=== PATIENT | female | born 1940 | race Caucasian/White ===

== ENCOUNTER 2018-05-25 12:44 | Outpatient (CLI) | payer MEDICARE, SELFPAY ==
--- NOTE | 2018-05-25 06:00 | DI.RAD_ITS ---
SYMPTOMS/DIAGNOSIS: LUMBAR MEDIAL BRANCH BLOCK PAIN CLINIC LUMBAR SPINE: Fluoroscopy Time: 18.2 sec Fluoroscopy was utilized by Dr. Martinez during the performance of a lumbar medial branch block. Please refer to the procedure report for complete details.
[2018-05-25 12:50] VITALS: BP 146/76; PULSE 80; RESP 16; TEMP 35.5; O2SAT 100
[2018-05-25] MEDS: Omnipaque 240 MG/ML 50 ML BTL IJ (13:17)
[2018-05-25] MEDS: Bupivacaine 0.5% Pres-Free 30 ML VIAL IJ (13:24)
[2018-05-25 13:38] VITALS: BP 134/75; PULSE 98; RESP 19; O2SAT 100
--- NOTE | 2018-06-06 15:07 | PDOC.PAIN_ITS ---
Pain Clinic Procedure Note Current Active Problems Problem Status Onset Spondylosis of lumbar region without myelopathy or radiculopathy Acute Lumbar/Sacral Medial Branch Blocks ISIDRO SIDHU has been [facility] for lumbar/sacral medial branch blocks. COMMENTS: Patient has had bilateral SI joint injections with some relief. She also had a trochanteric bursa injection. She says she is approximately 50% better. She still having right-sided low back pain. Patient was interviewed and the medical record reviewed. There were no medical , pharmacologic, radiographic or other structural contraindications to attempting fluoroscopically guided local anesthetic lumbar/sacral medial branch blocks. Risks and expected side effects as well as potential benefit of the procedure were reviewed and voiced concerns addressed. The printed consent form was signed and witnessed. Standard time-out procedure was performed. Patient was placed in the prone position on the fluoroscopy table and automated blood pressure cuff and pulse oximeter applied. The skin entry points for approaching the anatomic target points of the segmental medial branches of {right/ L3,4,5} were identified with anfluoroscopy and marked. Following thorough Chlorhexadine preparation of the skin and draping and 1% lidocaine infiltration of the skin entry points and subcutaneous tissues, a 22 gauge spinal needle was placed under fluoroscopic guidance down on to the target point for each respective segmental medial branch.Position was confirmed in A/P, oblique and lateral views with 0.25ml of omnipaque 240. At each point .5ml 0.5% Bupivacaine was injected. Vital signs were stable throughout the procedure and were as recorded in the docflowsheet by the nursing staff. Follow up plans and appointments were discussed and was instructed to keep careful note of how the usual pain was modified by these injections. Specifically was asked to keep a pain diary for the next 24 hours using a numeric pain scale of 0-10 and report these results at the follow-up visit. Post procedure instruction was given as documented in the nursing documentation and having met discharge criteria. Patient was discharged from the [facility]. Based on the medial branches blocked today, if the patient has adequate relief and we are able to proceed to radiofrequency ablation, the treatment should result in the denervation of the {right/ L4-5,L5-S1 FACET JOINTS}. We would expect to denervate a total of {2} facets during the radiofrequency ablation. COMMENTS: He went from 12/21-10/23. She will follow-up repeat 2% lidocaine mixed bacteria otherwise she will follow-up in the office for re-evaluation CC: Laura Gonzalez
--- NOTE | 2018-06-08 15:09 | PDOC.PAIN_ITS ---
Pain Clinic Procedure Note Current Active Problems Problem Status Onset Spondylosis of lumbar region without myelopathy or radiculopathy Acute Lumbar/Sacral Medial Branch Blocks ISIDRO SIDHU has been referred to the [facility] for lumbar/sacral medial branch blocks. COMMENTS: Patient had previous medial branch block with bupivacaine which lasted over 24 hours Patient was interviewed and the medical record reviewed. There were no medical , pharmacologic, radiographic or other structural contraindications to attempting fluoroscopically guided local anesthetic lumbar/sacral medial branch blocks. Risks and expected side effects as well as potential benefit of the procedure were reviewed and voiced concerns addressed. The printed consent form was signed and witnessed. Standard time-out procedure was performed. Patient was placed in the prone position on the fluoroscopy table and automated blood pressure cuff and pulse oximeter applied. The skin entry points for approaching the anatomic target points of the segmental medial branches of {right/L3, 4, 5} were identified with anfluoroscopy and marked. Following thorough Chlorhexadine preparation of the skin and draping and 1% lidocaine infiltration of the skin entry points and subcutaneous tissues, a 22 gauge spinal needle was placed under fluoroscopic guidance down on to the target point for each respective segmental medial branch.Position was confirmed in A/P, oblique and lateral views with 0.25ml of omnipaque 240. At each point .5ml 2% lidocaine was injected. Vital signs were stable throughout the procedure and were as recorded in the docflowsheet by the nursing staff. Follow up plans and appointments were discussed and was instructed to keep careful note of how the usual pain was modified by these injections. Specifically was asked to keep a pain diary for the next 24 hours using a numeric pain scale of 0-10 and report these results at the follow-up visit. Post procedure instruction was given as documented in the nursing documentation and having met discharge criteria. Patient was discharged from the [facility]. Based on the medial branches blocked today, if the patient has adequate relief and we are able to proceed to radiofrequency ablation, the treatment should result in the denervation of the {right L4-5, L5-S1 FACET JOINTS}. We would expect to denervate a total of {2} facets during the radiofrequency ablation. COMMENTS: Pain went from 4/10-2/10. She will follow-up for radiofrequency ablation if she criteria. CC: Laura Gonzalez
== END 2018-05-25 13:04 ==
PROVIDERS: PCP Family Medicine; Visit Provider Anesthesiology Pain Medicine
DX: M47.816 Spondylosis without myelopathy or radiculopathy, lumbar region (principal)
CPT/HCPCS: 64493; 64494; 64495; 72100; Q9967

== ENCOUNTER 2018-06-08 13:47 | Outpatient (CLI) | payer MEDICARE, SELFPAY ==
--- NOTE | 2018-06-08 06:00 | DI.RAD_ITS ---
SYMPTOM/DIAGNOSIS: LUMBAR SPONDYLOSIS PAIN CLINIC: Fluoroscopy Time: 13.6 secs Images submitted from the Pain Clinic demonstrate needle positioning over the region of the facet joints in right paramedian position at L3-4, L4-5 and L5- S1. Please see Dr. Martinez's report for further information.
[2018-06-08 14:20] VITALS: BP 145/79; PULSE 89; RESP 16; TEMP 35.8; O2SAT 100
[2018-06-08] MEDS: Omnipaque 240 MG/ML 50 ML BTL IJ (15:07)
[2018-06-08 15:08] VITALS: BP 165/81; PULSE 100; RESP 21; O2SAT 100
[2018-06-08] MEDS: Lidocaine 2% Pres-Free 5 ML VIAL IJ (15:08)
== END 2018-06-08 14:07 ==
PROVIDERS: PCP Family Medicine; Visit Provider Anesthesiology Pain Medicine
DX: M47.816 Spondylosis without myelopathy or radiculopathy, lumbar region (principal)
CPT/HCPCS: 64493; 64494; 64495; 72100; Q9967

== ENCOUNTER 2018-06-22 07:40 | Outpatient (CLI) | payer MEDICARE, SELFPAY ==
[2018-06-22 07:49] VITALS: BP 139/83; PULSE 84; RESP 20; TEMP 35.5; O2SAT 99
[2018-06-22] MEDS: Midazolam 2 MG/2 ML VIAL IVP ×2 (08:39→08:43)
[2018-06-22] MEDS: Lactated Ringers 1,000 ML 80 ML IV (08:40)
[2018-06-22] MEDS: fentaNYL 100 MCG/2 ML VIAL IVP ×2 (08:43→08:53)
[2018-06-22 09:07] VITALS: BP 152/88; PULSE 98; RESP 17; O2SAT 97
--- NOTE | 2018-06-22 09:10 | DI.RAD_ITS ---
SYMPTOMS/DIAGNOSIS: LUMBAR SPONDYLOSIS PAIN CLINIC LUMBAR SPINE: Fluoroscopy Time: 43.7 sec Fluoroscopy was utilized by Dr. Martinez during a lumbar spine injection. Please refer to the procedure report for complete details.
--- NOTE | 2018-06-22 09:19 | PDOC.PAIN_ITS ---
Pain Clinic Procedure Note Current Active Problems Problem Status Onset Spondylosis of lumbar region without myelopathy or radiculopathy Acute COOLED LUMBAR/SACRAL MEDIAL BRANCH RADIOFREQUENCY ISIDRO SIDHU has been referred to the [facility] for radiofrequency treatment of chronic axial back pain. ISIDRO has had long standing back pain thought to be facet joint generated and which has been refractory to other therapies. Local anesthetic medial branch blocks or intra-articular facet joint injections resulted in ISIDRO reporting reduction of the usual axial component of pain for at least the duration of the local anesthetic effect. COMMENTS: Patient had good relief from previous medial branch block x2 Patient was interviewed and the medical record reviewed. There were no medical , pharmacologic, radiographic or other structural contraindications to attempting fluoroscopically guided radiofrequency treatment. Risks and expected side effects as well as potential benefit of the procedure were reviewed and voiced concerns addressed. The printed consent form was signed and witnessed. Standard time-out procedure was performed. Patient was placed in the prone position on the fluoroscopy table and automated blood pressure cuff and pulse oximeter applied. The skin entry points for approaching the anatomic target points of the segmental medial branches of {right,L3, 4, 5} were identified with fluoroscopy and marked. Following thorough Chlorhexadine preparation of the skin and draping and 1% lidocaine infiltration of the skin entry points and subcutaneous tissues, a single 17 guage STRAIGHT 10 cm 4mm active tip radiofrequency cannula was placed under fluoroscopic guidance along or across the anatomic course of each respective segmental medial branch. Each placement was stimulated at 50Hz and les then 0.5V for medial branch sensory localization and the at 2Hz and up to 3 times the sensory voltage without any evidence of distal myotomal stimulation. 1cc of 1% ;idocaine was injected at each site. At each placement a continuous mode radiofrequency treatment was done at 90 degrees C for 90secs and then rotated 180degrees and then repeated. This radiofrequency treatment should result in the denervation of the {right/L4- 5, L5-S1 FACET JOINTS}.~ A total of {2} facets were expected to be denervated from today's treatment. Vital signs were stable throughout the procedure and were as recorded in the docflowsheet by the nursing staff. If given, dosages of intravenous drugs for anxiolysis and analgesia were documented in the Medication Administration Record (MAR). Follow up plans and appointments were discussed. Post procedure instruction was given as documented in the nursing documentation and having met discharge criteria, ISIDRO was discharged from the [facility]. COMMENTS: Versed 1mg and FENTANYL 50 micrograms given. Patient will f/u as needed. CC: Laura Gonzalez
== END 2018-06-22 08:00 ==
PROVIDERS: PCP Family Medicine; Visit Provider Anesthesiology Pain Medicine
DX: M47.816 Spondylosis without myelopathy or radiculopathy, lumbar region (principal)
CPT/HCPCS: 64635; 64636; 72100; J2250; J3010

== ENCOUNTER 2018-06-29 09:50 | Outpatient (CLI) | payer MEDICARE, SELFPAY ==
--- NOTE | 2018-06-29 09:44 | DI.RAD_ITS ---
SYMPTOM/DIAGNOSIS: RT HIP PAIN RIGHT HIP: The patient is status post THR. The prosthesis is in good position. Surrounding bone intact.
== END 2018-06-29 10:10 ==
PROVIDERS: PCP Family Medicine; Visit Provider Student in an Organized Health Care Education/Training Program
DX: M25.551 Pain in right hip (principal); Z96.641 Presence of right artificial hip joint; M70.61 Trochanteric bursitis, right hip; M53.3 Sacrococcygeal disorders, not elsewhere classified
CPT/HCPCS: 99213; 73502

== ENCOUNTER → 2018-08-10 09:56 | Outpatient (BNVA) | payer MEDICARE, SELFPAY | PROVIDERS: PCP Family Medicine; Referring Provider Family Medicine; Visit Provider Student in an Organized Health Care Education/Training Program | DX: M70.61 Trochanteric bursitis, right hip (principal); M53.3 Sacrococcygeal disorders, not elsewhere classified | CPT/HCPCS: 20610; 99213; J1040 ==

== ENCOUNTER 2018-09-14 12:16 | Outpatient (REF) | payer MEDICARE, SELFPAY ==
[2018-09-14 21:33] LABS: HCT 37.9 % (36.0-46.0); HGB 12.7 g/dL (12.0-15.5); Mean Corp. HGB Concentration 33.5 g/dL (32.0-36.0); Mean Corpuscular Hemoglobin 30.8 pg (27.0-33.0); Mean Corpuscular Volume 91.8 fL (80-95); Mean Platelet Volume 10.5 fL (8.0-11.0); Platelet Count 273 x1000/uL (130-400); RBC 4.13 m/cumm (4.00-5.20); RBC Distribution Width 13.2 % (11.7-14.6); White Blood Cell Count 6.18 k/cumm (4.4-10.8)
[2018-09-14 21:53] LABS: Iron 82 ug/dL (50-175)
[2018-09-14 22:21] LABS: Folate 13.8 ng/mL (8.6-20.0); TSH (W/Ref FT4) 1.86 uIU/mL (0.358-3.74)
[2018-09-14 22:23] LABS: Vitamin B12 > 2000 pg/mL (193-986)
== END 2018-09-14 12:36 ==
LOC: NCHCN 12:16
PROVIDERS: PCP Family Medicine; Visit Provider Family Medicine
DX: D50.9 Iron deficiency anemia, unspecified (principal); E53.8 Deficiency of other specified B group vitamins; R53.83 Other fatigue
CPT/HCPCS: 85027; 82607; 82746; 83540; 84443

== ENCOUNTER → 2018-10-12 10:00 | Outpatient (BNVA) | payer MEDICARE, SELFPAY | PROVIDERS: PCP Family Medicine; Referring Provider Family Medicine; Visit Provider Student in an Organized Health Care Education/Training Program | DX: M70.61 Trochanteric bursitis, right hip (principal); M53.3 Sacrococcygeal disorders, not elsewhere classified | CPT/HCPCS: 99213 ==

== ENCOUNTER 2018-10-18 13:42 | Outpatient (CLI) | payer MEDICARE, SELFPAY ==
[2018-10-18 13:46] VITALS: BP 151/80; PULSE 92; RESP 13; TEMP 36.7; O2SAT 99
[2018-10-18 14:10] VITALS: BP 138/77; PULSE 91; RESP 15; O2SAT 99
--- NOTE | 2018-10-18 14:10 | PDOC.PAIN ---
Pain Clinic Procedure Note Current Active Problems Problem Status Onset Sacroiliac joint dysfunction of right side Chronic INTRA-ARTICULAR SI JOINT INJECTION ISIDRO SIDHU has been referred to the [facility] for intra-articular SI joint injection. COMMENTS: She had this procedure in the past and had excellent relief. The pain has now returned. Her pre-procedure pain is 5/10 to the right lower back/buttock area. Patient was interviewed and the medical record reviewed. There were no medical, pharmacologic, radiographic or other structural contraindications to attempting fluoroscopically guided intra-articular SI joint injection. Risks and expected side effects as well as potential benefit of the procedure were reviewed and voiced concerns addressed. The printed consent form was signed and witnessed. Standard time-out procedure was performed. Patient was placed in the prone position on the fluoroscopy table and automated blood pressure cuff and pulse oximeter applied. The skin entry point for approaching right SI joint was identified under the most advantageous fluoroscopic view and marked. Following thorough Chlorhexadine preparation of the skin and draping and 1% lidocaine infiltration of the skin entry point and subcutaneous tissues, a 22 gauge spinal needle was placed under fluoroscopic guidance into right SI joint was identified under the most advantageous fluoroscopic view and marked. Following thorough Chlorhexadine preparation of the skin and draping and 1% lidocaine infiltration of the skin entry point and subcutaneous tissues, a 22 gauge spinal needle was placed under fluoroscopic guidance into the right SI joint. Intra-articular placement was confirmed by a clear arthrogram resulting from the injection of 0.25ml Omnipaque 240, 1ml 1% lidocaine, and 80mg Depomedrol were injected intra-articularily with an initial reproduction of a significant component of the usual pain. Vital signs were stable throughout the procedure and were as recorded in the docflowsheet by the nursing staff. If given, dosages of intravenous drugs for anxiolysis and analgesia were documented in MAR. Follow up plans and appointments were discussed with the patient. Post procedure instruction was given as documented in nursing documentation and having met discharge criteria, and was discharged from the [facility]. COMMENTS: Post-procedure pain score is 0/10. CC: Laura Gonzalez
--- NOTE | 2018-10-18 14:14 | DI.RAD_ITS ---
SYMPTOMS/DIAGNOSIS: SACROILIAC JOINT DYSFUNCTION C-ARM FLUOROSCOPY: Fluoroscopy Time: 24.9 sec Fluoroscopy was provided for guidance with pain clinic injection of the right SI joint. Please see procedure note for details.
[2018-10-18] MEDS: Omnipaque 240 MG/ML 50 ML BTL IJ (14:20)
[2018-10-18] MEDS: methylPREDNISolone ACETATE 80 MG/ML VIAL IJ (14:20)
== END 2018-10-18 14:02 ==
PROVIDERS: PCP Family Medicine; Visit Provider Preventive Medicine Occupational Medicine
DX: M53.3 Sacrococcygeal disorders, not elsewhere classified (principal); G89.29 Other chronic pain
CPT/HCPCS: 27096; 72200; J1040; Q9967

== ENCOUNTER 2019-10-30 08:14 | Emergency (ER) | payer MEDICARE, SELFPAY ==
[2019-10-30] VITALS (25 sets, daily range): BP systolic 94–125; BP diastolic 54–85; PULSE 88–111; RESP 14–24; TEMP 36.7–37.2; O2SAT 97–100
--- NOTE | 2019-10-30 08:30 | DI.RAD_ITS ---
EXAM: XR CHEST 2V PA LATERAL CLINICAL HISTORY: cough. TECHNIQUE: 2D digital imaging was performed. COMPARISON: CHEST 2 VIEWS PA,LAT from 12/04/2017 FINDINGS: LUNGS: Clear. No pleural abnormality seen. HEART: Normal. MEDIASTINUM: Normal. OTHER FINDINGS:Hyperinflated lungs with flattened diaphragms suggesting underlying COPD. BONE:Normal. IMPRESSION: No acute pulmonary findings.
--- NOTE | 2019-10-30 08:36 | W.ED.GENAD ---
Discharge Plan Disposition Patient Disposition: HOME Condition: Stable Discharge Details Chief Complaint: RespSymp Clinical Impression: Cough, Vertigo, Weakness generalized, Hematuria Primary Care Provider: Laura Gonzalez ED Provider: Jocelyn Joyner Home Meds and New Rx's Prescriptions: New meclizine 25 mg tablet 25 mg PO BID PRN (Reason: dizziness) Qty: 8 RF: 0 Continued levothyroxine 50 MCG tablet 75 mcg PO DAILY RF: 0 Excedrin Extra Strength 1 EACH tablet 1 ea PO PRN PRN (Reason: Headache) RF: 0 cyproheptadine 4 MG tablet 2 mg PO HS RF: 0 betamethasone dipropionate 15 GM ointment 15 gm Topical HS twice weekly Qty: 15 RF: 4 cholecalciferol (vitamin D3) 1,000 UNIT capsule 1,000 unit PO DAILY RF: 0 Slow Release Iron 142 MG tablet extended release 142 mg PO DAILY RF: 0 cyclobenzaprine 10 mg Tablet 5 mg PO PRNRF: 0 Discharge Instructions Instructions: Meclizine (By mouth), Vertigo (ED), Hematuria (ED), Weakness (ED), Acute Cough (ED) Additional Instructions: Please return immediately to the emergency department if you develop any new or worsening symptoms, if your condition does not improve as expected, or if you become otherwise concerned. It is extremely important that you call soon as possible to make an appointment to be seen in follow-up for this visit by your primary care doctor. Referrals: Laura Gonzalez [Primary Care Provider] - Discharge Data Discharge Date/Time-TO BE ENTERED AT DEPARTURE: 10/30/19 12:44 Medical Decision Making Mirian Ward is a 79-year-old woman with a history of hypothyroidism, vertigo, GERD presenting to the emergency department with cough, generalized weakness, and generalized body aches. On exam patient is elderly and somewhat frail appearing but is acutely nontoxic. Patient tachycardic at triage, not tachycardic during my encounter. Lungs are clear to auscultation. Nonfocal neurologic exam. Patient stating repeatedly that she has had exactly similar vertigo multiple times in the past, and has a tendency to have vertigo when she is otherwise ill. Concern for pneumonia, influenza, dehydration, metabolic/electrolyte derangement. Doubt ACS. Exam/history at this time is not consistent with stroke, meningitis, or other acute emergent intracranial process, sepsis, pulmonary embolism. Plan for EKG, chest x-ray, screening labs, IV fluid hydration, meclizine. Will monitor and reassess. Labs reviewed, white count 16. Influenza negative. Anion gap 12. Troponin negative.. Chest x-ray negative. Suspect viral respiratory infection at this time. Patient states that she feels much better after IV fluid and would like to go home. I explained pending troponin, and she agrees to stay for troponin testing. will continue to monitor. Second troponin negative. Patient repeatedly requesting discharge home states that her vertigo has resolved and she feels much less weak. Repeat vital signs show SBP 95, 98. Given patient's report of symptoms over the past few days and borderline blood pressure at this time, I discussed with patient that I was concerned that her condition could decline rapidly. I stated that I thought it was likely in her best interest to be admitted for further IV fluids and continued evaluation. I discussed with her the risks of leaving at this time, including and permanent disability. Patient has decision-making capacity and capacity for informed refusal. She states repeatedly that she feels very well and essentially at her baseline, understands the risks, and would like to go home to care for her . I did discuss with her having more assistance from home health to care for her . She is amenable to discussing this possibility with care management. Patient was placed on care management list for follow-up. I had a lengthy discussion with Patient regarding her results today including hematuria, return to emergency department precautions, that she may return to the emergency department anytime if she changes her mind, home care, and importance of outpatient follow-up for this visit and also for hematuria. Pt verbalizes understanding of the plan and is amenable. Patient discharged to home with clear plan for outpatient follow-up. All questions were answered. Disposition decision was made weighing the risks and benefits of hospitalization versus outpatient treatment, the risk for further decompensation, and the patient's wishes. Medical Records Medical records reviewed: Yes I reviewed the patient's medical records. Imaging Data Radiologic Study: Attestation: I personally reviewed and interpreted this imaging study as follows: Radiologist's impression: EXAM: XR CHEST 2V PA LATERAL CLINICAL HISTORY: cough. TECHNIQUE: 2D digital imaging was performed. COMPARISON: CHEST 2 VIEWS PA,LAT from 12/04/2017 FINDINGS: LUNGS: Clear. No pleural abnormality seen. HEART: Normal. MEDIASTINUM: Normal. OTHER FINDINGS:Hyperinflated lungs with flattened diaphragms suggesting underlying COPD. BONE:Normal. IMPRESSION: No acute pulmonary findings. Lab Data Lab results reviewed: Yes I reviewed the patient's lab results. Labs: 10/30/19 08:51 Nasopharynx Influenza Types A,B Antigen - Final Laboratory Tests Range/Units 10/30/19 10/30/19 10/30/19 08:45 08:45 09:50 WBC (4.4-10.8) k/cumm 16.62 H RBC (4.00-5.20) m/cumm 4.24 Hgb (12.0-15.5) g/dL 13.1 Hct (36.0-46.0) % 38.3 MCV (80-95) fL 90.3 MCH (27.0-33.0) pg 30.9 MCHC (32.0-36.0) g/dL 34.2 RDW (11.7-14.6) % 12.7 Plt Count (130-400) x1000/uL 270 MPV (8.0-11.0) fL 10.3 Immature Gran % % 0.2 Neutrophils % 87.0 Lymphocytes % 6.5 Monocytes % 6.2 Eosinophils % 0.0 Basophils % 0.1 Absolute Neutrophils (1.2-6.7) k/cumm 14.46 H Absolute Lymphocytes (1.2-3.4) k/cumm 1.08 L Absolute Monocytes (0.11-0.7) k/cumm 1.03 H Absolute Eosinophils (0.0-0.7) k/cumm 0.00 Absolute Basophils (0.0-0.2) k/cumm 0.02 Sodium (136-145) mmol/L 138 Potassium (3.5-5.1) mmol/L 3.6 Chloride (98-107) mmol/L 100 Carbon Dioxide (21.0-32.0) mmol/L 25.8 Anion Gap (3-11) mmol/L 12.2 H BUN (7-18) mg/dL 15 Creatinine (0.55-1.02) mg/dL 0.82 Estimated GFR/1.73 m2 (mL/min/1.73m2) >= 60.00 Glucose (74-106) mg/dL 134 H Calcium (8.5-10.1) mg/dL 8.7 Total Bilirubin (0.2-1.0) mg/dL 0.7 AST (15-37) U/L 22 ALT (14-59) U/L 21 Alkaline Phosphatase (46-116) U/L 80 Troponin I (<0.06) ng/Ml < 0.05 Total Protein (6.4-8.2) g/dL 7.6 Albumin (3.4-5.0) g/dL 4.0 TSH (0.36-3.74) uIU/mL 0.86 Urine Color (Yellow) Yellow Urine Clarity (Clear) Clear Urine pH (5-8) 7.5 Ur Specific [place] (1.005-1.025) 1.020 Urine Protein (Negative) mg/dL Negative Urine Ketones (Negative) mg/dL Negative Urine Blood (Negative) Small H Urine Nitrite (Negative) Negative Urine Bilirubin (Negative) Negative Urine Urobilinogen (Up TO 0.2) EU/dL 0.2 Ur Leukocyte Esterase (Negative) Negative Urine RBC (0-2) HPF 20-50 H Urine WBC (0-5) HPF 0-2 Ur Epithelial Cells (Negative) HPF Rare Urine Crystals (Negative) HPF Negative Urine Bacteria (Negative) HPF Rare Urine Casts (Negative) LPF Negative Urine Mucus (Negative) Trace Ur Culture Indicated? No Urine Glucose (Negative) mg/dL Negative Range/Units 10/30/19 11:40 WBC (4.4-10.8) k/cumm RBC (4.00-5.20) m/cumm Hgb (12.0-15.5) g/dL Hct (36.0-46.0) % MCV (80-95) fL MCH (27.0-33.0) pg MCHC (32.0-36.0) g/dL RDW (11.7-14.6) % Plt Count (130-400) x1000/uL MPV (8.0-11.0) fL Immature Gran % % Neutrophils % Lymphocytes % Monocytes % Eosinophils % Basophils % Absolute Neutrophils (1.2-6.7) k/cumm Absolute Lymphocytes (1.2-3.4) k/cumm Absolute Monocytes (0.11-0.7) k/cumm Absolute Eosinophils (0.0-0.7) k/cumm Absolute Basophils (0.0-0.2) k/cumm Sodium (136-145) mmol/L Potassium (3.5-5.1) mmol/L Chloride (98-107) mmol/L Carbon Dioxide (21.0-32.0) mmol/L Anion Gap (3-11) mmol/L BUN (7-18) mg/dL Creatinine (0.55-1.02) mg/dL Estimated GFR/1.73 m2 (mL/min/1.73m2) Glucose (74-106) mg/dL Calcium (8.5-10.1) mg/dL Total Bilirubin (0.2-1.0) mg/dL AST (15-37) U/L ALT (14-59) U/L Alkaline Phosphatase (46-116) U/L Troponin I (<0.06) ng/Ml < 0.05 Total Protein (6.4-8.2) g/dL Albumin (3.4-5.0) g/dL TSH (0.36-3.74) uIU/mL Urine Color (Yellow) Urine Clarity (Clear) Urine pH (5-8) Ur Specific [place] (1.005-1.025) Urine Protein (Negative) mg/dL Urine Ketones (Negative) mg/dL Urine Blood (Negative) Urine Nitrite (Negative) Urine Bilirubin (Negative) Urine Urobilinogen (Up TO 0.2) EU/dL Ur Leukocyte Esterase (Negative) Urine RBC (0-2) HPF Urine WBC (0-5) HPF Ur Epithelial Cells (Negative) HPF Urine Crystals (Negative) HPF Urine Bacteria (Negative) HPF Urine Casts (Negative) LPF Urine Mucus (Negative) Ur Culture Indicated? Urine Glucose (Negative) mg/dL ECG Data Attestation: I personally reviewed and interpreted this ECG (s) as follows: Interpretation: EKG shows sinus rhythm at 97 with first-degree block, normal axis, nonspecific ST changes, no STEMI, nondiagnostic EKG HPI General Mode of arrival: EMS. Date/Time Provider Initiated Documentation: 10/30/19 08:22. Limitations to Documentation: no limitations. Information obtained by: patient, RN notes reviewed and old records reviewed. HPI Narrative: Mirian Ward is a 79-year-old woman with a history of hypothyroidism, vertigo, GERD presenting to the emergency department with cough, generalized weakness. Patient reports that approximately 1 week ago she began to feel somewhat generally unwell, with cough and body aches. Patient reports that last night she felt that she needed to get out of bed to go to the bathroom, but felt too weak to go to the bathroom. She had her daughter give her an adult diaper to get her through the night. Patient reports that this morning she has had dry heaves, continued generalized weakness, and persistent cough. Patient reports that she has felt lightheaded over the past few days, and also has had intermittent vertigo. Patient reports that she has a history of vertigo and has had many similar episodes of vertigo in the past. She reports last episode episode was a few months ago. She denies any pain, fever, rash, shortness of breath, numbness, focal weakness, vomiting, diarrhea. No recent travel. Decreased appetite but reports that she has been drinking fluids well. Related Data Home Medications Medication Instructions Recorded Confirmed Excedrin Extra Strength 1 ea PO PRN PRN 11/17/13 10/30/19 levothyroxine 75 mcg PO DAILY tab-cap 11/17/13 10/30/19 cyproheptadine 2 mg PO HS 02/26/16 10/30/19 betamethasone dipropionate 15 gm TOPICAL HS twice weekly #15 12/27/17 10/30/19 script Slow Release Iron 142 mg PO DAILY 04/27/18 10/30/19 cholecalciferol (vitamin D3) 1,000 unit PO DAILY 04/27/18 10/30/19 cyclobenzaprine 5 mg PO PRN 10/30/19 meclizine 25 mg PO BID PRN #8 tab 10/30/19 Previous Rx's Medication Instructions Recorded betamethasone dipropionate 15 gm TOPICAL HS twice weekly #15 12/27/17 script meclizine 25 mg PO BID PRN #8 tab 10/30/19 Allergies Allergy/AdvReac Type Severity Reaction Status Date / Time celecoxib [From Celebrex] Allergy Severe Skin Rash Unverified 10/30/19 13:47 meperidine HCl [From Demerol] Allergy Unverified 10/30/19 13:47 morphine Allergy Unverified 10/30/19 13:47 Penicillins Allergy Unverified 10/30/19 13:47 tramadol AdvReac Severe Nausea Unverified 10/30/19 13:47 topiramate [From Topamax] AdvReac Intermediate Nausea Unverified 10/30/19 13:47 General Stated Complaint: Dizzy/Sync EDDA: 3 Review of Systems Narrative: Constitutional: denies fevers reports generalized weakness Eyes: denies eye pain ENT: denies ear pain, tinnitus, hearing changes, dental pain, sore throat Cardiovascular: denies chest pain Respiratory: denies SOB, reports cough GI: denies abdominal pain, vomiting, diarrhea : denies flank pain MSK: denies back pain, neck pain, reports generalized arthralgias/myalgias Skin: denies rash Neuro: denies headaches, numbness, focal weakness, reports intermittent vertigo PFSH Medical History GERD (gastroesophageal reflux disease) Glaucoma Hypothyroid Migraine Seborrheic keratosis Spondylosis of lumbar region without myelopathy or radiculopathy (Acute) Social History Smoking/Tobacco Use Status: Never Drug use: Never Do you feel safe in your relationship?: Yes Exam Narrative Exam Narrative: Constitutional: Elderly and somewhat frail frail but well and [id number], pleasant, conversing normally HENT: head atraumatic/normocephalic/normal inspection, mucous membranes moist, TMs and canals normal bilaterally Eyes: conjunctiva normal, sclera normal, pupils 3mm b/l, extraocular movements intact without nystagmus Neck: no stridor, normal ROM, trachea midline Chest: normal inspection Resp: normal work of breathing, LCTAB Cardio: normal rate, normal rhythm, no murmur appreciated GI: abdomen soft, non-tender, non-distended Back: normal inspection, no rash Skin: warm, dry, normal color, no rash Neuro: alert, not altered, cranial nerves II through XII intact, motor 5-5 throughout, normal tone Ext: no edema, moving all extremities equally Psych: normal mood, normal affect, normal behavior Course Vital Signs Vital signs: Vital Signs Temperature 36.8 C 10/30/19 08:21 Pulse 106 H 10/30/19 08:21 Respiratory Rate 16 10/30/19 08:21 Blood Pressure 114/85 10/30/19 08:21 Pulse Oximetry 97 10/30/19 08:21 Temperature 36.8 C 10/30/19 08:21 Temperature Source Skin 10/30/19 08:21 Pulse 106 H 10/30/19 08:21 Respiratory Rate 16 10/30/19 08:21 Respiratory Effort Non-Labored 10/30/19 08:28 Respiratory Depth Normal 10/30/19 08:28 Blood Pressure 114/85 10/30/19 08:21 Blood Pressure Position Sitting 10/30/19 08:21 Pulse Oximetry 97 10/30/19 08:21 Oxygen Delivery Method Room Air 10/30/19 08:21 Oxygen Flow Rate 0 10/30/19 08:21 Pain Level 0 10/30/19 08:21
[2019-10-30] MEDS: Normal Saline 1,000 ML 1000 ML IV (08:54)
[2019-10-30 09:01] LABS: Abs Immature Grans 0.04 k/cumm (0.0-0.09); Absolute Basophil Count 0.02 k/cumm (0.0-0.2); Absolute Lymphocyte Count 1.08 k/cumm (1.2-3.4); Absolute Monocyte Count 1.03 k/cumm (0.11-0.7); Basophils % 0.1; HCT 38.3 % (36.0-46.0); HGB 13.1 g/dL (12.0-15.5); Immature Grans % 0.2 %; Lymphocytes % 6.5; Mean Corp. HGB Concentration 34.2 g/dL (32.0-36.0); Mean Corpuscular Hemoglobin 30.9 pg (27.0-33.0); Mean Corpuscular Volume 90.3 fL (80-95); Mean Platelet Volume 10.3 fL (8.0-11.0); Monocytes % 6.2; Platelet Count 270 x1000/uL (130-400); RBC 4.24 m/cumm (4.00-5.20); RBC Distribution Width 12.7 % (11.7-14.6); White Blood Cell Count 16.62 k/cumm (4.4-10.8)
[2019-10-30 09:02] LABS: Absolute Neutrophil Count 14.46 k/cumm (1.2-6.7)
[2019-10-30] MEDS: Meclizine 25 MG TAB PO (09:17)
[2019-10-30 09:30] LABS: ALT 21 U/L (14-59); AST 22 U/L (15-37); Alkaline Phosphatase 80 U/L (46-116); Anion Gap 12.2 mmol/L (3-11); BUN 15 mg/dL (7-18); Bilirubin, Total 0.7 mg/dL (0.2-1.0); CO2 25.8 mmol/L (21.0-32.0); CREATININE 0.82 mg/dL (0.55-1.02); Calcium 8.7 mg/dL (8.5-10.1); Chloride 100 mmol/L (98-107); Glucose 134 mg/dL (74-106); Potassium 3.6 mmol/L (3.5-5.1); Sodium 138 mmol/L (136-145); TSH (W/Ref FT4) 0.86 uIU/mL (0.36-3.74); Total Protein 7.6 g/dL (6.4-8.2)
[2019-10-30 09:34] LABS: Troponin I < 0.05 ng/Ml (<0.06)
[2019-10-30 10:02] LABS: Bilirubin Negative (Negative); Blood Small (Negative); Clarity Clear (Clear); Glucose Negative (Negative); Ketones Negative (Negative); Leukocyte Esterase Negative (Negative); Nitrite Negative (Negative); Urobilinogen 0.2 EU/dL (Up TO 0.2); pH 7.5 (5-8)
[2019-10-30 10:13] LABS: WBC 0-2 HPF (0-5)
[2019-10-30 10:14] LABS: Bacteria Rare HPF (Negative); Casts Negative LPF (Negative); Crystals Negative HPF (Negative); Epithelial Cells Rare HPF (Negative); Mucus Trace (Negative); RBC 20-50 HPF (0-2)
[2019-10-30 10:15] LABS: C & S Indicated? No
[2019-10-30 12:22] LABS: Troponin I < 0.05 ng/Ml (<0.06)
--- NOTE | 2019-10-30 16:04 | PDOC.ERCMPRO ---
- If Service Date Differs Date of service: 10/30/19 Time of Service: 16:04 Care Management Progress Note CM telephones Mirian at the request of ED provider to explore options for in-home assistance in caring for her and daughter. Mirian states she will be fine once she is feeling better. She goes on to say her daughter is developmentally disabled but is a great help to her, as she vacuums and empties the personalization specialist. Mirian declines help at this time and is provided my name and contact information in case she changes her mind in the future.
--- NOTE | 2019-10-30 18:15 | NUR.NOTE ---
Nursing Note: Referral faxed to PCP for follow up. Referral given to Care Management at the request of the physician about the patient's . Question of more services. Ca Hi.
--- NOTE | 2019-11-05 08:59 | NUR.NOTE ---
Nursing Note: Patient called this morning stating she had a question about a medication that Dr. Stark had prescribed for her. I put her to the switchboard so that she could speak with the telephone physician marketing database consultant. She understood this. Ca Hi.
== END 2019-10-30 12:44 | disposition home or self-care (01) ==
PROVIDERS: Emergency Provider Student in an Organized Health Care Education/Training Program; PCP Family Medicine
DX: R05 Cough (principal); R42 Dizziness and giddiness; R53.1 Weakness; R31.9 Hematuria, unspecified
CPT/HCPCS: 36415; 80053; 87449; 93005; 96360; 99285; 71046; 81003; 81015; 84443; 84484; 85025; 93010

== ENCOUNTER 2020-02-08 16:43 | Outpatient (REF) | payer MEDICARE, SELFPAY ==
[2020-02-08 21:07] LABS: ALT 30 U/L (14-59); AST 24 U/L (15-37); Albumin 4.3 g/dL (3.4-5.0); Alkaline Phosphatase 83 U/L (46-116); Anion Gap 5.3 mmol/L (3-11); BUN 15 mg/dL (7-18); Bilirubin, Total 0.4 mg/dL (0.2-1.0); CO2 29.7 mmol/L (21.0-32.0); CREATININE 0.89 mg/dL (0.55-1.02); Calcium 9.3 mg/dL (8.5-10.1); Calculated LDL 154 mg/dL (<100); Chloride 101 mmol/L (98-107); Cholesterol 231 mg/dL (<200); Glucose 98 mg/dL (74-106); HDL Cholesterol 65 mg/dL (40-60); Potassium 4.3 mmol/L (3.5-5.1); Sodium 136 mmol/L (136-145); TSH 1.37 uIU/mL (0.36-3.74); Total Protein 7.7 g/dL (6.4-8.2); Triglyceride 63 mg/dL (<150)
== END 2020-02-08 17:03 ==
LOC: NCHCN 16:43
PROVIDERS: PCP Family Medicine; Visit Provider Family Medicine
DX: E03.9 Hypothyroidism, unspecified (principal)
CPT/HCPCS: 80053; 80061; 84439; 84443

== ENCOUNTER 2020-03-18 15:35 | Outpatient (CLI) | payer MEDICARE, SELFPAY ==
--- NOTE | 2020-03-18 13:40 | DI.RAD_ITS ---
EXAM: XR WRIST RT COMPLETE CLINICAL HISTORY: R thumb weakness/deformity TECHNIQUE: 2D digital imaging was performed. COMPARISON: No exams were available for comparison FINDINGS: There are severe degenerative changes at the 1st carpometacarpal joint. There is prominent spurring as well as deformity of the trapezium and base of the 1st metacarpal. There is lateral subluxation at the 1st CMC joint. There is hyper extension at the 1st metacarpophalangeal joint. 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
== END 2020-03-18 15:55 ==
PROVIDERS: PCP Family Medicine; Visit Provider Physician Assistant
DX: M18.11 Unilateral primary osteoarthritis of first carpometacarpal joint, right hand; M65.311 Trigger thumb, right thumb; R29.898 Other symptoms and signs involving the musculoskeletal system
CPT/HCPCS: 99214; 73110

== ENCOUNTER 2020-09-27 12:26 | Outpatient (REF) | payer OTHER, SELFPAY ==
[2020-09-28 16:41] LABS: COVID-19 RT-PCR UVMMC Result Negative (Negative)
== END 2020-09-27 12:46 ==
LOC: NCHCN 12:26
PROVIDERS: PCP Family Medicine; Visit Provider Family Medicine
DX: Z11.52 Encounter for screening for COVID-19 (principal)
CPT/HCPCS: U0003

== ENCOUNTER 2020-12-09 10:58 | Day surgery (SDC) | payer OTHER, SELFPAY ==
[2020-12-09 11:09] VITALS: BP 152/84; PULSE 99; RESP 16; TEMP 36.2; O2SAT 100
[2020-12-09] MEDS: Tropicam./Phenyleph. (1/2.5%) 5 ML BTL OS ×3 (11:30→11:45)
[2020-12-09] MEDS: Tetracaine 0.5% 4 ML BTL OS (12:33)
[2020-12-09] MEDS: Povidone-Iodine Ophth 30 ML BTL (12:33)
[2020-12-09] MEDS: Lidocaine 2% Jelly 6 ML SYR (12:33)
[2020-12-09] MEDS: Balanced Salt Soln.-PLUS 500 ML BAG (12:37)
[2020-12-09] MEDS: Lidocaine 1% Pres-Free 5 ML VIAL (12:38)
[2020-12-09] MEDS: Duovisc Viscoelastic System EACH 1 EACH (12:39)
--- NOTE | 2020-12-09 13:01 | W.PM.DSUDISC ---
Discharge Plan Disposition Patient Disposition: HOME Condition: Good Discharge Details Reason For Visit: CATARACT OS Attending Provider: Leonel Deutsch Primary Care Provider: Laura Gonzalez Home Meds and New Rx's Prescriptions: No Action levothyroxine 50 MCG tablet 75 mcg PO DAILY RF: 0 Excedrin Extra Strength 1 EACH tablet 1 ea PO PRN PRN (Reason: Headache) RF: 0 cyproheptadine 4 MG tablet 2 mg PO HS RF: 0 betamethasone dipropionate 15 GM ointment 15 gm Topical HS twice weekly Qty: 15 RF: 4 cholecalciferol (vitamin D3) 1,000 UNIT capsule 1,000 unit PO DAILY RF: 0 Slow Release Iron 142 MG tablet extended release 142 mg PO DAILY RF: 0 diclofenac sodium 25 mg tablet,delayed release (DR/EC) 25 mg PO BID RF: 0 cyclobenzaprine 10 mg Tablet 5 mg PO DAILY RF: 0 Discharge Instructions Stand Alone Forms: Post-op Topical Cataract, Daniela Timmons (DSU) Discharge Orders Discharge Orders: Discharge Order (Routine); Ordered 12/09/20 Ordered By: Leonel Deutsch DS: Diagnosis Discharge Diagnosis (1) Cortical cataract of left eye: Status: Resolved (2) Nuclear sclerotic cataract of left eye: Status: Resolved (3) Posterior subcapsular age-related cataract of left eye: Status: Resolved
--- NOTE | 2020-12-09 13:02 | ROE_ITS ---
Date of service: 12/09/20 Time of Service: 13:02 Operative Note Operative Note DATE OF PROCEDURE: 12/09/20 PRE-OP DIAGNOSIS: Nuclear/cortical/posterior subcapsular cataract, left eye POST-OP DIAGNOSIS: same PROCEDURE: Cataract extraction using phacoemulsification with intraocular lens implant, left eye SURGEON: Leonel Deutsch ANESTHESIA TYPE: Local By Surgeon and MAC Refer to Anesthesia Record PATHOLOGY: none sent COMPLICATIONS: None Patient was transported to: same day Patient's condition: stable Implants: Gaetano and Ga[employer] Vision / [employer] Tecnis ZCB00 Indications: Progressive decreased vision due to cataract, left eye Procedure Description: CATARACT SURGERY OPERATIVE REPORT PREOPERATIVE DIAGNOSIS: Nuclear/cortical/posterior subcapsular cataract, left eye POSTOPERATIVE DIAGNOSIS: Same OPERATION: Cataract extraction using phacoemulsification with posterior chamber intraocular lens implant, left eye. IOL: IOL Fisher Trap/Model: [employer] Vision / YARELY Tecnis ZCB00 IOL Power: + 23.0 diopters IOL Serial Number: [id number] Optic Diameter: 6.0mm Haptic/Overall Diameter: 13.0mm PHACO INFO: Fausto VOIP Depoturion Vision System with OZil and Active Fluidics Cumulative Dispersed Energy (CDE): 16.43 seconds SURGEON: Leonel Deutsch MD, EFRAIN ANESTHESIA: Monitored Anesthesia Care (MAC), with local sub-tenon's anesthetic infiltration COMPLICATIONS: None SPECIMENS: None INDICATIONS FOR PROCEDURE: The patient is a 80-year-old lady with history of diminished visual acuity in her left eye secondary to the development of significant nuclear/cortical/posterior subcapsular cataract in the left eye. The option of cataract surgery was offered to the patient and she felt she was symptomatic enough that she wished to proceed. PROCEDURE: The correct surgical eye was identified and marked as the left eye and the pupil was dilated in the preoperative area using mydriatics and cycloplegics. The dilated pupil size was 6.5 mm. She elected to proceed without oral sedation. The patient was brought to the operating room where cardiopulmonary monitoring was instituted and surgical time-out was performed, confirming the correct operative eye and IOL power. Topical anesthesia was administered and ophthalmic povidone-iodine 5% was instilled into the conjunctival fornices. Lidocaine gel was applied to the cornea and the giovana-ocular area was prepped with Betadine 10% solution and draped in the usual sterile fashion for intraocular surgery, including an aperture drape. A Tegaderm transparent film dressing was cut in half and used to cover the lashes and lid margins. Care was taken to sequester the lashes and lid margins under the Tegaderm dressing. A lid speculum was placed between the lids of the operative eye and the Benoit-Abbie operating microscope was maneuvered into position. Justus scissors were then used to make a conjunctival buttonhole approximately 6mm posterior to the limbus in the inferonasal quadrant. Blunt dissection was carried out to expose bare sclera, and a blunt-tipped sub-tenon?s anesthesia cannula was introduced and passed posteriorly along the globe where non- preserved plain lidocaine was injected into posterior sub-Tenon?s space. A sideport knife was used to make a paracentesis port superior/superiortemporally. Intraocular phenylephrine/lidocaine was injected into the anterior chamber. The anterior chamber was then filled with viscoelastic. A 2.4mm keratome knife was used to create a half-thickness groove at the limbus and then to construct a three-plane near-clear corneal tunnel extending 2.0mm into clear cornea in the temporal position. . A flap was raised on the anterior capsule and capsulorhexis forceps were used to complete a continuous curvilinear capsulorhexis of 5.0 mm. Balanced salt solution was then used to perform cortical cleaving hydrodissection and nuclear hydrodelineation until the lens could be freely rotated within the capsular bag. The lens nucleus was then disassembled and removed within the capsular bag and iris plane using phacoemulsification. Residual cortical material was removed using the 45-degree angled silicone I/A tip with 0.3mm port. The posterior capsule was carefully polished to remove as much residual lens epithelial cells as safely possible. The capsular bag was then inflated and the anterior chamber deepened with viscoelastic. The lens implant described above was inserted into the capsular bag using the YARELY [place] Injector. A Kuglen hook was used to dial the IOL into position. Residual viscoelastic was then removed first from posterior to the IOL, then from the anterior chamber using the I/A handpiece. The lens implant was noted to center nicely within the capsular bag. The incisions were stromally hydrated, and the anterior chamber was reformed using BSS. Then 0.5cc of moxifloxacin 1.0mg/ml were injected into the capsular bag and anterior chamber. The incisions were checked with a Weck spear and found to be secure. Several drops of ophthalmic povidone-iodine 5% were then applied to the eye followed by two drops of Imprimis combination prednisolone/moxifloxacin/nepafenac solution. The drapes were removed and a clear plastic protective eye shield was placed over the eye. The patient was then returned to [facility] in stable condition.
== END 2020-12-09 13:40 | disposition home or self-care (01) ==
PROVIDERS: PCP Family Medicine; Visit Provider Ophthalmology
PROC: (CPT 66984; principal; 2020-12-09 14:30)
DX: H25.12 Age-related nuclear cataract, left eye (principal); H25.012 Cortical age-related cataract, left eye; H25.042 Posterior subcapsular polar age-related cataract, left eye
CPT/HCPCS: 66984; V2632

== ENCOUNTER 2021-01-03 07:26 | Day surgery (SDC) | payer OTHER, SELFPAY ==
[2021-01-03 07:52] VITALS: BP 157/85; PULSE 91; RESP 16; TEMP 36.4; O2SAT 100
[2021-01-03] MEDS: Tetracaine 0.5% 4 ML BTL OD (09:05)
[2021-01-03] MEDS: Balanced Salt Soln.-PLUS 500 ML BAG (09:07)
[2021-01-03] MEDS: Duovisc Viscoelastic System EACH 1 EACH (09:08)
[2021-01-03] MEDS: Lidocaine 2% Jelly 6 ML SYR (09:09)
[2021-01-03] MEDS: Lidocaine 1% Pres-Free 5 ML VIAL (09:09)
[2021-01-03] MEDS: Povidone-Iodine Ophth 30 ML BTL (09:10)
--- NOTE | 2021-01-03 09:25 | W.PM.DSUDISC ---
Discharge Plan Disposition Patient Disposition: HOME Condition: Good Discharge Details Attending Provider: Leonel Deutsch Primary Care Provider: Laura Gonzalez Home Meds and New Rx's Prescriptions: No Action levothyroxine 50 MCG tablet 75 mcg PO DAILY RF: 0 Excedrin Extra Strength 1 EACH tablet 1 ea PO PRN PRN (Reason: Headache) RF: 0 cyproheptadine 4 MG tablet 2 mg PO HS RF: 0 betamethasone dipropionate 15 GM ointment 15 gm Topical HS twice weekly Qty: 15 RF: 4 cholecalciferol (vitamin D3) 1,000 UNIT capsule 1,000 unit PO DAILY RF: 0 Slow Release Iron 142 MG tablet extended release 142 mg PO DAILY RF: 0 diclofenac sodium 25 mg tablet,delayed release (DR/EC) 25 mg PO BID RF: 0 cyclobenzaprine 10 mg Tablet 5 mg PO DAILY RF: 0 Discharge Instructions Stand Alone Forms: Post-op Topical Cataract, Press Ganey (DSU) Discharge Orders Discharge Orders: Discharge Order (Routine); Ordered 01/03/21 Ordered By: Leonel Deutsch DS: Diagnosis Discharge Diagnosis (1) Cortical cataract of right eye: Status: Resolved (2) Nuclear sclerotic cataract of right eye: Status: Resolved (3) Posterior subcapsular age-related cataract, right eye: Status: Resolved
--- NOTE | 2021-01-03 09:26 | W.PM.OP ---
Date of service: 01/03/21 Time of Service: 09:26 Operative Note Operative Note DATE OF PROCEDURE: 01/03/21 PRE-OP DIAGNOSIS: Nuclear/cortical/posterior subcapsular cataract, right eye POST-OP DIAGNOSIS: same PROCEDURE: Cataract extraction using phacoemulsification with intraocular lens implant, right eye SURGEON: Leonel Deutsch ANESTHESIA TYPE: Local By Surgeon and MAC Refer to Anesthesia Record ESTIMATED BLOOD LOSS: 0 PATHOLOGY: none sent COMPLICATIONS: None Patient was transported to: same day Patient's condition: stable Implants: Gaetano [employer] / [employer] Tecnis [id number] intraocular lens Indications: Progressive decreased vision due to cataract, right eye Procedure Description: CATARACT SURGERY OPERATIVE REPORT PREOPERATIVE DIAGNOSIS: Nuclear/cortical/posterior subcapsular cataract, right eye POSTOPERATIVE DIAGNOSIS: Same OPERATION: Cataract extraction using phacoemulsification with posterior chamber intraocular lens implant, right eye. IOL: IOL Contract Administration Coordinator/Model: [employer] / YARELY Tecnis ZCB00 IOL Power: + 25.0 diopters IOL Serial Number: [id number] Optic Diameter: 6.0mm Haptic/Overall Diameter: 13.0mm PHACO INFO: [employer] Discovery Fundurion Vision System with OZil and Active [employer]uidics Cumulative Dispersed Energy (CDE): 12.8 seconds SURGEON: Leonel Deutsch MD, EFRAIN ANESTHESIA: Monitored Anesthesia Care (MAC), with local sub-tenon's anesthetic infiltration COMPLICATIONS: None SPECIMENS: None INDICATIONS FOR PROCEDURE: The patient is a 80-year-old lady with history of diminished visual acuity in both eyes secondary to development of significant bilateral nuclear/cortical/posterior subcapsular cataract. She has already undergone cataract surgery in the left eye and is doing well postoperatively. She now presents for cataract surgery in the right eye. PROCEDURE: The correct surgical eye was identified and marked as the right eye and the pupil was dilated in the preoperative area using mydriatics and cycloplegics. The dilated pupil size was 7.0 mm. She elected to proceed without oral sedation.. The patient was brought to the operating room where cardiopulmonary monitoring was instituted and surgical time-out was performed, confirming the correct operative eye and IOL power. Topical anesthesia was administered and ophthalmic povidone-iodine 5% was instilled into the conjunctival fornices. Lidocaine gel was applied to the cornea and the giovana-ocular area was prepped with Betadine 10% solution and draped in the usual sterile fashion for intraocular surgery, including an aperture drape. A Tegaderm transparent film dressing was cut in half and used to cover the lashes and lid margins. Care was taken to sequester the lashes and lid margins under the Tegaderm dressing. A lid speculum was placed between the lids of the operative eye and the Benoit-Abbie operating microscope was maneuvered into position. Justus scissors were then used to make a conjunctival buttonhole approximately 6mm posterior to the limbus in the inferonasal quadrant. Blunt dissection was carried out to expose bare sclera, and a blunt-tipped sub-tenon?s anesthesia cannula was introduced and passed posteriorly along the globe where non-preserved plain lidocaine was injected into posterior sub-Tenon?s space. A sideport knife was used to make a paracentesis port inferiortemporally. Intraocular phenylephrine/lidocaine was injected into the anterior chamber. The anterior chamber was then filled with viscoelastic. A 2.4mm keratome knife was used to create a half-thickness groove at the limbus and then to construct a three-plane near-clear corneal tunnel extending 2.0mm into clear cornea in the superiortemporal position. . A flap was raised on the anterior capsule and capsulorhexis forceps were used to complete a continuous curvilinear capsulorhexis of 5.0 mm. Balanced salt solution was then used to perform cortical cleaving hydrodissection and nuclear hydrodelineation until the lens could be freely rotated within the capsular bag. The lens nucleus was then disassembled and removed within the capsular bag and iris plane using phacoemulsification. Residual cortical material was removed using the I/A handpiece. The posterior capsule was carefully polished to remove as much residual lens epithelial cells as safely possible. The capsular bag was then inflated and the anterior chamber deepened with viscoelastic. The lens implant described above was inserted into the capsular bag using the YARELY [place] Injector. A Kuglen hook was used to dial the IOL into position. Residual viscoelastic was then removed first from posterior to the IOL, then from the anterior chamber using the I/A handpiece. The lens implant was noted to center nicely within the capsular bag. The incisions were stromally hydrated, and the anterior chamber was reformed using BSS. Then 0.5cc of moxifloxacin 1.0mg/ml were injected into the capsular bag and anterior chamber. The incisions were checked with a Weck spear and found to be secure. Several drops of ophthalmic povidone-iodine 5% were then applied to the eye followed by two drops of Imprimis combination prednisolone/moxifloxacin/nepafenac solution. The drapes were removed and a clear plastic protective eye shield was placed over the eye. The patient was then returned to [facility] Surgery in stable condition.
== END 2021-01-03 09:41 | disposition home or self-care (01) ==
PROVIDERS: PCP Family Medicine; Visit Provider Ophthalmology
PROC: (CPT 66984; principal; 2021-01-03 09:30)
DX: H25.011 Cortical age-related cataract, right eye (principal); H25.11 Age-related nuclear cataract, right eye; H25.041 Posterior subcapsular polar age-related cataract, right eye; Z98.42 Cataract extraction status, left eye; Z96.1 Presence of intraocular lens
CPT/HCPCS: 66984; V2632

== ENCOUNTER 2022-07-18 16:44 | Emergency (ER) | payer OTHER, SELFPAY ==
[2022-07-18 16:48] VITALS: BP 155/82; PULSE 100; RESP 20; TEMP 36.7; O2SAT 99
--- NOTE | 2022-07-18 17:11 | W.ED.GENAD ---
Discharge Plan Disposition Patient Disposition: HOME Condition: Stable Discharge Details Clinical Impression: COVID-19 Primary Care Provider: Laura Gonzalez ED Provider: Mary Echeverria Home Meds and New Rx's Prescriptions: Continued levothyroxine 50 MCG tablet 75 mcg PO DAILY Excedrin Extra Strength 1 EACH tablet 1 ea PO PRN PRN (Reason: Headache) Label Comments: Pt stated she takes excedrine migraine in the mornings stated she would stop taking today 06/24/17. DCW cyproheptadine 4 MG tablet 2 mg PO HS Label Comments: 02/16/18-PT STATES CURRENT DOSE IS 2MG DAILY--MOUSTAPHA GAR betamethasone dipropionate 15 GM ointment 15 gm Topical HS twice weekly Qty: 15 4RF Rx Instructions: Apply a small amount to affected area HS twice weekly cholecalciferol (vitamin D3) 1,000 UNIT capsule 1,000 unit PO DAILY Slow Release Iron 142 MG tablet extended release 142 mg PO DAILY neomycin-polymyxin B-dexameth [Maxitrol] 3.5mg/mL-10,000 unit/mL-0.1 % drops,suspension 1 drp ophthalmic (eye) DIRECTED Rx Instructions: Apply 1 thin layer on eyelid three times a day from one week then call [facility] Boost 0.04 gram- 1 kcal/mL liquid PO Ensure Liquid PO neomycin-polymyxin B-dexameth [Maxitrol] 3.5 mg/g-10,000 unit/g-0.1 % ointment 1 applic ophthalmic (eye) TID Rx Instructions: x1 wk levothyroxine 75 mcg capsule 75 mcg PO DAILY diclofenac sodium 25 mg tablet,delayed release (DR/EC) 25 mg PO BID Label Comments: TAKE ONE TABLET BY MOUTH TWICE A DAY cyclobenzaprine 10 mg Tablet 5 mg PO DAILY lorazepam 0.5 mg tablet 1 tab PO PRN PRN Discharge Instructions Instructions: COVID-19 (Coronavirus Disease 2019) (ED) Additional Instructions: Your kidney function tests today were within normal limits. You were given the anti-viral medication Paxlovid to decrease the risk of progression to severe disease or associated with the Covid-19 virus. Drink plenty of fluids and get plenty of rest. Alternate tylenol and motrin as needed and directed for pain. Follow-up with your primary care doctor in 1 week. Return to the emergency department with any worsening or new concerning symptoms. Discharge Data Discharge Date/Time-TO BE ENTERED AT DEPARTURE: 07/18/22 18:13 Discharge Physician: Mary Echeverria Medical Decision Making 82-year-old female with a history of GERD, hypothyroidism, migraines who developed headache, body aches, chills, cough and fatigue since yesterday who had a positive home COVID test today presents for request for anti-viral medication. Patient appears comfortable and nontoxic. She is afebrile. Her oxygen saturation is 99% she demonstrates no signs of respiratory distress. Normal ENT exam. Lungs are clear bilaterally. She has right anterior chest tenderness to palpation so likely this is consistent with chest wall strain with coughing. History and presentation does not appear consistent with PE as she has no shortness of breath with normal respiratory rate and oxygen saturation. Reviewed patient's history and medications with pharmacy -- pt is cleared to proceed with paxlovid. BMP ordered and will dose paxlovid appropriately based on renal function. Advised to follow up with the primary care doctor for re-evaluation. Usual and customary return precautions given prior to discharge. Medical Records Medical records reviewed: Yes I reviewed the patient's medical records. Lab Data Lab results reviewed: Yes I reviewed the patient's lab results. Labs: Laboratory Tests Range/Units 07/18/22 17:25 Sodium (136-145) mmol/L 134 L Potassium (3.5-5.1) mmol/L 3.7 Chloride (98-107) mmol/L 97 L Carbon Dioxide (21.0-32.0) mmol/L 28.0 Anion Gap (3-11) mmol/L 9.0 BUN (7-18) mg/dL 12 Creatinine (0.55-1.02) mg/dL 0.8 Est GFR (CKD-EPI 2020) (mL/min/1.73m2) 74.44 Glucose (74-106) mg/dL 105 Calcium (8.5-10.1) mg/dL 8.7 HPI General Mode of arrival: ambulatory. Date/Time Provider Initiated Documentation: 07/18/22 16:45. Limitations to Documentation: no limitations. Information obtained by: patient. HPI Narrative: Patient is an 82-year-old female who presents with headache, body aches, chills, fatigue, dry cough and right-sided chest pain that occurs with coughing since yesterday. Patient states she returned from the [facility] last week. She states she did a home COVID test today which was positive. Patient states she is fully vaccinated for COVID including 2 boosters. Patient presents with her son who would like her to get antivirals. Patient denies any fever, shortness of breath, abdominal pain, vomiting or diarrhea. Related Data Home Medications Medication Instructions Recorded Confirmed [id number] 250 1 ea PO PRN PRN Headache 11/17/13 07/18/22 mg-250 mg-65 mg tablet (Excedrin Extra Strength) levothyroxine 50 mcg tablet 75 mcg PO DAILY 11/17/13 07/18/22 cyproheptadine 4 mg tablet 2 mg PO HS 02/26/16 01/03/21 betamethasone dipropionate 0.05 % 15 gm topical HS twice weekly ##15 12/27/17 07/18/22 topical ointment cholecalciferol (vitamin D3) 25 1,000 unit PO DAILY 04/27/18 07/18/22 mcg (1,000 unit) capsule ferrous sulfate 142 mg (45 mg 142 mg PO DAILY 04/27/18 07/18/22 iron) tablet,extended release (Slow Release Iron) cyclobenzaprine 10 mg tablet 5 mg PO DAILY 10/30/19 07/18/22 diclofenac sodium 25 mg 25 mg PO BID 12/09/20 01/03/21 tablet,delayed release food supplemt, lactose-reduced ml PO 01/06/22 (Ensure oral liquid) food supplemt, lactose-reduced ml PO 01/06/22 0.04 gram-1 kcal/mL oral liquid (Boost) [id number] 3.5 1 drp ophthalmic (eye) DIRECTED 01/06/22 07/18/22 mg/mL-10,000 unit/mL-0.1% eye drops (Maxitrol) levothyroxine 75 mcg capsule 75 mcg PO DAILY 01/21/22 07/18/22 neomycin 3.5 mg/g-polymyxin B 1 applic ophthalmic (eye) TID 01/21/22 07/18/22 10,000 unit/g-dexameth 0.1 % eye oint (Maxitrol) lorazepam 0.5 mg tablet 1 tab PO PRN PRN 07/18/22 07/18/22 Previous Rx's Medication Instructions Recorded betamethasone dipropionate 0.05 % 15 gm topical HS twice weekly ##15 12/27/17 topical ointment Allergies Allergy/AdvReac Type Severity Reaction Status Date / Time celecoxib [From Celebrex] Allergy Severe Skin Rash Unverified 07/18/22 17:09 Penicillins Allergy Intermediate Unknown Unverified 07/18/22 17:09 tramadol AdvReac Severe Nausea Unverified 07/18/22 17:09 meperidine HCl [From Demerol] AdvReac Intermediate Halluncinat Unverified 07/18/22 17:09 ions morphine AdvReac Intermediate Nausea Unverified 07/18/22 17:09 topiramate [From Topamax] AdvReac Intermediate Nausea Unverified 07/18/22 17:09 General Stated Complaint: RespSymp EDDA: 4 Review of Systems All systems reviewed & are unremarkable except as noted in HPI and below Constitutional Constitutional: Reports as per HPI, Reports body ache(s), Reports chills and Denies fever(s) Eyes Eyes: Denies blurry vision ENT Ears, Nose, Mouth, and Throat: Denies dizziness, Denies sore throat and Denies throat swelling Cardiovascular Cardiovascular: Denies chest pain and Denies dyspnea Respiratory Respiratory: Reports cough and Denies dyspnea Gastrointestinal Gastrointestinal: Denies abdominal pain, Denies diarrhea and Denies vomiting Genitourinary Genitourinary: Denies hematuria and Denies dysuria Musculoskeletal Musculoskeletal: Denies back pain and Denies numbness Integumentary/Breasts Skin/Breast: Denies lesions and Denies rash Neurologic Neurologic: Denies dizziness, Denies localized weakness and Denies numbness Allergic/Immunologic Allergic/Immunologic: Denies throat swelling PFSH All Active Problems (Updated 07/18/22 @ 17:41 by Mary Echeverria DO) COVID-19 (Acute) Vertigo (Acute) History of migraine headaches (Chronic) a. Remote history, patient denies having these in years. 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 Microscopic. Hypothyroidism (Chronic) UTI (lower urinary tract infection) (Chronic) a. Several pansensitive E. coli urinary tract infections recently. 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 (Acute 02/26/16) SI (sacroiliac) pain (Acute 09/08/17) Trochanteric bursitis of right hip (Acute 02/26/16) Cough (Acute) Vertigo (Acute) Weakness generalized (Acute) Hematuria (Acute) Spondylosis of lumbar region without myelopathy or radiculopathy (Acute) Medical History (Updated 07/18/22 @ 17:41 by Mary Echeverria DO) Anemia, iron deficiency Asymptomatic microscopic hematuria Atrophic vaginitis Dermatitis of eyelid Eczema GERD (gastroesophageal reflux disease) Glaucoma Grief reaction Hernia, inguinal, left Hypothyroid Insomnia Low back pain Migraine Nosebleed Pain of left thumb Pain, joint, hip, right Rib pain on left side Seborrheic keratosis Vitamin B12 deficiency Weight loss Surgical History (Updated 01/06/22 @ 11:24 by Wen East) Abdominal hysterectomy Appendectomy Bilateral salpingectomy with oophorectomy Biopsy of breast History of arthroplasty of right hip Hx of cataract surgery Repair of inguinal hernia Tonsillectomy and adenoidectomy Total replacement of hip (06/29/17) right Social History Smoking/Tobacco Use Status: Never Smoking risk assessment performed?: Yes Alcohol Intake: never Drug use: Never Substance use type: does not use Current gender identity: female Do you feel safe at home: Yes Do you feel safe in your relationship?: Yes Exam Const General: cooperative and no acute distress Orientation: alert, awake and oriented x3 HENMT Head: normal to inspection Ears: hearing grossly normal bilaterally, external ears normal and TM's normal bilaterally Face and sinus: normal facial exam Mouth: oral mucosae normal Throat: posterior oropharynx normal Eyes General: appearance normal, both eyes and all related structures Pupils: PERRL EOM: EOM intact bilaterally Neck Neck: normal visual inspection and No submandibular swelling Lymphatic: no lymphadenopathy noted Chest Chest: normal inspection of the chest and no tenderness Resp Effort & Inspection: normal respiratory effort and able to speak in complete sentences Auscultation: clear to auscultation bilaterally Cardio Rate: regular rate Rhythm: regular rhythm Skin General skin exam: no rashes or lesions noted Neuro General: patient alert, patient awake, patient oriented x3, moves all extremities and no meningeal signs Cognition: normal cognition Speech: speech normal Motor: muscle tone normal throughout Sensory Exam: no sensory deficits noted Extrem General: normal to inspection and full ROM Psych Appearance: grossly normal Mental Status: mental status grossly normal Speech and Movement: speech and movement normal Affect: normal affect Course Vital Signs Vital signs: Vital Signs Temperature 98.1 F 07/18/22 16:48 Pulse 100 H 07/18/22 16:48 Respiratory Rate 20 07/18/22 16:48 Blood Pressure 155/82 H 07/18/22 16:48 Pulse Oximetry 99 07/18/22 16:48 Temperature 98.1 F 07/18/22 16:48 Temperature Source Temporal Artery Scan 07/18/22 16:48 Pulse 100 H 07/18/22 16:48 Respiratory Rate 20 07/18/22 16:48 Blood Pressure 155/82 H 07/18/22 16:48 Blood Pressure Position Sitting 07/18/22 16:48 Pulse Oximetry 99 07/18/22 16:48 Oxygen Delivery Method Room Air 07/18/22 16:48 Oxygen Flow Rate 0 07/18/22 16:48 Pain Level 0 07/18/22 16:48
[2022-07-18 17:51] LABS: BUN 12 mg/dL (7-18); CREATININE 0.8 mg/dL (0.55-1.02); Calcium 8.7 mg/dL (8.5-10.1); Chloride 97 mmol/L (98-107); Estimated GFR 74.44 (mL/min/1.73m2); Glucose 105 mg/dL (74-106); Potassium 3.7 mmol/L (3.5-5.1); Sodium 134 mmol/L (136-145)
== END 2022-07-18 18:13 | disposition home or self-care (01) ==
PROVIDERS: Emergency Provider Physician Assistant; PCP Family Medicine
DX: U07.1 COVID-19 (principal)
CPT/HCPCS: 80048; 99283

== ENCOUNTER 2022-07-26 16:24 | Inpatient (IN) | payer OTHER, SELFPAY ==
[2022-07-26] VITALS (26 sets, daily range): BP systolic 110–208; BP diastolic 65–151; PULSE 100–134; RESP 9–26; TEMP 36.4–38.7; O2SAT 94–99
--- NOTE | 2022-07-26 16:15 | RT.EKG_ITS ---
APPROVED REPORT Exam: Resting ECG Reason for Exam: possible stroke Patient Location: E HR:102 bpm ECG Measurements Heart Rate 102 AXIS ID 213 P 69 QRSd 105 QRS 54 QT 377 T 45 QTc 479 Conclusion Sinus rhythm...normal P axis, V-rate 60- 99 Paired ventricular premature complexes...sequence of 2 V complexes Borderline prolonged ID interval...ID >207, V-rate 91-120 Rhythm motion artifact, appears sinus, no stemi
--- NOTE | 2022-07-26 16:19 | DI.CT_ITS ---
Exam(s) CT BRAIN NECK CTA EXAM: CT BRAIN NECK CTA CLINICAL HISTORY: stroke symptoms. TECHNIQUE: Imaging Protocol: Axial CT angiography was performed with multi-slice acquisition and mu lti-planar and 3D reconstructions. CONTRAST MATERIAL: Intravenous: Omnipaque 350 Contrast volume:structured data in ml COMPARISON: CT HEAD WITHOUT CONTRAST from 04/25/2014 FINDINGS: CT Head W/O and W contrast: Ventricles and Extra axial spaces: Normal in size and morphology for the patient's age. Hemorrhage: None. Cerebral parenchyma: White matter changes of small vessel disease. Midline shift: None. Brainstem/Cerebellum: Normal. Calvarium: Normal. Visualized Paranasal sinuses/Mastoids: Clear. Soft Tissues: Unremarkable. Enhancement: Normal. CTA Brain W: Internal Carotid Arteries: Petrous: Normal. Cavernous: Normal. Cerebral: Normal. Middle Cerebral Arteries: Right: No aneurysm, occlusion or significant stenosis. Left: No aneurysm, occlusion or significant stenosis. Anterior Cerebral Arteries: Right: No aneurysm, occlusion or significant stenosis. Left: No aneurysm, occlusion or significant stenosis. Posterior cerebral Arteries: Right: No aneurysm, occlusion or significant stenosis. Left: No aneurysm, occlusion or significant stenosis. Vertebral Arteries: Right: No aneurysm, occlusion or significant stenosis. Left: No aneurysm, occlusion or significant stenosis. Basilar Artery: No aneurysm, occlusion or significant stenosis. CTA Neck W: Common Carotid: Right: No aneurysm, occlusion or significant stenosis. Left: No aneurysm, occlusion or significant stenosis. External Carotid: Right: No aneurysm, occlusion or significant stenosis. Left: No aneurysm, occlusion or significant stenosis. Internal Carotid: Right: No aneurysm, occlusion or significant stenosis. Left: No aneurysm, occlusion or significant stenosis. Vertebral Artery: Right: No aneurysm, occlusion or significant stenosis. Left: No aneurysm, occlusion or significant stenosis. Lung Apices: Mild scarring. Bones: Degenerative changes in the cervical spine. Soft Tissues: Normal. IMPRESSION: 1. Normal CTA examination of the [place]. 2. No acute abnormality involving the brain.. 3. Normal CTA examination of the neck. No significant plaque. No evidence of dissection. RADIATION DOSE DELIVERED: 2,068.72mGy.cm Total DLP 2,068.72mGy.cm Total DLP DATA REPOSITORY: All CT scans at this facility are submitted to the National Radiology Data Registry (NRDR) Dose Index Registry (DIR) with the [employer] (ACR). RADIATION OPTIMIZATION: All CT scans at this facility use at least one of these dose optimization te chniques: automated exposure control; mA and/or kV adjustment per patient size (includes targeted exa ms where dose is matched to clinical indication); or iterative reconstruction.
[2022-07-26] MEDS: Normal Saline Flush 10 ML SYR IVP ×2 (16:29→20:33)
[2022-07-26] MEDS: Omnipaque 350 MG/ML 100 ML BTL IJ (16:29)
--- NOTE | 2022-07-26 16:32 | W.ED.GENAD ---
Discharge Plan Disposition Patient Disposition: [facility] INPATIENT Condition: Stable Discharge Details Chief Complaint: AMS/LOC Clinical Impression: Mental status alteration, Slurred speech Primary Care Provider: Laura Gonzalez ED Provider: Pepe German Home Meds and New Rx's Prescriptions: No Action levothyroxine 50 MCG tablet 75 mcg PO DAILY Excedrin Extra Strength 1 EACH tablet 1 ea PO PRN PRN (Reason: Headache) Label Comments: Pt stated she takes excedrine migraine in the mornings stated she would stop taking today 06/24/17. DCW cyproheptadine 4 MG tablet 2 mg PO HS Label Comments: 02/16/18-PT STATES CURRENT DOSE IS 2MG DAILY--CONG RN betamethasone dipropionate 15 GM ointment 15 gm Topical HS twice weekly Qty: 15 4RF Rx Instructions: Apply a small amount to affected area HS twice weekly cholecalciferol (vitamin D3) 1,000 UNIT capsule 1,000 unit PO DAILY Slow Release Iron 142 MG tablet extended release 142 mg PO DAILY neomycin-polymyxin B-dexameth [Maxitrol] 3.5mg/mL-10,000 unit/mL-0.1 % drops,suspension 1 drp ophthalmic (eye) DIRECTED Rx Instructions: Apply 1 thin layer on eyelid three times a day from one week then call [facility] Boost 0.04 gram- 1 kcal/mL liquid PO Ensure Liquid PO neomycin-polymyxin B-dexameth [Maxitrol] 3.5 mg/g-10,000 unit/g-0.1 % ointment 1 applic ophthalmic (eye) TID Rx Instructions: x1 wk levothyroxine 75 mcg capsule 75 mcg PO DAILY diclofenac sodium 25 mg tablet,delayed release (DR/EC) 25 mg PO BID Label Comments: TAKE ONE TABLET BY MOUTH TWICE A DAY cyclobenzaprine 10 mg Tablet 5 mg PO DAILY lorazepam 0.5 mg tablet 1 tab PO PRN PRN Medical Decision Making 82 yo female with hx of migraines, hypothyroidism, gerd, who presents with ems with altered mental status. Per ems report she was found at 12pm today with slurred speech and not acting herself. by her daughter she lives with but per ems isn't the greatest historian. Her lastknown normal was prior to 12pm. Daughter finally decided to get help, went to a neighbor's house who called 911. On ems arrival patient was laying down moaning and not talking. She had glucose over 180. She arrives hemodynamically stable and moaning constantly. She is not following commands or answering questions. When I do a sternal rub she does say 'don't do that. She withdraws extremities to painful stimuli. She will not hold any extremity up when testing drift, no signs of trauma, perrl, can't assess all cranial nerves as she is not following commands. She has clear breath sounds bilaterall, soft abdomen without guarding and is nondistended. Unclear etiology for her symptoms, potential for cva but is now outside window for tpa, will obtain ct and cta to further evaluate and also obtain cbc, cmp, ekg and troponin along with cxr and ua. She did test positive for covid last week, not hypoxic and no fever so doubt this is the cause of her symptoms. Pt will be given 1mg ativan as she is intermittently moving her torso in the bed to help obtain imaging. NIh of 18 on arrival though due to lack of being able to follow commands limits the testing (2 for level of consciousness, 2 for month and age, 2 for blink eyes and squeeze hands, 2 for each extremity has some effort against gravity on drift testing, 2 for aphasia and 2 for dysarthria) pt still positive for covid, did have paxlovid, no hypoxia. Imaging and labs other than Na of 126 unremarkable. Spoke with her son Jennifer who said he did speak with her this morning and sounded normal on the phone and is normally able to care for herself and can also care for her daughter and has normal speech. She is still altered, has slurred speech and can't answer where she is. Given continued altered mental status will discuss with hospitalist about admission, continued observation and possible mri Differential Diagnosis Differential Diagnosis: cva, electrolyte abnormality Medical Records Medical records reviewed: Yes I reviewed the patient's medical records. Imaging Data Radiologic Study: Attestation: I personally reviewed and interpreted this imaging study as follows: Imaging: CT Scan Radiologist's impression: no acute findings Radiologic Study #2: Attestation: I personally reviewed and interpreted this imaging study as follows: Imaging: X-Ray Radiologist's impression: no acute findings Lab Data Lab results reviewed: Yes I reviewed the patient's lab results. ECG Data Attestation: I personally reviewed and interpreted this ECG (s) as follows: Prior ECG tracings: not available for review Interpretation: motior artifact but appears to be sinus tachycardia, rate of 102, no stemi HPI General Mode of arrival: EMS. Date/Time Provider Initiated Documentation: 07/26/22 16:30. Limitations to Documentation: no limitations. Information obtained by: patient. History of Present Illness 82 year old F presents to the emergency department with the chief complaint of altered mental status, Patient started experiencing this hour(s) (4.5) and it has been constant. No relieving factors improve symptom(s), No exacerbating factors reported . Patient did receive the following treatments prior to arrival, none Related Data Home Medications Medication Instructions Recorded Confirmed [id number] 250 1 ea PO PRN PRN Headache 11/17/13 07/26/22 mg-250 mg-65 mg tablet (Excedrin Extra Strength) levothyroxine 50 mcg tablet 75 mcg PO DAILY 11/17/13 07/26/22 cyproheptadine 4 mg tablet 2 mg PO HS 02/26/16 07/26/22 betamethasone dipropionate 0.05 % 15 gm topical HS twice weekly ##15 12/27/17 07/26/22 topical ointment cholecalciferol (vitamin D3) 25 1,000 unit PO DAILY 04/27/18 07/26/22 mcg (1,000 unit) capsule ferrous sulfate 142 mg (45 mg 142 mg PO DAILY 04/27/18 07/26/22 iron) tablet,extended release (Slow Release Iron) cyclobenzaprine 10 mg tablet 5 mg PO DAILY 10/30/19 07/26/22 diclofenac sodium 25 mg 25 mg PO BID 12/09/20 07/26/22 tablet,delayed release food supplemt, lactose-reduced ml PO 01/06/22 (Ensure oral liquid) food supplemt, lactose-reduced ml PO 01/06/22 0.04 gram-1 kcal/mL oral liquid (Boost) [id number]-[id number]-tiiuzeti 3.5 1 drp ophthalmic (eye) DIRECTED 01/06/22 07/26/22 mg/mL-10,000 unit/mL-0.1% eye drops (Maxitrol) levothyroxine 75 mcg capsule 75 mcg PO DAILY 01/21/22 07/26/22 neomycin 3.5 mg/g-polymyxin B 1 applic ophthalmic (eye) TID 01/21/22 07/26/22 10,000 unit/g-dexameth 0.1 % eye oint (Maxitrol) lorazepam 0.5 mg tablet 1 tab PO PRN PRN 07/18/22 07/26/22 Previous Rx's Medication Instructions Recorded betamethasone dipropionate 0.05 % 15 gm topical HS twice weekly ##15 12/27/17 topical ointment Allergies Allergy/AdvReac Type Severity Reaction Status Date / Time celecoxib [From Celebrex] Allergy Severe Skin Rash Unverified 07/18/22 17:09 Penicillins Allergy Intermediate Unknown Unverified 07/18/22 17:09 tramadol AdvReac Severe Nausea Unverified 07/18/22 17:09 meperidine HCl [From Demerol] AdvReac Intermediate Halluncinat Unverified 07/18/22 17:09 ions morphine AdvReac Intermediate Nausea Unverified 07/18/22 17:09 topiramate [From Topamax] AdvReac Intermediate Nausea Unverified 07/18/22 17:09 General Stated Complaint: AMS/LOC EDDA: 2 Review of Systems Unobtainable due to mental status PFSH All Active Problems (Updated 07/26/22 @ 18:35 by Pepe German MD) COVID-19 (Acute) Mental status alteration (Acute) Slurred speech (Acute) Vertigo (Acute) History of migraine headaches (Chronic) a. Remote history, patient denies having these in years. 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 Microscopic. Hypothyroidism (Chronic) UTI (lower urinary tract infection) (Chronic) a. Several pansensitive E. coli urinary tract infections recently. 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 (Acute 02/26/16) SI (sacroiliac) pain (Acute 09/08/17) Trochanteric bursitis of right hip (Acute 02/26/16) Cough (Acute) Vertigo (Acute) Weakness generalized (Acute) Hematuria (Acute) Spondylosis of lumbar region without myelopathy or radiculopathy (Acute) Medical History (Updated 07/26/22 @ 18:35 by Pepe German MD) Anemia, iron deficiency Asymptomatic microscopic hematuria Atrophic vaginitis Dermatitis of eyelid Eczema GERD (gastroesophageal reflux disease) Glaucoma Grief reaction Hernia, inguinal, left Hypothyroid Insomnia Low back pain Migraine Nosebleed Pain of left thumb Pain, joint, hip, right Rib pain on left side Seborrheic keratosis Vitamin B12 deficiency Weight loss Surgical History (Updated 01/06/22 @ 11:24 by Wen East) Abdominal hysterectomy Appendectomy Bilateral salpingectomy with oophorectomy Biopsy of breast History of arthroplasty of right hip Hx of cataract surgery Repair of inguinal hernia Tonsillectomy and adenoidectomy Total replacement of hip (06/29/17) right Social History Smoking/Tobacco Use Status: Never Smoking risk assessment performed?: Yes Alcohol Intake: never Drug use: Never Substance use type: does not use Current gender identity: female Do you feel safe at home: Yes Do you feel safe in your relationship?: Yes Exam Const General: no acute distress Orientation: alert HENAL Head: normal to inspection Ears: external ears normal General nose exam: external nose normal Mouth: moist mucous membranes Eyes General: appearance normal, both eyes and all related structures Neck Neck: normal visual inspection Resp Effort & Inspection: normal respiratory effort Cardio Rate: regular rate GI Palpation: soft, not firm and no guarding Skin General skin exam: no rashes or lesions noted Neuro General: patient alert Extrem General: normal to inspection Course Vital Signs Vital signs: Vital Signs Temperature 36.4 C 07/26/22 16:25 Pulse 105 H 07/26/22 16:25 Respiratory Rate 18 07/26/22 16:25 Temperature 36.4 C 07/26/22 16:25 Temperature Source Axillary 07/26/22 16:25 Pulse 105 H 07/26/22 16:25 Respiratory Rate 18 07/26/22 16:25 Blood Pressure Position Supine 07/26/22 16:25 Oxygen Delivery Method Room Air 07/26/22 16:25 Oxygen Flow Rate 0 07/26/22 16:25
[2022-07-26] MEDS: LORazepam 2 MG/ML VIAL 1 MG IVP (16:38)
[2022-07-26 16:40] LABS: Source Nasal/Nares
[2022-07-26 16:41] LABS: Abs Immature Grans 0.03 10^3/uL (0.0-0.06); Absolute Basophil Count 0.04 10^3/uL (0.0-0.2); Absolute Eosinophil Count 0.06 10^3/uL (0.0-0.7); Absolute Lymphocyte Count 2.15 10^3/uL (1.2-3.4); Absolute Monocyte Count 0.52 10^3/uL (0.1-0.8); Absolute Neutrophil Count 4.22 10^3/uL (1.2-6.7); Basophils % 0.6; Eosinophils % 0.9; HCT 35.9 % (36.0-46.0); HGB 12.2 g/dL (11.2-15.7); Immature Grans % 0.4; Lymphocytes % 30.6; MCV 88 fL (80-95); MPV 10.3 fL (8.0-11.0); Monocytes % 7.4; Neutrophils % 60.1; Platelet Count 307 10^3/uL (130-400); RBC 4.06 10^6/uL (3.93-5.22); RDW 12.4 % (11.7-14.6); RDW-SD 40.5 fL; WBC 7.02 10^3/uL (4.4-10.8)
[2022-07-26 16:54] LABS: Lipase 239 U/L (73-393)
[2022-07-26 16:55] LABS: INR 0.9 (0.9-1.1); PTT Activated 23.7 sec (21.0-27.5); Prothrombin Time 9.3 sec (9.3-11.0)
[2022-07-26 16:59] LABS: ALT 21 U/L (14-59); AST 29 U/L (15-37); Albumin 3.8 g/dL (3.4-5.0); Alkaline Phosphatase 88 U/L (46-116); Anion Gap 4.9 mmol/L (3-11); BUN 16 mg/dL (7-18); Bilirubin, Total 0.4 mg/dL (0.2-1.0); CO2 25.1 mmol/L (21.0-32.0); CREATININE 0.8 mg/dL (0.55-1.02); Calcium 9.3 mg/dL (8.5-10.1); Chloride 96 mmol/L (98-107); Estimated GFR 74.44 (mL/min/1.73m2); Glucose 128 mg/dL (74-106); Magnesium 1.9 mg/dL (1.8-2.4); Sodium 126 mmol/L (136-145); Total Protein 7.6 g/dL (6.4-8.2); Troponin I < 50 ng/L (<or=60)
[2022-07-26 17:07] LABS: ETHANOL BLOOD < 3.0 mg/dL (<10)
--- NOTE | 2022-07-26 17:15 | DI.VRAD_ITS ---
PROCEDURE INFORMATION: Exam: CTA Head Without And With Contrast, Arteriography Exam date and time: 07/26/2022 4:37 PM Age: 82 years old Clinical indication: Other: Stroke symptoms TECHNIQUE: Imaging protocol: Computed tomographic angiography of the head without and with contrast. Exam focused on the arteries. 3D rendering (Not supervised by radiologist): MIP and/or 3D reconstructed images were created by the technologist. Contrast material: OMNIPQUE 350; Contrast volume: 85 ml; Contrast route: INTRAVENOUS (IV); COMPARISON: CT NECK WITH CONTRAST 08/17/2016 2:35 PM FINDINGS: ANTERIOR CIRCULATION: Right internal carotid artery: Intracranial segment is patent with no significant stenosis or occlusion. No aneurysm. Right middle cerebral artery: No occlusion or significant stenosis. No aneurysm. Right anterior cerebral artery: No occlusion or significant stenosis. No aneurysm. Left internal carotid artery: Intracranial segment is patent with no significant stenosis. No aneurysm. Left middle cerebral artery: No occlusion or significant stenosis. No aneurysm. Left anterior cerebral artery: No occlusion or significant stenosis. No aneurysm. POSTERIOR CIRCULATION: Right vertebral artery: No occlusion or significant stenosis. No aneurysm. Left vertebral artery: No occlusion or significant stenosis. No aneurysm. Basilar artery: No occlusion or significant stenosis. No aneurysm. Right posterior cerebral artery: No occlusion or significant stenosis. No aneurysm. Left posterior cerebral artery: No occlusion or significant stenosis. No aneurysm. HEAD: Brain: Nonspecific hypodensities of the periventricular and deep subcortical white matter, most likely secondary to chronic microangiopathic ischemic change. No intracranial hemorrhage or extra-axial fluid collection. No evidence of mass effect or midline shift. Marcus-white matter differentiation is normal. Cerebral ventricles: Prominence of the ventricles and sulci, most likely attributed to parenchymal volume loss. Bones/joints: Unremarkable. No acute fracture. Paranasal sinuses: Visualized sinuses are normal. No fluid levels. Mastoid air cells: Visualized mastoids are normal. No mastoid effusion. Soft tissues: Unremarkable. IMPRESSION: 1. No intracranial arterial occlusion or significant stenosis. 2. No acute findings on non-contrast Head CT images. ASPECTS score 10. 3. Chronic findings, as above. PROCEDURE INFORMATION: Exam: CTA Neck With Contrast Exam date and time: 07/26/2022 4:37 PM Age: 82 years old Clinical indication: Other: Stroke symptoms TECHNIQUE: Imaging protocol: Computed tomographic angiography of the neck with contrast. 3D rendering (Not supervised by radiologist): MIP and/or 3D reconstructed images were created by the technologist. Contrast material: OMNIPQUE 350; Contrast volume: 85 ml; Contrast route: INTRAVENOUS (IV); COMPARISON: CT NECK WITH CONTRAST 08/17/2016 2:35 PM FINDINGS: Right common carotid artery: No significant stenosis. No dissection or occlusion. Right internal carotid artery: Extracranial segment is patent with no significant stenosis (0% stenosis by NASCET criteria). No dissection or occlusion. Right external carotid artery: No occlusion or significant stenosis. Left common carotid artery: No significant stenosis. No dissection or occlusion. Left internal carotid artery: Extracranial segment is patent with no significant stenosis (0% stenosis by NASCET criteria). No dissection or occlusion. Left external carotid artery: No occlusion or significant stenosis. Right vertebral artery: No significant stenosis. No dissection or occlusion. Left vertebral artery: No significant stenosis. No dissection or occlusion. Soft tissues: Unremarkable. Bones/joints: No acute fracture. IMPRESSION: No occlusion or significant stenosis in the arteries of the neck. REFERENCES: NASCET CRITERIA. The degree of stenosis in the cervical segment of the internal carotid artery is based on NASCET criteria. Normal is no stenosis. Mild is less than 50% stenosis. Moderate is 50-69% stenosis. Severe is 70% to 99% stenosis. Total occlusion is no detectable patent lumen. Dictated and Authenticated by: Rodriguez Kaiser MD. Ordering:LUANN Cantu MD
--- NOTE | 2022-07-26 17:15 | DI.RAD_ITS ---
Exam(s) XR PORTABLE CHEST AP EXAM: XR PORTABLE CHEST AP CLINICAL HISTORY: altered mental status TECHNIQUE: 2D digital imaging was performed. COMPARISON: CR XR CHEST 2V PA LATERAL from 10/30/2019 FINDINGS: LUNGS: Clear. No pleural abnormality seen. HEART: Mildly tortuous. AORTA: Normal. BONES: Unremarkable for age. Soft tissues: Unremarkable. IMPRESSION: No acute findings. DATA REPOSITORY: RADIATION DOSE DELIVERED:
[2022-07-26 17:19] LABS: COVID-19 PCR POSITIVE (Negative)
[2022-07-26 17:23] LABS: Bilirubin Negative (Negative); Blood Trace-intact (Negative); Clarity Sl Cloudy (Clear); Glucose Negative (Negative); Ketones Negative (Negative); Leukocyte Esterase Negative (Negative); Nitrite Negative (Negative); Urobilinogen 0.2 EU/dL (Up TO 0.2); pH 7.5 (5-8)
[2022-07-26 17:34] LABS: *AMPHETAMINES SCREEN URINE Negative (Negative); *BARBITURATES SCREEN URINE Negative (Negative); *BENZODIAZEPINES SCREEN URINE Negative (Negative); Bacteria Negative HPF (Negative); C & S Indicated? No; Cannabinoids THC Negative (Negative); Casts Negative LPF (Negative); Cocaine Screen,Urine Negative (Negative); Crystals Negative HPF (Negative); Epithelial Cells Few HPF (Negative); METHADONE URINE SCREEN Negative (Negative); Mucus Trace (Negative); OPIATES URINE SCREEN Negative (Negative); WBC 0-2 HPF (0-5)
[2022-07-26 17:35] LABS: Tricyclic Antidepressants Negative (Negative)
--- NOTE | 2022-07-26 17:37 | DI.VRAD_ITS ---
PROCEDURE INFORMATION: Exam: XR Chest Exam date and time: 07/26/2022 5:10 PM Age: 82 years old Clinical indication: Other: AMS TECHNIQUE: Imaging protocol: Radiologic exam of the chest. Views: 1 view. COMPARISON: CR XR CHEST 2V PA LATERAL 10/30/2019 9:05 AM FINDINGS: Lungs: No focal areas of consolidation. Pleural spaces: Unremarkable. No pleural effusion. No pneumothorax. Heart/Mediastinum: Cardiac and mediastinal silhouettes are unremarkable. Bones/joints: No acute osseus lesion or fracture. IMPRESSION: No acute cardiopulmonary findings. Dictated and Authenticated by: Rodriguez Kaiser MD. Ordering:LUANN Cantu MD
--- NOTE | 2022-07-26 18:43 | W.PM.HP.N ---
Date of service: 07/26/22 Time of Service: 18:43 Assessment and Plan Assessment and plan (1) Mental status alteration: Status: Acute Assessment and plan: Change mental status. I think stroke is not unlikely, though non-focal exam. Possible seizure with post-ictal state. Doubt hypertensive encephalopathy (came in with marginal BP elevations of 150-180/70s-90s). Hyponatremia coulod be playing a role, either primarily or as substrate for seizure, though not severe. Plan: Observe, tely, trial dose Labetalol, slow correction serum Na with NS Per ER discussion with son patient to be Full Code. COVID positivity: likely incidental, no further treatment at this time History of Present Illness History of Present Illness Chief Complaint: change in mental status Narrative: 82 female, last known normal (on phone with son) this morning. Around noon today (seven hours [employer]) was found by daughter altered and brought to ER. In ER patient noted to be moaning with non-focal exam. CT head with no acute findings, CTA no significant stenoses and medical work up on note only for Na 126. CBC, remaining chemistries unremarkable (including glucose 128), negative U/A and negative UDS. Note that patient had incidental positive COVID last week, s/p course of Paxlovid. She remains positive today. Patient has received 1 mg Ativan in ER for sedation for CT. I was asked to evaluate for admission. Patient unable to provide any history. Review of Systems Narrative: unable due to mental status PFSH All Active Problems COVID-19 (Acute) Mental status alteration (Acute) Slurred speech (Acute) Vertigo (Acute) History of migraine headaches (Chronic) a. Remote history, patient denies having these in years. 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 Microscopic. Hypothyroidism (Chronic) UTI (lower urinary tract infection) (Chronic) a. Several pansensitive E. coli urinary tract infections recently. 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 (Acute 02/26/16) SI (sacroiliac) pain (Acute 09/08/17) Trochanteric bursitis of right hip (Acute 02/26/16) Cough (Acute) Vertigo (Acute) Weakness generalized (Acute) Hematuria (Acute) Spondylosis of lumbar region without myelopathy or radiculopathy (Acute) Medical History Anemia, iron deficiency Asymptomatic microscopic hematuria Atrophic vaginitis Dermatitis of eyelid Eczema GERD (gastroesophageal reflux disease) Glaucoma Grief reaction Hernia, inguinal, left Hypothyroid Insomnia Low back pain Migraine Nosebleed Pain of left thumb Pain, joint, hip, right Rib pain on left side Seborrheic keratosis Vitamin B12 deficiency Weight loss Surgical History Abdominal hysterectomy Appendectomy Bilateral salpingectomy with oophorectomy Biopsy of breast History of arthroplasty of right hip Hx of cataract surgery Repair of inguinal hernia Tonsillectomy and adenoidectomy Total replacement of hip (06/29/17) right Social History Smoking/Tobacco Use Status: Never Smoking risk assessment performed?: Yes Alcohol Intake: never Drug use: Never Substance use type: does not use Current gender identity: female Do you feel safe at home: Yes Do you feel safe in your relationship?: Yes Meds Allergies and Home Medications Allergies Allergy/AdvReac Type Severity Reaction Status Date / Time celecoxib [From Celebrex] Allergy Severe Skin Rash Unverified 07/18/22 17:09 Penicillins Allergy Intermediate Unknown Unverified 07/18/22 17:09 tramadol AdvReac Severe Nausea Unverified 07/18/22 17:09 meperidine HCl [From Demerol] AdvReac Intermediate Halluncinat Unverified 07/18/22 17:09 ions morphine AdvReac Intermediate Nausea Unverified 07/18/22 17:09 topiramate [From Topamax] AdvReac Intermediate Nausea Unverified 07/18/22 17:09 Home Medications Medication Instructions Recorded Confirmed Type vygruun-hybwsiyuylufs-dsqzbuzd 250 1 ea PO PRN PRN Headache 11/17/13 07/26/22 History mg-250 mg-65 mg tablet (Excedrin Extra Strength) levothyroxine 50 mcg tablet 75 mcg PO DAILY 11/17/13 07/26/22 History cyproheptadine 4 mg tablet 2 mg PO HS 02/26/16 07/26/22 History betamethasone dipropionate 0.05 % 15 gm topical HS twice weekly ##15 12/27/17 07/26/22 Rx topical ointment cholecalciferol (vitamin D3) 25 1,000 unit PO DAILY 04/27/18 07/26/22 History mcg (1,000 unit) capsule ferrous sulfate 142 mg (45 mg 142 mg PO DAILY 04/27/18 07/26/22 History iron) tablet,extended release (Slow Release Iron) cyclobenzaprine 10 mg tablet 5 mg PO DAILY 10/30/19 07/26/22 History diclofenac sodium 25 mg 25 mg PO BID 12/09/20 07/26/22 History tablet,delayed release food supplemt, lactose-reduced ml PO 01/06/22 History (Ensure oral liquid) food supplemt, lactose-reduced ml PO 01/06/22 History 0.04 gram-1 kcal/mL oral liquid (Boost) umfpulcw-fdomkospf-hmlqopgk 3.5 1 drp ophthalmic (eye) DIRECTED 01/06/22 07/26/22 History mg/mL-10,000 unit/mL-0.1% eye drops (Maxitrol) levothyroxine 75 mcg capsule 75 mcg PO DAILY 01/21/22 07/26/22 History neomycin 3.5 mg/g-polymyxin B 1 applic ophthalmic (eye) TID 01/21/22 07/26/22 History 10,000 unit/g-dexameth 0.1 % eye oint (Maxitrol) lorazepam 0.5 mg tablet 1 tab PO PRN PRN 07/18/22 07/26/22 History Exam Narrative Exam Narrative: 166/120 (repeat at bedside 183/139), 117, 36.4, 26, 99% RA. HEENT atraumatic; neck supple; lungs clear; heart tachy/regular; abdomen soft and NT; extremities w/o edema; neuro: moaning, occasional incomprehensible speech, semi-purposeful movement to noxious stimuli, pupils 5 mm/reactive, EOMI grossly, no facial asymmetry, moves all 4s, toes down going moves all 4s Results Labs Result diagrams: 07/26/22 16:30 07/26/22 16:30 Labs: Laboratory Results - last 24 hr 07/26/22 07/26/22 07/26/22 16:30 16:30 16:30 WBC 7.02 RBC 4.06 Hgb 12.2 Hct 35.9 L MCV 88 MCH 30.0 MCHC 34.0 RDW 12.4 Plt Count 307 MPV 10.3 Immature Gran % 0.4 Neutrophils % 60.1 Lymphocytes % 30.6 Monocytes % 7.4 Eosinophils % 0.9 Basophils % 0.6 Nucleated RBC % 0.0 Absolute Neutrophils 4.22 Absolute Lymphocytes 2.15 Absolute Monocytes 0.52 Absolute Eosinophils 0.06 Absolute Basophils 0.04 PT INR APTT Sodium 126 L Potassium 4.0 Chloride 96 L Carbon Dioxide 25.1 Anion Gap 4.9 BUN 16 Creatinine 0.8 Est GFR (CKD-EPI 2020) 74.44 Glucose 128 H Calcium 9.3 Magnesium 1.9 Total Bilirubin 0.4 AST 29 ALT 21 Alkaline Phosphatase 88 Troponin I < 50 Total Protein 7.6 Albumin 3.8 Lipase Urine Color Urine Clarity Urine pH Ur Specific [place] Urine Protein Urine Ketones Urine Blood Urine Nitrite Urine Bilirubin Urine Urobilinogen Ur Leukocyte Esterase Urine RBC Urine WBC Ur Epithelial Cells Urine Crystals Urine Bacteria Urine Casts Urine Mucus Ur Culture Indicated? Urine Glucose Urine Opiates Screen Urine Methadone Screen Ur Barbiturates Screen Ur Tricyclics Screen Ur Amphetamines Screen U Benzodiazepines Scrn Urine Cocaine Screen Ur THC Screen Ethyl Alcohol < 3.0 COVID-19 Source Nasal/Nares SARS-CoV-2 (PCR) POSITIVE A* 07/26/22 07/26/22 07/26/22 16:30 16:30 17:13 WBC RBC Hgb Hct MCV MCH MCHC RDW Plt Count MPV Immature Gran % Neutrophils % Lymphocytes % Monocytes % Eosinophils % Basophils % Nucleated RBC % Absolute Neutrophils Absolute Lymphocytes Absolute Monocytes Absolute Eosinophils Absolute Basophils PT 9.3 INR 0.9 APTT 23.7 Sodium Potassium Chloride Carbon Dioxide Anion Gap BUN Creatinine Est GFR (CKD-EPI 2020) Glucose Calcium Magnesium Total Bilirubin AST ALT Alkaline Phosphatase Troponin I Total Protein Albumin Lipase 239 Urine Color Urine Clarity Urine pH Ur Specific [place] Urine Protein Urine Ketones Urine Blood Urine Nitrite Urine Bilirubin Urine Urobilinogen Ur Leukocyte Esterase Urine RBC Urine WBC Ur Epithelial Cells Urine Crystals Urine Bacteria Urine Casts Urine Mucus Ur Culture Indicated? Urine Glucose Urine Opiates Screen Negative Urine Methadone Screen Negative Ur Barbiturates Screen Negative Ur Tricyclics Screen Negative Ur Amphetamines Screen Negative U Benzodiazepines Scrn Negative Urine Cocaine Screen Negative Ur THC Screen Negative Ethyl Alcohol COVID-19 Source SARS-CoV-2 (PCR) 07/26/22 17:13 WBC RBC Hgb Hct MCV MCH MCHC RDW Plt Count MPV Immature Gran % Neutrophils % Lymphocytes % Monocytes % Eosinophils % Basophils % Nucleated RBC % Absolute Neutrophils Absolute Lymphocytes Absolute Monocytes Absolute Eosinophils Absolute Basophils PT INR APTT Sodium Potassium Chloride Carbon Dioxide Anion Gap BUN Creatinine Est GFR (CKD-EPI 2020) Glucose Calcium Magnesium Total Bilirubin AST ALT Alkaline Phosphatase Troponin I Total Protein Albumin Lipase Urine Color Yellow Urine Clarity Sl Cloudy Urine pH 7.5 Ur Specific [place] 1.020 Urine Protein Negative Urine Ketones Negative Urine Blood Trace-intact H Urine Nitrite Negative Urine Bilirubin Negative Urine Urobilinogen 0.2 Ur Leukocyte Esterase Negative Urine RBC 3-5 H Urine WBC 0-2 Ur Epithelial Cells Few Urine Crystals Negative Urine Bacteria Negative Urine Casts Negative Urine Mucus Trace Ur Culture Indicated? No Urine Glucose Negative Urine Opiates Screen Urine Methadone Screen Ur Barbiturates Screen Ur Tricyclics Screen Ur Amphetamines Screen U Benzodiazepines Scrn Urine Cocaine Screen Ur THC Screen Ethyl Alcohol COVID-19 Source SARS-CoV-2 (PCR) Last Vital Signs Temp 36.4 C 07/26/22 16:25 Pulse 117 H 07/26/22 18:30 Resp 26 H 07/26/22 18:15 BP 166/120 H 07/26/22 18:30 Pulse Ox 99 07/26/22 17:30
--- NOTE | 2022-07-26 19:45 | NUR.NOTE ---
Nursing Note: 2.5mg of labatolol given IV and then stopped because of lower BP.
[2022-07-26 19:57] LABS: TSH 2.99 uIU/mL (0.36-3.74)
[2022-07-26] MEDS: Normal Saline 1,000 ML 75 ML IV (20:33)
[2022-07-26] MEDS: ACETAMINOPHEN 1,000 MG/100 ML BTL 400 MG IVPB (20:34)
[2022-07-26 21:28] LABS: Sodium 130 mmol/L (136-145)
[2022-07-26 21:35] LABS: Creatine Kinase 53 U/L (26-192)
[2022-07-27] VITALS (12 sets, daily range): BP systolic 95–111; BP diastolic 57–85; PULSE 62–118; RESP 16–20; TEMP 35.5–37.3; O2SAT 96–100
--- NOTE | 2022-07-27 | DI.MRI_ITS ---
Exam(s) MR BRAIN WO EXAM: MR BRAIN WO CLINICAL HISTORY: ?CVA TECHNIQUE: Multiplanar multisequence MRI of the brain was performed. COMPARISON: CT CT BRAIN NECK CTA from 07/26/2022 FINDINGS: CEREBRAL PARENCHYMA: There is no evidence of intracranial hemorrhage, mass effect, or shift of midline structures. There are no extra-axial fluid collections. Ventricles are not enlarged or shifted. There is no significant focal signal abnormality in the cerebellar hemispheres nor within the julissa, m idbrain, and thalami. However, there is abundant patchy and confluent periventricular white matter signal abnormality consi stent with chronic small vessel disease. No a strict diffusion to suggest acute ischemic event. SWI: No evidence of obvious microhemorrhages. PITUITARY GLAND: No mass nor parasellar abnormality. No obvious abnormality in the cavernous sinuses. FLOW VOIDS: The expected flow void are noted. No evidence of obvious aneurysm nor obvious vascular ma lformation. PARANASAL SINUSES: The visualized paranasal sinuses appear unremarkable. No obvious finding ORBITS: No obvious findings. IMPRESSION: There is abundant bilateral periventricular white matter signal abnormality consistent with chronic s mall vessel disease. However, there is no restricted diffusion to suggest acute ischemic infarct. The amount of involutional change consistent with this patient's age. DATA REPOSITORY:
[2022-07-27] MEDS: ACETAMINOPHEN 1,000 MG/100 ML BTL 400 MG IVPB (05:02)
[2022-07-27 06:51] LABS: Sodium 132 mmol/L (136-145)
[2022-07-27 08:06] LABS: Lab Add On Test DONE
[2022-07-27 08:58] LABS: Ferritin 77 ng/mL (8-252)
[2022-07-27 09:12] LABS: C-Reactive Protein 0.23 mg/dL (0.0-0.3)
--- NOTE | 2022-07-27 09:29 | IN_ITS ---
Date of service: 07/27/22 Time of Service: 09:29 PT Notes Visit Reasons: Altered Mental Status Physical Therapy Inpatient Initial Evaluation Date: 07/27/2022 Referring Doctor: Magui Collins MD PT Orders: PT CONSULT: Limited ability Precautions: Fall. Standard. Activity as tolerated. Patient Profile/Admitting Diagnosis: Patient is an 82-year-old female patient admitted for COBVID-a9 infection and altered mental status on 07/26/2022. PMHX: All Active Problems? COVID-19 (Acute) Mental status alteration (Acute) Slurred speech (Acute) Vertigo (Acute) History of migraine headaches (Chronic) a. 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 Microscopic.Hypothyroidism (Chronic) UTI (lower urinary tract infection) (Chronic) a. Several pansensitive E. 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 Anemia, iron deficiency Asymptomatic microscopic hematuria Atrophic vaginitis Dermatitis of eyelid Eczema GERD (gastroesophageal reflux disease) Glaucoma Grief reaction Hernia, inguinal, left Hypothyroid Insomnia Low back pain Migraine Nosebleed Pain of left thumb Pain, joint, hip, right Rib pain on left side Seborrheic keratosis Vitamin B12 deficiency Weight loss Surgical History? Abdominal hysterectomy Appendectomy Bilateral salpingectomy with oophorectomy Biopsy of breast History of arthroplasty of right hip Hx of cataract surgery Repair of inguinal hernia Tonsillectomy and adenoidectomy Total replacement of hip (06/29/17) right Social History/Home Situation: recently . 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 Lives in a private home with daughter who has some disability. Independent with all aspects of ADLs without AD prior to admission. Equipment Owned/DME: FWW, SPC, 4WW Subjective: Reports fatigue and drowsiness but is agreeable to getting out of bed and to walking. Denies dizziness, headache, and chest pain. Objective: General Observation: Drowsy. Telemetry monitoring in place. Espinoza catheter in place. IV access in R UE. Nurses Julito and Erika present and assisting with medication admin, morning care, and bed change. Mental Status: Alert and oriented as to person and place. Believes this is year 193. However, she is able to pay attention, focus, and respond appropriate ly with minimal verbal cueing. Pain: Denies ROM: Right Upper Extremity: Shoulder Flexion WFL. Shoulder abduction WFL. Elbow flexion WFL. Wrist flexion WFL. Functional opening and closing of hand WFL. Left Upper Extremity: Shoulder Flexion WFL. Shoulder abduction WFL. Elbow flexion WFL. Wrist flexion WFL. Functional opening and closing of hand WFL. Right Lower Extremity: Hip flexion WFL. Hip abduction WFL. Knee flexion WFL. Ankle dorsiflexion WFL. Ankle plantarflexion WFL. Left Lower Extremity: Hip flexion WFL. Hip abduction WFL. Knee flexion WFL. Ankle dorsiflexion WFL. Ankle plantarflexion WFL. Strength: Right Upper Extremity: Grossly 4-/5 Left Upper Extremity: Grossly 4-/5 Right Lower Extremity: Grossly 4-/5 Left Lower Extremity: Grossly 4-/5 Bed Mobility/Transfers: Supine to sit minimal assist Sit to supine minimal assist Sit to stand minimal assist Stand to sit minimal assist Bed to reclining chair minimal assist Reclining chair to bed minimal assist Gait: Instructed patient with level surface ambulation of 15 feet requiring minimal assist. [place] decreasedd. Step height decreased. Step length decreased. Complained of fatigue with activity. Balance: Static Sitting: Normal Dynamic Sitting: Normal Static Standing: Fair Dynamic Standing: Fair Special Tests: Mobility Limitations Standardized Measure [facility] AM-PAC 6 clicks Basic Mobility Inpatient Short Form: Raw Score: 18 CMS Score: 47% deficit Informed Consent/Education: Patient was instructed in purpose of PT consult and plan of care. Agreeable to proceed with established PT POC to achieve personal goals. Assessment: Patient presents with clinical signs and symptoms consistent with current/admitting diagnoses that have resulted to mobility limitations, gait ins tability, generalized weakness, and overall ADL decline as demonstrated by the following impairment level findings: 1. Decreased strength to B UE/LE major muscle groups 2. Impaired standing balance 3. Impaired activity tolerance 4. Fatigue Impairments are contributing to the following functional limitations: 1. Decline in bed mobility skills 2. Decline in transfer skills 3. Difficulty with ambulation without assistive device and physical assistance 4. Increased completion time for mobility ADL performance 5. Increased risk for falls 6. Difficulty with managing steps alone safely Patient is assessed as a [id number] moderate complexity based on the following: History: 82-year-old female with past medical history as indicated above Examination: Demonstrable impairment in strength, balance, and mobility level with underlying impairments and functional limitations as exhibited above as well as deficit score of 47% utilizing the [facility] Mobility Inpatient Short Form Presentation: Evolving Decision Makin moderate complexity Goals: Goals X1 week 1. Supine-Sit independent 2. Sit-Supine independent 3. Sit-Stand independent 4. Stand-Sit independent with SPC 5. Bed-Chair independent with SPC 6. Chair-Bed independent with SPC 7. Independent gait on level surface with use of SPC for at least 100 feet without report of pain nor dyspnea 8. Good static and dynamic standing balance/tolerance Plan of Care/Treatment Plan: 1-2x/day, 7 days/week x 1 week. Plan of care has been reviewed with the EXCEPTIONAL CHILDREN'S TEACHER providing the service under Physical Therapy direction. Initiate Physical Therapy intervention for pain management as needed, strengthening, bed mobility, transfers, gait, stairs, balance training, and use of assistive device. DISCHARGE RECOMMENDATIONS: [] Home with no services [] [X] Home with services. Patient will benefit from home health PT services in order to progress mobility level using least restrictive assistive ambulatory device, assess home safety, identify additional equipment needs, and establish a functional maintenance program that will increase ability of patient to remain at home. [] Home with outpatient PT [] [] SNF for continued rehabilitation [] [] [facility] [] [] SNF versus LTC based on ability to participate and progress [] TREATMENT CODE/TIME: 65261 x 20 minutes, 35492 x 11 minutes beginning at 9:29 AM. Thank you for the opportunity to participate in the care of this patient. Jillian Castillo PT, DPT, CLT [facility] [place], [place]
[2022-07-27] MEDS: Enoxaparin 40 MG/0.4 ML SYR SC (09:43)
[2022-07-27] MEDS: Pantoprazole 40 MG VIAL IVP (09:47)
[2022-07-27] MEDS: Normal Saline Flush 10 ML SYR IVP ×2 (09:47→12:37)
[2022-07-27 10:22] LABS: Procalcitonin < 0.1 ng/mL
[2022-07-27] MEDS: REMDESIVIR 200 MG in Normal Saline 250 ML 250 MG IVPB (12:36)
[2022-07-27 12:41] LABS: Anion Gap 7.8 mmol/L (3-11); BUN 14 mg/dL (7-18); CO2 26.2 mmol/L (21.0-32.0); CREATININE 0.9 mg/dL (0.55-1.02); Calcium 8.7 mg/dL (8.5-10.1); Chloride 99 mmol/L (98-107); Estimated GFR 64.63 (mL/min/1.73m2); Glucose 116 mg/dL (74-106); Potassium 3.8 mmol/L (3.5-5.1); Sodium 133 mmol/L (136-145)
[2022-07-27 16:11] LABS: Vitamin B12 1020 pg/mL (193-986)
--- NOTE | 2022-07-27 16:15 | W.PM.PROGNOT ---
Date of Service Date of service: 07/27/22 Time of Service: 16:15 Assessment and Plan Assessment and plan (1) Mental status alteration: Status: Acute Assessment and plan: patient appears to be progressing to baseline, now verbal and appropriate, pleasantly confused. MRI brain pending. a report of right sided headache immediately proceeded her altered mental status. consider migraine. (2) COVID-19: Status: Acute Assessment and plan: will be treated with remdesivir no oxygen requirements. continue to closely monitor maintain respiratory precautions per protocol. discussed with DR Collins Subjective Subjective Patient reports: no new complaints, feels better, tolerating liquids well, tolerating a regular diet, voiding w/o difficulty and afebrile; denies shortness of breath Exam Const General: no acute distress Orientation: alert HENMT Head: normal to inspection Ears: external ears normal General nose exam: external nose normal Mouth: moist mucous membranes Eyes General: appearance normal, both eyes and all related structures Neck Neck: normal visual inspection Resp Effort & Inspection: normal respiratory effort Cardio Rate: regular rate GI Palpation: soft, not firm and no guarding Skin General skin exam: no rashes or lesions noted Neuro General: patient alert Extrem General: normal to inspection Objective Last Vital Signs Temp 36.4 C 07/27/22 13:00 Pulse 91 H 07/27/22 13:00 Resp 20 07/27/22 13:00 BP 111/67 07/27/22 13:00 Pulse Ox 100 07/27/22 13:00 Laboratory Results - last 24 hr 07/26/22 07/26/22 07/26/22 16:30 16:30 16:30 WBC 7.02 RBC 4.06 Hgb 12.2 Hct 35.9 L MCV 88 MCH 30.0 MCHC 34.0 RDW 12.4 Plt Count 307 MPV 10.3 Immature Gran % 0.4 Neutrophils % 60.1 Lymphocytes % 30.6 Monocytes % 7.4 Eosinophils % 0.9 Basophils % 0.6 Nucleated RBC % 0.0 Absolute Neutrophils 4.22 Absolute Lymphocytes 2.15 Absolute Monocytes 0.52 Absolute Eosinophils 0.06 Absolute Basophils 0.04 PT INR APTT Sodium 126 L Potassium 4.0 Chloride 96 L Carbon Dioxide 25.1 Anion Gap 4.9 BUN 16 Creatinine 0.8 Est GFR (CKD-EPI 2020) 74.44 Glucose 128 H Calcium 9.3 Magnesium 1.9 Ferritin Total Bilirubin 0.4 AST 29 ALT 21 Alkaline Phosphatase 88 Creatine Kinase Troponin I < 50 C-Reactive Protein Total Protein 7.6 Albumin 3.8 Lipase Procalcitonin TSH Urine Color Urine Clarity Urine pH Ur Specific [place] Urine Protein Urine Ketones Urine Blood Urine Nitrite Urine Bilirubin Urine Urobilinogen Ur Leukocyte Esterase Urine RBC Urine WBC Ur Epithelial Cells Urine Crystals Urine Bacteria Urine Casts Urine Mucus Ur Culture Indicated? Urine Glucose Urine Opiates Screen Urine Methadone Screen Ur Barbiturates Screen Ur Tricyclics Screen Ur Amphetamines Screen U Benzodiazepines Scrn Urine Cocaine Screen Ur THC Screen Ethyl Alcohol < 3.0 COVID-19 Source Nasal/Nares SARS-CoV-2 (PCR) POSITIVE A* 07/26/22 07/26/22 07/26/22 16:30 16:30 17:13 WBC RBC Hgb Hct MCV MCH MCHC RDW Plt Count MPV Immature Gran % Neutrophils % Lymphocytes % Monocytes % Eosinophils % Basophils % Nucleated RBC % Absolute Neutrophils Absolute Lymphocytes Absolute Monocytes Absolute Eosinophils Absolute Basophils PT 9.3 INR 0.9 APTT 23.7 Sodium Potassium Chloride Carbon Dioxide Anion Gap BUN Creatinine Est GFR (CKD-EPI 2020) Glucose Calcium Magnesium Ferritin Total Bilirubin AST ALT Alkaline Phosphatase Creatine Kinase Troponin I C-Reactive Protein Total Protein Albumin Lipase 239 Procalcitonin TSH Urine Color Urine Clarity Urine pH Ur Specific [place] Urine Protein Urine Ketones Urine Blood Urine Nitrite Urine Bilirubin Urine Urobilinogen Ur Leukocyte Esterase Urine RBC Urine WBC Ur Epithelial Cells Urine Crystals Urine Bacteria Urine Casts Urine Mucus Ur Culture Indicated? Urine Glucose Urine Opiates Screen Negative Urine Methadone Screen Negative Ur Barbiturates Screen Negative Ur Tricyclics Screen Negative Ur Amphetamines Screen Negative U Benzodiazepines Scrn Negative Urine Cocaine Screen Negative Ur THC Screen Negative Ethyl Alcohol COVID-19 Source SARS-CoV-2 (PCR) 07/26/22 07/26/22 07/26/22 17:13 19:19 19:26 WBC RBC Hgb Hct MCV MCH MCHC RDW Plt Count MPV Immature Gran % Neutrophils % Lymphocytes % Monocytes % Eosinophils % Basophils % Nucleated RBC % Absolute Neutrophils Absolute Lymphocytes Absolute Monocytes Absolute Eosinophils Absolute Basophils PT INR APTT Sodium Potassium Chloride Carbon Dioxide Anion Gap BUN Creatinine Est GFR (CKD-EPI 2020) Glucose Calcium Magnesium Ferritin Total Bilirubin AST ALT Alkaline Phosphatase Creatine Kinase Troponin I Cancelled C-Reactive Protein Total Protein Albumin Lipase Procalcitonin TSH 2.99 Urine Color Yellow Urine Clarity Sl Cloudy Urine pH 7.5 Ur Specific [place] 1.020 Urine Protein Negative Urine Ketones Negative Urine Blood Trace-intact H Urine Nitrite Negative Urine Bilirubin Negative Urine Urobilinogen 0.2 Ur Leukocyte Esterase Negative Urine RBC 3-5 H Urine WBC 0-2 Ur Epithelial Cells Few Urine Crystals Negative Urine Bacteria Negative Urine Casts Negative Urine Mucus Trace Ur Culture Indicated? No Urine Glucose Negative Urine Opiates Screen Urine Methadone Screen Ur Barbiturates Screen Ur Tricyclics Screen Ur Amphetamines Screen U Benzodiazepines Scrn Urine Cocaine Screen Ur THC Screen Ethyl Alcohol COVID-19 Source SARS-CoV-2 (PCR) 07/26/22 07/26/22 07/27/22 20:50 20:50 06:22 WBC RBC Hgb Hct MCV MCH MCHC RDW Plt Count MPV Immature Gran % Neutrophils % Lymphocytes % Monocytes % Eosinophils % Basophils % Nucleated RBC % Absolute Neutrophils Absolute Lymphocytes Absolute Monocytes Absolute Eosinophils Absolute Basophils PT INR APTT Sodium 130 L 132 L Potassium Chloride Carbon Dioxide Anion Gap BUN Creatinine Est GFR (CKD-EPI 2020) Glucose Calcium Magnesium Ferritin Total Bilirubin AST ALT Alkaline Phosphatase Creatine Kinase 53 Troponin I C-Reactive Protein Total Protein Albumin Lipase Procalcitonin TSH Urine Color Urine Clarity Urine pH Ur Specific [place] Urine Protein Urine Ketones Urine Blood Urine Nitrite Urine Bilirubin Urine Urobilinogen Ur Leukocyte Esterase Urine RBC Urine WBC Ur Epithelial Cells Urine Crystals Urine Bacteria Urine Casts Urine Mucus Ur Culture Indicated? Urine Glucose Urine Opiates Screen Urine Methadone Screen Ur Barbiturates Screen Ur Tricyclics Screen Ur Amphetamines Screen U Benzodiazepines Scrn Urine Cocaine Screen Ur THC Screen Ethyl Alcohol COVID-19 Source SARS-CoV-2 (PCR) 07/27/22 07/27/22 07/27/22 06:22 06:22 12:05 WBC RBC Hgb Hct MCV MCH MCHC RDW Plt Count MPV Immature Gran % Neutrophils % Lymphocytes % Monocytes % Eosinophils % Basophils % Nucleated RBC % Absolute Neutrophils Absolute Lymphocytes Absolute Monocytes Absolute Eosinophils Absolute Basophils PT INR APTT Sodium 133 L Potassium 3.8 Chloride 99 Carbon Dioxide 26.2 Anion Gap 7.8 BUN 14 Creatinine 0.9 Est GFR (CKD-EPI 2020) 64.63 Glucose 116 H Calcium 8.7 Magnesium Ferritin 77 Total Bilirubin AST ALT Alkaline Phosphatase Creatine Kinase Troponin I C-Reactive Protein 0.23 Total Protein Albumin Lipase Procalcitonin < 0.1 TSH Urine Color Urine Clarity Urine pH Ur Specific [place] Urine Protein Urine Ketones Urine Blood Urine Nitrite Urine Bilirubin Urine Urobilinogen Ur Leukocyte Esterase Urine RBC Urine WBC Ur Epithelial Cells Urine Crystals Urine Bacteria Urine Casts Urine Mucus Ur Culture Indicated? Urine Glucose Urine Opiates Screen Urine Methadone Screen Ur Barbiturates Screen Ur Tricyclics Screen Ur Amphetamines Screen U Benzodiazepines Scrn Urine Cocaine Screen Ur THC Screen Ethyl Alcohol COVID-19 Source SARS-CoV-2 (PCR)
--- NOTE | 2022-07-27 18:06 | PDOC.CMIN ---
- If Service Date Differs Date of service: 07/27/22 Time of Service: 18:06 Care Management Initial Assess REASON FOR HOSPITALIZATION:: Altered Mental Status PAST MEDICAL HISTORY/PAST SURGICAL HISTORY:: All Active Problems. COVID-19 (Acute). Mental status alteration (Acute). Slurred speech (Acute). Vertigo (Acute). History of migraine headaches (Chronic). a. Remote history, patient denies having these in years. 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 Overactive bladder (Chronic). Urge incontinence (Chronic). History of hematuria (Chronic). a. Microscopic. Hypothyroidism (Chronic). UTI (lower urinary tract infection) (Chronic). a. Several pansensitive E. coli urinary tract infections recently. GERD (gastroesophageal reflux disease) (Chronic). 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 Arthritis of right hip (Acute 02/26/16). SI (sacroiliac) pain (Acute 09/08/17). Trochanteric bursitis of right hip (Acute 02/26/16). Cough (Acute). Vertigo (Acute). Weakness generalized (Acute). Hematuria (Acute). Spondylosis of lumbar region without myelopathy or radiculopathy (Acute). Medical History. Anemia, iron deficiency. Asymptomatic microscopic hematuria. Atrophic vaginitis. Dermatitis of eyelid. Eczema. GERD (gastroesophageal reflux disease). Glaucoma. Grief reaction. Hernia, inguinal, left. Hypothyroid. Insomnia. Low back pain. Migraine. Nosebleed. Pain of left thumb. Pain, joint, hip, right. Rib pain on left side. Seborrheic keratosis. Vitamin B12 deficiency. Weight loss. Surgical History. Abdominal hysterectomy. Appendectomy. Bilateral salpingectomy with oophorectomy. Biopsy of breast. History of arthroplasty of right hip. Hx of cataract surgery. Repair of inguinal hernia. Tonsillectomy and adenoidectomy. Total replacement of hip (06/29/17). right PREVIOUS FUNCTIONAL STATUS/SOCIAL/FAMILY SUPPORTS:: Mirian resides in [place], her daughter, who Mirian reports is mildly delayed, resides with her. Per report, her daughter is helpful with client service professional. Mirian's recently , who she cared for at home until his passing. CURRENT FUNCTIONAL STATUS:: Mirian is being closely monitored under Covid precautions, therefore CM did not meet with her in person today. Per report, she tested positive for Covid on 07/18/22. Per provider, she appears to be progressing to baseline, but she had a fever overnight. She does not require O2. She is being treated with remdesivir for Covid. CM will continue to follow. ADVANCE DIRECTIVES:: Not on file. 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 PRIMARY CARE PHYSICIAN:: Laura Gonzalez POTENTIAL DISCHARGE NEEDS:: Evaluations for further needs, follow up appointments. PATIENT/FAMILY EDUCATION NEEDS:: Review discharge instructions and limitations, discussion of self care needs including ask me three. ANTICIPATED BARRIERS TO DISCHARGE:: None. TRANSPORTATION:: Via private vehicle by family vs RCT PLAN:: Anticipate Mirian will return home once medically cleared. She may benefit from services, if indicated. She will be driven home via private vehicle by family vs RCT. She will follow up with her PCP and discharge plan of care. CM will continue to follow.
--- NOTE | 2022-07-27 18:34 | DI.VRAD_ITS ---
PROCEDURE INFORMATION: Exam: MR Head Without Contrast Exam date and time: 07/27/2022 5:43 PM Age: 82 years old Clinical indication: Other: ? CVA TECHNIQUE: Imaging protocol: Magnetic resonance imaging of the head without contrast. COMPARISON: CT BRAIN NECK CTA 07/26/2022 4:37 PM FINDINGS: Brain: Slight prominence of cerebral sulci reflects mild cerebral atrophy. FLAIR and T2 hyperintensities seen throughout the deep and periventricular white matter of both cerebral hemispheres and indistinct FLAIR and T2 hyperintensities also seen involving the basis pontis are consistent with microvascular ischemic changes. The remainder of the brainstem and cerebellum are unremarkable and there is no evidence of acute infarct or intracranial hemorrhage. Cerebral ventricles: Mild dilatation of the 3rd and lateral ventricles is commensurate with the degree of cerebral atrophy. Bones/joints: Unremarkable. Paranasal sinuses: Grossly clear throughout. Mastoid air cells: Grossly clear bilaterally. Orbital cavities: Both globes appear intact and no orbital lesions are detected. Soft tissues: Unremarkable. IMPRESSION: Mild cerebral atrophy and chronic ischemic changes with no evidence of acute infarct, recent hemorrhage or hydrocephalus. No acute intracranial process is detected. Dictated and Authenticated by: Paulo Arthur MD. Ordering:GIANNA Kilgore MD
[2022-07-28] VITALS (13 sets, daily range): BP systolic 100–134; BP diastolic 68–86; PULSE 85–108; RESP 14–32; TEMP 35.9–36.9; O2SAT 96–100
[2022-07-28 06:20] LABS: Abs Immature Grans 0.03 10^3/uL (0.0-0.06); Absolute Basophil Count 0.06 10^3/uL (0.0-0.2); Absolute Lymphocyte Count 1.89 10^3/uL (1.2-3.4); Absolute Monocyte Count 0.57 10^3/uL (0.1-0.8); Absolute Neutrophil Count 3.83 10^3/uL (1.2-6.7); Basophils % 0.9; Eosinophils % 1.5; HCT 33.5 % (36.0-46.0); HGB 11.5 g/dL (11.2-15.7); Immature Grans % 0.5; Lymphocytes % 29.2; MCH 30.3 pg (27.0-33.0); MCHC 34.3 % (32.0-36.0); MCV 88 fL (80-95); Monocytes % 8.8; Neutrophils % 59.1; Platelet Count 242 10^3/uL (130-400); RDW 12.8 % (11.7-14.6); RDW-SD 41.8 fL; WBC 6.48 10^3/uL (4.4-10.8)
[2022-07-28 06:53] LABS: ALT 14 U/L (14-59); AST 21 U/L (15-37); Albumin 3.2 g/dL (3.4-5.0); Alkaline Phosphatase 52 U/L (46-116); Anion Gap 9.1 mmol/L (3-11); BUN 15 mg/dL (7-18); Bilirubin, Direct 0.1 mg/dL (0.0-0.2); Bilirubin, Total 0.5 mg/dL (0.2-1.0); C-Reactive Protein 0.34 mg/dL (0.0-0.3); CO2 24.9 mmol/L (21.0-32.0); CREATININE 0.8 mg/dL (0.55-1.02); Calcium 8.6 mg/dL (8.5-10.1); Chloride 100 mmol/L (98-107); Estimated GFR 74.44 (mL/min/1.73m2); Glucose 95 mg/dL (74-106); Magnesium 1.8 mg/dL (1.8-2.4); Potassium 3.8 mmol/L (3.5-5.1); Sodium 134 mmol/L (136-145); Total Protein 6.4 g/dL (6.4-8.2)
[2022-07-28 07:20] LABS: Ferritin 85 ng/mL (8-252)
[2022-07-28] MEDS: REMDESIVIR 100 MG in Normal Saline 250 ML 250 MG IVPB (08:33)
[2022-07-28] MEDS: Normal Saline Flush 10 ML SYR IVP ×3 (08:34→21:35)
[2022-07-28] MEDS: Enoxaparin 40 MG/0.4 ML SYR SC (08:34)
[2022-07-28] MEDS: Pantoprazole 40 MG VIAL IVP (08:38)
[2022-07-28] MEDS: Water,Injection,Sterile 10 ML VIAL (08:38)
--- NOTE | 2022-07-28 10:17 | PDOC.CMPRO ---
- If Service Date Differs Date of service: 07/28/22 Time of Service: 10:17 Care Management Progress Note S/O:Mirian remains on Covid precautions so CM was unable to meet with her. per provider, she is improving. She did have 2 eoisodes of SVT today and is complaining of anorexia. She does not have any diarrhea or nausea, just does not feel like eating. Her mental status appears to be improving but she is not yet back to baseline. A: Mirian is an 82 year old woman admitted on 07/26/22 with altered mental status P: Anticipate Mirian will return home once medically cleared. She may benefit from services, if indicated. She will be driven home via private vehicle by family vs RCT. She will follow up with her PCP and discharge plan of care. CM will continue to follow and support Mirian's discharge needs..
--- NOTE | 2022-07-28 11:00 | RT.EKG_ITS ---
APPROVED REPORT Exam: Resting ECG Reason for Exam: [facility] in [facility] Patient Location: I HR:102 bpm ECG Measurements Heart Rate 102 AXIS AK [id number] P [id number] QRSd 112 QRS 75 QT 417 T 191 QTc 544 Conclusion Atrial fibrillation...V-rate 100-108, irreg A-activity Borderline intraventricular conduction delay...QRSd >112mS Nonspecific T abnrm, anterolateral leads...T <-0.10mV, I aVL V2-V6 Prolonged QT interval...QTc >500mS Significant baseline artifact Rhythm appears regular Looks like there are P waves in the inferior leads and this may be sinus rhythm
--- NOTE | 2022-07-28 12:20 | W.SPSTE ---
Date of service: 07/28/22 Time of Service: 12:20 Subjective Referring physician: Dr. Collins Primary Dx & Reason for referral: Altered mental status Precautions: Fall, Airborne, Activity as tolerated History of Present Illness: Patient is an 82y/o F with history of several recent UTI's, GERD, anemia, migraine, who was admitted with acute altered mental status 07/26/2022, without acute CT findings. Recently COVID positive, completed course of Paxlovid, but continues testing positive at this time. Initially when admitted, unable to provide history/subjective, moaning, some incomprehensible speech but minimally responsive. Neuro and Palliative have also been consulted. MRI completed 07/27/2022: IMPRESSION: There is abundant bilateral periventricular white matter signal abnormality consistent with chronic small vessel disease.? However, there is no restricted diffusion to suggest acute ischemic infarct. The amount of involutional change consistent with this patient's age. XR PORTABLE CHEST AP 07/26/2022: LUNGS: Clear. No pleural abnormality seen. HEART: Mildly tortuous. AORTA: Normal. BONES: Unremarkable for age.? Soft tissues: Unremarkable PMHx All Active Problems? COVID-19 (Acute) Mental status alteration (Acute) Slurred speech (Acute) Vertigo (Acute) History of migraine headaches (Chronic) a. 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 Microscopic.Hypothyroidism (Chronic) UTI (lower urinary tract infection) (Chronic) a. Several pansensitive E. 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 Anemia, iron deficiency Asymptomatic microscopic hematuria Atrophic vaginitis Dermatitis of eyelid Eczema GERD (gastroesophageal reflux disease) Glaucoma Grief reaction Hernia, inguinal, left Hypothyroid Insomnia Low back pain Migraine Nosebleed Pain of left thumb Pain, joint, hip, right Rib pain on left side Seborrheic keratosis Vitamin B12 deficiency Weight loss Surgical History? Abdominal hysterectomy Appendectomy Bilateral salpingectomy with oophorectomy Biopsy of breast History of arthroplasty of right hip Hx of cataract surgery Repair of inguinal hernia Tonsillectomy and adenoidectomy Total replacement of hip (06/29/17) right Social History/Home Situation: recently .? 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 Lives in a private home with daughter who has some disability.? Independent with all aspects of ADLs without AD prior to admission. Subjective: Patient contacted at bedside this date. Very emotionally labile, tearful, concerned about her daughter. Benefits from gentle redirection to other topics/to persist with tasks. Per RN she has been tolerating liquids, mental status improving. C/F dehydration. Objective Objective Oral-Motor Exam: Unremarkable for age except: Mild lingual weakness against resistance Dentition: Full upper dentures, partial lower, reports well-fitting, wears consistently, no difficulty chewing. Mucosa: Moist, good/fair oral care Volitional swallow: Suspect delayed initiation, likely normal for age Laryngeal/Pulmonary Function: Volitional Cough: Sharp/adequate Max phonation time: 21s (WFL), though with strained vocal quality during sustained phonation likely secondary to reduced breath support/low diaphragmatic recruitment. Otherwise vocal quality is WFL for age/gender. PO Trials: Patient unwilling to take any solid trials Thin liquids via straw: (single & continuous sips) No anterior oral loss, palpable laryngeal elevation with possible delayed onset. No change in vocal quality, respiratory status. No cough/throat clear. Mental status: Oriented only to Month/Year, not date or day of week. Somewhat disoriented to situation. Speech: 100% intelligible, no dysarthria detected. No speech errors. Language: Follows simple and multi-step instructions, occasionally requesting repetition/clarification (suspect poor immediate recall/working memory vs language). Verbal expression is fluent and grammatical without overt word-finding difficulties or errors. [facility] Mental Status Examination (SLUMS) Orientation: +2/3 Mental Math: +1/3 Verbal Fluency: +2/3 Delayed Recall: +0/5 Reverse Digit Span: +1/2 Clock Draw: +1/4 Visuospatial: +2/2 Narrative recall & comprehension: +4/8 TOTAL SCORE: +13/30 (scores between 0 and 20 suggest a likelihood of dementia) Assessment SLUMS score indicates significant cognitive impairment at this time; if chronic would likely classify as dementia; but unable to compare to baseline/unsure of patient's exact PLOF aside from family report of significantly altered mental status at time of admission (patient with significant improvement since initial onset, but likely not back to baseline per RN). AMS c/b primarily poor recall, attention, working memory. Likely complicated by some anxiety/mood factors as well as medical status, age-related changes per MRI results. Patient able to retain some details/instructions but often unable to manipulate information such as in mental math, reverse digits, clock draw (set the time), etc. She does appear with some awareness of her difficulties once confronted with tasks (Isn't that funny? I can't do that right now.) May be useful to repeat this examination in a few days' time if neurology recommends repeat. No s/sx dysphagia at this time, but limited trials/assessment conducted due to patient refusal to eat; team should continue to monitor for diet tolerance. Appears to tolerate thin liquids well. Recommendations: Provide instructions or information 1 step/item at a time. Provide written reinforcement of important information. State the topic of conversation prior to launching into detail. Plan UNDERGROUND CONDUIT INSTALLER to follow while on unit to monitor for changes and ensure f/u. Patient is not safe to return home without assistance given current level of function. Time spent: 40 min [facility] [employer] Evaluation Short Term Goals: Patient/caregivers will demonstrate comprehension re: appropriate environmental modifcations to support safety in discharge environment within 1 week. Patient will participate in conversation/selectively attend to auditory information related to safety in the home, and recall 1-2 specific details related to safe discharge given min-mod cues/repetition within 1 week. Coding
--- NOTE | 2022-07-28 12:22 | NUR.NOTE ---
Nursing Note: S patient calls nursing station says she is hot. O. Patient is lying flat in bed with multiple layer of blankets on A, Enter room Patient is yelling for help. Says she is sob. Sat 100% resp 32 pulse 107 bp 110/71. t 36.5 P. Removed blankets, raise bed to high fowlers. Waiting for HHI to administer. Patient refused lunch Hydration is encouraged, Patients breathing slowly relaxes
--- NOTE | 2022-07-28 12:43 | W.PM.PROGNOT ---
Date of Service Date of service: 07/28/22 Time of Service: 12:43 Subjective Subjective Interval history since last seen: Came to evaluate patient for AMS. Unfortunately, she was being evaluated by ST at this time. Will try again tomorrow. Objective Last Vital Signs Temp 97.5 F L 07/28/22 12:12 Pulse 107 H 07/28/22 12:12 Resp 32 H 07/28/22 12:12 BP 110/71 07/28/22 12:12 Pulse Ox 100 07/28/22 12:12 Laboratory Results - last 24 hr 07/27/22 07/27/22 07/28/22 12:05 12:47 06:00 WBC RBC Hgb Hct MCV MCH MCHC RDW Plt Count MPV Immature Gran % Neutrophils % Lymphocytes % Monocytes % Eosinophils % Basophils % Nucleated RBC % Absolute Neutrophils Absolute Lymphocytes Absolute Monocytes Absolute Eosinophils Absolute Basophils Sodium 133 L 134 L Potassium 3.8 3.8 Chloride 99 100 Carbon Dioxide 26.2 24.9 Anion Gap 7.8 9.1 BUN 14 15 Creatinine 0.9 0.8 Est GFR (CKD-EPI 2020) 64.63 74.44 Glucose 116 H 95 Calcium 8.7 8.6 Magnesium 1.8 Ferritin 85 Total Bilirubin 0.5 Conjugated Bilirubin 0.1 AST 21 ALT 14 Alkaline Phosphatase 52 C-Reactive Protein 0.34 H Total Protein 6.4 Albumin 3.2 L Vitamin B12 1020 H 07/28/22 06:00 WBC 6.48 RBC 3.80 L Hgb 11.5 Hct 33.5 L MCV 88 MCH 30.3 MCHC 34.3 RDW 12.8 Plt Count 242 MPV 10.0 Immature Gran % 0.5 Neutrophils % 59.1 Lymphocytes % 29.2 Monocytes % 8.8 Eosinophils % 1.5 Basophils % 0.9 Nucleated RBC % 0.0 Absolute Neutrophils 3.83 Absolute Lymphocytes 1.89 Absolute Monocytes 0.57 Absolute Eosinophils 0.10 Absolute Basophils 0.06 Sodium Potassium Chloride Carbon Dioxide Anion Gap BUN Creatinine Est GFR (CKD-EPI 2020) Glucose Calcium Magnesium Ferritin Total Bilirubin Conjugated Bilirubin AST ALT Alkaline Phosphatase C-Reactive Protein Total Protein Albumin Vitamin B12
--- NOTE | 2022-07-28 12:52 | W.PALLCONSUL ---
Date of service: 07/28/22 Time of Service: 12:52 [facility] All Active Problems COVID-19 (Acute) Mental status alteration (Acute) Slurred speech (Acute) Vertigo (Acute) History of migraine headaches (Chronic) a. Remote history, patient denies having these in years. 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 Microscopic. Hypothyroidism (Chronic) UTI (lower urinary tract infection) (Chronic) a. Several pansensitive E. coli urinary tract infections recently. 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 (Acute 02/26/16) SI (sacroiliac) pain (Acute 09/08/17) Trochanteric bursitis of right hip (Acute 02/26/16) Cough (Acute) Vertigo (Acute) Weakness generalized (Acute) Hematuria (Acute) Spondylosis of lumbar region without myelopathy or radiculopathy (Acute) Medical History Anemia, iron deficiency Asymptomatic microscopic hematuria Atrophic vaginitis Dermatitis of eyelid Eczema GERD (gastroesophageal reflux disease) Glaucoma Grief reaction Hernia, inguinal, left Hypothyroid Insomnia Low back pain Migraine Nosebleed Pain of left thumb Pain, joint, hip, right Rib pain on left side Seborrheic keratosis Vitamin B12 deficiency Weight loss Surgical History Abdominal hysterectomy Appendectomy Bilateral salpingectomy with oophorectomy Biopsy of breast History of arthroplasty of right hip Hx of cataract surgery Repair of inguinal hernia Tonsillectomy and adenoidectomy Total replacement of hip (06/29/17) right Social History Smoking/Tobacco Use Status: Never Smoking risk assessment performed?: Yes Alcohol Intake: never Drug use: Never Substance use type: does not use Current gender identity: female Do you feel safe at home: Yes Do you feel safe in your relationship?: Yes Additional Social history: Lives with Developmentally delayed adult daughter. early spring 2021 (cared for bedbound until his at home) Results Last Vital Signs Temp 36.6 C 07/28/22 12:48 Pulse 91 H 07/28/22 12:50 Resp 20 07/28/22 12:50 BP 110/71 07/28/22 12:12 Pulse Ox 96 07/28/22 12:50 Labs Result diagrams: 07/28/22 06:00 07/28/22 06:00 Labs: Laboratory Results - last 24 hr 07/27/22 07/28/22 07/28/22 12:47 06:00 06:00 WBC 6.48 RBC 3.80 L Hgb 11.5 Hct 33.5 L MCV 88 MCH 30.3 MCHC 34.3 RDW 12.8 Plt Count 242 MPV 10.0 Immature Gran % 0.5 Neutrophils % 59.1 Lymphocytes % 29.2 Monocytes % 8.8 Eosinophils % 1.5 Basophils % 0.9 Nucleated RBC % 0.0 Absolute Neutrophils 3.83 Absolute Lymphocytes 1.89 Absolute Monocytes 0.57 Absolute Eosinophils 0.10 Absolute Basophils 0.06 Sodium 134 L Potassium 3.8 Chloride 100 Carbon Dioxide 24.9 Anion Gap 9.1 BUN 15 Creatinine 0.8 Est GFR (CKD-EPI 2020) 74.44 Glucose 95 Calcium 8.6 Magnesium 1.8 Ferritin 85 Total Bilirubin 0.5 Conjugated Bilirubin 0.1 AST 21 ALT 14 Alkaline Phosphatase 52 C-Reactive Protein 0.34 H Total Protein 6.4 Albumin 3.2 L Vitamin B12 1020 H
--- NOTE | 2022-07-28 13:19 | NUR.NOTE ---
Nursing Note: Patient has had 2 episodes of sob. I was present with the patient during the second episode. She was hyperventilating at 32 minute. sat was 100 on room air. Patient was encouraged to breath in through the nose and out through the lips. After she calmed down some , she was given a straw to suck through. respiration s and heart rate both responded favorably. Throughout the event , the patient was very emotional concerned about her handicapped daughter, and missed her children. She was crying at times. She is supported through this by nursing through this. Palliative, ST, and Hospitalist are made aware.
--- NOTE | 2022-07-28 13:49 | PCNE_ITS ---
Date of service: 07/28/22 Time of Service: 13:49 History of Present Illness Narrative: Mirian Ward is an 82-year-old woman with history of hypertension and migraine headaches who was brought to the ER by ambulance to days ago after having acute change in mental status, laying on the ground moaning and barely responsive, unable to talk. Work-up in the ER was notable for normal CTA and normal head MRI, metabolic work-up was negative and toxicology was negative as well. She continued to have difficulty with speech and seemed confused. Over the last 48 hours she is gradually become more oriented and more appropriate with normal speech returning. Palliative care has asked to consult for additional to support and to help with goals of care if needed. Of note, Mrs. Ward went on a [place] cruise with multiple members of her family approximately 3 weeks ago. According to July 18 ED note, on July 17 she developed a dry cough fever and feeling unwell. She tested positive for COVID. Her son brought her to [facility] emergency department for evaluation and to request antiviral treatment. She was given prescription for a course of Paxlovid, which her son reports she completed. She has intricate recollections of the trip to the [facility] with her family, can tell me where they went and who attended. However she has no recollection of being diagnosed with COVID or going to the emergency room and is quite bothered by this after I share this information. She reports she vaguely remembers being in the emergency department a few days ago. (Daniele reports that before 07/26 ED visit he had overheard her telling friends about how he took her to the ED to get the ANtivirals) History obtained by phone from son Jennifer Ward: -He feels that she has had problems with her memory for about 6 months, since his father in December. She continues to be able to do tasks that she is done for many years. But struggles with learning new tasks such as learning how to use a new phone system in their house or filling out application for fuel relief. She also seems to not remember recent conversations. She gets frustrated and angry when this happens. 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 She has not gotten lost. He feels she is keeping up housework and shopping and cooking at the same level as previous. However, he expresses worry that she may have Alzheimer's and wonders if this showed up on the x-rays. -She did have a fall about a week ago but hit her elbow and not her head. -After taking the Paxlovid for 5 days (ending approximately July 23), she was feeling much better and went out shopping. She also stayed out late socializing. She did not sleep well the night before her ED visit and awoke early. She was feeling very tired that day. He spoke with her around noon. She reported she was tired and was going to go lay down. Her speech was normal. Then at 3:00 the neighbor called and said that she was having difficulty speaking and the ambulance was called. Social history: Patient was 6 months ago. She lives in her home in [place] with her adult daughter, who has developmental delay and cannot live in dependently. Son Jennifer recently moved from [place] to [place] and frequently comes to visit his mother and sister. Patient drives on her own and this independent and manages her daughters affairs. She denies drinking any alcohol or using any street drugs. What bothers you the most: Not being able to remember things from the last few days What worries you the most: Not being able to see her family. What helps you cope: Support from friends and family. Spiritual history: Regularly attends catholic. Palliative performance scale: Prior to hospital admission patient reportedly 90%. Palliative review of systems: Pain negative GI symptoms: None Headache: None today or yesterday Anxiety: Worried about her daughter and that her son and others are taking good care of her. Depression: Denies Appetite: Decreased today Advanced care planning: Advance directive: On file from 2018. Reviewed. Patient would like to be full code. However would like aggressive support withdrawn if there was no cope of recovery. Healthcare agent is directive lists her as primary HCA (he has passed aw ay). Son Jennifer is listed as secondary. Limitations: NOne listed COLST : none Assessment and Plan Assessment and plan (1) Palliative care encounter: Status: Acute Assessment and plan: Palliative care team met with patient today to introduce herself. Also spoke with son. Once her memory is sharper, we will revisit advance care planning including updating healthcare agent and reviewing CODE STATUS and other wishes. (2) Advanced care planning/counseling discussion: Status: Acute Assessment and plan: Discussed with both patient and son that she should pick a second healthcare agent now that her has . I spoke with son about CODE STATUS. He feels that she would want to be a full code but that if things were not going well she would want to withdraw aggressive treatment. Given her recent change in mental status, I think best to put off this discussion to outpatient. He will also talk with her about another possible second healthcare agent. (3) Mental status alteration: Start time: 14:06 Status: Acute Assessment and plan: Working Dx is COVID 19 encephalopathy. Ddx includes seizure or other metabolic encephaopathy. Happily, her mentation appears to be improving although she appears to have gaps in her memory over the last week. Unfortunately neurology was unable to see her today, will but will be coming back tomorrow. Interesting additional history from son who expresses concerns over memory issues and difficulty learning new tasks over the last 6 months. He does not feel she is depressed ( 6 months ago). Hopefully will be Seen by neurology tomorrow. I discussed the option of a more in-depth memory evaluation as an outpatient. A definite diagnosis would be helpful in establishing prognosis and guiding future decisions, she is still providing care for her adult daughter. (4) COVID-19: Status: Acute Assessment and plan: As per hospitalist. Unfortunately, as long as she is COVID-positive, she is un able to meet in person with her family. PFSH All Active Problems (Updated 07/28/22 @ 14:02 by Rose Carreon MD) Advanced care planning/counseling discussion (Acute) Palliative care encounter (Acute) COVID-19 (Acute) Mental status alteration (Acute) Slurred speech (Acute) Vertigo (Acute) History of migraine headaches (Chronic) a. Remote history, patient denies having these in years. 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 Microscopic. Hypothyroidism (Chronic) UTI (lower urinary tract infection) (Chronic) a. Several pansensitive E. coli urinary tract infections recently. 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 (Acute 02/26/16) SI (sacroiliac) pain (Acute 09/08/17) Trochanteric bursitis of right hip (Acute 02/26/16) Cough (Acute) Vertigo (Acute) Weakness generalized (Acute) Hematuria (Acute) Spondylosis of lumbar region without myelopathy or radiculopathy (Acute) Medical History Anemia, iron deficiency Asymptomatic microscopic hematuria Atrophic vaginitis Dermatitis of eyelid Eczema GERD (gastroesophageal reflux disease) Glaucoma Grief reaction Hernia, inguinal, left Hypothyroid Insomnia Low back pain Migraine Nosebleed Pain of left thumb Pain, joint, hip, right Rib pain on left side Seborrheic keratosis Vitamin B12 deficiency Weight loss Surgical History Abdominal hysterectomy Appendectomy Bilateral salpingectomy with oophorectomy Biopsy of breast History of arthroplasty of right hip Hx of cataract surgery Repair of inguinal hernia Tonsillectomy and adenoidectomy Total replacement of hip (06/29/17) right Social History Smoking/Tobacco Use Status: Never Smoking risk assessment performed?: Yes Alcohol Intake: never Drug use: Never Substance use type: does not use Current gender identity: female Do you feel safe at home: Yes Do you feel safe in your relationship?: Yes Additional Social history: Lives with Developmentally delayed adult daughter. early spring 2021 (cared for bedbound until his at home) Exam Narrative Exam Narrative: Thin elderly woman sitting in bed. Color is good. No cough, some sniffling. Affect is pleasant with good eye contact during my visit. She attends to my questions and answers appropriately. She has a brief moments of sadness but quickly returns to conversation. Does not appear anxious. Occasionally smiles. Results Last Vital Signs Temp 36.6 C 07/28/22 12:48 Pulse 91 H 07/28/22 12:50 Resp 20 07/28/22 12:50 BP 110/71 07/28/22 12:12 Pulse Ox 96 07/28/22 12:50 Labs Result diagrams: 07/28/22 06:00 07/28/22 06:00 Labs: Laboratory Results - last 24 hr 07/27/22 07/28/22 07/28/22 12:47 06:00 06:00 WBC 6.48 RBC 3.80 L Hgb 11.5 Hct 33.5 L MCV 88 MCH 30.3 MCHC 34.3 RDW 12.8 Plt Count 242 MPV 10.0 Immature Gran % 0.5 Neutrophils % 59.1 Lymphocytes % 29.2 Monocytes % 8.8 Eosinophils % 1.5 Basophils % 0.9 Nucleated RBC % 0.0 Absolute Neutrophils 3.83 Absolute Lymphocytes 1.89 Absolute Monocytes 0.57 Absolute Eosinophils 0.10 Absolute Basophils 0.06 Sodium 134 L Potassium 3.8 Chloride 100 Carbon Dioxide 24.9 Anion Gap 9.1 BUN 15 Creatinine 0.8 Est GFR (CKD-EPI 2020) 74.44 Glucose 95 Calcium 8.6 Magnesium 1.8 Ferritin 85 Total Bilirubin 0.5 Conjugated Bilirubin 0.1 AST 21 ALT 14 Alkaline Phosphatase 52 C-Reactive Protein 0.34 H Total Protein 6.4 Albumin 3.2 L Vitamin B12 1020 H
--- NOTE | 2022-07-28 14:40 | DI.US_ITS ---
APPROVED REPORT EXAM: Comprehensive 2D, Doppler, and color-flow Echocardiogram Patient Location: In-Patient Room/Bed: [address] Carpenter: Kimberly Trevino RDCS (AE) Indications: SVT, COVID Other Information Study Quality: Fair. Technically limited study due to body habitus, inability to position patient exa m done supine bedside. Conclusion Technically difficult but adequate study Left ventricular systolic function is borderline normal with an EF of 50 to 55%. Wall thickness and chamber size is normal. There are no segmental wall motion abnormalities Normal right ventricular size and systolic function Both atria are normal in size There is no structural or hemodynamically significant valvular disease Estimated right ventricular systolic pressure is 24 mmHg Wall motion Left Ventricle The left ventricle is normal size. The left ventricular systolic function is Borderline normal There is normal left ventricular wall thickness. There is normal LV segmental wall motion. There is no vent ricular septal defect visualized. LVEF is50- 55%. Right Ventricle Right ventricle is grossly normal in size. Right ventricular systolic function is grossly normal. The RVSP is 24.3mmHg. Atria The left atrium size is normal. The right atrium size is normal. The interatrial septum is intact wit h no evidence for an atrial septal defect. Aortic Valve The aortic valve is normal in structure. Aortic valve is trileaflet. There is no aortic valvular sten osis. No aortic regurgitation is present. Mitral Valve The mitral valve is normal in structure. No evidence of mitral valve stenosis. Trace mitral regurgita tion. Tricuspid Valve The tricuspid valve is normal in structure. There is no tricuspid valve stenosis. Mild tricuspid regu rgitation. Pulmonic Valve Pulmonic valve is not well visualized. There is no pulmonic valvular stenosis. There is no pulmonic v alvular regurgitation. Great Vessels The aortic root is normal in size. Ascending aorta is not well visualized. IVC is normal in size and collapses >50% with inspiration. Pericardium There is no pericardial effusion. 2D Dimensions IVSD d PLAX 0.86 cm F: 0.6-1.0 LV Vol A2C d MOD 111.9 mL LVPW d PLAX 0.87 cm F: 0.6 - 1.0 LV Vol A4C d MOD 82.6 mL LVID d PLAX 4.47 cm F: 3.8 - 5.2 LA vol/ BSA A4C s A-L 33.1 mL/m2 LVDs 3.30 cm F: 2.2 - 3.5 LA Area A4C s MOD 15.72 cm2 Ao Root d 3.20 cm F: 2.7 - 3.3 LV EF A4C MOD 50.7 % RA Area A4C 12.27 cm2 LV EF A2C MOD 49.7 % RA Vol/ BSA A4C s A-L 21.0 mL/m2 LV EF Biplane MOD 49.3 % LV EF Teichholz 50.8 % SV 49.74 mL LVEF (Osuna's) 49.31 % F: 54 - 74 SV Index 34.36 mL/m2 LV Volume 85.27 mL F: 46 - 106 LV Volume Index 59.21 mL/m2 F: 29 - 61 LV Vol Biplane MOD 100.9 mL FS 25.70 % M-Mode TAPSE 2.51 cm (M/F) >1.7 LV Diastology MV E' medial 0.082 (>0.07 m/s) E/A Ratio 0.5 LV E/e MED 8.55 (<14) MV E Vmax 0.70 (0.4-1.3 m/s) MV E' lateral 0.051 (>0.1 m/s) MV A Vmax 1.30 (0.4-1.3 m/s) LV E/e LAT 13.80 (<14) MV E/A Ratio 0.54 MV E/E' medial 8.57 MV E/E' lateral 13.85 Aortic Valve LVOT Area 3.18 cm2 AoV Area Vmax 2.50 cm2 LVOT Vmax 0.78 m/s AoV Area/ BSA (Vmax) 1.72 cm2/m2 LVOT Mean Walter. 0.54 m/s SAVI Mean Walter. 2.39 cm2 LVOT Peak Grad 2.4 mmHg SAVI Mean Walter. Index 1.65 cm2/m2 LVOT Mean Grad 1.3 mmHg LVOT VTI 0.135 m LVOT Diam s 2.00 cm AoV Vmax 0.99 m/s Velocity Ratio 0.78 AoV Mean Walter. 0.71 m/s AoV Peak Grad 3.9 mmHg LVOT SV 42.80 mL AoV Mean Grad 2.3 mmHg AoV VTI 0.169 m AoV Area VTI 2.53 cm2 AoV Area/ BSA (VTI) 1.75 cm/m2 Mitral Valve MV DT 349 (160-240 msec) MV PHT 101 msec MV Area PHT 2.17 cm2 Pulmonary Valve PV Vmax 0.84 (0.5-1.5 m/s) RVOT Peak Gr. 2.81 mmHg PV Peak Grad 2.8 mmHg RVOT Mean Gr. 1.55 mmHg PV Mean Grad 1.5 mmHg RVOT VTI 0.149 m PV VTI 0.137 m RVOT Vmax 0.84 m/s Tricuspid Valve TR Peak Grad 21.2 mmHg TR Vmax 2.31 m/s RA Pressure 3.00 mmHg RVSP (TR) 24.3 mmHg
--- NOTE | 2022-07-28 15:19 | NUR.NOTE ---
Nursing Note: I have reviewed the documentation of Erika Garrett LPN.
--- NOTE | 2022-07-28 15:23 | PT.INTREAT ---
Date of service: 07/28/22 Time of Service: 10:21 PT Notes Visit Reasons: Altered Mental Status Inpatient Physical Therapy Treatment Note [facility] Date: 07/28/2022 PRECAUTIONS: Activity as tolerated, COVID-19, confusion SUBJECTIVE: Mirian is pleasant and agreeable to participating in PT. She reports that she is feeling better today. OBJECTIVE: PAIN: No c/o pain BED MOBILITY/TRANSFERS Sit-stand: SBA Stand-sit: SBA GAIT Assistive Device: FWW Weight bearing: Full Assist: SBA -S Distance: 75' Deviation: Unremarkable gait THEREX: Patient was instructed in a LE strengthening program, completed in a seated position, to include: ankle pumps, heel raises, LAQ, hip flexion and hip abduction. ASSESSMENT: Patient tolerated session without complaint. She tolerates a progression in gait distance with FWW support and SBA-S. She does not appear confused today. PLAN: Continue with global strengthening and gait training for improved activity tolerance. TREATMENT CODE/TIME: 24 minutes; 74462, [id number] (10:21)
--- NOTE | 2022-07-28 15:49 | CHAPLAIN ---
Mirian was brought to the ED a couple of days ago because of a change in her mental status, which is improving daily. Mirian's , Laurent, at [facility] about six months ago. Mirian's daughter, who has developmental delays, lives with her. Her son, Jennifer, moved from [place] back to [place] after Laurent and lives in [place] now, and comes to [place] often. Mirian attends the [place] [employer]. I was unable to visit Mirian because of her COVID positive status, but her nurse asked Mirian if she'd like me to call Rev. Nakul Carl and Mirian agreed to that. I left a message with Nakul. I sent a prayer shawl in for Mirian with her nurse.
--- NOTE | 2022-07-28 19:21 | W.PM.PROGNOT ---
Date of Service Date of service: 07/28/22 Time of Service: 19:21 Assessment and Plan Assessment and plan (1) Mental status alteration: Status: Acute Assessment and plan: Await neurology c/s. Consider migraine. COVID-19 can also cause encephalopathy. Consider hyponatremia (now resolved) as cause of confusion as well. MRI negative for an acute CVA. This does appear significantly improived. Continue to monitor mental status. (2) COVID-19: Status: Acute Assessment and plan: Continue remdesivir and respiratory precautions. Other than anorexia and encephalopathy, asymptomatic. (3) Anxiety: Status: Chronic Assessment and plan: Start mirtazapine. Continue home prn lorazepam. (4) Malnutrition: Status: Acute Assessment and plan: Start mirtazapine. Continue cyprohepatdine. (5) Hypothyroidism: Status: Chronic Assessment and plan: Continue home synthroid. (6) DVT prophylaxis: Status: Acute Assessment and plan: enoxaparin (7) Discharge planning issues: Status: Acute Assessment and plan: Full code Anticipate discharge home in 24-48 hrs. Subjective Subjective Interval history since last seen: Ms Ward states she does not have an appetite. She is not nauseated, not constipated, not having diarrhea. Just no appetite. Denies difficulty swallowing. Denies dizziness, chest pain, shortness of breath, nausea. She would like to go home as soon as possible. Had two short episodes of SVT. Exam Narrative Exam Narrative: General: Anxious elderly female who is A&Ox3, NAD, on RA HEENT: EOMI, MMM Heart: RRR, no m/r/g Lungs: CTAB Abdomen: soft, nontender, nondistended Extremities: no edema BLEs Objective Last Vital Signs Temp 36.5 C 07/28/22 15:41 Pulse 96 H 07/28/22 15:41 Resp 18 07/28/22 15:41 BP 129/75 07/28/22 15:41 Pulse Ox 100 07/28/22 15:41 Laboratory Results - last 24 hr 07/27/22 07/28/22 07/28/22 06:22 06:00 06:00 WBC 6.48 RBC 3.80 L Hgb 11.5 Hct 33.5 L MCV 88 MCH 30.3 MCHC 34.3 RDW 12.8 Plt Count 242 MPV 10.0 Immature Gran % 0.5 Neutrophils % 59.1 Lymphocytes % 29.2 Monocytes % 8.8 Eosinophils % 1.5 Basophils % 0.9 Nucleated RBC % 0.0 Absolute Neutrophils 3.83 Absolute Lymphocytes 1.89 Absolute Monocytes 0.57 Absolute Eosinophils 0.10 Absolute Basophils 0.06 Sodium 134 L Potassium 3.8 Chloride 100 Carbon Dioxide 24.9 Anion Gap 9.1 BUN 15 Creatinine 0.8 Est GFR (CKD-EPI 2020) 74.44 Glucose 95 Calcium 8.6 Magnesium 1.8 Ferritin 85 Total Bilirubin 0.5 Conjugated Bilirubin 0.1 AST 21 ALT 14 Alkaline Phosphatase 52 C-Reactive Protein 0.34 H Total Protein 6.4 Albumin 3.2 L Add-On Test Request DONE Objective Narrative Objective Narrative: Echo: Left ventricular systolic function is borderline normal with an EF of 50 to 55%.? Wall thickness and chamber size is normal.? There are no segmental wall motion abnormalities Normal right ventricular size and systolic function Both atria are normal in size There is no structural or hemodynamically significant valvular disease Estimated right ventricular systolic pressure is 24 mmHg
[2022-07-28] MEDS: Metoprolol 12.5 MG TAB PO (21:25)
[2022-07-28] MEDS: Mirtazapine 15 MG TAB 7.5 MG PO (21:26)
[2022-07-28] MEDS: Ascorbic Acid 500 MG TAB 1000 MG PO (21:26)
[2022-07-28] MEDS: LORazepam 0.5 MG TAB PO (21:27)
[2022-07-28] MEDS: Cyproheptadine 4 MG TAB 2 MG PO (23:48)
[2022-07-29] VITALS: PULSE 91
[2022-07-29 03:50] VITALS: BP 109/70; BP 118/75; BP 120/71; PULSE 104; PULSE 108; PULSE 99; RESP 15; TEMP 36.9; O2SAT 97
[2022-07-29] MEDS: Levothyroxine 75 MCG TAB PO (06:02)
[2022-07-29 06:39] LABS: Abs Immature Grans 0.03 10^3/uL (0.0-0.06); Absolute Basophil Count 0.05 10^3/uL (0.0-0.2); Absolute Eosinophil Count 0.11 10^3/uL (0.0-0.7); Absolute Lymphocyte Count 1.75 10^3/uL (1.2-3.4); Absolute Monocyte Count 0.77 10^3/uL (0.1-0.8); Absolute Neutrophil Count 6.01 10^3/uL (1.2-6.7); Basophils % 0.6; Eosinophils % 1.3; HCT 34.2 % (36.0-46.0); HGB 11.8 g/dL (11.2-15.7); Immature Grans % 0.3; Lymphocytes % 20.1; MCH 30.7 pg (27.0-33.0); MCHC 34.5 % (32.0-36.0); MCV 89 fL (80-95); MPV 10.5 fL (8.0-11.0); Monocytes % 8.8; Neutrophils % 68.9; Platelet Count 250 10^3/uL (130-400); RBC 3.84 10^6/uL (3.93-5.22); RDW 12.7 % (11.7-14.6); RDW-SD 41.1 fL; WBC 8.72 10^3/uL (4.4-10.8)
[2022-07-29 07:03] LABS: Anion Gap 9.2 mmol/L (3-11); BUN 12 mg/dL (7-18); C-Reactive Protein 0.76 mg/dL (0.0-0.3); CO2 25.8 mmol/L (21.0-32.0); CREATININE 0.8 mg/dL (0.55-1.02); Calcium 8.6 mg/dL (8.5-10.1); Chloride 100 mmol/L (98-107); Estimated GFR 74.44 (mL/min/1.73m2); Glucose 94 mg/dL (74-106); Magnesium 1.9 mg/dL (1.8-2.4); Potassium 3.3 mmol/L (3.5-5.1); Sodium 135 mmol/L (136-145)
[2022-07-29 08:01] VITALS: PULSE 104
[2022-07-29 08:31] VITALS: BP 120/69; PULSE 107; RESP 17; TEMP 36.9; O2SAT 97
[2022-07-29] MEDS: Normal Saline Flush 10 ML SYR IVP (09:03)
[2022-07-29] MEDS: Cyclobenzaprine 10 MG TAB 5 MG PO (09:04)
[2022-07-29] MEDS: Cholecalciferol (Vitamin D3) 1,000 UNIT TAB 1000 UNITS PO (09:05)
[2022-07-29] MEDS: Zinc Sulfate 220 MG TAB PO (09:05)
[2022-07-29] MEDS: Ascorbic Acid 500 MG TAB 1000 MG PO (09:05)
[2022-07-29] MEDS: Potassium Chloride 20 MEQ TABCR 40 MEQ PO (09:05)
[2022-07-29] MEDS: Metoprolol 12.5 MG TAB PO (09:05)
[2022-07-29] MEDS: Enoxaparin 40 MG/0.4 ML SYR SC (09:06)
--- NOTE | 2022-07-29 10:37 | PT.INTREAT ---
Date of service: 07/29/22 Time of Service: 10:10 PT Notes Visit Reasons: Altered Mental Status Inpatient Physical Therapy Treatment Note [facility] Date: 07/29/2022 PRECAUTIONS: Activity as tolerated, COVID-19 SUBJECTIVE: Mirian is pleasant and agreeable to participating in PT. She reports that she is feeling very tired today. She is hoping to be discharged to home today and reports that her son and daughter will take very good care of her. OBJECTIVE: PAIN: No c/o pain BED MOBILITY/TRANSFERS Sit-supine: I with HOB flat Sit-stand: S Stand-sit: S GAIT Assistive Device: FWW No AD Weight bearing: Full Assist: S with FWW SBA without AD Distance: 50' with FWW + 25' without AD Deviation: Unremarkable gait with use of FWW, slightly unsteady without FWW ASSESSMENT: Patient tolerated session without complaint. She tolerates gait training without assistive device support, requiring SBA only, however does demonstrate slightly unsteady gait. She does not appear confused today. PLAN: Patient to discharge to home later today, per provider. Recommend follow up with PT for continued global strengthening. TREATMENT CODE/TIME: 23 minutes; 73244 x2 (10:10)
--- NOTE | 2022-07-29 10:49 | PDOC.CMPRO ---
- If Service Date Differs Date of service: 07/29/22 Time of Service: 10:49 Care Management Progress Note S/O: A: Mirian is an 82 year old woman admitted on 07/26/22 with altered mental status P: Anticipate Mirian will return home once medically cleared. She may benefit from services, if indicated. She will be driven home via private vehicle by family vs RCT. She will follow up with her PCP and discharge plan of care. CM will continue to follow and support Mirian's discharge needs..
[2022-07-29 12:09] VITALS: BP 99/62; PULSE 92; RESP 17; TEMP 36.6; O2SAT 99
--- NOTE | 2022-07-29 12:25 | W.NEUROCONSU ---
Date of service: 07/29/22 Time of Service: 12:25 Assessment and Plan Assessment and plan (1) Mental status alteration: Status: Acute (2) Slurred speech: Status: Acute Assessment and plan: Spell of AMS and dysarthria of unclear etiology in setting of recent COVID infection, hyponatremia, and brief fever. Now seemingly recovered, however concerns for memory issues developing in timeframe prior to spell. MRI brain with chronic vascular changes noted but no acute findings. B12/TSH wnl. No obvious history supporting seizure activity. Will plan for further cognitive testing as an outpatient. Would recommend home with supervision and no driving for now. History of Present Illness History of Present Illness Chief Complaint: AMS, dysarthria Narrative: Handedness: right. HPI: Ms. Ward is an 82 year-old woman with hypothyroidism, migraine headaches, and GERD. She is the primary caregiver for her adult cognitively impaired daughter Barbara. They live alone, however, her son has moved closer and noted memory changes prior to this hospitalization of concern. On 07/26/22, Ms. Ward recalls having a sensation come over her which she is unable to describe. She laid on the couch. After some time, her symptoms had not resolved such that she asked her daughter to get help from down the street. EMS was called and she was transported to the ER. It sounds like initially she was supine, non-verbal but moaning and not following commands. She was admitted to [facility] for further care. Slowly, she has improved and today is conversant and oriented to place and time. She contracted COVID ~2 weeks prior to admission with continued positive PCR upon admission. On initial evaluation, her sodium was 126, which has slowly come up to 135. She has had mild hyponatremia in the past. She was also febrile to 101.7 soon after admission as well. Son declined LP. No source of infection definitely identified. See other work-up as below. 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 She has noticed small changes in her memory over time, but notes no significant issues. Denies issues with iADLs or driving. She scored 13/30 on SLUMS yesterday as administered by ST. They noted during testing that she appeared anxious. Ms. Ward did not appear anxious today. Work-up: -CTH (07/26/22): No acute findings. I reviewed these images personally and this is my personal interpretation. -CTA head/neck (07/26/22): No significant stenosis. I reviewed these images personally and this is my personal interpretation. -MRI brain w/o (07/27/22): No acute findings. Moderate-severe white matter changes. Old L thalamus and ?bilateral BG microhemorrhages. I reviewed these images personally and this is my personal interpretation. -Labs: B12 1020, TSH 2.99, glucose 128, Mg 1.9, ferritin 77, LFTs ok, CK 53, Trop x1 neg, CRP 0.23, lipase 239, procalcitonin <0.1, WBC 7.02, Hgb 12.2 Review of Systems All systems reviewed & are unremarkable except as noted in HPI and below PFSH All Active Problems Discharge planning issues (Acute) DVT prophylaxis (Acute) Malnutrition (Acute) Anxiety (Chronic) Advanced care planning/counseling discussion (Acute) Palliative care encounter (Acute) COVID-19 (Acute) Mental status alteration (Acute) Slurred speech (Acute) Vertigo (Acute) History of migraine headaches (Chronic) a. Remote history, patient denies having these in years. 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 Microscopic. Hypothyroidism (Chronic) UTI (lower urinary tract infection) (Chronic) a. Several pansensitive E. coli urinary tract infections recently. 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 (Acute 02/26/16) SI (sacroiliac) pain (Acute 09/08/17) Trochanteric bursitis of right hip (Acute 02/26/16) Cough (Acute) Vertigo (Acute) Weakness generalized (Acute) Hematuria (Acute) Spondylosis of lumbar region without myelopathy or radiculopathy (Acute) Medical History Anemia, iron deficiency Asymptomatic microscopic hematuria Atrophic vaginitis Dermatitis of eyelid Eczema GERD (gastroesophageal reflux disease) Glaucoma Grief reaction Hernia, inguinal, left Hypothyroid Insomnia Low back pain Migraine Nosebleed Pain of left thumb Pain, joint, hip, right Rib pain on left side Seborrheic keratosis Vitamin B12 deficiency Weight loss Surgical History Abdominal hysterectomy Appendectomy Bilateral salpingectomy with oophorectomy Biopsy of breast History of arthroplasty of right hip Hx of cataract surgery Repair of inguinal hernia Tonsillectomy and adenoidectomy Total replacement of hip (06/29/17) right Social History Smoking/Tobacco Use Status: Never Smoking risk assessment performed?: Yes Alcohol Intake: never Drug use: Never Substance use type: does not use Current gender identity: female Do you feel safe at home: Yes Do you feel safe in your relationship?: Yes Additional Social history: Lives with Developmentally delayed adult daughter. early spring 2021 (cared for bedbound until his at home) Visit Medication and Allergies Active Medications Generic Name Dose Route Start Last Admin Trade Name Freq PRN Reason Stop Dose Admin Ascorbic Acid 1,000 mg 07/28/22 20:00 07/29/22 09:05 Ascorbic Acid 500 Mg Tab PO 1,000 mg BID REDD Administration Cholecalciferol 1,000 units 07/29/22 08:30 07/29/22 09:05 Cholecalciferol (Vitamin D3) 1,000 Unit Tab PO 1,000 units DAILY REDD Administration Cyclobenzaprine HCl 5 mg 07/29/22 08:30 07/29/22 09:04 Cyclobenzaprine 10 Mg Tab PO 5 mg DAILY REDD Administration Cyproheptadine HCl 2 mg 07/28/22 22:00 07/28/22 23:48 Cyproheptadine 4 Mg Tab PO 2 mg HS REDD Administration Device 1 each 07/28/22 12:00 Inhaler, Assist Device MC DIRECTED REDD Dimethicone/Zinc Oxide 0 gm 07/26/22 19:08 Yaneli Protect Cream 142 Gm Tube TP PRN PRN Enoxaparin Sodium 40 mg 07/27/22 08:30 07/29/22 09:06 Enoxaparin 40 Mg/0.4 Ml Syr SC 40 mg DAILY REDD Administration Acetaminophen 1,000 mg in 100 mls @ 400 mls/hr 07/26/22 21:42 07/27/22 09:47 Ofirmev IVPB Infused Q8H PRN PRN Infusion IV Miscellaneous Supplies 1 each 07/26/22 16:30 Iv Access IV DIRECTED REDD Ipratropium [place] 2 puff 07/28/22 12:00 07/29/22 06:02 Ipratropiumi Hfa 12.9 Gm 200 Puff Inh IH 2 puffs Q6H REDD Administration Levalbuterol 2 puff 07/28/22 11:07 Levalbuterol Hfa 15 Gm Inh IH Q4H PRN PRN Levothyroxine Sodium 75 mcg 07/29/22 06:00 07/29/22 06:02 Levothyroxine 75 Mcg Tab PO 75 mcg 0600 REDD Administration Lorazepam 0.5 mg 07/28/22 19:18 07/28/22 21:27 Lorazepam 0.5 Mg Tab PO 0.5 mg DAILY PRN PRN Administration Metoprolol Tartrate 12.5 mg 07/28/22 20:00 07/29/22 09:05 Metoprolol 12.5 Mg Tab PO 12.5 mg BID REDD Administration Mirtazapine 7.5 mg 07/28/22 22:00 07/28/22 21:26 Mirtazapine 15 Mg Tab PO 7.5 mg HS REDD Administration Naproxen 500 mg 07/29/22 17:00 Naproxen 500 Mg Tab PO BID@0800,1700 REDD Pantoprazole Sodium 40 mg 07/27/22 08:00 07/29/22 09:03 Pantoprazole 40 Mg Vial IVP 40 mg Q24H REDD Administration Patient's Own 1 each 07/30/22 08:30 Medication (Ferrous PO Sulfate [Slow DAILY REDD Release Iron] 142 Mg Tablet) Sodium Chloride 0 ml 07/26/22 16:19 07/29/22 09:03 Normal Saline Flush 10 Ml Syr IVP 20 ml PRN PRN Administration Zinc Sulfate 220 mg 07/29/22 08:30 07/29/22 09:05 Zinc Sulfate 220 Mg Tab PO 220 mg DAILY REDD Administration Allergies celecoxib [From Celebrex] Allergy (Severe, Unverified 07/18/22 17:09) Skin Rash Penicillins Allergy (Intermediate, Unverified 07/18/22 17:09) Unknown tramadol Adverse Reaction (Severe, Unverified 07/18/22 17:09) Nausea meperidine HCl [From Demerol] Adverse Reaction (Intermediate, Unverified 07/18/22 17:09) Halluncinations morphine Adverse Reaction (Intermediate, Unverified 07/18/22 17:09) Nausea topiramate [From Topamax] Adverse Reaction (Intermediate, Unverified 07/18/22 17:09) Nausea Exam Narrative Exam Narrative: Physical Exam: Constitutional: Patient of apparent stated age, well nourished, well developed, no acute distress Neck: Supple, no meningismus CV: RRR, S1, S2, no murmur Resp: CTAB Abd: Soft, nontender, nondistended Extrem: no edema Neuro: MS/Language/Speech: Alert, oriented to person place and time, clear language (fluency and comprehension), no dysarthria CN: PERRL, EOMI, visual hickey full, trigeminal sensation intact, no facial asymmetry, hearing intact, palate elevates symmetrically, tongue protrudes midline, SCM and trap strength intact Motor: Normal bulk and tone. FMM intact, no pronator drift. 5/5 strength in bilateral upper and lower extremities Sensation: Intact to light touch throughout Reflexes: 2+ DTRs in bilateral UE with reduced LE reflexes, toes neutral bilaterally Coordination: Finger to nose performed without dysmetria Gait: not seen Results Last Vital Signs Temp 97.9 F 07/29/22 12:09 Pulse 92 H 07/29/22 12:09 Resp 17 07/29/22 12:09 BP 99/62 L 07/29/22 12:09 Pulse Ox 99 07/29/22 12:09 Labs Result diagrams: 07/29/22 06:06 07/29/22 06:06 Labs: Laboratory Results - last 24 hr 07/27/22 07/29/22 07/29/22 06:22 06:06 06:06 WBC 8.72 RBC 3.84 L Hgb 11.8 Hct 34.2 L MCV 89 MCH 30.7 MCHC 34.5 RDW 12.7 Plt Count 250 MPV 10.5 Immature Gran % 0.3 Neutrophils % 68.9 Lymphocytes % 20.1 Monocytes % 8.8 Eosinophils % 1.3 Basophils % 0.6 Nucleated RBC % 0.0 Absolute Neutrophils 6.01 Absolute Lymphocytes 1.75 Absolute Monocytes 0.77 Absolute Eosinophils 0.11 Absolute Basophils 0.05 Sodium 135 L Potassium 3.3 L Chloride 100 Carbon Dioxide 25.8 Anion Gap 9.2 BUN 12 Creatinine 0.8 Est GFR (CKD-EPI 2020) 74.44 Glucose 94 Calcium 8.6 Magnesium 1.9 C-Reactive Protein 0.76 H Add-On Test Request DONE
[2022-07-29 13:49] VITALS: BP 101/63; PULSE 82
--- NOTE | 2022-07-29 13:57 | PDOC.HHF2F ---
Home Health Certification Home Health Certification: 1. Encounter Date and Reason I certify that Mirian Ward was seen by Magui Collins on 07/29/22 and that I had a [id number] encounter with this patient that meets the physician face to face encounter requirements. 2. Clinical Findings Supporting Skilled Need and Homebound Status I certify that home health services are medically necessary, include either intermittent retirement and/or physical/speech therapy, and that this patient is homebound in that absences from the home require considerable and taxing effort and are infrequent or of short duration, or are attributable to the need to receive medical care. [X] (a) Attached documentation from encounter provides clinical findings supporting skilled need and homebound status (including what assistance patient requires to leave the home). The encounter with the patient was in whole, or in part, for the following medical condition, which is the primary reason for home health care: Altered Mental Status Physical Therapy: physical deconditioning: eval and treat Occupational Therapy: physical deconditioning, safety assessment in setting of cognitive impairement Speech Therapy: cognitive impairement Homebound: unable to leave home without assistance 3. Certification and Authentication I certify that I composed the above information based on my clinical judgement relating to this patient's medical condition and, if applicable, clinical findings communicated to me by the NPP or inpatient physician who performed the Home Health Referral. All further orders will be obtained through Laura Gonzalez (Community Based Physician - PCP)
--- NOTE | 2022-07-29 14:00 | W.PM.DS.N ---
Date of service: 07/29/22 Time of Service: 14:00 DS: Diagnosis Discharge Diagnosis (1) Mental status alteration: Status: Resolved (2) Slurred speech: Status: Resolved (3) COVID-19: Status: Acute (4) Paroxysmal SVT (supraventricular tachycardia): Status: Acute (5) Hyponatremia: Status: Resolved (6) Anxiety: Status: Chronic (7) Malnutrition: Status: Acute (8) Cognitive impairment: Status: Acute (9) Hypokalemia: Status: Acute Discharge Plan Disposition Patient Disposition: Home W/Home Health Services Condition: Improving Discharge Details Reason For Visit: Altered Mental Status Admit Date/Time: 07/26/22 19:05 Admit Provider: Lane Kemp Attending Provider: Lane Kemp Primary Care Provider: Laura Gonzalez Hospital Course Hospital Course: Ms Ward is an 82 year old female with PMHx of migraines, anxiety, hypothyroidism, GERD, OAB, who was diagnosed with COVID-19 on 07/18/22, having completed paxlovid at home, who was admitted to [facility] hospitalist service on 07/26/22 after being found altered and with slurred speech at home, after being last normal at about 12 pm that day. Per EMS, the patient was laying down moaning and not talking or following commands, but was responsive to painful stimuli. Her NIH stroke scale was 18 on arrival; CT head was negative for acute CVA. She was not hypoxic or febrile on arrival to the ER. She was able to speak in the ER but had slurred speech. Her workup revealed a sodium was 126. She had a persistently positive COVID-19 PCR. The patient was admitted to medical surgical floor. Here, she was treated with remdesivir as we did observe a fever. She did not have evidence of a UTI or a pneumonia. She did not require antibiotics. Her mental status steadily improved. MRI of her brain was negative for an acute CVA. She was hydrated with IVF until her hyponatremia resolved. She was evaluated by neurology, who felt that the episode of encephalopathy could have been explained by a possible fever at home, hyponatremia, COVID-19. While seizure was not proven (and CPK was normal), if there is another event during which her mental status changes, however, given cognitive impairment seen on SLUMS testing with speech therapy (), she could potentially be started on anticonvulsant therapy. She will need to follow up with neurology as outpatient. Her sodium is 135 on the day of discharge. It is not clear why it was low on presentation, but the patient does admit to poor PO intake at home due to having no appetite. Her BMI is 19.2 kg/m2. I reinforced the need to eat with her and started her on mirtazapine 7.5 mg PO QHS given concurrent reports of anxiety and difficulty sleeping. Finally, it is unclear if this is related to the patient's presentation, she did have a couple of episodes of paroxysmal SVT during this admission for which she was initiated on metoprolol tartrate 12.5 mg PO BID. Her echocardiogram showed LVEF of 50-55%, normal wall motion, normal size atria, no significant valvular disease. She is being discharged home today with a cardiac event recorder. Mirian agreed to have physical therapy, occupational therapy, and speech therapy evaluations at home by home health, which are indicated. Care for patient in addition to completion of her discharge paperwork today took 45 minutes. Home Meds and New Rx's Prescriptions: New metoprolol tartrate 25 mg Tablet 12.5 mg PO BID Qty: 60 0RF mirtazapine 15 mg Tablet 7.5 mg PO HS Qty: 15 0RF Continued Excedrin Extra Strength 1 EACH tablet 1 ea PO PRN PRN (Reason: Headache) Label Comments: Pt stated she takes excedrine migraine in the mornings stated she would stop taking today 06/24/17. DCW cyproheptadine 4 MG tablet 2 mg PO HS Label Comments: 02/16/18-PT STATES CURRENT DOSE IS 2MG DAILY--MOUSTAPHA GAR betamethasone dipropionate 15 GM ointment 15 gm Topical HS twice weekly Qty: 15 4RF Rx Instructions: Apply a small amount to affected area HS twice weekly cholecalciferol (vitamin D3) 1,000 UNIT capsule 1,000 unit PO DAILY neomycin-polymyxin B-dexameth [Maxitrol] 3.5mg/mL-10,000 unit/mL-0.1 % drops,suspension 1 drp ophthalmic (eye) DIRECTED Rx Instructions: Apply 1 thin layer on eyelid three times a day from one week then call [facility] neomycin-polymyxin B-dexameth [Maxitrol] 3.5 mg/g-10,000 unit/g-0.1 % ointment 1 applic ophthalmic (eye) TID Rx Instructions: x1 wk naproxen 500 mg tablet,delayed release (DR/EC) 500 mg PO BID Label Comments: Take 1 tablet by mouth twice a day levothyroxine 75 mcg tablet 75 mcg PO DAILY Label Comments: TAKE ONE TABLET BY MOUTH EVERY DAY brimonidine 0.2 % drops 1 drp ophthalmic (eye) BID Label Comments: INSTILL 1 DROP INTO BOTH EYES TWICE A DAY lorazepam 0.5 mg tablet 1 tab PO HS Changed cyclobenzaprine 10 mg Tablet 5 mg PO QPM Qty: 0 0RF No Action Slow Release Iron 142 MG tablet extended release 142 mg PO DAILY Discharge Instructions Instructions: Metoprolol (By mouth), Supraventricular Tachycardia (DC), Altered Mental Status (ED), COVID-19 (Coronavirus Disease 2019) (DC) Additional Instructions: Return to the hospital with any new episodes of worsening confusion, if you develop a fever, bleeding, chest pain, or shortness of breath. Follow up with your PCP's office in 1-2 weeks. Follow up with neurology. Follow up with palliative care. Care Plan Goals: Home with new home health PT and OT. Stand Alone Forms: Nursing Discharge Form Referrals: [facility] Palliative Care Clinic [Provider Group] (the Nurse will call to make you an appointment with you ) Laura Gonzalez [Primary Care Provider] - 08/18/22 11:20 am Yulia Beatty MD [ [facility] STAFF PHYSICIAN] - 08/10/22 10:15 am Activity:: Activity as Tolerated Equipment/Supplies:: cardiac event recorder Diet:: As Tolerated Discharge Orders Discharge Orders: Discharge Order (Routine); Ordered 07/29/22 Ordered By: Magui Collins Other Ambulatory Orders: Cardiac Event Recorder (Routine) Timeframe: 1 Day Facility: [facility] - Location: Respiratory Therapy Ordered By: Magui Collins DS: Summary Time Spent with Patient providing and/or coordinating discharge services: Greater than 30 minutes Status at Discharge Functional status at discharge: independent ambulation Overall status at discharge: patient is progressing back to baseline Mental Status: mental status grossly normal Speech and Movement: speech and movement normal Mood: anxious mood Affect: sad Exam Narrative Exam Narrative: General: Anxious elderly female who is A&Ox3, NAD, on RA HEENT: EOMI, MMM Heart: RRR, no m/r/g Lungs: CTAB Abdomen: soft, nontender, nondistended Extremities: no edema BLEs Psych Mental Status: mental status grossly normal Speech and Movement: speech and movement normal Mood: anxious mood Affect: sad DS: Data Vitals/I&O Vitals and I&O: Vital Signs Temperature 36.6 C 07/29/22 12:09 Temperature Source Tympanic 07/29/22 12:09 Pulse 82 07/29/22 13:49 Pulse Rhythm Irregular 07/29/22 07:45 Pulse 115 H 07/26/22 19:30 Respiratory Rate 17 07/29/22 12:09 Respiratory Effort Non-Labored 07/29/22 07:45 Respiratory Depth Normal 07/29/22 07:45 Respiratory Pattern Normal 07/28/22 07:40 Blood Pressure 101/63 07/29/22 13:49 Blood Pressure Mean 78 07/26/22 19:30 Blood Pressure Position Supine 07/26/22 16:25 Pulse Oximetry 99 07/29/22 12:09 Oxygen Delivery Method Room Air 07/29/22 12:09 Oxygen Flow Rate 0 07/29/22 12:09 Pain Level 0 07/29/22 12:09 Comment 07/29/22 13:49 Intake & Output 07/28/22 07/29/22 07/29/22 23:59 11:59 23:59 Intake Total 465 / 715 Output Total 1275 / 2075 1200 / 1450 250 / 1450 Balance -810 / -1360 -1200 / -1450 -250 / -1450 Intake: IV 5 / 255 Oral 460 / 460 Output: Urine 1275 / 2075 1200 / 1450 250 / 1450 Other: Urine Color Pale Yellow Straw Yellow Urine Appearance Clear Clear Cloudy Comment Strong smell. Data Completed and Pending Completed studies during hospitalization [Text1]: CTA brain/neck 07/26/22: 1. Normal CTA examination of the [place]. 2. No acute abnormality involving the brain..? 3. Normal CTA examination of the neck.? No significant plaque.? No evidence of dissection. CXR 07/26/22: No acute? findings. Brain MRI 07/27/22: There is abundant bilateral periventricular white matter signal abnormality consistent with chronic small vessel disease.? However, there is no restricted diffusion to suggest acute ischemic infarct. The amount of involutional change consistent with this patient's age. Echo 07/28/22: Technically difficult but adequate study Left ventricular systolic function is borderline normal with an EF of 50 to 55%.? Wall thickness and chamber size is normal.? There are no segmental wall motion abnormalities Normal right ventricular size and systolic function Both atria are normal in size There is no structural or hemodynamically significant valvular disease Estimated right ventricular systolic pressure is 24 mmHg Labs on day of discharge: Labs from last 24 hours 07/29/22 07/29/22 07/27/22 06:06 06:06 06:22 WBC 8.72 RBC 3.84 L Hgb 11.8 Hct 34.2 L MCV 89 MCH 30.7 MCHC 34.5 RDW 12.7 Plt Count 250 MPV 10.5 Immature Gran % 0.3 Neutrophils % 68.9 Lymphocytes % 20.1 Monocytes % 8.8 Eosinophils % 1.3 Basophils % 0.6 Nucleated RBC % 0.0 Absolute Neutrophils 6.01 Absolute Lymphocytes 1.75 Absolute Monocytes 0.77 Absolute Eosinophils 0.11 Absolute Basophils 0.05 Sodium 135 L Potassium 3.3 L Chloride 100 Carbon Dioxide 25.8 Anion Gap 9.2 BUN 12 Creatinine 0.8 Est GFR (CKD-EPI 2020) 74.44 Glucose 94 Calcium 8.6 Magnesium 1.9 C-Reactive Protein 0.76 H Add-On Test Request DONE Preliminary micro results at discharge 07/26/22 20:50 Blood Culture - Preliminary Blood NO GROWTH 48 HOURS 07/26/22 20:40 Blood Culture - Preliminary Blood NO GROWTH 48 HOURS PFSH All Active Problems (Updated 07/29/22 @ 14:47 by Magui Collins MD) Hypokalemia (Acute) Cognitive impairment (Acute) Paroxysmal SVT (supraventricular tachycardia) (Acute) SVT (supraventricular tachycardia) (Chronic) Discharge planning issues (Acute) DVT prophylaxis (Acute) Malnutrition (Acute) Anxiety (Chronic) Advanced care planning/counseling discussion (Acute) Palliative care encounter (Acute) COVID-19 (Acute) Vertigo (Acute) History of migraine headaches (Chronic) a. Remote history, patient denies having these in years. 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 Microscopic. Hypothyroidism (Chronic) UTI (lower urinary tract infection) (Chronic) a. Several pansensitive E. coli urinary tract infections recently. 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 (Acute 02/26/16) SI (sacroiliac) pain (Acute 09/08/17) Trochanteric bursitis of right hip (Acute 02/26/16) Cough (Acute) Vertigo (Acute) Weakness generalized (Acute) Hematuria (Acute) Spondylosis of lumbar region without myelopathy or radiculopathy (Acute) Medical History Anemia, iron deficiency Asymptomatic microscopic hematuria Atrophic vaginitis Dermatitis of eyelid Eczema GERD (gastroesophageal reflux disease) Glaucoma Grief reaction Hernia, inguinal, left Hypothyroid Insomnia Low back pain Migraine Nosebleed Pain of left thumb Pain, joint, hip, right Rib pain on left side Seborrheic keratosis Vitamin B12 deficiency Weight loss Surgical History Abdominal hysterectomy Appendectomy Bilateral salpingectomy with oophorectomy Biopsy of breast History of arthroplasty of right hip Hx of cataract surgery Repair of inguinal hernia Tonsillectomy and adenoidectomy Total replacement of hip (06/29/17) right Social History Smoking/Tobacco Use Status: Never Smoking risk assessment performed?: Yes Alcohol Intake: never Drug use: Never Substance use type: does not use Current gender identity: female Do you feel safe at home: Yes Do you feel safe in your relationship?: Yes Additional Social history: Lives with Developmentally delayed adult daughter. early spring 2021 (cared for bedbound until his at home)
--- NOTE | 2022-07-29 15:53 | CMDISCH_ITS ---
- If Service Date Differs Date of service: 07/29/22 Time of Service: 15:53 LACE Index Scoring Tool - Questions: Length of Stay (in days): 3 Acuity (Admit via E.D.?): Yes E.D. Visits: 2 - Answers: Total Score: 8 Risk of Readmission: Low Risk Care Management Discharge Reason for Hospitalization: Altered Mental Status Discharge Plan: Mirian will return home today with new orders for HH PT, OT, ST. Her son will be staying with her for a few days to help with her transition home, and he will drive her home via private vehicle. She will follow up with her PCP and discharge plan of care. She is happy to be going home. Patient/Family Education Needs: Review discharge instructions and limitations, discussion of self care needs including ask me three. Services Needed at Discharge: Home Health Care Services (HH PT, OT, EDUCATIONAL PSYCHOLOGY TEACHER)
--- NOTE | 2022-07-29 16:46 | CHAPLAIN ---
Mirian was beginning her walk in the [facility] with PT when I met her. I let her know that after she gave permission yesterday (through the nurse as Mirian was still on precautions) I called her gel coater, Rev. Nakul Carl from the [facility] to let him know Mirian was here. Mirian son, Jennifer, was here with Mirian. He said he wanted to see how Mirian was ambulating for when she was discharged later today. Jennifer moved recently from [place] to [place], [place], but is often in [place] visiting his mom and sister. Mirian's here at [facility] during the past year. At that time Mirian was well supported by Nakul Carl and Jennifer..
--- NOTE | 2022-07-29 17:16 | PT.INDS ---
PT Notes Visit Reasons: Altered Mental Status Physical Therapy Inpatient Discharge Summary Date: 07/29/2022 Dates of service: 07/27/2022 through 07/29/2022 This is a clinical summary of care provided for the duration of dates listed above. No charge was made in the completion of this documentation. Referring Doctor:Bassam Collins? PT Orders: PT CONSULT: Limited ability Precautions: Fall. Standard. Activity as tolerated. Patient Profile/Admitting Diagnosis:? Patient is an 82-year-old female patient admitted for COBVID-19 infection and altered mental status on 07/26/2022. PMHX: All Active Problems? COVID-19 (Acute) Mental status alteration (Acute) Slurred speech (Acute) Vertigo (Acute) History of migraine headaches (Chronic) a. 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 Microscopic.Hypothyroidism (Chronic) UTI (lower urinary tract infection) (Chronic) a. Several pansensitive E. 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 Anemia, iron deficiency Asymptomatic microscopic hematuria Atrophic vaginitis Dermatitis of eyelid Eczema GERD (gastroesophageal reflux disease) Glaucoma Grief reaction Hernia, inguinal, left Hypothyroid Insomnia Low back pain Migraine Nosebleed Pain of left thumb Pain, joint, hip, right Rib pain on left side Seborrheic keratosis Vitamin B12 deficiency Weight loss Surgical History? Abdominal hysterectomy Appendectomy Bilateral salpingectomy with oophorectomy Biopsy of breast History of arthroplasty of right hip Hx of cataract surgery Repair of inguinal hernia Tonsillectomy and adenoidectomy Total replacement of hip (06/29/17) right Social History/Home Situation: recently .? 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 Lives in a private home with daughter who has some disability.? Independent with all aspects of ADLs without AD prior to admission. Equipment Owned/DME: FWW, SPC, 4WW Subjective: NT. See most recent MACHINE LONG [employer] HELPER notes. Objective: General Observation: NT. See most recent MACHINE [employer] HELPER notes. Mental Status: NT. See most recent MACHINE LONG [employer] HELPER notes. Pain: NT. See most recent MACHINE [employer] HELPER notes. ROM: Right Upper Extremity: ? Shoulder Flexion WFL. Shoulder abduction WFL. Elbow flexion WFL. Wrist flexion WFL. Functional opening and closing of hand WFL. Left Upper Extremity:? Shoulder Flexion WFL. Shoulder abduction WFL. Elbow flexion WFL. Wrist flexion WFL. Functional opening and closing of hand WFL. Right Lower Extremity: Hip flexion WFL. Hip abduction WFL. Knee flexion WFL. Ankle dorsiflexion WFL. Ankle plantarflexion WFL. Left Lower Extremity: Hip flexion WFL. Hip abduction WFL. Knee flexion WFL. Ankle dorsiflexion WFL. Ankle plantarflexion WFL. Strength: Right Upper Extremity: Grossly 4-/5 Left Upper Extremity: Grossly 4-/5 Right Lower Extremity: Grossly 4-/5 Left Lower Extremity: Grossly 4-/5 BED MOBILITY/TRANSFERS? Sit-supine: I with HOB flat Sit-stand: S? Stand-sit: S ? GAIT? Assistive Device: FWW No AD? Weight bearing: Full Assist: S with FWW SBA without AD ? Distance: 50' with FWW + 25' without AD Deviation: Unremarkable gait with use of FWW, slightly unsteady without FWW Balance: Static Sitting: Normal Dynamic Sitting: Normal Static Standing: Fair Dynamic Standing: Fair Assessment: Patient presents with clinical signs and symptoms consistent with current/admitting diagnoses that have resulted to mobility limitations, gait instability, generalized weakness, and overall ADL decline as demonstrated by the following impairment level findings: 1.? Decreased strength to B UE/LE major muscle groups 2.? Impaired standing balance 3.? Impaired activity tolerance 4.? Fatigue Impairments are contributing to the following functional limitations: 1.? Decline in bed mobility skills 2.? Decline in transfer skills 3.? Difficulty with ambulation without assistive device and physical assistance 4.? Increased completion time for mobility ADL performance 5.? Increased risk for falls 6.? Difficulty with managing steps alone safely Goals: Goals X1 week 1. Supine-Sit independent MET 2. Sit-Supine independent NOT MET 3. Sit-Stand independent NOT MET 4. Stand-Sit independent with SPC NOT MET 5. Bed-Chair independent with SPC NOT MET 6. Chair-Bed independent with SPC NOT MET 7. Independent gait on level surface with use of SPC for at least 100 feet without report of pain nor dyspnea NOT MET 8. Good static and dynamic standing balance/tolerance NOT MET DISCHARGE RECOMMENDATIONS: [] ? Home with no services [] [X] ? Home with services.? Patient will benefit from home health PT services in order to progress mobility level using least restrictive assistive ambulatory device, assess home safety, identify additional equipment needs, and establish a functional maintenance program that will increase ability of patient to remain at home. [] ? Home with outpatient PT [] [] ? SNF for continued rehabilitation [] [] ? Senior Care Care [] [] ? SNF versus LTC based on ability to participate and progress [] TREATMENT CODE/TIME: JEREMIAH Thank you for the opportunity to participate in the care of this patient. Jillian Castillo PT, DPT, CLT [facility] [place], [place]
[2022-07-30 04:58] LABS: Vitamin D 25 Total 18.2 ng/mL (30-100)
== END 2022-07-29 15:55 | disposition home health service (06) | DRG 178 ==
LOC: ER 18:35 → MS 19:49
PROVIDERS: Internal Medicine; Nurse Practitioner Acute Care; Admitting Provider General Practice; Emergency Provider Emergency Medicine; PCP Family Medicine; Visit Provider General Practice
DX: U07.1 COVID-19 (principal); E46 Unspecified protein-calorie malnutrition; E87.1 Hypo-osmolality and hyponatremia; I47.1 Supraventricular tachycardia; Z68.1 Body mass index [BMI] 19.9 or less, adult; G93.49 Other encephalopathy; R47.81 Slurred speech; F41.9 Anxiety disorder, unspecified; R41.89 Other symptoms and signs involving cognitive functions and awareness; E87.6 Hypokalemia; E03.9 Hypothyroidism, unspecified; K21.9 Gastro-esophageal reflux disease without esophagitis; N32.81 Overactive bladder; R29.718 NIHSS score 18; N39.41 Urge incontinence; M47.816 Spondylosis without myelopathy or radiculopathy, lumbar region; G43.909 Migraine, unspecified, not intractable, without status migrainosus
CPT/HCPCS: 36415; 51702; 70496; 70498; 80048; 80053; 80076; 80307; 82306; 82550; 83690; 84145; 87040; 87635; 93005; 93270; 93306; 96374; 97110; 97162; 97530; 99223; 99285; J1650; 70551; 71045; 80320; 81003; 81015; 82607; 82728; 83735; 84295; 84443; 84484; 85025; 85610; 85730; 86140; 92523; 93010; 99222; 99232; 99239; J0131; J0248; J2060; J3490

== ENCOUNTER 2022-08-04 17:46 | Outpatient (REF) | payer OTHER, SELFPAY | END 2022-08-04 17:47 | disposition home or self-care (01) | LOC: NCHCN 17:46 | PROVIDERS: PCP Family Medicine; Visit Provider Nurse Practitioner Family | DX: R30.0 Dysuria (principal) | CPT/HCPCS: 87077; 87086; 87186 ==

== ENCOUNTER 2022-08-18 12:24 | Outpatient (REF) | payer OTHER, SELFPAY ==
[2022-08-18 15:05] LABS: Anion Gap 8.8 mmol/L (3-11); BUN 15 mg/dL (7-18); CO2 26.2 mmol/L (21.0-32.0); CREATININE 0.8 mg/dL (0.55-1.02); Calcium 9.1 mg/dL (8.5-10.1); Chloride 97 mmol/L (98-107); Estimated GFR 74.44 (mL/min/1.73m2); Glucose 100 mg/dL (74-106); Potassium 4.7 mmol/L (3.5-5.1); Sodium 132 mmol/L (136-145)
== END 2022-08-18 12:25 | disposition home or self-care (01) ==
LOC: NCHCN 12:24
PROVIDERS: PCP Family Medicine; Visit Provider Family Medicine
DX: E03.9 Hypothyroidism, unspecified (principal); D50.9 Iron deficiency anemia, unspecified; Z00.00 Encounter for general adult medical examination without abnormal findings
CPT/HCPCS: 80048

== ENCOUNTER 2022-09-03 08:11 | Outpatient (CLI) | payer OTHER, SELFPAY ==
--- NOTE | 2022-09-03 11:54 | W.CARDEVENT ---
Date of service: 09/03/22 Time of Service: 11:56 Cardiac Event Recorder Referring Provider:: Laura Gonzalez Indications:: Supraventricular tachycardia Cardiac Event Note: This is a 30-day event monitor that was ordered for supraventricular tachycardia Patient was monitored for a total of 7 days and 11 hours Predominant rhythm was sinus with an average heart rate of 94 There were occasional ventricular ectopic beats, couplets, and brief (3-4 beats) runs of nonsustained ventricular tachycardia Patient had episodes of supraventricular tachycardia at a rate of 160. It is possible this was atrial flutter. On July 30 the episode lasted for at least 3 hours. Additional episodes occurred on July 29, and August 21 There was no high-grade AV block, no pauses greater than 3 seconds There were no apparent patient's symptoms
== END 2022-09-03 08:12 | disposition home or self-care (01) ==
LOC: CARDOPNVT 08:11
PROVIDERS: PCP Family Medicine; Visit Provider Internal Medicine Cardiovascular Disease
DX: I47.1 Supraventricular tachycardia (principal); I47.20 Ventricular tachycardia, unspecified
CPT/HCPCS: 93272

== ENCOUNTER → 2022-09-10 10:08 | Outpatient (BNVA) | payer OTHER, SELFPAY | PROVIDERS: PCP Family Medicine; Referring Provider Family Medicine; Visit Provider Nurse Practitioner Adult Health | DX: G30.9 Alzheimer's disease, unspecified (principal); F02.80 Dementia in other diseases classified elsewhere, unspecified severity, without behavioral disturbance, psychotic disturbance, mood disturbance, and anxiety; Z86.16 Personal history of COVID-19 | CPT/HCPCS: 99214 ==

== ENCOUNTER 2022-09-21 22:21 | Outpatient (REF) | payer OTHER, SELFPAY ==
[2022-09-21 22:13] LABS: ALT 21 U/L (14-59); AST 24 U/L (15-37); Albumin 4.4 g/dL (3.4-5.0); Alkaline Phosphatase 93 U/L (46-116); Anion Gap 7.1 mmol/L (3-11); BUN 19 mg/dL (7-18); Bilirubin, Total 0.3 mg/dL (0.2-1.0); CO2 28.9 mmol/L (21.0-32.0); CREATININE 0.8 mg/dL (0.55-1.02); Calcium 9.6 mg/dL (8.5-10.1); Chloride 100 mmol/L (98-107); Estimated GFR 74.44 (mL/min/1.73m2); Glucose 101 mg/dL (74-106); Potassium 4.4 mmol/L (3.5-5.1); Sodium 136 mmol/L (136-145); Total Protein 7.7 g/dL (6.4-8.2)
== END 2022-09-21 22:22 | disposition home or self-care (01) ==
LOC: NCHCN 22:21
PROVIDERS: PCP Family Medicine; Visit Provider Family Medicine
DX: Z86.39 Personal history of other endocrine, nutritional and metabolic disease (principal)
CPT/HCPCS: 80053

== ENCOUNTER 2022-10-23 13:53 | Outpatient (CLI) | payer OTHER, SELFPAY ==
--- NOTE | 2022-10-23 13:45 | RT.EKG_ITS ---
APPROVED REPORT Exam: Resting ECG Reason for Exam: cardiac evaluation Patient Location: O HR:77 bpm ECG Measurements Heart Rate 77 AXIS TN 231 P 60 QRSd 105 QRS 48 QT 413 T 60 QTc 468 Conclusion Sinus rhythm...normal P axis, V-rate 50- 99 Prolonged TN interval...TN >220, V-rate 50- 90 Baseline wander in lead(s) I,aVR
== END 2022-10-23 13:54 | disposition home or self-care (01) ==
LOC: DI.CARD 13:57
PROVIDERS: PCP Family Medicine; Referring Provider Family Medicine; Visit Provider Internal Medicine Cardiovascular Disease
DX: I47.1 Supraventricular tachycardia (principal)
CPT/HCPCS: 93010

== ENCOUNTER → 2022-10-23 13:53 | Outpatient (BNVA) | payer OTHER, SELFPAY | PROVIDERS: PCP Family Medicine; Referring Provider Family Medicine; Visit Provider Internal Medicine Cardiovascular Disease | DX: I47.1 Supraventricular tachycardia (principal) | CPT/HCPCS: 93005; 99203; 99214 ==

== ENCOUNTER 2022-11-27 21:19 | Outpatient (REF) | payer OTHER, SELFPAY ==
[2022-11-27 21:40] LABS: HGB 13.2 g/dL (11.2-15.7); MCH 30.5 pg (27.0-33.0); MCHC 33.8 % (32.0-36.0); MCV 90 fL (80-95); MPV 11.5 fL (8.0-11.0); Platelet Count 283 10^3/uL (130-400); RBC 4.33 10^6/uL (3.93-5.22); RDW 12.5 % (11.7-14.6); RDW-SD 41.5 fL; WBC 9.66 10^3/uL (4.4-10.8)
[2022-11-27 21:42] LABS: Bilirubin Negative (Negative); Blood Moderate (Negative); Clarity Clear (Clear); Glucose Negative (Negative); Ketones Negative (Negative); Leukocyte Esterase Trace (Negative); Nitrite Negative (Negative); Urobilinogen 0.2 mg/dL (Up to 0.2); pH 6.5 (5-8)
[2022-11-27 21:56] LABS: ALT 24 U/L (14-59); AST 21 U/L (15-37); Albumin 4.2 g/dL (3.4-5.0); Alkaline Phosphatase 84 U/L (46-116); Anion Gap 7.7 mmol/L (3-11); BUN 19 mg/dL (7-18); Bilirubin, Total 0.3 mg/dL (0.2-1.0); CO2 29.3 mmol/L (21.0-32.0); CREATININE 0.8 mg/dL (0.55-1.02); Calcium 9.9 mg/dL (8.5-10.1); Chloride 97 mmol/L (98-107); Estimated GFR 74.44 (mL/min/1.73m2); Glucose 103 mg/dL (74-106); Potassium 4.3 mmol/L (3.5-5.1); Sodium 134 mmol/L (136-145); Total Protein 7.7 g/dL (6.4-8.2)
[2022-11-27 21:59] LABS: Bacteria Few HPF (Negative); C & S Indicated? Yes; Casts Negative LPF (Negative); Crystals Negative HPF (Negative); Epithelial Cells Few HPF (Negative); Mucus Negative (Negative)
== END 2022-11-27 21:20 | disposition home or self-care (01) ==
LOC: NCHCN 21:19
PROVIDERS: PCP Family Medicine; Visit Provider Family Medicine
DX: R53.1 Weakness (principal); R82.998 Other abnormal findings in urine; D50.9 Iron deficiency anemia, unspecified
CPT/HCPCS: 80053; 85027; 81003; 81015; 87086

== ENCOUNTER → 2023-03-09 09:34 | Outpatient (BNVA) | payer OTHER, SELFPAY | PROVIDERS: PCP Family Medicine; Referring Provider Family Medicine; Visit Provider Nurse Practitioner Adult Health | DX: G30.9 Alzheimer's disease, unspecified (principal); F02.80 Dementia in other diseases classified elsewhere, unspecified severity, without behavioral disturbance, psychotic disturbance, mood disturbance, and anxiety | CPT/HCPCS: 99213 ==

== ENCOUNTER 2024-04-24 04:15 | Emergency (ER) | payer OTHER, SELFPAY ==
--- NOTE | 2024-04-24 04:15 | RT.EKG_ITS ---
APPROVED REPORT Exam: Resting ECG Reason for Exam: fall over 47 Patient Location: E HR:85 bpm ECG Measurements Heart Rate 85 AXIS IL 249 P 81 QRSd 96 QRS 49 QT 401 T 59 QTc 477 Conclusion Sinus rhythm...normal P axis, V-rate 60- 99 Prolonged IL interval...IL >220, V-rate 50- [address] segment or T wave abnormalities to suggest occlusive DC
[2024-04-24 04:16] VITALS: BP 166/80; PULSE 88; RESP 16; TEMP 36.6; O2SAT 98
--- NOTE | 2024-04-24 04:30 | DI.RAD_ITS ---
Exam(s) XR HUMERUS LT EXAM: XR HUMERUS LT CLINICAL HISTORY: fall OOB, left anterior shoulder TTP. TECHNIQUE: 2D digital imaging was performed. COMPARISON: No exams were available for comparison FINDINGS: Two views. There is a mildly displaced fracture of the greater tuberosity of the humeral head. No dislocation g lenohumeral joint. No other findings lower down in the humerus. Bone density is age-appropriate. N o adjacent rib fracture seen. IMPRESSION: Greater tuberosity fracture of the humeral head. Mild displacement. DATA REPOSITORY: RADIATION DOSE DELIVERED:
--- NOTE | 2024-04-24 04:30 | DI.RAD_ITS ---
Exam(s) XR SHOULDER LT COMPLETE 2+V EXAM: XR SHOULDER LT COMPLETE 2+V CLINICAL HISTORY: fall OOB, left anterior shoulder TTP. TECHNIQUE: 2D digital imaging was performed. COMPARISON: No exams were available for comparison FINDINGS: Four views There is a mildly displaced fracture in the lateral aspect of the humeral head involving the greater tuberosity. There is no dislocation glenohumeral joint. Mild widening of the ipsilateral AC joint n oted. No fracture of the clavicle evident. No scapular fracture evident. IMPRESSION: Acute fracture of the greater tuberosity of the humeral head with mild displacement. DATA REPOSITORY: RADIATION DOSE DELIVERED:
--- NOTE | 2024-04-24 04:30 | DI.RAD_ITS ---
Exam(s) XR ELBOW LT COMPLETE EXAM: XR ELBOW LT COMPLETE CLINICAL HISTORY: fall OOB, left shoulder TTP, pain with ROM elbow. TECHNIQUE: 2D digital imaging was performed. COMPARISON: No exams were available for comparison FINDINGS: 3 views No evidence of fracture or joint effusion. No swelling of the olecranon bursa. Radial head and neck unremarkable. Epicondyles unremarkable. No obvious degenerative changes. IMPRESSION: No acute osseous findings in the elbow. DATA REPOSITORY: RADIATION DOSE DELIVERED:
--- NOTE | 2024-04-24 04:51 | DI.RAD_ITS ---
Exam(s) XR CHEST 1V IN DI DEPT EXAM: XR CHEST 1V IN DI DEPT CLINICAL HISTORY: left lateral chest wall TTP, fall OOB. TECHNIQUE: 2D digital imaging was performed. COMPARISON: CR,XR XR PORTABLE CHEST AP from 07/26/2022 FINDINGS: Single AP portable view. Heart size is upper normal. The mediastinum is not widened. Lungs are clear. No infiltrates nor obvious pleural effusions. IMPRESSION: No acute pulmonary findings on this single AP portable view of the chest. DATA REPOSITORY: RADIATION DOSE DELIVERED:
--- NOTE | 2024-04-24 05:02 | ED.GENADUL_ITS ---
Discharge Plan Disposition Condition: Good Discharge Details Chief Complaint: Fall/Non TraumaCriteria Clinical Impression: Fall, Closed left humeral fracture, Fracture of lateral wall of left orbit, Fracture of left zygomatic arch Primary Care Provider: Laura Gonzalez ED Provider: Em Washington Home Meds and New Rx's Prescriptions: New cephalexin 500 mg capsule 500 mg PO QID Qty: 39 0RF oxycodone 5 mg capsule 5 mg PO TID PRNQty: 20 0RF Continued naproxen 500 mg tablet,delayed release (DR/EC) 500 mg PO BID Patient Comments: Take 1 tablet by mouth twice a day levothyroxine 75 mcg tablet 75 mcg PO DAILY Patient Comments: TAKE ONE TABLET BY MOUTH EVERY DAY metoprolol tartrate 25 mg Tablet 12.5 mg PO BID Qty: 60 0RF Discharge Instructions Instructions: Facial Fracture (DC), Upper Arm Fracture ED Additional Instructions: Tylenol and ibuprofen over the counter for pain; follow the directions on the bottle. Oxycodone 5mg up to every 6 hours as needed for severe pain. You will need to followup with three different doctors: -You will need to see an eye doctor for a complete exam: call [facility] at [phone] to schedule an appointment for within the next three days. -You have broken bones in your face around your eye. Do not blow your nose. Take the antibiotic we have prescribed every 6 hours for the next 10 days. You will need to see plastic surgery- please call them at [phone] to schedule an appointment for within one week from today. -You will also need to followup with orthopedics for your broken arm; they will call you to schedule an appointment. If you do not hear from them today, please call the office. Wear the sling you were given until you see them. Referrals: [facility] [Provider Group] Laura Gonzalez [Primary Care Provider] - HPI General Mode of arrival: EMS . Date/Time Provider Initiated Documentation: 04/24/24 04:44 . Limitations to Documentation: no limitations . Information obtained by: EMS . HPI Narrative: 83yo F with hx dementia, hypothyroid, presenting via EMS for left shoulder pain after fall out of bed. Reports rolling over to get out of bed, rolling all the way out of bed, and landing on the wooden bedroom floor on her left side. No LOC. Left shoulder pain, otherwise denies pain. No numbness, tingling, or weakness anywhere including left arm. No headache, nausea, or vomiting. No chest pain, abdominal pain, or shortness of breath at any point. No lightheadedness. No visual changes or eye pain. Otherwise in her usual state of health. Related Data Home Medications ?Medication ?Instructions ?Recorded ?Confirmed levothyroxine 75 mcg tablet 75 mcg PO DAILY 07/29/22 04/24/24 metoprolol tartrate 25 mg tablet 12.5 mg (1/2 x 25 mg) PO BID #60 07/29/22 04/24/24 tabs naproxen 500 mg tablet,delayed 500 mg PO BID 07/29/22 04/24/24 release cephalexin 500 mg capsule 500 mg PO QID #39 caps 04/24/24 oxycodone 5 mg capsule 5 mg PO TID PRN #20 caps 04/24/24 Previous Rx's ?Medication ?Instructions ?Recorded metoprolol tartrate 25 mg tablet 12.5 mg (1/2 x 25 mg) PO BID #60 07/29/22 tabs cephalexin 500 mg capsule 500 mg PO QID #39 caps 04/24/24 oxycodone 5 mg capsule 5 mg PO TID PRN #20 caps 04/24/24 Allergies Allergy/AdvReac Type Severity Reaction Status Date / Time celecoxib (From Celebrex) Allergy Severe Skin Rash Verified 04/24/24 04:27 Penicillins Allergy Intermediate Unknown Verified 04/24/24 04:27 tramadol AdvReac Severe Nausea Verified 04/24/24 04:27 meperidine HCl (From Demerol) AdvReac Intermediate Halluncinat Verified 04/24/24 04:27 ions morphine AdvReac Intermediate Nausea Verified 04/24/24 04:27 topiramate (From Topamax) AdvReac Intermediate Nausea Verified 04/24/24 04:27 General Stated Complaint: Fall/Non TraumaCriteria EDDA: 3 Review of Systems Narrative: see HPI Exam Narrative Exam Narrative: GENERAL: Alert, no acute distress. SKIN: Warm and well perfused. HEAD: Left perioribtal echymosis. Otherwise no edema, discoloration or evidence of trauma. Facial bones without deformities or tenderness. EYES: PERRL. No scleral icterus or conjunctival injection. Extraocular muscles intact without nystagmus or diplopia. No proptosis or enophthalmos. EARS: No hemotympanum. NOSE: No discharge, tenderness, laxity. No nasal septal hematoma. MOUTH: No malocclusion or trismus. Moist mucus membranes without blood. Posterior pharynx without erythema or exudate. NECK: Trachea midline. No discolorations or edema. CV: Regular rate and rhythm, Normal s1 and s2. No murmurs, rubs, or gallops. PV: Radial pulses 2+ bilaterally and symmetric. Dorsalis pedis pulses 2+ bilaterally and symmetric. 2+ capillary refill. No extremity edema. CHEST: No abrasions or ecchymosis. Chest symmetric with respirations. Mild left lateral chest wall tenderness to palpation. No crepitus. No step offs. Lungs are clear to auscultation bilaterally. ABDOMEN: No ecchymosis or abrasions. Soft, nondistended, nontender. BACK: No abrasions, skin openings, or ecchymosis. Spine without bony tenderness, no step offs. PELVIC: Pelvis stable, nontender to lateral compression and palpation of symphysis pubis. : Normal external genitalia. No ecchymosis or edema. MSK: No gross deformities. Left anterior humeral head tender to palpation. No other bony tenderness. Skin tear to left elbow. Pain with passive ROM at left shoulder, mild pain wtih ROM at left elbow. Otherwise tolerates full range of motion of extremities. Neuro: ? GCS 15.? PERRL.? EOMI.? Fluent speech, no dysarthria. Motor- Left shoulder and elbow not tested 2/t pain; otherwise 5/5 strength symmetric bilateral upper and lower extremities Sensation- ?Intact to light touch and symmetric multiple dermatomes including upper and lower extremities including throughout LUE Coordination- No dysmetria on finger to nose with right; left not tested CRANIAL NERVES: II: Pupils equal and reactive, III, IV, : EOM intact, no gaze preference or deviation, no nystagmus. V: normal sensation in V1, V2, and V3 segments bilaterally VII: no asymmetry, no nasolabial fold flattening VIII: normal hearing to speech IX, X: normal palatal elevation, no uvular deviation XI: 5/5 head turn bilaterally (shoulder shrug not tested) XII: midline tongue protrusion Course Vital Signs Vital signs: Vital Signs Temperature 36.6 C 04/24/24 04:16 Pulse 88 04/24/24 04:16 Respiratory Rate 16 04/24/24 04:16 Blood Pressure 166/80 H 04/24/24 04:16 Pulse Oximetry 98 04/24/24 04:16 Temperature 36.6 C 04/24/24 04:16 Pulse 88 04/24/24 04:16 Respiratory Rate 16 04/24/24 04:16 Respiratory Effort Normal, Non-Labored 04/24/24 04:31 Blood Pressure 166/80 H 04/24/24 04:16 Blood Pressure Position Supine 04/24/24 04:16 Pulse Oximetry 98 04/24/24 04:16 Oxygen Delivery Method Room Air 04/24/24 04:16 Oxygen Flow Rate 0 04/24/24 04:16 Pain Level 10 04/24/24 04:16 Comment shoulder is a 10 04/24/24 04:16 Medical Decision Making 83yo F with hx dementia, hypothyroid, presenting via EMS for left shoulder pain after fall out of bed, landing on her left side. History consistent with mechanical fall, nothing to suggest syncope or cardiac event. Vital signs reassuring on arrival, non-focal neurologic exam and not on anticoagulation. On exam she has some periorbital echymosis on the left, as well at bony tenderness at the left humerus. Neurovascular intact throughout LUE, no indication for CT/CTA imaging. No vision changes, tenderness to facial bones, or pain with EOMI; not concerned for globe injury or orbital fracture/entrapment. Visual acuity 20/70 R, 20/100 L, patient reports looks normal/unchanged to her. Low suspicion for acute ICH however given age will get non-con head CT. C-spine clinically cleared. -Tylenol, toradol, 2mg IV morphine for pain -EKG on arrival with 1st degree heart block, otherwise appropriate intervals, no ST segment or T wave abnormalities to suggest occlusive MO. -Plain films shoulder, humerus, elbow, and chest independently reviewed; proximal humerus fracture, otherwise no displaced fracture or dislocation on my view. Radiology reads below. -Head CT independently reviewed; no intracranial hemmoraghe on my view, agree with radiology read below; found to have left zygomatic arch and left lateral orbital wall fracture. Will get CT face to further evaluate. Plan for sling and swathe, PO oxycodone for pain for humerus fracture. Likely outpatient orthopedic followup; awaiting callback from ortho to confirm suitability of plan. Will also need to followup with ophthalmology for dilated eye exam, plastics for facial fractures. Prescribed 10 day course of cephalexin; pt does have reported allergy to penicillin, not anaphylaxis. Will give first dose here. Signed out to oncoming physician, plan to followup CT read and ortho reccs. Contingent discharge instructions written and prescription sent; if no additional significant fracture seen on CT , pain adequately controlled, and orthopedics feels appropriate for outpatient followup would discharge home. Imaging Data Radiologic Study: Imaging: CT Scan Radiologist's impression: IMPRESSION: 1. No evidence of acute intracranial abnormality. 2. Acute fractures of the maxillofacial bones, as described above. Consider dedicated maxillofacial CT for further evaluation. 3. Hyperattenuating layering fluid in the left maxillary sinus, likely blood products. Orbital cavities: Soft tissue swelling in the left infraorbital region and overlying the left zygomatic arch. Acute, minimally displaced fracture of the lateral wall of the left orbit (image 17/series 7). Bones: Acute, mildly depressed fracture of the left zygomatic arch. Radiologic Study #2: Imaging: X-Ray Radiologist's impression: Shoulder: IMPRESSION: 1. Acute fracture of the greater tuberosity of left humeral head. Mild degenerative spurring of the acromioclavicular joint. 2. No other fracture identified of the humerus. Humerus: IMPRESSION: 1. Acute fracture of the greater tuberosity of left humeral head. Mild degenerative spurring of the acromioclavicular joint. 2. No other fracture identified of the humerus. Elbow: IMPRESSION: 1. No evidence of active cardiopulmonary disease. 2. Findings suggestive of COPD Chest: IMPRESSION: 1. No evidence of active cardiopulmonary disease. 2. Findings suggestive of COPD Quality:SDOH Health Related Social Needs: No Data to Display PFSH All Active Problems (Updated 04/24/24 @ 07:09 by Em Washington MD) Fracture of left zygomatic arch (Acute) Fracture of lateral wall of left orbit (Acute) Closed left humeral fracture (Acute) Fall (Acute) Alzheimer's dementia without behavioral disturbance (Acute) Hypokalemia (Acute) Cognitive impairment (Acute) Paroxysmal SVT (supraventricular tachycardia) (Acute) SVT (supraventricular tachycardia) (Chronic) Malnutrition (Acute) Anxiety (Chronic) Advanced care planning/counseling discussion (Acute) COVID-19 (Acute) Hematuria (Acute) Weakness generalized (Acute) Vertigo (Acute) Cough (Acute) Trochanteric bursitis of right hip (Acute 02/26/16) SI (sacroiliac) pain (Acute 09/08/17) Arthritis of right hip (Acute 02/26/16) Spondylosis of lumbar region without myelopathy or radiculopathy (Acute) 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 Several pansensitive E. coli urinary tract infections recently. Hypothyroidism (Chronic) History of hematuria (Chronic) a. Microscopic. 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 Remote history, patient denies having these in years. Vertigo (Acute) Medical History Anemia, iron deficiency Asymptomatic microscopic hematuria Atrophic vaginitis COVID Dermatitis of eyelid Eczema GERD (gastroesophageal reflux disease) Glaucoma Grief reaction Hernia, inguinal, left Hypothyroid Insomnia Low back pain Migraine Nosebleed Pain of left thumb Pain, joint, hip, right Palliative care encounter Rib pain on left side Seborrheic keratosis Vitamin B12 deficiency Weight loss Surgical History Abdominal hysterectomy Appendectomy Bilateral salpingectomy with oophorectomy Biopsy of breast History of arthroplasty of right hip Hx of cataract surgery Repair of inguinal hernia Tonsillectomy and adenoidectomy Total replacement of hip (06/29/17) right Social History Smoking/Tobacco Use Status: Never Smoking risk assessment performed?: Yes Alcohol Intake: never Drug use: Never Substance use type: does not use Current gender identity: female Do you feel safe at home: Yes Do you feel safe in your relationship?: Yes Additional Social history: Lives with Developmentally delayed adult daughter. early spring 2021 (cared for bedbound until his at home)
[2024-04-24] MEDS: MORPHine 10 MG/ML VIAL 2 MG IVP (06:16)
[2024-04-24] MEDS: Ondansetron 4 MG/2 ML VIAL IVP (06:16)
[2024-04-24] MEDS: Ketorolac 15 MG/ML VIAL IVP (06:16)
[2024-04-24] MEDS: Acetaminophen 500 MG TAB 1000 MG PO (06:16)
--- NOTE | 2024-04-24 06:45 | DI.CT_ITS ---
Exam(s) CT HEAD WO CT FACIAL WO EXAM: CT HEAD WO and CT facial without CLINICAL HISTORY: fall OOB, left periorbital echymosis. TECHNIQUE: Imaging Protocol: Axial computed tomography images with coronal and sagittal reformatted images were created and reviewed COMPARISON: CT CT BRAIN NECK CTA from 07/26/2022 FINDINGS: CT Head: Ventricles and Extra axial spaces: Normal in size and morphology for the patient's age. Hemorrhage: None. Cerebral parenchyma: There are areas of decreased attenuation in the white matter consistent with chr onic microvascular ischemic disease. No acute territorial infarct. Midline shift: None. Brainstem/Cerebellum: Normal. Calvarium: Normal. Visualized Paranasal sinuses/Mastoids: Clear. Soft Tissues: Unremarkable. CT Face: Facial Bones: There is an acute mildly depressed fracture of the left zygomatic arch. There is a co mminuted fracture involving the lateral aspect of the left maxillary sinus. There is also a fracture of the anterior wall of the left maxillary sinus. There is a mildly depressed fracture involving th e left lateral wall. There also appears to be a minimally depressed fracture involving the posterior aspect of the left orbital floor. Sinuses and Mastoids: There is a fluid level in the left maxillary sinus. The remaining visualized paranasal sinuses and mastoid air cells are clear. Globes, extraocular muscles, optic nerves and retrobulbar fat: Normal. Upper aerodigestive tract: Normal. Mandible and bilateral temporomandibular joints: Normal. Soft tissues: There is soft tissue swelling in the left periorbital region and a hematoma in the soft tissue laterally. IMPRESSION: 1. No acute intracranial process. 2. Fractures involving the lateral left orbital wall and the left orbital floor. 3. Fractures involving the anterior wall and lateral wall of the left maxillary sinus. Blood product s are seen in the left maxillary sinus. 4. Mildly depressed fracture involving the left zygomatic arch. 5. Left periorbital hematoma. RADIATION DOSE DELIVERED: Total DLP DATA REPOSITORY: All CT scans at this facility are submitted to the National Radiology Data Registry (NRDR) Dose Index Registry (DIR) with the [employer] ([employer]). RADIATION OPTIMIZATION: All CT scans at this facility use at least one of these dose optimization te chniques: automated exposure control; mA and/or kV adjustment per patient size (includes targeted exa ms where dose is matched to clinical indication); or iterative reconstruction.
--- NOTE | 2024-04-24 06:53 | DI.VRAD_ITS ---
PROCEDURE INFORMATION: Exam: CT Head Without Contrast Exam date and time: 04/24/2024 5:36 AM Age: 83 years old Clinical indication: Injury or trauma; Fall; Blunt trauma (contusions or hematomas); Injury date: 04/24/24; Injury details: Patient states that they fell out of bed TECHNIQUE: Imaging protocol: Computed tomography of the head without contrast. COMPARISON: MR BRAIN WO 07/27/2022 5:43 PM FINDINGS: Brain: Mild involutional changes of the brain parenchyma. Moderate low attenuation in the periventricular white matter. This is a nonspecific finding most commonly seen in setting of microvascular ischemic change. No evidence of acute infarct. No intraparenchymal hemorrhage. No midline shift or mass effect. No extra-axial fluid collections or hemorrhage. Cerebral ventricles: No ventriculomegaly. Paranasal sinuses: [id number] (45 HU) hyperattenuating layering fluid in the left maxillary sinus. Acute minimally angulated fracture of the anterior wall the left maxillary sinus. Acute of the posterior wall of the left maxillary sinus, possibly extending into the orbital floor. Mastoid air cells: Visualized mastoid air cells are well aerated. Orbital cavities: Soft tissue swelling in the left infraorbital region and overlying the left zygomatic arch. Acute, minimally displaced fracture of the lateral wall of the left orbit (image 17/series 7). Bones: Acute, mildly depressed fracture of the left zygomatic arch. Soft tissues: See Orbital cavities finding. IMPRESSION: 1. No evidence of acute intracranial abnormality. 2. Acute fractures of the maxillofacial bones, as described above. Consider dedicated maxillofacial CT for further evaluation. 3. Hyperattenuating layering fluid in the left maxillary sinus, likely blood products. Dictated and Authenticated by: Albina Soto MD. Ordering:FABI Strickland MD
--- NOTE | 2024-04-24 06:53 | DI.VRAD_ITS ---
PROCEDURE INFORMATION: Exam: XR Chest Exam date and time: 04/24/2024 5:29 AM Age: 83 years old Clinical indication: Injury or trauma; Fall; Blunt trauma (contusions or hematomas) TECHNIQUE: Imaging protocol: Radiologic exam of the chest. Views: 1 view. COMPARISON: CR XR PORTABLE CHEST AP 07/26/2022 5:10 PM FINDINGS: Lungs: Lucency and attenuation of the lung markings in the upper lung zones. No focal infiltrates. Pleural spaces: Unremarkable. No pleural effusion. No pneumothorax. Heart/Mediastinum: Unremarkable. No cardiomegaly. Bones/joints: Unremarkable. IMPRESSION: 1. No evidence of active cardiopulmonary disease. 2. Findings suggestive of COPD. Dictated and Authenticated by: Albina Soto MD. Ordering:FABI Strickland MD
--- NOTE | 2024-04-24 06:53 | DI.VRAD_ITS ---
PROCEDURE INFORMATION: Exam: XR Left Elbow Exam date and time: 04/24/2024 5:23 AM Age: 83 years old Clinical indication: Injury or trauma; Fall; Blunt trauma (contusions or hematomas); Elbow; Left; Injury date: 04/24/24; Injury details: Patient states that they fell out of bed TECHNIQUE: Imaging protocol: Radiologic exam of the left elbow. Views: 3 or more views. COMPARISON: CR XR HUMERUS LT 04/24/2024 5:04 AM FINDINGS: Bones/joints: Normal. Soft tissues: Normal. IMPRESSION: No acute findings. Dictated and Authenticated by: Albina Soto MD. Ordering:FABI Strickland MD
--- NOTE | 2024-04-24 06:56 | DI.VRAD_ITS ---
PROCEDURE INFORMATION: Exam: XR Left Humerus Exam date and time: 04/24/2024 5:04 AM Age: 83 years old Clinical indication: Injury or trauma; Fall; Blunt trauma (contusions or hematomas); Arm, upper; Left; Injury date: 04/24/24; Injury details: Patient states that they fell out of bed TECHNIQUE: Imaging protocol: Radiologic exam of the left humerus. Views: 2 or more views. COMPARISON: CR XR SHOULDER LT COMPLETE 2+V 04/24/2024 5:02 AM FINDINGS: Bones/joints: Linear lucency through the greater tuberosity of the humeral head. There is mild displacement and distraction of the fracture fragments. The fracture may be mildly comminuted. Otherwise unremarkable. Soft tissues: Normal. IMPRESSION: 1. Acute fracture of the greater tuberosity of left humeral head. Mild degenerative spurring of the acromioclavicular joint. 2. No other fracture identified of the humerus. Dictated and Authenticated by: Albina Soto MD. Ordering:FABI Strickland MD
--- NOTE | 2024-04-24 06:57 | DI.VRAD_ITS ---
PROCEDURE INFORMATION: Exam: XR Left Shoulder Exam date and time: 04/24/2024 5:02 AM Age: 83 years old Clinical indication: Injury or trauma; Fall; Blunt trauma (contusions or hematomas); Shoulder; Left TECHNIQUE: Imaging protocol: Radiologic exam of the left shoulder. Views: 2 or more views. COMPARISON: CR XR PORTABLE CHEST AP 07/26/2022 5:10 PM FINDINGS: Bones/joints: Linear lucency through the greater tuberosity of the humeral head. There is mild displacement and distraction of the fracture fragments. The fracture may be mildly comminuted. Mild degenerative spurring of the acromioclavicular joint. No shoulder dislocation. Otherwise unremarkable. Soft tissues: Normal. IMPRESSION: Acute fracture of the greater tuberosity of left humeral head. Dictated and Authenticated by: Albina Soto MD. Ordering:FABI Strickland MD
[2024-04-24 07:17] VITALS: BP 135/71; PULSE 87; RESP 16; TEMP 36.7; O2SAT 96
--- NOTE | 2024-04-24 07:46 | W.ORTHOCONSU ---
Date of service: 04/24/24 Time of Service: 07:46 Assessment and Plan Assessment and plan (1) Closed fracture of left proximal humerus: Status: Acute Assessment and plan: 83 year old female with mildly displaced Left proximal humerus fx XRs show isolated greater tuberosity fx with only mild displacement Recommend sling for protection, should remove when seated and rest forearm on pillows, avoid shoulder weight bearing and motion. Follow up orthopedic surgery as outpatient in about 1 week. PFSH All Active Problems (Updated 04/24/24 @ 07:47 by Ryan Cervantes MD) Closed fracture of left proximal humerus (Acute 04/24/24) Fracture of left zygomatic arch (Acute) Fracture of lateral wall of left orbit (Acute) Closed left humeral fracture (Acute) Fall (Acute) Alzheimer's dementia without behavioral disturbance (Acute) Hypokalemia (Acute) Cognitive impairment (Acute) Paroxysmal SVT (supraventricular tachycardia) (Acute) SVT (supraventricular tachycardia) (Chronic) Malnutrition (Acute) Anxiety (Chronic) Advanced care planning/counseling discussion (Acute) COVID-19 (Acute) Hematuria (Acute) Weakness generalized (Acute) Vertigo (Acute) Cough (Acute) Trochanteric bursitis of right hip (Acute 02/26/16) SI (sacroiliac) pain (Acute 09/08/17) Arthritis of right hip (Acute 02/26/16) Spondylosis of lumbar region without myelopathy or radiculopathy (Acute) 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 Several pansensitive E. coli urinary tract infections recently. Hypothyroidism (Chronic) History of hematuria (Chronic) a. Microscopic. 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 Remote history, patient denies having these in years. Vertigo (Acute) Medical History Anemia, iron deficiency Asymptomatic microscopic hematuria Atrophic vaginitis COVID Dermatitis of eyelid Eczema GERD (gastroesophageal reflux disease) Glaucoma Grief reaction Hernia, inguinal, left Hypothyroid Insomnia Low back pain Migraine Nosebleed Pain of left thumb Pain, joint, hip, right Palliative care encounter Rib pain on left side Seborrheic keratosis Vitamin B12 deficiency Weight loss Surgical History Abdominal hysterectomy Appendectomy Bilateral salpingectomy with oophorectomy Biopsy of breast History of arthroplasty of right hip Hx of cataract surgery Repair of inguinal hernia Tonsillectomy and adenoidectomy Total replacement of hip (06/29/17) right Social History Smoking/Tobacco Use Status: Never Smoking risk assessment performed?: Yes Alcohol Intake: never Drug use: Never Substance use type: does not use Current gender identity: female Do you feel safe at home: Yes Do you feel safe in your relationship?: Yes Additional Social history: Lives with Developmentally delayed adult daughter. early spring 2021 (cared for bedbound until his at home) Results Last Vital Signs Temp 98.1 F 04/24/24 07:17 Pulse 87 04/24/24 07:17 Resp 16 04/24/24 07:17 BP 135/71 04/24/24 07:17 Pulse Ox 96 04/24/24 07:17
--- NOTE | 2024-04-24 07:55 | DI.VRAD_ITS ---
PROCEDURE INFORMATION: Exam: CT Maxillofacial Without Contrast Exam date and time: 04/24/2024 7:24 AM Age: 83 years old Clinical indication: Injury or trauma; Fall; Blunt trauma (contusions or hematomas); Cheek bone and orbit/periorbital; Patient HX: Left orbital wall FX, zygomatic FX TECHNIQUE: Imaging protocol: Computed tomography of the face without contrast. COMPARISON: CT HEAD WO 04/24/2024 5:36 AM FINDINGS: Orbital cavities: Orbits are normal. Globes are unremarkable. Paranasal sinuses: [id number] (45 HU) hyperattenuating layering fluid in the left maxillary sinus. Bones: Acute, nondepressed fracture of the left orbital floor. Acute, mildly comminuted, mildly displaced fracture of the lateral wall the left orbit. Acute , mildly comminuted, mildly depressed of the anterior wall the left maxillary sinus. Acute, mildly comminuted, mildly depressed fracture of the posterior wall of the left maxillary sinus. Acute, mildly comminuted, mildly depressed fracture of the left zygomatic arch. Tiny ossific density adjacent to the anterior nasal spine which may represent an age-indeterminate mildly displaced fracture. Soft tissues: Moderate soft tissue swelling in the left infraorbital region and left temporal region, where there is also a 1.2 x 1.1 x 1.4 cm hematoma in the soft tissues. IMPRESSION: 1. Multiple left-sided acute fractures of the maxillofacial bones, as described above. 2. Blood products in the left maxillary sinus. 3. Please refer to separately dictated report for head CT for description of findings in this region. Dictated and Authenticated by: Albina Soto MD. Ordering:FABI Strickland MD
[2024-04-24] MEDS: oxyCODONE 5 MG TAB PO (07:56)
[2024-04-24] MEDS: Cephalexin 500 MG CAP PO (07:56)
[2024-04-24 08:40] VITALS: BP 141/66; PULSE 81; RESP 15; TEMP 36.8; O2SAT 96
--- NOTE | 2024-04-24 08:41 | W.EDPROG ---
Date of service: 04/24/24 Time of Service: 08:42 Medical Decision Making Care was signed out by Dr. Kerr, please see her documentation regarding initial ED presentation course. Plan at signout was to follow-up on CT imaging and orthopedic recommendations regarding left proximal humerus fracture. Dr. Cervantes provided consultation from orthopedic standpoint. He recommends: Recommend sling for protection, should remove when seated and rest forearm on pillows, avoid shoulder weight bearing and motion. Follow up orthopedic surgery as outpatient in about [address] of the facial bones interpreted by radiology: Acute on depressed fracture of the left orbital floor. Acute, mildly comminuted, mildly displaced fracture of the lateral wall of the left orbit. Acute mildly comminuted, mildly depressed fracture of the anterior wall of the left maxillary sinus. Acute mildly comminuted, mildly depressed fracture of the posterior wall of the left maxillary sinus. Acute, mildly comminuted, mildly depressed fracture of the left zygomatic arch. Blood products noted in the left maxillary sinus. Concern for tripod fracture. [place] [facility] [place] Images sent for review. 935 --I spoke with Dr. Lovett, [facility] [place] [facility], he reviewed CT images, he recommends outpatient follow-up in clinic. Quality:[facility] Related Social Needs: No Data to Display Sign Out Sign Out Data: Sign Out Comment: Fall OOB; left proximal humerus fx, zygomatic arch fx, lateral orbital wall fx. Plan for dc home after CT face if no additional significant findings and ok for outpt ortho followup. Contingent discharge instructions written and prescriptions sent. Last updated by Em Washington MD at 04/24/24 07:46 Discharge Plan Disposition Patient Disposition: Home Condition: Stable Discharge Details Chief Complaint: Fall/Non TraumaCriteria Clinical Impression: Fall, Closed left humeral fracture, Fracture of lateral wall of left orbit, Fracture of left zygomatic arch, Fracture of left orbital floor, Closed fracture of maxillary sinus, Facial hematoma Primary Care Provider: Laura Gonzalez ED Provider: Parker Joyner Home Meds and New Rx's Prescriptions: New cephalexin 500 mg capsule 500 mg PO QID Qty: 39 0RF oxycodone 5 mg capsule 5 mg PO TID PRNQty: 20 0RF Continued naproxen 500 mg tablet,delayed release (DR/EC) 500 mg PO BID Patient Comments: Take 1 tablet by mouth twice a day levothyroxine 75 mcg tablet 75 mcg PO DAILY Patient Comments: TAKE ONE TABLET BY MOUTH EVERY DAY metoprolol tartrate 25 mg Tablet 12.5 mg PO BID Qty: 60 0RF Discharge Instructions Instructions: Preventing falls in adults, Facial Fracture (DC), Upper Arm Fracture ED Additional Instructions: Tylenol over the counter for pain; follow the directions on the bottle. Take your naproxen as prescribed. Take oxycodone 5mg up to every 6 hours as needed for severe pain. This is an opioid. Only take this if needed for severe pain that does not respond to other medications as above. You will need to followup with three different doctors: -You will need to see an eye doctor for a complete exam: call [facility] at [phone] to schedule an appointment for within the next three days. -You have broken bones in your face around your eye. Do not blow your nose. Take the antibiotic we have prescribed every 6 hours for the next 10 days. You will need to see facial surgery- please call them at [phone] to schedule an appointment for within one week from today. -You will also need to followup with orthopedics for your broken arm; they will call you to schedule an appointment. If you do not hear from them today, please call the office. Wear the sling you were given until you see them. Please contact your primary care physician to arrange follow-up. Return to the ER immediately for any worsening or new concerning symptoms. Referrals: [facility] [Provider Group] Laura Gonzalez [Primary Care Provider] -
[2024-04-24 10:32] VITALS: BP 151/80; PULSE 82; RESP 16; O2SAT 98
--- NOTE | 2024-05-03 14:23 | NUR.NOTE ---
Access chart to print the provider note to fax [facility] purposes. Nursing Note:
== END 2024-04-24 10:32 | disposition home or self-care (01) ==
PROVIDERS: Emergency Provider Student in an Organized Health Care Education/Training Program; PCP Family Medicine
DX: S42.202A Unspecified fracture of upper end of left humerus, initial encounter for closed fracture (principal); S02.40DA Maxillary fracture, left side, initial encounter for closed fracture; S02.40FA Zygomatic fracture, left side, initial encounter for closed fracture; S02.842A Fracture of lateral orbital wall, left side, initial encounter for closed fracture; W06.XXXA Fall from bed, initial encounter; S00.83XA Contusion of other part of head, initial encounter
CPT/HCPCS: 00123; 93005; 96374; 96375; 99284; 70450; 70486; 71045; 73030; 73060; 73080; 93010; 99283; J1885; J2270; J2405

== ENCOUNTER 2024-05-02 15:46 | Outpatient (CLI) | payer OTHER, SELFPAY ==
--- NOTE | 2024-05-02 14:00 | DI.RAD_ITS ---
Exam(s) XR SHOULDER LT COMPLETE 2+V EXAM: XR SHOULDER LT COMPLETE 2+V CLINICAL HISTORY: F/U FRACTURE. TECHNIQUE: 2D digital imaging was performed of the left shoulder. Three images were obtained. Gras hey and Y views were obtained. COMPARISON: CR,XR XR SHOULDER LT COMPLETE 2+V from 04/24/2024 FINDINGS: BONES: There is again seen a comminuted fracture of the greater tuberosity of the left humerus. The comminuted fracture fragments are now displaced posteriorly to the humeral head. No bony destructive lesion is seen. JOINTS: No dislocation present. Degenerative changes are seen at the acromioclavicular joint. The gl enohumeral joint is well maintained. SOFT TISSUE: Normal. IMPRESSION: Comminuted fracture of the greater tuberosity. The fracture fragments are now displaced more posteri max. DATA REPOSITORY: RADIATION DOSE DELIVERED:
--- NOTE | 2024-05-03 10:35 | NUR.NOTE ---
Access chart to print the provider note at [facility] request for billing. Nursing Note:
== END 2024-05-02 15:47 | disposition home or self-care (01) ==
LOC: DIORS 15:46
PROVIDERS: PCP Family Medicine; Referring Provider Family Medicine; Visit Provider Student in an Organized Health Care Education/Training Program
DX: S42.202A Unspecified fracture of upper end of left humerus, initial encounter for closed fracture (principal); X58.XXXA Exposure to other specified factors, initial encounter
CPT/HCPCS: 99214; 73030

== ENCOUNTER 2024-05-12 09:35 | Outpatient (CLI) | payer OTHER, SELFPAY ==
--- NOTE | 2024-05-12 10:35 | DI.RAD_ITS ---
Exam(s) XR RIBS RT W PA LAT CHEST EXAM: XR RIBS RT W PA LAT CHEST CLINICAL HISTORY: Injury of chest wall, S29.9XXD TECHNIQUE: 2D digital imaging was performed. COMPARISON: CR,XR XR CHEST 1V IN DI DEPT from 04/24/2024 FINDINGS: Total = 6 views RIBS 3 VIEWS-right There is a mildly displaced fracture of the anterolateral aspect of the right 9th rib. This correspo nds to the skin marker region. No osseous lesions. No obvious sternal rib fractures identified. CXR- 2 VIEWS: No lung contusion or pneumothorax. There is no pleural effusion evident. Heart size is normal and there is no significant mediastinal widening. IMPRESSION: 1. There is a mildly displaced right 9th rib fracture, this corresponding to the patient's area of pa in. No rib lesions identified. 2. No ipsilateral lung nor pleural abnormality evident. No pneumothorax. DATA REPOSITORY: RADIATION DOSE DELIVERED:
== END 2024-05-12 09:55 ==
LOC: DI 09:36
PROVIDERS: PCP Family Medicine; Visit Provider Family Medicine
DX: S22.31XA Fracture of one rib, right side, initial encounter for closed fracture (principal); X58.XXXA Exposure to other specified factors, initial encounter
CPT/HCPCS: 71046; 71100

== ENCOUNTER 2024-05-19 00:12 | Outpatient (CLI) | payer OTHER, SELFPAY ==
--- NOTE | 2024-05-19 08:30 | DI.CT_ITS ---
Exam(s) CT UPPER EXTREMITY LT WO EXAM: CT UPPER EXTREMITY LT WO CLINICAL HISTORY: SURGICAL PLANNING,closed fx lt prox humerus,s42.a TECHNIQUE: Imaging Protocol: Axial computed tomography images with coronal and sagittal reformatted images were created and reviewed. CONTRAST MATERIAL: Intravenous: None COMPARISON: CR,XR XR SHOULDER LT COMPLETE 2+V from 04/24/2024 CR XR SHOULDER LT COMPLETE 2+V from 05/02/2024 FINDINGS: OSSEOUS: The fractured greater tuberosity is now significantly displaced posteromedially and is lying behind t he medial half of the humeral head. This large fracture fragment measures 2.3 cm wide by 0.8 cm AP b y 3 cm craniocaudal. It is comminuted but without prominent displacement of the multiple fragments o f this displaced greater tuberosity from each other. There is no dislocation of the glenohumeral joint nor of the AC joint. Degenerative changes are seen on the superior aspect of the AC joint. Subacromial space is not significantly diminished. The les ser tuberosity on the anterior aspect of the humerus appears intact. There are no fractures of the o sseous glenoid nor of the coracoid process. IMPRESSION: The entire greater tuberosity fracture fragment (which is itself comminuted) is now displaced postero medially and is presently situated behind the medial half of the humeral head and is 1 millimeter fro m the posterior aspect of the osseous glenoid. The above findings obviously imply significant disruption of the rotator cuff mechanism RADIATION DOSE DELIVERED: 87.96mGy.cm Total DLP DATA REPOSITORY: All CT scans at this facility are submitted to the National Radiology Data Registry (NRDR) Dose Index Registry (DIR) with the [employer] (ACR). RADIATION OPTIMIZATION: All CT scans at this facility use at least one of these dose optimization te chniques: automated exposure control; mA and/or kV adjustment per patient size (includes targeted exa ms where dose is matched to clinical indication); or iterative reconstruction.
== END 2024-05-19 00:32 ==
LOC: DI 00:12
PROVIDERS: PCP Family Medicine; Visit Provider Student in an Organized Health Care Education/Training Program
DX: S42.292A Other displaced fracture of upper end of left humerus, initial encounter for closed fracture (principal); X58.XXXA Exposure to other specified factors, initial encounter
CPT/HCPCS: 73200

== ENCOUNTER → 2024-05-24 13:39 | Outpatient (BNVA) | payer OTHER, SELFPAY | PROVIDERS: PCP Family Medicine; Referring Provider Family Medicine; Visit Provider Student in an Organized Health Care Education/Training Program | DX: S42.202D Unspecified fracture of upper end of left humerus, subsequent encounter for fracture with routine healing (principal); X58.XXXD Exposure to other specified factors, subsequent encounter | CPT/HCPCS: 99213 ==

== ENCOUNTER 2024-05-31 18:07 | Emergency (ER) | payer OTHER, SELFPAY ==
[2024-05-31] VITALS (37 sets, daily range): BP systolic 142–178; BP diastolic 65–129; PULSE 70–107; RESP 13–27; TEMP 35.6; O2SAT 93–100
--- NOTE | 2024-05-31 18:00 | RT.EKG_ITS ---
APPROVED REPORT Exam: Resting ECG Reason for Exam: weakness Patient Location: E HR:76 bpm ECG Measurements Heart Rate 76 AXIS IA 260 P 73 QRSd 88 QRS 76 QT 428 T 78 QTc 483 Conclusion Sinus rhythm...normal P axis, V-rate 60- 99 Prolonged IA interval...IA >220, V-rate 50- 90 Consider left ventricular hypertrophy...(S V1+R V5/V6) >3.25mV sinus rhythm, normal axis, prolonged Qtc, nonischemic
--- NOTE | 2024-05-31 18:30 | DI.CT_ITS ---
Exam(s) CT ABDOMEN PELVIS W EXAM: CT ABDOMEN PELVIS W CLINICAL HISTORY: ams abd pain nausea. TECHNIQUE: Imaging Protocol: Axial computed tomography images with coronal and sagittal reformatted images were created and reviewed CONTRAST MATERIAL: Intravenous: Omnipaque-350 100cc Oral: None COMPARISON: CT CT BRAIN NECK CTA from 07/26/2022 FINDINGS: VISUALIZED LUNG BASES: No nodules nor pleural effusions evident. There is an acute or subacute appearing fracture of the anterolateral aspect of the right 9th rib. ABDOMEN: There is no ascites. GI: Moderate size hiatal hernia noted. LIVER: There are 2 small cysts in the liver, 1 in the right hepatic lobe measuring 4 mm and the other in the left hepatic lobe measuring 5 mm. No ominous focal hepatic lesions. No dilated intrahepatic ducts. GALLBLADDER/BILIARY: No obvious gallbladder pathology. CBD is not dilated. PANCREAS: No evidence of pancreatic mass nor dilatation of the pancreatic duct. SPLEEN: Spleen is not enlarged. No obvious intrasplenic lesions. Splenic and portal veins are paten t. ADRENALS: There are no significant adrenal masses. KIDNEYS:Small cortical cyst in the lateral cortex right kidney measuring 7 mm, not requiring further investigation. Smaller 5 mm cyst in the left kidney noted not requiring further investigation. No s olid renal masses. No calculi. Bilateral extrarenal pelves are noted. No true hydronephrosis nor h ydroureter despite the fact that the urinary bladder appears significantly distended. There is no ob vious mass nor calculi in the urinary bladder although the bladder is partially obscured by beam hard ening artifact from right hip prosthesis.. ABDOMINAL AORTA: Abdominal aorta is not enlarged. LYMPH NODES:There is no retroperitoneal nor paraaortic adenopathy. ABDOMINAL WALL: No evidence of significant anterior abdominal wall nor inguinal hernia. GI: No evidence of bowel obstruction. However, there appears to be a colitis pattern involving the t ransverse colon and left side of the colon and sigmoid. There is diverticulosis of the sigmoid witho ut evidence of obvious diverticulitis. Appendix is not able to be identified. No obvious appendicit is. PELVIS: LYMPH NODES: There is no intrapelvic nor inguinal adenopathy. REPRODUCTIVE: Uterus is surgically absent. No abnormal adnexal masses. URINARY BLADDER: Distended. No obvious masses. OSSEOUS: Right hip prosthesis. Right 9th rib fracture. No pelvic fractures. Degenerative changes l eft hip. Lumbar scoliosis convex left. Multilevel degenerative disc disease. No compression fractu res.. IMPRESSION: 1. There appears to be a colitis pattern involving the transverse colon and left side of the colon an d sigmoid. There is a possibility that this is just due to under distension. Clinical correlation r ecommended. Consider colonoscopy. 2. Sigmoid diverticulosis without evidence of acute diverticulitis. Moderate size hiatal hernia evid ent. 3. Distended urinary bladder. No true hydronephrosis. 4. Fracture in the lateral aspect of the right 9th rib noted. This appears probably subacute RADIATION DOSE DELIVERED: 359.26mGy.cm Total DLP DATA REPOSITORY: All CT scans at this facility are submitted to the National Radiology Data Registry (NRDR) Dose Index Registry (DIR) with the [employer] (ACR). RADIATION OPTIMIZATION: All CT scans at this facility use at least one of these dose optimization te chniques: automated exposure control; mA and/or kV adjustment per patient size (includes targeted exa ms where dose is matched to clinical indication); or iterative reconstruction.
--- NOTE | 2024-05-31 18:30 | DI.CT_ITS ---
Exam(s) CT HEAD WO EXAM: CT HEAD WO CLINICAL HISTORY: fatigue ams. TECHNIQUE: Imaging Protocol: Axial computed tomography images with coronal and sagittal reformatted images were created and reviewed COMPARISON: CT CT HEAD WO from 04/24/[address] FACIAL WO from 04/24/2024 FINDINGS: There are no skull fractures. There is no fluid in the visualized paranasal sinuses. There is no evidence of intracranial hemorrhage, mass effect, or shift of midline structures. There are no extra-axial fluid collections. The ventricles are not enlarged or shifted and there is no blo od within the ventricular system nor within the basal cisterns. Again noted is abundant periventricular hypodensity consistent with chronic small vessel disease. 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 IMPRESSION: No acute intracranial findings on this noninfused CT scan of the brain. Chronic small-vessel white matter ischemic changes again noted. RADIATION DOSE DELIVERED: 878.66mGy.cm Total DLP DATA REPOSITORY: All CT scans at this facility are submitted to the National Radiology Data Registry (NRDR) Dose Index Registry (DIR) with the [employer] (ACR). RADIATION OPTIMIZATION: All CT scans at this facility use at least one of these dose optimization te chniques: automated exposure control; mA and/or kV adjustment per patient size (includes targeted exa ms where dose is matched to clinical indication); or iterative reconstruction.
--- NOTE | 2024-05-31 18:33 | DI.RAD_ITS ---
Exam(s) XR CHEST 2V PA LATERAL EXAM: XR CHEST 2V PA LATERAL CLINICAL HISTORY: ams weakness. TECHNIQUE: 2D digital imaging was performed. COMPARISON: CR XR RIBS RT W PA LAT CHEST from 05/12/2024 FINDINGS: 2 views: Heart size is normal. The mediastinum is not widened. Lungs are clear. No infiltrates nor pleural effusions. There is an acute appearing fracture of the anterolateral aspect of the right 9th rib Venous contrast is seen in the right axillary vein from prior CT scan IMPRESSION: Right 9th rib acute fracture. No pneumothorax. No acute pulmonary findings DATA REPOSITORY: RADIATION DOSE DELIVERED:
[2024-05-31 18:42] LABS: Abs Immature Grans 0.04 10^3/uL (0.0-0.06); Absolute Basophil Count 0.06 10^3/uL (0.0-0.2); Absolute Eosinophil Count 0.11 10^3/uL (0.0-0.7); Absolute Lymphocyte Count 1.58 10^3/uL (1.2-3.4); Absolute Monocyte Count 0.45 10^3/uL (0.1-0.8); Absolute Neutrophil Count 6.91 10^3/uL (1.2-6.7); Basophils % 0.7 %; Eosinophils % 1.2 %; HCT 36.5 % (36.0-46.0); HGB 12.5 g/dL (11.2-15.7); Immature Grans % 0.4 %; Lymphocytes % 17.3 %; MCH 31.3 pg (27.0-33.0); MCHC 34.2 % (32.0-36.0); MCV 91 fL (80-95); MPV 10.7 fL (8.0-11.0); Monocytes % 4.9 %; Neutrophils % 75.5 %; Platelet Count 246 10^3/uL (130-400); RDW 13.7 % (11.7-14.6); RDW-SD 46.1 fL; WBC 9.15 10^3/uL (4.4-10.8)
--- NOTE | 2024-05-31 18:45 | ED.GENADUL_ITS ---
Discharge Plan Discharge Details Chief Complaint: Dizzy/Sync Primary Care Provider: Laura Gonzalez ED Provider: Leonel Fritz Home Meds and New Rx's Prescriptions: No Action aspirin 325 mg tablet 650 mg PO BID cyclobenzaprine 10 mg tablet 10 mg PO HS PRN diclofenac potassium 25 mg capsule 25 mg PO BID latanoprost 0.005 % drops 1 drp ophthalmic (eye) DAILY mirtazapine 15 mg tablet 15 mg PO DAILY naproxen 500 mg tablet,delayed release (DR/EC) 500 mg PO BID Patient Comments: Take 1 tablet by mouth twice a day levothyroxine 75 mcg tablet 75 mcg PO DAILY Patient Comments: TAKE ONE TABLET BY MOUTH EVERY DAY metoprolol tartrate 25 mg Tablet 12.5 mg PO BID Qty: 60 0RF donepezil 5 mg tablet 5 mg PO DAILY Patient Comments: TAKE ONE TABLET BY MOUTH EVERY DAY cephalexin 500 mg capsule 500 mg PO QID Qty: 39 0RF HPI General Date/Time Provider Initiated Documentation: 05/31/24 18:11 . HPI Narrative: 84-year-old female brought in by EMS for evaluation of weakness decreased p.o. intake vomiting. Patient denies chest pain or shortness of breath. May have had a recent fall although patient cannot recount. Related Data Home Medications ?Medication ?Instructions ?Recorded ?Confirmed levothyroxine 75 mcg tablet 75 mcg PO DAILY 07/29/22 05/31/24 metoprolol tartrate 25 mg tablet 12.5 mg (1/2 x 25 mg) PO BID #60 07/29/22 05/31/24 tabs naproxen 500 mg tablet,delayed 500 mg PO BID 07/29/22 05/31/24 release cephalexin 500 mg capsule 500 mg PO QID #39 caps 04/24/24 05/31/24 cyclobenzaprine 10 mg tablet 10 mg PO HS PRN 05/04/24 05/31/24 diclofenac potassium 25 mg capsule 25 mg PO BID 05/04/24 05/31/24 latanoprost 0.005 % eye drops 1 drp ophthalmic (eye) DAILY 05/04/24 05/31/24 mirtazapine 15 mg tablet 15 mg PO DAILY 05/04/24 05/31/24 aspirin 325 mg tablet 650 mg PO BID 05/24/24 05/31/24 donepezil 5 mg tablet 5 mg PO DAILY 05/31/24 05/31/24 Previous Rx's ?Medication ?Instructions ?Recorded metoprolol tartrate 25 mg tablet 12.5 mg (1/2 x 25 mg) PO BID #60 07/29/22 tabs cephalexin 500 mg capsule 500 mg PO QID #39 caps 04/24/24 Allergies Allergy/AdvReac Type Severity Reaction Status Date / Time celecoxib (From Celebrex) Allergy Severe Skin Rash Verified 05/24/24 13:45 Penicillins Allergy Intermediate Unknown Verified 05/24/24 13:45 tramadol AdvReac Severe Nausea Verified 05/24/24 13:45 meperidine HCl (From Demerol) AdvReac Intermediate Halluncinat Verified 05/24/24 13:45 ions morphine AdvReac Intermediate Nausea Verified 05/24/24 13:45 topiramate (From Topamax) AdvReac Intermediate Nausea Verified 05/24/24 13:45 General Stated Complaint: Dizzy/Sync EDDA: 2 Exam Narrative Exam Narrative: Alert interactive however some component of baseline dementia Pupils round reactive equal to light, no rhinorrhea no otorrhea, subacute appearing ecchymosis to left side zygoma Centering of oromucosa tolerate secretions normal speech no stridor Lungs clear bilaterally without wheezes rales or rhonchi Normal heart sounds no murmurs rubs or gallops Abdomen soft mildly tender in right quadrants without guarding or rebounding Pelvis stable moving all extremities without deficit no signs of traumat to limbs Following commands moving all extremities 5-5 strength upper lower extremities, sensation equal bilaterally, no truncal ataxia Course Vital Signs Vital signs: Vital Signs Temperature 35.6 C L 05/31/24 18:02 Pulse 86 05/31/24 18:02 Respiratory Rate 22 05/31/24 18:02 Blood Pressure 178/72 H 05/31/24 18:02 Pulse Oximetry 98 05/31/24 18:02 Temperature 35.6 C L 05/31/24 18:02 Pulse 86 05/31/24 18:02 Respiratory Rate 22 05/31/24 18:02 Blood Pressure 178/72 H 05/31/24 18:02 Pulse Oximetry 98 05/31/24 18:02 Oxygen Delivery Method Room Air 05/31/24 18:02 Oxygen Flow Rate 0 05/31/24 18:02 Medical Decision Making 84-year-old female presents brought in for weakness fatigue nausea vomiting decreased p.o. intake over the last couple of days, noted to be dry with dry ora l mucosa, some abdominal tenderness on examination, alert moving all extremity without deficit signs of subacute trauma to left zygoma, possible recent fall, no other signs of trauma, consider dehydration versus electrolyte derangement versus infectious etiology such as viral illness pneumonia or UTI versus intra- abdominal infection such as colitis enteritis cholecystitis appendicitis versus less likely CVA TIA PE or aortic pathology given history and physical. Screening labs imaging fluids close reassessment 21: 24 patient resting comfortably no acute distress feeling much better after fluids. Labs and imaging was unremarkable. Consider subacute right ninth lobe fracture. Patient denies trauma or pain in this region. No respiratory symptomatology. Patient comfortable going home however her daughter is at a neighbors house and this is too late for her to go home alone. Will observe her here in the emergency department and coordinate transportation in the morning Quality:SDOH Health Related Social Needs: No Data to Display PFSH All Active Problems (Updated 05/25/24 @ 00:08 by MARILU LEY) Closed fracture of left proximal humerus (Acute 04/24/24) Alzheimer's dementia without behavioral disturbance (Acute) Hypokalemia (Acute) Cognitive impairment (Acute) Paroxysmal SVT (supraventricular tachycardia) (Acute) SVT (supraventricular tachycardia) (Chronic) Malnutrition (Acute) Anxiety (Chronic) Advanced care planning/counseling discussion (Acute) COVID-19 (Acute) Hematuria (Acute) Weakness generalized (Acute) Vertigo (Acute) Cough (Acute) Trochanteric bursitis of right hip (Acute 02/26/16) SI (sacroiliac) pain (Acute 09/08/17) Arthritis of right hip (Acute 02/26/16) Spondylosis of lumbar region without myelopathy or radiculopathy (Acute) 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 Several pansensitive E. coli urinary tract infections recently. Hypothyroidism (Chronic) History of hematuria (Chronic) a. Microscopic. 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 Remote history, patient denies having these in years. Vertigo (Acute) Medical History Anemia, iron deficiency Asymptomatic microscopic hematuria Atrophic vaginitis COVID Dermatitis of eyelid Eczema GERD (gastroesophageal reflux disease) Glaucoma Grief reaction Hernia, inguinal, left Hypothyroid Insomnia Low back pain Migraine Nosebleed Pain of left thumb Pain, joint, hip, right Palliative care encounter Rib pain on left side Seborrheic keratosis Vitamin B12 deficiency Weight loss Surgical History Abdominal hysterectomy Appendectomy Bilateral salpingectomy with oophorectomy Biopsy of breast History of arthroplasty of right hip Hx of cataract surgery Repair of inguinal hernia Tonsillectomy and adenoidectomy Total replacement of hip (06/29/17) right Social History Smoking/Tobacco Use Status: Never Smoking risk assessment performed?: Yes Alcohol Intake: never Drug use: Never Substance use type: does not use Current gender identity: female Do you feel safe at home: Yes Do you feel safe in your relationship?: Yes Additional Social history: Lives with Developmentally delayed adult daughter. early spring 2021 (cared for bedbound until his at home)
[2024-05-31] MEDS: Normal Saline 1,000 ML 1000 ML IV (18:48)
[2024-05-31 19:04] LABS: PTT Activated 19.6 sec (23.6-32.8); Prothrombin Time 9.6 sec (9.1-11.1)
[2024-05-31 19:28] LABS: ALT 30 U/L (14-59); AST 34 U/L (15-37); Albumin 3.4 g/dL (3.4-5.0); Alkaline Phosphatase 85 U/L (46-116); Anion Gap 12.8 mmol/L (3-11); BUN 17 mg/dL (7-18); Bilirubin, Total 0.61 mg/dL (0.2-1.0); CO2 21.2 mmol/L (21.0-32.0); CREATININE 0.8 mg/dL (0.55-1.02); Calcium 9.1 mg/dL (8.5-10.1); Chloride 97 mmol/L (98-107); Estimated GFR 73.52 (mL/min/1.73m2); Glucose 125 mg/dL (74-106); Lipase 45 U/L (16-77); Magnesium 1.7 mg/dL (1.8-2.4); Potassium 3.7 mmol/L (3.5-5.1); Sodium 131 mmol/L (136-145); TSH (W/Ref FT4) 3.53 uIU/mL (0.36-3.74); Total Protein 6.7 g/dL (6.4-8.2)
[2024-05-31 19:29] LABS: ETHANOL BLOOD < 3.0 mg/dL (<10)
[2024-05-31 19:30] LABS: NT-proBNP 273 pg/mL (<300); Troponin I 8 ng/L (<or=51)
[2024-05-31 19:48] LABS: COVID-19 PCR Negative (Negative); Influenza A PCR Negative (Negative); Influenza B PCR Negative (Negative); RSV PCR Negative (Negative)
[2024-05-31 19:50] LABS: Source Nasopharynx
[2024-05-31] MEDS: Omnipaque 350 MG/ML 100 ML BTL IJ (19:59)
[2024-05-31] MEDS: Normal Saline - Diluent 50 ML VIAL IJ (20:00)
[2024-05-31] MEDS: MAGNESIUM SULFATE 1 GM/100 ML BAG IVINF (20:24)
[2024-05-31 20:25] LABS: Bilirubin Negative (Negative); Blood Trace-intact (Negative); Clarity Clear (Clear); Glucose Negative (Negative); Ketones 15 mg/dL (Negative); Leukocyte Esterase Negative (Negative); Nitrite Negative (Negative); Urobilinogen 0.2 mg/dL (Up to 0.2); pH 7.5 (5-8)
[2024-05-31 20:36] LABS: Bacteria Rare HPF (Negative); C & S Indicated? No; Casts Negative LPF (Negative); Crystals Few Amorphous HPF (Negative); Epithelial Cells Rare HPF (Negative); Mucus Negative (Negative); RBC 0-2 HPF (0-2); WBC Negative HPF (0-5)
--- NOTE | 2024-05-31 20:42 | DI.VRAD_ITS ---
PROCEDURE INFORMATION: Exam: CT Head Without Contrast Exam date and time: 05/31/2024 7:54 PM Age: 84 years old Clinical indication: Other: Fatigue AMS TECHNIQUE: Imaging protocol: Computed tomography of the head without contrast. COMPARISON: CT HEAD WO 04/24/2024 5:36 AM FINDINGS: Brain: There is no acute intracranial hemorrhage, mass effect or midline shift. No large acute territorial infarct identified. There are patchy regions of hypodensity in the periventricular and subcortical white matter, likely on the basis of chronic microvascular ischemic disease. Cerebral ventricles: The ventricles and sulci are prominent in size, which is at least in part due to global cerebral volume loss. Paranasal sinuses: Visualized sinuses are unremarkable. No fluid levels. Mastoid air cells: Visualized mastoid air cells are well aerated. Bones: Unremarkable. No acute fracture. Soft tissues: Unremarkable. IMPRESSION: No acute intracranial hemorrhage, mass effect or midline shift. Dictated and Authenticated by: Lulú Castro MD. Ordering:FIOR Castaneda MD
[2024-05-31 20:43] LABS: Troponin I 9 ng/L (<or=51)
[2024-05-31 20:53] LABS: *AMPHETAMINES SCREEN URINE Negative (Negative); *BARBITURATES SCREEN URINE Negative (Negative); *BENZODIAZEPINES SCREEN URINE Negative (Negative); Cannabinoids THC Negative (Negative); Cocaine Screen,Urine Negative (Negative); METHADONE URINE SCREEN Negative (Negative); OPIATES URINE SCREEN Negative (Negative)
[2024-05-31 20:54] LABS: Tricyclic Antidepressants Negative (Negative)
--- NOTE | 2024-05-31 21:00 | DI.VRAD_ITS ---
PROCEDURE INFORMATION: Exam: CT Abdomen And Pelvis With Contrast Exam date and time: 05/31/2024 7:56 PM Age: 84 years old Clinical indication: Other: AMS abd pain nausea TECHNIQUE: Imaging protocol: Computed tomography of the abdomen and pelvis with contrast. Contrast material: 350; Contrast volume: 100 ml; Contrast route: INTRAVENOUS (IV); COMPARISON: CR RT HIP COMPLETE AP PELVIS 07/14/2017 2:17 PM FINDINGS: Limitations: Paucity of intra-abdominal fat. Lungs: Streaky and dependent atelectasis at the lung bases. Bronchiectasis throughout the lung bases. 2.2 cm x 2.0 cm pneumatocele in the right lower lobe on image 52 of series 4. Diaphragm: 3.1 cm x 5.6 cm hiatal hernia. Liver: Small indeterminate hypoattenuating hepatic lesions, incompletely characterized but most likely small cysts and/or hemangiomas. Gallbladder and biliary ducts: Normal appearing gallbladder. No calcified gallstones. No biliary dilatation. Pancreas: Normal appearing pancreas. Spleen: Normal appearing spleen. Adrenal glands: Normal appearing adrenal glands. Kidneys and ureters: Small indeterminate hypoattenuating renal lesions, not well characterized but statistically most likely renal cysts. Mild right-sided hydronephrosis. Mild-moderate left-sided hydronephrosis. Stomach and bowel: No oral contrast. Stomach partially decompressed. No small bowel dilatation to suggest obstruction. Colon largely well evacuated of fecal material. Apparent mural thickening through much of the colon, most prominent through the collapsed, well evacuated segments. Artifact of underdistention? Extensive acute colitis? Diverticulosis throughout the descending and sigmoid colon. No evidence of focal acute diverticulitis. Normal-appearing rectum, moderately distended with fecal material. Appendix: Appendix not identified, obscured if present. Correlation with surgical history recommended. Intraperitoneal space: No gross ascites or free air. Vasculature: Tortuous abdominal aorta. No abdominal aortic aneurysm or dissection. Mild but extensive atherosclerotic calcification. Lymph nodes: No pathologically enlarged mesenteric, retroperitoneal, or pelvic sidewall lymph nodes. Urinary bladder: Urinary bladder prominently distended to 9.5 cm x 9.6 cm x 11.2 cm. Reproductive: Prior hysterectomy. Normal-appearing small left ovary, partially obscured. Right ovary not identified, obscured if present. Correlation with surgical history recommended. Bones/joints: Early subacute fracture through the lateral aspect of the right 9th rib, images 133 of series 4 and 7 of series 7. No acute fracture seen among the bones of the abdomen or pelvis. Levoscoliotic curvature through the upper lumbar spine. Spinal degenerative change with discogenic degeneration, marginal osteophytes, and facet arthrosis at several levels. Soft tissues: Tiny fat-containing ventral hernia at the umbilicus, doubtful clinical significance. 1.5 cm x 4.2 cm x 2.3 cm fat containing ventral hernia through the upper anterior abdominal wall superior to the umbilicus. IMPRESSION: 1. Early subacute fracture through the lateral aspect of the right 9th rib. 2. 3.1 cm x 5.6 cm hiatal hernia. 3. Colon largely well evacuated. Apparent mural thickening through much of the collapsed, well evacuated colon. Artifact of underdistention or acute colitis could have this appearance. Clinical correlation is recommended. 4. Prominent distention of the urinary bladder. This appearance may represent a normal full bladder; however, correlation with micturition history is recommended to exclude delayed bladder emptying, urinary retention, or bladder outlet obstruction. 5. Mild right-sided hydronephrosis and mild-moderate left-sided hydronephrosis, nonspecific but possibly on the basis of bladder distension. Dictated and Authenticated by: Juan Carlos Pennington MD. Ordering:FIOR Castaneda MD
--- NOTE | 2024-05-31 21:02 | DI.VRAD_ITS ---
PROCEDURE INFORMATION: Exam: XR Chest Exam date and time: 05/31/2024 8:05 PM Age: 84 years old Clinical indication: Other: AMS weakness TECHNIQUE: Imaging protocol: Radiologic exam of the chest. Views: 2 views. COMPARISON: CR XR RIBS RT W PA LAT CHEST 05/12/2024 10:16 AM FINDINGS: Lungs: No pulmonary consolidation. Pleural spaces: No pleural effusion or pneumothorax. Heart/Mediastinum: Normal-sized heart. Bones/joints: Acute or early subacute fracture through the lateral aspect of the right 9th rib. IMPRESSION: 1. Acute or early subacute fracture through the lateral aspect of the right 9th rib. 2. No pulmonary consolidation, pleural effusion, or pneumothorax. Dictated and Authenticated by: Juan Carlos Pennington MD. Ordering:FIOR Castaneda MD
--- NOTE | 2024-06-01 02:21 | NUR.NOTE ---
Nursing Note: Pt resting in bed at this time, no needs noted. Ambulated to the bathroom 1 hour ago, pt tolerated walking with no assistance.
== END 2024-06-01 06:45 | disposition home or self-care (01) ==
PROVIDERS: Emergency Medicine; Emergency Provider Student in an Organized Health Care Education/Training Program; PCP Family Medicine
DX: R11.2 Nausea with vomiting, unspecified (principal); R53.1 Weakness; E86.0 Dehydration; W19.XXXA Unspecified fall, initial encounter; Z86.79 Personal history of other diseases of the circulatory system
CPT/HCPCS: 36415; 36416; 80053; 80307; 82962; 83690; 86850; 86900; 86901; 87637; 93005; 96361; 96365; 99285; 70450; 71046; 74177; 80320; 81003; 81015; 83735; 83880; 84443; 84484; 85025; 85610; 85730; 93010; 99283; J3475; J3490

== ENCOUNTER 2024-06-21 14:33 | Outpatient (CLI) | payer OTHER, SELFPAY ==
--- NOTE | 2024-06-21 13:15 | DI.RAD_ITS ---
Exam(s) XR SHOULDER LT COMPLETE 2+V EXAM: XR SHOULDER LT COMPLETE 2+V CLINICAL HISTORY: F/U FRACTURE. TECHNIQUE: 2D digital imaging was performed. Three views. COMPARISON: CR XR SHOULDER LT COMPLETE 2+V from 05/02/[address] UPPER EXTREMITY LT WO from 05/19/2024 FINDINGS: BONES: Stable appearance greater tuberosity fracture with for fracture fragment displaced posterior t o the humeral head. No bony destructive lesion is seen. JOINTS: No dislocation present. Mild spurring at the AC joint. Glenohumeral joint is unremarkable. SOFT TISSUE: Normal. IMPRESSION: Stable fracture alignment. DATA REPOSITORY: RADIATION DOSE DELIVERED:
== END 2024-06-21 14:34 | disposition home or self-care (01) ==
LOC: DIORS 14:33
PROVIDERS: PCP Family Medicine; Referring Provider Family Medicine; Visit Provider Student in an Organized Health Care Education/Training Program
DX: S42.202A Unspecified fracture of upper end of left humerus, initial encounter for closed fracture (principal); S42.202D Unspecified fracture of upper end of left humerus, subsequent encounter for fracture with routine healing; X58.XXXD Exposure to other specified factors, subsequent encounter
CPT/HCPCS: 99213; 73030

== ENCOUNTER 2024-07-25 15:19 | Outpatient (CLI) | payer OTHER, SELFPAY ==
--- NOTE | 2024-07-25 13:15 | DI.RAD_ITS ---
Exam(s) XR SHOULDER LT COMPLETE 2+V EXAM: XR SHOULDER LT COMPLETE 2+V CLINICAL HISTORY: F/U FRACTURE. TECHNIQUE: 2D digital imaging was performed. Three views. COMPARISON: CR XR SHOULDER LT COMPLETE 2+V from 05/02/2024 CR XR SHOULDER LT COMPLETE 2+V from 06/21/2024 FINDINGS: BONES: Previously in noted greater tuberosity fracture fragment is less well visible visualized on th is exam due to positioning.. No bony destructive lesion is seen. JOINTS: No dislocation present. Mild degenerative changes AC joint and glenohumeral joint SOFT TISSUE: Normal. IMPRESSION: Stable alignment of greater tuberosity fracture. DATA REPOSITORY: RADIATION DOSE DELIVERED:
== END 2024-07-25 15:20 | disposition home or self-care (01) ==
LOC: DIORS 15:19
PROVIDERS: PCP Family Medicine; Referring Provider Family Medicine; Visit Provider Student in an Organized Health Care Education/Training Program
DX: S42.202D Unspecified fracture of upper end of left humerus, subsequent encounter for fracture with routine healing; X58.XXXD Exposure to other specified factors, subsequent encounter
CPT/HCPCS: 99213; 73030

== ENCOUNTER → 2024-08-23 13:03 | Outpatient (BNVA) | payer OTHER, SELFPAY | PROVIDERS: PCP Family Medicine; Visit Provider Student in an Organized Health Care Education/Training Program ==

== ENCOUNTER 2024-08-23 14:54 | Outpatient (CLI) | payer OTHER, SELFPAY ==
--- NOTE | 2024-08-23 13:00 | DI.RAD_ITS ---
Exam(s) XR SHOULDER LT COMPLETE 2+V EXAM: XR SHOULDER LT COMPLETE 2+V CLINICAL HISTORY: F/U FRACTURE. TECHNIQUE: 2D digital imaging was performed. Three views. COMPARISON: CR XR SHOULDER LT COMPLETE 2+V from 05/02/[address] UPPER EXTREMITY LT WO from 05/19/2024 CR XR SHOULDER LT COMPLETE 2+V from 06/21/2024 CR XR SHOULDER LT COMPLETE 2+V from 07/25/2024 FINDINGS: BONES: Stable alignment of greater tuberosity fracture with posterior fragment. Seen on scapular Y-v iew. No bony destructive lesion is seen. JOINTS: No dislocation present. Glenohumeral joint space is maintained. No significant spurring at the AC joint. SOFT TISSUE: Normal. IMPRESSION: Stable alignment of greater tuberosity fracture. DATA REPOSITORY: RADIATION DOSE DELIVERED:
== END 2024-08-23 14:55 | disposition home or self-care (01) ==
LOC: DIORS 14:54
PROVIDERS: PCP Family Medicine; Visit Provider Student in an Organized Health Care Education/Training Program
DX: S42.292D Other displaced fracture of upper end of left humerus, subsequent encounter for fracture with routine healing; X58.XXXD Exposure to other specified factors, subsequent encounter
CPT/HCPCS: 99213; 73030

== ENCOUNTER 2024-10-24 15:26 | Outpatient (CLI) | payer MEDICARE, SELFPAY ==
--- NOTE | 2024-10-24 13:30 | DI.RAD_ITS ---
Exam(s) XR SHOULDER LT COMPLETE 2+V EXAM: XR SHOULDER LT COMPLETE 2+V CLINICAL HISTORY: F/U FRACTURE. TECHNIQUE: 2D digital imaging was performed. Two views. COMPARISON: CT CT UPPER EXTREMITY LT WO from 05/19/2024 CR XR SHOULDER LT COMPLETE 2+V from 08/23/2024 FINDINGS: BONES: There has been no change greater tuberosity fracture with displacement of the fracture fragmen t posteromedially. No bony destructive lesion is seen. JOINTS: No dislocation present. Mild degenerative changes. SOFT TISSUE: Normal. IMPRESSION: Stable fracture alignment. DATA REPOSITORY: RADIATION DOSE DELIVERED:
== END 2024-10-24 15:27 | disposition home or self-care (01) ==
LOC: DIORS 15:27
PROVIDERS: PCP Family Medicine; Visit Provider Student in an Organized Health Care Education/Training Program
DX: S42.202D Unspecified fracture of upper end of left humerus, subsequent encounter for fracture with routine healing (principal); X58.XXXD Exposure to other specified factors, subsequent encounter
CPT/HCPCS: 99213; 73030

== ENCOUNTER → 2024-12-26 12:58 | Outpatient (BNVA) | payer MEDICARE, SELFPAY | PROVIDERS: PCP Family Medicine; Referring Provider Family Medicine; Visit Provider Student in an Organized Health Care Education/Training Program | DX: S42.292D Other displaced fracture of upper end of left humerus, subsequent encounter for fracture with routine healing (principal); X58.XXXD Exposure to other specified factors, subsequent encounter | CPT/HCPCS: 99213 ==

== ENCOUNTER 2025-01-30 10:37 | Emergency (ER) | payer MEDICARE, SELFPAY ==
[2025-01-30 10:44] VITALS: BP 163/84; PULSE 86; RESP 16; TEMP 36.8; O2SAT 98
[2025-01-30] MEDS: Acetaminophen 500 MG TAB 1000 MG PO (11:04)
[2025-01-30] MEDS: Diph,Pertuss(Acell),Tet Vac/Pf 0.5 ML SYR IM (11:05)
--- NOTE | 2025-01-30 11:14 | ED.GENADUL_ITS ---
Discharge Plan Disposition Patient Disposition: Home Condition: Stable Discharge Details Clinical Impression: Fall, Contusion of sternum, Laceration of upper arm Primary Care Provider: Laura Gonzalez ED Provider: Yulia Alfred Home Meds and New Rx's Prescriptions: New lidocaine [Lidoderm] 5 % adhesive patch,medicated 1 patch topical DAILY 30 Days Qty: 30 0RF Rx Instructions: leave on most painful area for up to 12 hrs No Action latanoprost 0.005 % drops 1 drp ophthalmic (eye) DAILY mirtazapine 15 mg tablet 15 mg PO DAILY levothyroxine 75 mcg tablet 75 mcg PO DAILY Patient Comments: TAKE ONE TABLET BY MOUTH EVERY DAY metoprolol tartrate 25 mg Tablet 12.5 mg PO BID Qty: 60 0RF donepezil 5 mg tablet 5 mg PO DAILY Patient Comments: TAKE ONE TABLET BY MOUTH EVERY DAY Discharge Instructions Instructions: Laceration Repair With Stitches ED Additional Instructions: You were seen in the emergency department today for evaluation after a fall. In our department he had a full physical examination performed, had CT imaging that did not show any bleeding in your brain, broken bones in your head, neck, or chest, and did not show any injuries to your lungs. You have a bruise on your sternum and sustained several lacerations and skin tears. You had stitches placed in 3 areas of your body: Your right forearm, right bicep, and left elbow. The stitches need to be removed in 7 to 10 days. Please change the dressing at least once per day, or anytime they get wet or dirty. Use an antibiotic ointment, and avoid soaking or scrubbing the area. Your stitches can be removed by your primary care provider or at this emergency department. Additionally, you will likely experience some changes to the skin, as it is quite thin and tears easily. It is likely that they will turn into scabs and eventually fall off, but we want to leave them in place as long as possible as a biological bandage. Please use Tylenol and Lidoderm patches for management of your pain, and please follow-up with your primary care provider in the next few days to discuss this visit and any symptoms that change, worsen, or persist. Thank you for allowing us to be part of your care. HPI General Mode of arrival: ambulatory . Date/Time Provider Initiated Documentation: 01/30/25 10:40 . Limitations to Documentation: no limitations . Information obtained by: patient, family and old records reviewed . HPI Narrative: This is an 84-year-old female patient with a past medical history significant for GERD, hypothyroidism, Alzheimer's dementia, who is presenting for evaluation with her friend after a fall at home. She reports that she was walking and she walks very quickly and lost her balance, tripping and falling forward. She did strike her head on the garage floor, and feels that she struck the front of her chest on the garage floor. She did not lose consciousness, and she states that this fall was not preceded by any dizziness, chest pain, loss of consciousness/syncope. The patient reports that she noticed some tearing of the skin on her follow-up forearms, but her primary complaint is of head pain and sternal pain. She is not experiencing any neck or back pain, and was in her normal state of health prior to this event. She does not take any blood thinning medications. Related Data Home Medications ?Medication ?Instructions ?Recorded ?Confirmed levothyroxine 75 mcg tablet 75 mcg PO DAILY 07/29/22 01/30/25 metoprolol tartrate 25 mg tablet 12.5 mg (1/2 x 25 mg) PO BID #60 07/29/22 01/30/25 tabs latanoprost 0.005 % eye drops 1 drp ophthalmic (eye) DAILY 05/04/24 01/30/25 mirtazapine 15 mg tablet 15 mg PO DAILY 05/04/24 01/30/25 donepezil 5 mg tablet 5 mg PO DAILY 05/31/24 01/30/25 lidocaine 5 % topical patch 1 patch topical DAILY 1 month #30 01/30/25 (Lidoderm) ea Previous Rx's ?Medication ?Instructions ?Recorded metoprolol tartrate 25 mg tablet 12.5 mg (1/2 x 25 mg) PO BID #60 07/29/22 tabs lidocaine 5 % topical patch 1 patch topical DAILY 1 month #30 01/30/25 (Lidoderm) ea Allergies Allergy/AdvReac Type Severity Reaction Status Date / Time celecoxib (From Celebrex) Allergy Severe Skin Rash Verified 01/30/25 10:53 Penicillins Allergy Intermediate Unknown Verified 01/30/25 10:53 tramadol AdvReac Severe Nausea Verified 01/30/25 10:53 meperidine HCl (From Demerol) AdvReac Intermediate Halluncinat Verified 01/30/25 10:53 ions morphine AdvReac Intermediate Nausea Verified 01/30/25 10:53 topiramate (From Topamax) AdvReac Intermediate Nausea Verified 01/30/25 10:53 General Stated Complaint: Fall/Non TraumaCriteria EDDA: 3 Exam Narrative Exam Narrative: Gen: awake and alert, in no apparent distress. Appears well nourished. HEENT: PERRL, EOMs full and without nystagmus. External ears and nose normal, mucous membranes moist. The patient has bilateral abrasions/small skin tears and swelling to the temples, hemostatic. The remainder of the scalp is at raumatic. Neck: Supple, full range of motion, no C-spine tenderness or step-offs Lungs: No increased work of breathing, lung sounds clear and equal bilaterally without wheezes, rhonchi, or rales. CV: Heart with regular rate and rhythm, no murmurs auscultated. Strong and symmetrical radial pulses. The patient has tenderness to palpation over the mid to superior sternum with no overlying skin changes, crepitus, or deformity Abdomen: Soft, nondistended, non-tender to palpation. No rigidity, rebound tenderness, or guarding. MSK: No joint swelling, no redness. Full ROM without limitation, no external traumatic findings. No T or L-spine tenderness or step-offs, pelvis stable to AP compression, 4 extremities without deformity, pain with motion or limitation in range of motion, the patient has a V-shaped 10 cm laceration to her right forearm, hemostatic, and a 2 cm V-shaped skin tear to her left elbow Skin: No rashes or lesions to visualized skin. Normal color, warm, and dry. Neuro: Cranial nerves II-XII intact and symmetrical bilaterally. 5/5 strength in all muscle groups x4 extremities. No sensory deficits. Ambulates with steady gait. Psych: Appropriate for situation. Course Vital Signs Vital signs: Vital Signs Temperature 36.8 C 01/30/25 10:44 Pulse 86 01/30/25 10:44 Respiratory Rate 16 01/30/25 10:44 Blood Pressure 163/84 H 01/30/25 10:44 Pulse Oximetry 98 01/30/25 10:44 Temperature 36.8 C 01/30/25 10:44 Pulse 86 01/30/25 10:44 Respiratory Rate 16 01/30/25 10:44 Blood Pressure 163/84 H 01/30/25 10:44 Pulse Oximetry 98 01/30/25 10:44 Pain Level 6 01/30/25 10:44 Procedure Laceration Laceration 1: Date of Procedure: 01/30/25 Time of procedure: 13:00 Provider that performed the procedure: [facility] Standard Time Out Performed: No Patient Consented: Verbally Site: upper extremity (flexor forearm) Side (If applicable): right Description: flap Depth: simple, single layer Local anesthetic: Lidocaine 1% and with Epi Amount of anesthesia used (mL): 8 Pre-repair:: wound explored, irrigated extensively and deep structures intact Skin layer closed with: nylon Suture size: 4-0 Number of sutures:: 15 Technique: simple, interrupted Complications: None Procedure Description/Note: 10cm skin flap, V shaped Laceration 2: Date of Procedure: 01/30/25 Time of procedure: 13:20 Provider that performed the procedure: [facility] Standard Time Out Performed: No Patient Consented: Verbally Site: upper extremity (over bicep) Side (If applicable): right Description: linear Depth: simple, single layer Local anesthetic: Lidocaine 1% and with Epi Amount of anesthesia used (mL): 2 Pre-repair:: wound explored, irrigated extensively and deep structures intact Skin layer closed with: nylon Suture size: 4-0 Number of sutures:: 3 Complications: None Procedure Description/Note: 3cm, underlying hematoma Laceration 3: Date of Procedure: 01/30/25 Time of procedure: 13:30 Provider that performed the procedure: [facility] Standard Time Out Performed: No Patient Consented: Verbally Site: upper extremity (elbow) Side (If applicable): left Description: irregular Depth: simple, single layer Local anesthetic: Lidocaine 1% and with Epi Amount of anesthesia used (mL): 4 Pre-repair:: wound explored, irrigated extensively and deep structures intact Skin layer closed with: nylon Suture size: 4-0 Number of sutures:: 4 Technique: simple, interrupted Procedure Description/Note: Macerated skin flap, loose approximation Medical Decision Making This is AN 84-year-old female patient presenting for evaluation of injuries sustained after a mechanical fall. Reassuringly, her history reveals no concerning symptoms to suggest syncope, orthostasis, vasovagal syndrome, arrhythmia, ACS, or CVA. I considered in my differential intracranial hemorrhage, skull fracture, cervical spine fracture, sternal fracture, rib fracture, intrapulmonary abnormalities including pneumothorax, pulmonary contusion. Considered laceration, hematoma, contusion. The patient's extremity examination is less concerning for a long bone fracture or dislocation. No evidence for neurovascular derangement distal to the upper extremity lacerations. The patient's tetanus shot will be updated, we will obtain CT imaging of the head, C-spine, and chest wall, and I will repair the lacerations after thorough cleansing and evaluation for foreign body. I provided her with a dose of Tylenol for symptomatic management of pain. At this time I do not feel that there is an urgent indication for laboratory studies. - I reviewed the patient's CT imaging, which shows no sign of intracranial hemorrhage, skull fracture, cervical spine fracture, rib fracture or sternal fracture nor underlying lung injury. Patient's exam is most concerning for contusion and lacerations with associated underlying hematomas. The 3 lacerations of her upper extremities were sutured as noted above, patient tolerated the procedure well, local anesthetic kept below the safe maximum dosing, and all wounds were dressed with antibiotic ointment, gauze, and Coban. I prescribed the patient lidocaine patches to use in association with Tylenol for management of ongoing pain, counseled her to have her stitches removed in 7 to 10 days, and at this time, the patient has had a full medical evaluation and is safe for discharge to home. They are hemodynamically stable, ambulatory, and tolerating PO. They are understanding of the follow-up plan and return p recautions. They left our facility without incident. Yulia Alfred MD Medical Records Medical records reviewed: Yes I reviewed the patient's medical records. Quality:SDOH Health Related Social Needs: No Data to Display PFSH All Active Problems (Updated 01/30/25 @ 13:38 by Yulia Alfred MD) Laceration of upper arm (Acute) Contusion of sternum (Acute) Fall (Acute) Closed fracture of left proximal humerus (Acute 04/24/24) Alzheimer's dementia without behavioral disturbance (Acute) Hypokalemia (Acute) Cognitive impairment (Acute) Paroxysmal SVT (supraventricular tachycardia) (Acute) SVT (supraventricular tachycardia) (Chronic) Malnutrition (Acute) Anxiety (Chronic) Advanced care planning/counseling discussion (Acute) COVID-19 (Acute) Hematuria (Acute) Weakness generalized (Acute) Vertigo (Acute) Cough (Acute) Trochanteric bursitis of right hip (Acute 02/26/16) SI (sacroiliac) pain (Acute 09/08/17) Arthritis of right hip (Acute 02/26/16) Spondylosis of lumbar region without myelopathy or radiculopathy (Acute) 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 Several pansensitive E. coli urinary tract infections recently. Hypothyroidism (Chronic) History of hematuria (Chronic) a. Microscopic. 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 Remote history, patient denies having these in years. Vertigo (Acute) Medical History Anemia, iron deficiency Asymptomatic microscopic hematuria Atrophic vaginitis COVID Dermatitis of eyelid Eczema GERD (gastroesophageal reflux disease) Glaucoma Grief reaction Hernia, inguinal, left Hypothyroid Insomnia Low back pain Migraine Nosebleed Pain of left thumb Pain, joint, hip, right Palliative care encounter Rib pain on left side Seborrheic keratosis Vitamin B12 deficiency Weight loss Surgical History Abdominal hysterectomy Appendectomy Bilateral salpingectomy with oophorectomy Biopsy of breast History of arthroplasty of right hip Hx of cataract surgery Repair of inguinal hernia Tonsillectomy and adenoidectomy 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 early spring 2021 (cared for bedbound until his at home)
--- NOTE | 2025-01-30 12:08 | DI.CT_ITS ---
Exam(s) CT HEAD CERVICAL SPINE WO EXAM: CT HEAD CERVICAL SPINE WO CLINICAL HISTORY: fall, head strike, no thinners. TECHNIQUE: Imaging Protocol: Axial computed tomography images with coronal and sagittal reformatted images were created and reviewed COMPARISON: CT CT HEAD WO from 05/31/2024 FINDINGS: Head CT Ventricles and Extra axial spaces: Normal in size and morphology for the patient's age. Hemorrhage: None. Cerebral parenchyma: No evidence of mass or acute infarct. Mild atrophy. Bilateral hypodensities in the white matter consistent with microvascular disease. Midline shift: None. Brainstem/Cerebellum: Normal. Calvarium: Normal. Visualized Paranasal sinuses/Mastoids: Clear. Soft tissues: Unremarkable. Cervical Spine CT BONES: Vertebral body heights are maintained. Straightening of the normal cervical lordosis there is no evidence of acute fracture. Advanced degenerative disc changes and facet degenerative changes are seen . SOFT TISSUES: No paraspinal hematoma. The airway appears intact. No pneumothorax is seen at the lung apices. IMPRESSION: Head CT: No acute abnormality. C-spine CT: Degenerative changes, no acute abnormality. RADIATION DOSE DELIVERED: 1,070.31mGy.cm Total DLP DATA REPOSITORY: All CT scans at this facility are submitted to the National Radiology Data Registry (NRDR) Dose Index Registry (DIR) with the [employer] ([employer]). RADIATION OPTIMIZATION: All CT scans at this facility use at least one of these dose optimization te chniques: automated exposure control; mA and/or kV adjustment per patient size (includes targeted exa ms where dose is matched to clinical indication); or iterative reconstruction.
--- NOTE | 2025-01-30 12:08 | DI.CT_ITS ---
Exam(s) CT CHEST WO EXAM: CT CHEST WO CLINICAL HISTORY: fall, struck sternum on ground TECHNIQUE: Imaging Protocol: Axial computed tomography images with coronal and sagittal reformatted images were created and reviewed. Computer aided detection (CAD) was utilized. CONTRAST MATERIAL: Intravenous: Omnipaque 350 Contrast volume:structured data ml. COMPARISON: No exams were available for comparison FINDINGS: Pulmonary parenchyma: No consolidation. No dominant measurable mass. Mild apical scarring. Cyst rig ht lower lobe. Tracheobronchial tree: No bronchiectasis or mucous plugging. Mediastinum and Sheri: No dominant adenopathy or fluid collection. Moderate size hiatal hernia. Pleura: No effusion. No pneumothorax. Heart: The heart is mildly dilated. Mild coronary artery calcifications are seen. Aorta: Thoracic aorta non-dilated. Mild atherosclerotic changes. Pulmonary arteries: No gross evidence of emboli. Upper abdomen: No acute findings. Bones: Degenerative changes in the spine. Soft tissues: Unremarkable. IMPRESSION: No acute abnormality. RADIATION DOSE DELIVERED: 142.97mGy.cm Total DLP DATA REPOSITORY: All CT scans at this facility are submitted to the National Radiology Data Registry (NRDR) Dose Index Registry (DIR) with the [employer] (ACR). RADIATION OPTIMIZATION: All CT scans at this facility use at least one of these dose optimization te chniques: automated exposure control; mA and/or kV adjustment per patient size (includes targeted exa ms where dose is matched to clinical indication); or iterative reconstruction.
[2025-01-30 13:59] VITALS: BP 172/84; PULSE 91; RESP 18; O2SAT 97
== END 2025-01-30 14:01 | disposition home or self-care (01) ==
PROVIDERS: Emergency Provider Emergency Medicine; PCP Family Medicine
DX: S20.219A Contusion of unspecified front wall of thorax, initial encounter (principal); S41.111A Laceration without foreign body of right upper arm, initial encounter; S51.811A Laceration without foreign body of right forearm, initial encounter; S51.012A Laceration without foreign body of left elbow, initial encounter; S00.01XA Abrasion of scalp, initial encounter; G30.9 Alzheimer's disease, unspecified; F02.80 Dementia in other diseases classified elsewhere, unspecified severity, without behavioral disturbance, psychotic disturbance, mood disturbance, and anxiety; W10.8XXA Fall (on) (from) other stairs and steps, initial encounter; Y93.01 Activity, walking, marching and hiking; Y93.89 Activity, other specified; Z23 Encounter for immunization
CPT/HCPCS: 12005; 71250; 90471; 90715; 99285; 70450; 72125; 99284; J2004

== ENCOUNTER 2025-02-08 09:06 | Observation (INO) | payer MEDICARE, SELFPAY ==
[2025-02-08] VITALS (45 sets, daily range): BP systolic 107–167; BP diastolic 43–115; PULSE 60–99; RESP 6–26; TEMP 36.2–36.9; O2SAT 93–100
--- NOTE | 2025-02-08 09:00 | RT.EKG_ITS ---
APPROVED REPORT Exam: Resting ECG Reason for Exam: chest pain Patient Location: E HR:72 bpm ECG Measurements Heart Rate 72 AXIS RI 288 P 71 QRSd 94 QRS 70 QT 453 T 66 QTc 495 Conclusion Sinus rhythm...normal P axis, V-rate 60- 99 Prolonged RI interval...RI >220, V-rate 50- 90 No Occlusion MO
[2025-02-08] MEDS: diazePAM 10 MG/2 ML SYR 2.5 MG IVP (09:32)
[2025-02-08] MEDS: ACETAMINOPHEN 1,000 MG/100 ML BAG 400 MG (09:37)
[2025-02-08 10:03] LABS: Lipase 85 U/L (<78); Magnesium 1.6 mg/dL (1.8-2.4); TSH (W/Ref FT4) 4.71 uIU/mL (0.36-3.74); Troponin I 15 ng/L (<or=51)
[2025-02-08 10:30] LABS: Bilirubin Negative (Negative); Blood Trace-intact (Negative); Clarity Clear (Clear); Glucose Negative (Negative); Ketones 40 mg/dL (Negative); Leukocyte Esterase Negative (Negative); Nitrite Negative (Negative); Specific Gravity 1.015 (1.005-1.025); Urobilinogen 0.2 mg/dL (Up to 0.2)
[2025-02-08 10:42] LABS: COVID-19 PCR Negative (Negative); Influenza A PCR Negative (Negative); Influenza B PCR Negative (Negative); RSV PCR Negative (Negative)
[2025-02-08 10:45] LABS: Bacteria Rare HPF (Negative); C & S Indicated? No; Casts Negative LPF (Negative); Crystals Negative HPF (Negative); Epithelial Cells Few HPF (Negative); Mucus Negative (Negative); WBC 0-2 HPF (0-5)
[2025-02-08 10:46] LABS: Source Nasopharynx
[2025-02-08] MEDS: Omnipaque 350 MG/ML 100 ML BTL IJ (10:47)
[2025-02-08] MEDS: Normal Saline - Diluent 50 ML VIAL IJ (10:48)
[2025-02-08] MEDS: Normal Saline 1,000 ML 500 ML IV (11:10)
--- NOTE | 2025-02-08 11:11 | DI.CT_ITS ---
Exam(s) CT LUMBAR SPINE RECONS EXAM: CT LUMBAR SPINE RECONS CLINICAL HISTORY: back pain. TECHNIQUE: Imaging Protocol: Axial computed tomography images with coronal and sagittal reformatted images were created and reviewed COMPARISON: CT CT ABDOMEN PELVIS W from 05/31/[address] CHEST/ABD/PEL W from 02/08/2025 FINDINGS: There is multilevel chronic degenerative disc disease of disc space narrowing at each level in the mark mbar spine. There are no compression fractures nor listhesis. No pars defects. No osseous lesions. No sacral fractures. Sacroiliac joints appear unremarkable. Benign cysts incidentally noted in the kidneys. IMPRESSION: 1. Multilevel chronic degenerative changes. No acute fractures in the lumbar spine 3. Please note that on the sagittal reconstructed images of today's chest abdomen pelvis CT scan ther e is subtle suggestion fracture at the inferior endplate T10. RADIATION DOSE DELIVERED: 333.69mGy.cm Total DLP DATA REPOSITORY: All CT scans at this facility are submitted to the National Radiology Data Registry (NRDR) Dose Index Registry (DIR) with the [employer] (ACR). RADIATION OPTIMIZATION: All CT scans at this facility use at least one of these dose optimization te chniques: automated exposure control; mA and/or kV adjustment per patient size (includes targeted exa ms where dose is matched to clinical indication); or iterative reconstruction.
--- NOTE | 2025-02-08 11:11 | DI.CT_ITS ---
Exam(s) CT CHEST/ABD/PEL W EXAM: CT CHEST/ABD/PEL W CLINICAL HISTORY: malaise and back pain, abd pain. TECHNIQUE: Imaging Protocol: Axial computed tomography images with coronal and sagittal reformatted images were created and reviewed CONTRAST MATERIAL: Intravenous: Omnipaque 350 Contrast volume:75 mL Oral: None COMPARISON: CT CT CHEST WO from 01/30/[address] LUMBAR SPINE RECONS from 02/08/2025 FINDINGS: CHEST: LUNGS: No confluent infiltrates nor pleural effusions and there are no ominous pulmonary nodules. Th ere is a benign thin walled bulla in the right lower lobe anterior basal segment again noted. This d oes not contain a fluid level nor concerning wall thickening and this bulla measures 2 cm x 1.5 cm.. MEDIASTINUM: There is no hilar nor mediastinal adenopathy. There is a prominent hiatal hernia again n oted. This measures 5 x 4 cm by a 4.5 cm. CARDIAC: Heart size is normal. There is no pericardial effusion.Caliber of the thoracic aorta is wit hin normal limits. No evidence of aortic dissection. OSSEOUS: No significant osseous lesions.. ABDOMEN: There is no ascites. LIVER: There are few small sub cm hypodensities in the liver which have the appearance of benign cyst s. There are no dilated intrahepatic ducts. GALLBLADDER/BILIARY: No obvious gallbladder pathology. CBD is not dilated. PANCREAS: No evidence of pancreatic mass nor dilatation of the pancreatic duct. SPLEEN: Spleen is not enlarged. There are no intrasplenic lesions. Splenic and portal veins are phillips nt. ADRENALS: There are no significant adrenal masses. KIDNEYS: Benign cysts both kidneys. No solid renal masses. No calculi. No hydronephrosis. No hydroure ter.. ABDOMINAL AORTA: Calcified but not enlarged LYMPH NODES: There is no retroperitoneal nor paraaortic adenopathy. ABDOMINAL WALL: No evidence of significant anterior abdominal wall nor inguinal hernia. GI: There is no evidence of bowel obstruction. PELVIS: LYMPH NODES: There is no intrapelvic nor inguinal adenopathy. GI: No evidence of appendicitis.There is extensive sigmoid diverticulosis. No obvious acute diverticu litis. URINARY BLADDER: Partially obscured by beam hardening artifact from the right hip prosthesis. Appears moderately distended. REPRODUCTIVE: Uterus is atrophic or surgically absent. There are no abnormal adnexal masses realizing that the right adnexa is partially obscured by beam hardening artifact from prosthesis in the right hip OSSEOUS: Right hip prosthesis no fractures. No significant osseous lesions. IMPRESSION: 1. No evidence of aortic dissection. No aneurysms. No pericardial effusion. 2. Prominent hiatal hernia with measurements as above. 3. Right hip prosthesis. 4. See separate spine CT dictation Discussed with ER provider 02/08/2025 at 12:20 p.m. RADIATION DOSE DELIVERED: 333.69mGy.cm Total DLP DATA REPOSITORY: All CT scans at this facility are submitted to the National Radiology Data Registry (NRDR) Dose Index Registry (DIR) with the [employer] (ACR). RADIATION OPTIMIZATION: All CT scans at this facility use at least one of these dose optimization te chniques: automated exposure control; mA and/or kV adjustment per patient size (includes targeted exa ms where dose is matched to clinical indication); or iterative reconstruction.
[2025-02-08 11:46] LABS: Troponin I 13 ng/L (<or=51)
[2025-02-08 11:47] LABS: Lab Add On Test DONE
[2025-02-08 12:01] LABS: ALT 22 U/L (14-59); AST 25 U/L (15-37); Albumin 4.1 g/dL (3.4-5.0); Alkaline Phosphatase 100 U/L (46-116); Anion Gap 14.5 mmol/L (3-11); BUN 12 mg/dL (7-18); Bilirubin, Total 0.8 mg/dL (0.2-1.0); CO2 22.5 mmol/L (21.0-32.0); CREATININE 0.6 mg/dL (0.55-1.02); Calcium 9.3 mg/dL (8.5-10.1); Chloride 93 mmol/L (98-107); Estimated GFR 89.56 (mL/min/1.73m2); Glucose 110 mg/dL (74-106); Potassium 3.5 mmol/L (3.5-5.1); Sodium 130 mmol/L (136-145); Total Protein 7.6 g/dL (6.4-8.2)
--- NOTE | 2025-02-08 12:29 | DI.CT_ITS ---
Exam(s) CT THORACIC SPINE RECONS EXAM: CT THORACIC SPINE RECONS CLINICAL HISTORY: back pain. TECHNIQUE: Imaging Protocol: Axial computed tomography images with coronal and sagittal reformatted images were created and reviewed. CONTRAST MATERIAL: Intravenous: No COMPARISON: CT CT LUMBAR SPINE RECONS from 02/08/2025 FINDINGS: OSSEOUS: There is a fracture at the inferior endplate of T10, associated with minimal if any signific ant height loss. The superior endplate at this level appears unremarkable. There are no other fract ures in the thoracic spine. No listhesis. No facet malalignment. No acute compromise of the spinal canal. No facet joint malalignment. Soft tissues: No significant paraspinal hematoma. No large disk herniations are identified. IMPRESSION: There is a fracture at the inferior endplate of T10 with very minimal height loss of the T 10 vertebr al body. RADIATION DOSE DELIVERED: Total DLP DATA REPOSITORY: All CT scans at this facility are submitted to the National Radiology Data Registry (NRDR) Dose Index Registry (DIR) with the [employer] (ACR). RADIATION OPTIMIZATION: All CT scans at this facility use at least one of these dose optimization te chniques: automated exposure control; mA and/or kV adjustment per patient size (includes targeted exa ms where dose is matched to clinical indication); or iterative reconstruction.
--- NOTE | 2025-02-08 15:34 | PT.INIE ---
PT Notes Visit Reasons: [place]-Chest Pain Inpatient Physical Therapy Evaluation Date: 02/08/2025 Referring Doctor: Stephanie Rucker PT Orders: PT CONSULT: PT Evaluation Precautions: Fall Risk, Murphy catheter, impaired short term memory Patient Profile/Admitting Diagnosis: Pt is a 84 yo female presented to ED with PMHx of recent fall with contusion to the sternum presented to the ED via EMS for sudden onset of chest pain, fatigue, chest and back pain, lightheadedness. EMS reported SVT with pulse of 180-200, administered metoprolol. Tremulous upon EMS arrival but NSR on EKG w/o sign of corronary occlusion, no ectopy, HR 72 and hemodynamically stable and afebrile. Work-up was neaagtive for ACS, leukocytosis, SEAN. Positve findings of T10 fracture with minimal compression, hypomagnesemia and hyponatretmia. Urinary retention developped in the ED and neuro- consultaion was completed with recommendation for upright spinal XR when able, the T10 fracture was most likely not the cause of the retention and not a source of spinal cord compression. The patient was admitted to the medical surgical floor with telemetry for T10 fracture, pain management, and XR in AM , PT. PMHX: Elevated lipase (Acute) Hypomagnesemia (Acute) Hypertension (Chronic) On deep vein thrombosis (DVT) prophylaxis (Acute) Compression fracture of T10 vertebra (Acute) Chest pain (Acute) Laceration of upper arm (Acute) Contusion of sternum (Acute) Fall (Acute) Closed fracture of left proximal humerus (Acute 04/24/24) Alzheimer's dementia without behavioral disturbance (Acute) Hypokalemia (Acute) Cognitive impairment (Acute) Paroxysmal SVT (supraventricular tachycardia) (Acute) SVT (supraventricular tachycardia) (Chronic) Malnutrition (Acute) Anxiety (Chronic) Advanced care planning/counseling discussion (Acute) COVID-19 (Acute) Hematuria (Acute) Weakness generalized (Acute) Vertigo (Acute) Cough (Acute) Trochanteric bursitis of right hip (Acute 02/26/16) SI (sacroiliac) pain (Acute 09/08/17) Arthritis of right hip (Acute 02/26/16) Spondylosis of lumbar region without myelopathy or radiculopathy (Acute) 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 Several pansensitive E. coli urinary tract infections recently.Hypothyroidism (Chronic) History of hematuria (Chronic) a. 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 Remote history, patient denies having these in years.Vertigo (Acute) Medical History Anemia, iron deficiency Asymptomatic microscopic hematuria Atrophic vaginitis COVID Dermatitis of eyelid Eczema GERD (gastroesophageal reflux disease) Glaucoma Grief reaction Hernia, inguinal, left Hypothyroid Insomnia Low back pain Migraine Nosebleed Pain of left thumb Pain, joint, hip, right Palliative care encounter Rib pain on left side Seborrheic keratosis Vitamin B12 deficiency Weight loss Surgical History Abdominal hysterectomy Appendectomy Bilateral salpingectomy with oophorectomy Biopsy of breast History of arthroplasty of right hip Hx of cataract surgery Repair of inguinal hernia Tonsillectomy and adenoidectomy Total replacement of hip (06/29/17) right Social History/Home Situation: resides at home with her adult developmentally disabled daughter. Pt reports she has stairs at home. She independent with ADL and ambulation . Pt with multiple recent falls last 3 weeks. Son lives in [facility] but not nearby. Pts daughter is able to do light household tasks. Her dtr attends a day program so Mirian is home alone during the day. Current Functional Limitations: impaired ambulation , ADLs Equipment Owned/DME: none Subjective: Pt reports that fall did a number on me. I just feel so weak. Pt unable to state the last meal she ate. She reports her daughter Barbara helps with cleaning and folding laundry. Mirian unable to tell last meal she ate. Objective: [] General Observation: thin , frail female supine on stretcher with telemetry and murphy catheter in place; Son at bedside. Pt developed tremulousness in BUE when seated out of bed in chair. Mental Status: Alert and oriented to person and place, short term memory deficits, repetitive statements and questions. Pain: pt reported sternal pain ( musculoskeletal )with mobility. (No changes noted on telemetry per Nurse) Vital Signs: monitored via telemetry ROM: BUE : WFL Right Lower Extremity: WFL Left Lower Extremity: WFL Strength: BUE: able to move all joints through full ROM Right Lower Extremity: hips 3-/5, knee extension 3/5, flexion 3-/5, ankle 3/5 Left Lower Extremity: hips 3-/5, knee extension 3/5, flexion 3-/5, ankle 3/5 Sensation: intact Bed Mobility/Transfers: [] supine to/from sit Mod A sit to/from stand min A with cues for hand placement Gait: amb 30 feet with min A with FWW reduced step length , narrow HELADIO, Balance: [] Static Sitting: good Dynamic Sitting: Fair Static Standing: fair- Dynamic Standing: Poor + Special Tests: Mobility Limitations Standardized Measure [facility] AM-PAC 6 clicks Basic Mobility Inpatient Short Form: Raw Score: 15 CMS Score: 57.70% Informed Consent/Education: Patient instructed in purpose of PT consult and plan of care. Assessment: Patient is an 84 year old female referred to physical therapy services with the diagnosis of T10 fracture, falls, hyponatremia and urinary retention. Pt. Demonstrates impaired cognition with noted repetitive speech/statements and questions. Patient with impaired short-term memory impaired safety awareness and judgment placing her at increased risk for falls if returns to home at current level of function. Patient presents with clinical signs and symptoms consistent with admitting diagnosis, as demonstrated by the following impairment level findings: 1.? Impaired strength bilateral upper extremities and lower extremities major muscle groups 2.? Impaired balance 3 impaired functional activity tolerance 4. musculoskeletal sternal pain Impairments are contributing to the following functional limitations: 1.? AMPAC score. 2.? Declining bed mobility skills 3.? Declining transfer skills 4.? Inability to ambulate without assistance or assistive device 5.? Increased time to complete ADL/mobility tasks 6.? Risk for falls with injury 7.? Inability to perform stairs safely without assistance Patient is assessed as a Moderate 05501 complexity based on the following: History: 84-year-old female with past medical history as outlined above Examination: As above Presentation: Evolving Decision Making: Moderate Goals: Goals X1 week 1. Supine-Sit supervision 2. Sit-Supine supervision 3. Sit-Stand supervision 4. Stand-Sit supervision 5. Bed-Chair [] least restrictive device supervision 6. Chair-Bed supervision with least restrictive device 7. Gait supervision with least restrictive device greater than 150 feet level surfaces including turns 8. Stairs 4 steps with rail supervision Plan of Care/Treatment Plan: 1-2x/day, 7 days/week x 1 week. Plan of care has been reviewed with the MEDICAL LAB TECHNICIAN providing the service under Physical Therapy direction. Initiate Physical Therapy intervention for strengthening, bed mobility, transfers, gait, stairs, balance training, use of assistive device. DISCHARGE RECOMMENDATIONS: [] [] Home with no services [] [] Home with services [specify] [] Home with outpatient PT [] [] SNF for continued rehabilitation [] [] [facility] [facility] Offbearer Care [] [X] SNF versus LTC based on ability to participate and progress TREATMENT CODE/TIME: 19679/ 5726-0381
--- NOTE | 2025-02-08 15:58 | ED.GENADUL_ITS ---
Discharge Plan Disposition Patient Disposition: Admit to [facility] Discharge Details Primary Care Provider: Laura Gonzalez ED Provider: Stephanie Rucker Home Meds and New Rx's Prescriptions: No Action mirtazapine 15 mg tablet 15 mg PO DAILY levothyroxine 75 mcg tablet 75 mcg PO DAILY Patient Comments: TAKE ONE TABLET BY MOUTH EVERY DAY metoprolol tartrate 25 mg Tablet 12.5 mg PO BID Qty: 60 0RF donepezil 5 mg tablet 5 mg PO DAILY Patient Comments: TAKE ONE TABLET BY MOUTH EVERY DAY diclofenac sodium 25 mg tablet,delayed release (DR/EC) 25 mg PO BID Patient Comments: TAKE ONE TABLET BY MOUTH TWICE A DAY lidocaine [Lidoderm] 5 % adhesive patch,medicated 1 patch topical DAILY 30 Days Qty: 30 0RF Rx Instructions: leave on most painful area for up to 12 hrs HPI General Date/Time Provider Initiated Documentation: 02/08/25 09:13 . HPI Narrative: 84-year-old female with sudden onset chest pain this morning while visiting friends. Fatigue, chest and back pain, and lightheadedness for the past few days. EMS reported SVT with pulse 180-200, administered 5 mg metoprolol. Tremulous upon EMS arrival. Complains primarily of back pain, no fever or chills, felt generally well upon waking. Fell 9 days ago, injured shoulder and elbow, sutures removed yesterday. Respiratory issues attributed to fall and chest contusion. Chest pain, fatigue, abdominal fullness, decreased intake of food and fluids. Desires to return home; son concerned due to frequent falls. 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 Related Data Home Medications ?Medication ?Instructions ?Recorded ?Confirmed levothyroxine 75 mcg tablet 75 mcg PO DAILY 07/29/22 02/08/25 metoprolol tartrate 25 mg tablet 12.5 mg (1/2 x 25 mg) PO BID #60 07/29/22 02/08/25 tabs mirtazapine 15 mg tablet 15 mg PO DAILY 05/04/24 02/08/25 donepezil 5 mg tablet 5 mg PO DAILY 05/31/24 02/08/25 lidocaine 5 % topical patch 1 patch topical DAILY 1 month #30 01/30/25 02/08/25 (Lidoderm) ea diclofenac sodium 25 mg 25 mg PO BID 02/08/25 02/08/25 tablet,delayed release Previous Rx's ?Medication ?Instructions ?Recorded metoprolol tartrate 25 mg tablet 12.5 mg (1/2 x 25 mg) PO BID #60 07/29/22 tabs lidocaine 5 % topical patch 1 patch topical DAILY 1 month #30 01/30/25 (Lidoderm) ea Allergies Allergy/AdvReac Type Severity Reaction Status Date / Time celecoxib (From Celebrex) Allergy Severe Skin Rash Verified 01/30/25 10:53 Penicillins Allergy Intermediate Unknown Verified 01/30/25 10:53 tramadol AdvReac Severe Nausea Verified 01/30/25 10:53 meperidine HCl (From Demerol) AdvReac Intermediate Halluncinat Verified 01/30/25 10:53 ions morphine AdvReac Intermediate Nausea Verified 01/30/25 10:53 topiramate (From Topamax) AdvReac Intermediate Nausea Verified 01/30/25 10:53 General Stated Complaint: Chest Pain EDDA: 3 Exam Narrative Exam Narrative: General Appearance: Alert but very tremulous, answers questions appropriately. Vital signs: Within normal limits. HEENT: Within normal limits. Respiratory: Lungs clear to auscultation. Cardiovascular: Cardiac rate rhythm regular. Abdomen: No abdominal bruising mild suprapubic tenderness, mild distention Extremities: Laceration and bruising to left elbow and right forearm. No evidence of secondary infection strength and sensation intact distally to bila teral lower extremities. Distal pulses intact. Musculoskeletal, no thoracic or lumbar spine pain appreciated on exam Skin: Warm and dry, no rash. Neurological: Normal. Alert and oriented x 3 negative Babinski strength and sensation intact bilaterally lower extremities distal pulses intact Course Vital Signs Vital signs: Vital Signs Temperature 36.2 C L 02/08/25 09:09 Pulse 72 02/08/25 09:09 Respiratory Rate 18 02/08/25 09:09 Blood Pressure 167/81 H 02/08/25 09:09 Pulse Oximetry 100 02/08/25 09:09 Temperature 36.2 C L 02/08/25 09:09 Pulse 79 02/08/25 15:07 Pulse 73 02/08/25 15:07 Respiratory Rate 15 02/08/25 15:07 Blood Pressure 157/47 H 02/08/25 15:07 Blood Pressure Mean 89 02/08/25 15:07 Pulse Oximetry 99 02/08/25 15:07 Oxygen Delivery Method Room Air 02/08/25 09:09 Oxygen Flow Rate 0 02/08/25 09:09 Lab/Test Results Lab/Test Results: Laboratory Tests Range/Units 02/08/25 02/08/25 02/08/25 09:28 09:28 09:53 Sodium (136-145) mmol/L 130 L Potassium (3.5-5.1) mmol/L 3.5 Chloride (98-107) mmol/L 93 L Carbon Dioxide (21.0-32.0) mmol/L 22.5 Anion Gap (3-11) mmol/L 14.5 H BUN (7-18) mg/dL 12 Creatinine (0.55-1.02) mg/dL 0.6 Est GFR (CKD-EPI 2020) (mL/min/1.73m2) 89.56 Glucose (74-106) mg/dL 110 H Calcium (8.5-10.1) mg/dL 9.3 Magnesium (1.8-2.4) mg/dL 1.6 L Total Bilirubin (0.2-1.0) mg/dL 0.8 AST (15-37) U/L 25 ALT (14-59) U/L 22 Alkaline Phosphatase (46-116) U/L 100 Troponin I (<or=51) ng/L 15 Total Protein (6.4-8.2) g/dL 7.6 Albumin (3.4-5.0) g/dL 4.1 Lipase (<78) U/L 85 H Cancelled TSH (0.36-3.74) uIU/mL 4.71 H Free T4 (0.76-1.46) ng/dL 1.60 H Urine Color (Yellow) Urine Clarity (Clear) Urine pH (5-8) Ur Specific [place] (1.005-1.025) Urine Protein (Neg-Trace) mg/dL Urine Ketones (Negative) mg/dL Urine Blood (Negative) Urine Nitrite (Negative) Urine Bilirubin (Negative) Urine Urobilinogen (Up to 0.2) mg/dL Ur Leukocyte Esterase (Negative) Urine RBC (0-2) HPF Urine WBC (0-5) HPF Ur Epithelial Cells (Negative) HPF Urine Crystals (Negative) HPF Urine Bacteria (Negative) HPF Urine Casts (Negative) LPF Urine Mucus (Negative) Ur Culture Indicated? Urine Glucose (Negative) mg/dL COVID-19 Source Nasopharynx SARS-CoV-2 (PCR) (Negative) Negative Influenza Type A (PCR) (Negative) Negative Influenza Type B (PCR) (Negative) Negative RSV (PCR) (Negative) Negative Add-On Test Request Range/Units 02/08/25 02/08/25 02/08/25 10:10 11:15 11:43 Sodium (136-145) mmol/L Potassium (3.5-5.1) mmol/L Chloride (98-107) mmol/L Carbon Dioxide (21.0-32.0) mmol/L Anion Gap (3-11) mmol/L BUN (7-18) mg/dL Creatinine (0.55-1.02) mg/dL Est GFR (CKD-EPI 2020) (mL/min/1.73m2) Glucose (74-106) mg/dL Calcium (8.5-10.1) mg/dL Magnesium (1.8-2.4) mg/dL Total Bilirubin (0.2-1.0) mg/dL AST (15-37) U/L ALT (14-59) U/L Alkaline Phosphatase (46-116) U/L Troponin I (<or=51) ng/L 13 Total Protein (6.4-8.2) g/dL Albumin (3.4-5.0) g/dL Lipase (<78) U/L TSH (0.36-3.74) uIU/mL Free T4 (0.76-1.46) ng/dL Urine Color (Yellow) Yellow Urine Clarity (Clear) Clear Urine pH (5-8) 7.0 Ur Specific [place] (1.005-1.025) 1.015 Urine Protein (Neg-Trace) mg/dL Negative Urine Ketones (Negative) mg/dL 40 H Urine Blood (Negative) Trace-intact H Urine Nitrite (Negative) Negative Urine Bilirubin (Negative) Negative Urine Urobilinogen (Up to 0.2) mg/dL 0.2 Ur Leukocyte Esterase (Negative) Negative Urine RBC (0-2) HPF 3-5 H Urine WBC (0-5) HPF 0-2 Ur Epithelial Cells (Negative) HPF Few Urine Crystals (Negative) HPF Negative Urine Bacteria (Negative) HPF Rare Urine Casts (Negative) LPF Negative Urine Mucus (Negative) Negative Ur Culture Indicated? No Urine Glucose (Negative) mg/dL Negative COVID-19 Source SARS-CoV-2 (PCR) (Negative) Influenza Type A (PCR) (Negative) Influenza Type B (PCR) (Negative) RSV (PCR) (Negative) Add-On Test Request DONE Medical Decision Making Laboratory: Sodium 130, anion gap 14, chloride 93, glucose 110, BUN 1.6, TSH 4.71, Free T4 1.6. Urinalysis without infection. Imaging: CT chest, abdomen, pelvis shows no significant acute abnormality, scant superior endplate fracture to T10, minimal loss of T10 vertebral body. Initial Assessment: 84-year-old female with sudden onset of chest pain, fatigue, chest and back pain, lightheadedness. EMS reported SVT with pulse of 180-200, administered metoprolol. Tremulous upon EMS arrival. Complains of back pain, denies fever or chills, felt tired but otherwise well this morning. Fell 9 days ago, injured shoulder and elbow, sutures removed yesterday. Respiratory issues attributed to fall and chest contusion. Alert but tremulous on arrival, answering questions appropriately. Cardiac rate rhythm regular, lungs clear to auscultation, laceration and bruising noted to left elbow and right forearm. ED Course: - Diagnostic blood work and CAT scans ordered. - Baseline sodium 130, anion gap 14, chloride 93, glucose 110, TSH 4.71, Free T4 1.6. - Urinalysis without evidence of infection, tick panel pending. - CT chest, abdomen, and pelvis shows no significant acute abnormality. - Chest wall contusion from fall 10 days ago. - Scant superior endplate fracture to T10, minimal loss of T10 vertebral body. - Bladder scan initiated by nursing staff, 800 cm?, Espinoza catheter placed, able to urinate without difficulty. - Strength and sensation intact distally to bilateral lower extremities, distal pulses intact. - Low suspicion of cord compression. - PT evaluation and care management assessment pending. - PT recommends assistance with all activities, hospital observation needed. - Son hopes for placement due to frequent falls and weakness. - Secondary to endplate fracture of T10 and retention I did place a call to [facility] neurosurgery to review CT I have very low suspicion for cord compression syndrome on this patient clinically - Lisset Hudson nurse practitioner is aware regarding this patient pending call post neurosurgery Final Assessment: Patient with sudden onset chest pain, fatigue, and back pain. Diagnostic tests show no significant acute abnormalities except for a scant superior endplate fracture to T10. PT evaluation indicates need for assistance with all activities and hospital observation. Clinical Impression: - Chest pain - Back pain - SVT - Scant superior endplate fracture to T10 - Chest wall contusion Disposition: - Admission for hospital observation - PT evaluation and care management assessment pending MDM Components Evaluation: - Number of Differential Diagnoses or Management Options: Chest pain, back pain, SVT, scant superior endplate fracture to T10, chest wall contusion. - Amount and Complexity of Data Reviewed: Diagnostic blood work, CAT scans, urinalysis, tick panel, CT chest, abdomen, and pelvis, bladder scan. - Risk of Complication and Morbidity or Mortality: Low suspicion of cord compression, frequent falls, weakness, need for assistance with all activities. Quality:SDOH Health Related Social Needs: No Data to Display PFSH All Active Problems (Updated 01/30/25 @ 13:38 by Yulia Alfred MD) Laceration of upper arm (Acute) Contusion of sternum (Acute) Fall (Acute) Closed fracture of left proximal humerus (Acute 04/24/24) Alzheimer's dementia without behavioral disturbance (Acute) Hypokalemia (Acute) Cognitive impairment (Acute) Paroxysmal SVT (supraventricular tachycardia) (Acute) SVT (supraventricular tachycardia) (Chronic) Malnutrition (Acute) Anxiety (Chronic) Advanced care planning/counseling discussion (Acute) COVID-19 (Acute) Hematuria (Acute) Weakness generalized (Acute) Vertigo (Acute) Cough (Acute) Trochanteric bursitis of right hip (Acute 02/26/16) SI (sacroiliac) pain (Acute 09/08/17) Arthritis of right hip (Acute 02/26/16) Spondylosis of lumbar region without myelopathy or radiculopathy (Acute) 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 Several pansensitive E. coli urinary tract infections recently. Hypothyroidism (Chronic) History of hematuria (Chronic) a. Microscopic. 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 Remote history, patient denies having these in years. Vertigo (Acute) Medical History Anemia, iron deficiency Asymptomatic microscopic hematuria Atrophic vaginitis COVID Dermatitis of eyelid Eczema GERD (gastroesophageal reflux disease) Glaucoma Grief reaction Hernia, inguinal, left Hypothyroid Insomnia Low back pain Migraine Nosebleed Pain of left thumb Pain, joint, hip, right Palliative care encounter Rib pain on left side Seborrheic keratosis Vitamin B12 deficiency Weight loss Surgical History Abdominal hysterectomy Appendectomy Bilateral salpingectomy with oophorectomy Biopsy of breast History of arthroplasty of right hip Hx of cataract surgery Repair of inguinal hernia Tonsillectomy and adenoidectomy 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 early spring 2021 (cared for bedbound until his at home)
[2025-02-08] MEDS: Magnesium Oxide 400 MG TAB 800 MG PO (16:18)
--- NOTE | 2025-02-08 16:38 | PDOC.CMIN ---
Date of service: 02/08/25 Time of Service: 16:38 Care Management Initial Assmt Initial Assessment Reason for Hospitalization: chest pain Functional Status/Living Situation Patient Presentation: Mirian was lying in a stretcher in the ED when CM met with her. CM was consulted to meet with Mirian and her son, Jennifer, regarding her plan of care. Per report, she appears medically stable, although she is having difficultly with ambulation, which has been a recent change, after a fall 9 days ago. PT evaluated Mirian in the ED and recommended SNF. CM discussed discharge planning considerations with Mirian and her son. Unfortunately, her insurance will not cover SNF without an acute three night hospitalization, which she does not meet criteria for at this time; she will be admitted observation to continue to work with PT. Mirian agreed to referrals being sent to local rehab facilities, and would also consider hiring private caregivers. Her son, Jennifer, reported that she and he both have funds to contribute to a rehab stay, if her insurance does not cover it. CM discussed SWB, which would also be private pay at this time. Mirian agreed to keeping her options open, although she prefers to return home as soon as possible. Jennifer agreed to stay with Barbara, his sister whom his mother cares for director medical affairs. CM will continue to follow. Town of Residence: [place] Resides with: Child (Mirian provides care for her daughter, Barbara) Significant Other/Family: Local Natural Supports: son, Jennifer, lives in [place] Employment Status: Retired Instrumental Activities of Daily Living (ADLs): Independent Activities/Hobbies/SocialSupport: Mirian is very active at baseline; she drives and walks to the post office regularly. Medications Medication Management: No Issues/Barriers identified Advance Directives Advance Directives: Do you have an Advance Directive: Y 05/29/24 13:36 AD On File at [facility]: Y 05/29/24 13:36 Date Asked 01/30/25 01/30/25 10:46 AD Date Reviewed 02/08/25 02/08/25 09:08 COLST On File at [facility] COLST Date Scanned Insurance Coverage/Financial Issues Insurance: BCBS [facility] advantage Care Team Visit Care Team Role Provider Type Laura Gonzalez Primary Care Provider NON-[facility] STAFF PHYSICIAN InPatient Ziyad Lopes Other Providers OTHER SURINDER Rolon Emergency Provider [employer] Discharge Potential Discharge Needs: PT Evaluation and PCP F/U Appt Anticipated Barriers to Discharge: Bed availability Patient/Family Education Needs: Review discharge instructions, discuss Ask Me Three Transportation: Private vehicle Plan: Mirian will be closely monitored to determine her discharge plan of care. CM will send referrals for short term rehab and discuss options based on her mobility at the time of discharge readiness. She will likely transport via private vehicle by family. She will follow up with her PCP and discharge plan of care. CM will continue to follow. Social Determinants of Health Screening Will the Patient Participate in the Screening?: Unable to obtain PFSH All Active Problems (Updated 02/08/25 @ 18:02 by Lisset Hudson APRN) Elevated lipase (Acute) Hypomagnesemia (Acute) Hypertension (Chronic) On deep vein thrombosis (DVT) prophylaxis (Acute) Compression fracture of T10 vertebra (Acute) Chest pain (Acute) Laceration of upper arm (Acute) Contusion of sternum (Acute) Fall (Acute) Closed fracture of left proximal humerus (Acute 04/24/24) Alzheimer's dementia without behavioral disturbance (Acute) Hypokalemia (Acute) Cognitive impairment (Acute) Paroxysmal SVT (supraventricular tachycardia) (Acute) SVT (supraventricular tachycardia) (Chronic) Malnutrition (Acute) Anxiety (Chronic) Advanced care planning/counseling discussion (Acute) COVID-19 (Acute) Hematuria (Acute) Weakness generalized (Acute) Vertigo (Acute) Cough (Acute) Trochanteric bursitis of right hip (Acute 02/26/16) SI (sacroiliac) pain (Acute 09/08/17) Arthritis of right hip (Acute 02/26/16) Spondylosis of lumbar region without myelopathy or radiculopathy (Acute) 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 Several pansensitive E. coli urinary tract infections recently. Hypothyroidism (Chronic) History of hematuria (Chronic) a. Microscopic. 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 Remote history, patient denies having these in years. Vertigo (Acute) Medical History Anemia, iron deficiency Asymptomatic microscopic hematuria Atrophic vaginitis COVID Dermatitis of eyelid Eczema GERD (gastroesophageal reflux disease) Glaucoma Grief reaction Hernia, inguinal, left Hypothyroid Insomnia Low back pain Migraine Nosebleed Pain of left thumb Pain, joint, hip, right Palliative care encounter Rib pain on left side Seborrheic keratosis Vitamin B12 deficiency Weight loss Surgical History Abdominal hysterectomy Appendectomy Bilateral salpingectomy with oophorectomy Biopsy of breast History of arthroplasty of right hip Hx of cataract surgery Repair of inguinal hernia Tonsillectomy and adenoidectomy 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 early spring 2021 (cared for bedbound until his at home)
--- NOTE | 2025-02-08 17:33 | W.PM.HP.N ---
Date of service: 02/08/25 Time of Service: 17:33 Assessment and Plan Assessment and plan (1) Compression fracture of T10 vertebra: Status: Acute Assessment and plan: As per imaging - ACS work-up negative , no dissection Pain management with scheduled APAP PRN hydromorphone home pain medicine regimen PT consult up right sipne XR in AM (2) Fall: Status: Acute Assessment and plan: PT consult fall precaution (3) Contusion of sternum: Status: Acute Assessment and plan: On going s/p fall recently ACS neagtive Pain management as per point 1 (4) Hyponatremia: Status: Resolved Assessment and plan: Na 130- but with questionable alteration in orientation LR at 50cc/hr will continue to monitor (5) Hypomagnesemia: Status: Acute Assessment and plan: supplementation given Mg in AM (6) Elevated lipase: Status: Acute Assessment and plan: No pancreatitis finfinds on CT Lipase w minimal elevation Clear liquid will continue to monitor LMWH fro DVt prophylaxis discussed with Dr. Bedoya History of Present Illness History of Present Illness Chief Complaint: chest pain Narrative: 84-year-old female with PMHx of recent fall with contusion to the sternum presented to the ED via EMS for sudden onset of chest pain, fatigue, chest and back pain, lightheadedness. EMS reported SVT with pulse of 180-200, administered metoprolol. Tremulous upon EMS arrival but NSR on EKG w/o sign of corronary occlusion, no ectopy, HR 72 and hemodynamically stable and afebrile. Work-up was neaagtive for ACS, leukocytosis, SEAN. Positve findings of T10 fracture with minimal compression, hypomagnesemia and hyponatretmia. Urinary retention developped in the ED and neuro- consultaion was completed with recommendation for upright spinal XR when able, the T10 fracture was most likely not the cause of the retention and not a source of spinal cord compression. The patient was admitted to the medical surgical floor with telemetry for T10 fracture, pain management, and XR in AM , PT. Complains of back pain, denies fever or chills, felt tired but otherwise well this morning. Fell 9 days ago, injured shoulder and elbow, sutures removed yesterday. Respiratory issues attributed to fall and chest contusion. Alert but tremulous on arrival, answering questions appropriately. Cardiac rate rhythm regular, lungs clear to auscultation, laceration and bruising noted to left elbow and right forearm. Lipase at [address] findings[address] Full code status confirmed. Patient reports chest pain on deep breathing only, denies fever, chills , dizziness, nausea, vomiting , diarrhea or dysuria. Review of Systems All systems reviewed & are unremarkable except as noted in HPI and below PFSH All Active Problems (Updated 02/08/25 @ 18:02 by Lisset Hudson APRN) Elevated lipase (Acute) Hypomagnesemia (Acute) Hypertension (Chronic) On deep vein thrombosis (DVT) prophylaxis (Acute) Compression fracture of T10 vertebra (Acute) Chest pain (Acute) Laceration of upper arm (Acute) Contusion of sternum (Acute) Fall (Acute) Closed fracture of left proximal humerus (Acute 04/24/24) Alzheimer's dementia without behavioral disturbance (Acute) Hypokalemia (Acute) Cognitive impairment (Acute) Paroxysmal SVT (supraventricular tachycardia) (Acute) SVT (supraventricular tachycardia) (Chronic) Malnutrition (Acute) Anxiety (Chronic) Advanced care planning/counseling discussion (Acute) COVID-19 (Acute) Hematuria (Acute) Weakness generalized (Acute) Vertigo (Acute) Cough (Acute) Trochanteric bursitis of right hip (Acute 02/26/16) SI (sacroiliac) pain (Acute 09/08/17) Arthritis of right hip (Acute 02/26/16) Spondylosis of lumbar region without myelopathy or radiculopathy (Acute) 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 Several pansensitive E. coli urinary tract infections recently. Hypothyroidism (Chronic) History of hematuria (Chronic) a. Microscopic. 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 Remote history, patient denies having these in years. Vertigo (Acute) Medical History Anemia, iron deficiency Asymptomatic microscopic hematuria Atrophic vaginitis COVID Dermatitis of eyelid Eczema GERD (gastroesophageal reflux disease) Glaucoma Grief reaction Hernia, inguinal, left Hypothyroid Insomnia Low back pain Migraine Nosebleed Pain of left thumb Pain, joint, hip, right Palliative care encounter Rib pain on left side Seborrheic keratosis Vitamin B12 deficiency Weight loss Surgical History Abdominal hysterectomy Appendectomy Bilateral salpingectomy with oophorectomy Biopsy of breast History of arthroplasty of right hip Hx of cataract surgery Repair of inguinal hernia Tonsillectomy and adenoidectomy 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 early spring 2021 (cared for bedbound until his at home) Meds Allergies and Home Medications Allergies Allergy/AdvReac Type Severity Reaction Status Date / Time celecoxib (From Celebrex) Allergy Severe Skin Rash Verified 01/30/25 10:53 Penicillins Allergy Intermediate Unknown Verified 01/30/25 10:53 tramadol AdvReac Severe Nausea Verified 01/30/25 10:53 meperidine HCl (From Demerol) AdvReac Intermediate Halluncinat Verified 01/30/25 10:53 ions morphine AdvReac Intermediate Nausea Verified 01/30/25 10:53 topiramate (From Topamax) AdvReac Intermediate Nausea Verified 01/30/25 10:53 Home Medications ?Medication ?Instructions ?Recorded ?Confirmed ?Type levothyroxine 75 mcg tablet 75 mcg PO DAILY 07/29/22 02/08/25 History metoprolol tartrate 25 mg tablet 12.5 mg (1/2 x 25 mg) PO BID #60 07/29/22 02/08/25 Rx tabs mirtazapine 15 mg tablet 15 mg PO DAILY 05/04/24 02/08/25 History donepezil 5 mg tablet 5 mg PO DAILY 05/31/24 02/08/25 History lidocaine 5 % topical patch 1 patch topical DAILY 1 month #30 01/30/25 02/08/25 Rx (Lidoderm) ea diclofenac sodium 25 mg 25 mg PO BID 02/08/25 02/08/25 History tablet,delayed release Exam Narrative Exam Narrative: Frail elderly female, no neurological focal deficit, chest pain with deep breathing and shallow breathing, no o2 supplementation, alert & oriented X2 - cannot remember date and repeat it, clear lungs with decreased bases, S1, S2 regular , SR as per EKG, abdomen is non-acute, moves all 4 ext. Results Labs 02/08/25 09:28 Labs: Laboratory Results - last 24 hr 02/08/25 02/08/25 02/08/25 09:28 09:28 09:53 Sodium 130 L Potassium 3.5 Chloride 93 L Carbon Dioxide 22.5 Anion Gap 14.5 H BUN 12 Creatinine 0.6 Est GFR (CKD-EPI 2020) 89.56 Glucose 110 H Calcium 9.3 Magnesium 1.6 L Total Bilirubin 0.8 AST 25 ALT 22 Alkaline Phosphatase 100 Troponin I 15 Total Protein 7.6 Albumin 4.1 Lipase 85 H Cancelled TSH 4.71 H Free T4 1.60 H Urine Color Urine Clarity Urine pH Ur Specific [place] Urine Protein Urine Ketones Urine Blood Urine Nitrite Urine Bilirubin Urine Urobilinogen Ur Leukocyte Esterase Urine RBC Urine WBC Ur Epithelial Cells Urine Crystals Urine Bacteria Urine Casts Urine Mucus Ur Culture Indicated? Urine Glucose COVID-19 Source Nasopharynx SARS-CoV-2 (PCR) Negative Influenza Type A (PCR) Negative Influenza Type B (PCR) Negative RSV (PCR) Negative Add-On Test Request 02/08/25 02/08/25 02/08/25 10:10 11:15 11:43 Sodium Potassium Chloride Carbon Dioxide Anion Gap BUN Creatinine Est GFR (CKD-EPI 2020) Glucose Calcium Magnesium Total Bilirubin AST ALT Alkaline Phosphatase Troponin I 13 Total Protein Albumin Lipase TSH Free T4 Urine Color Yellow Urine Clarity Clear Urine pH 7.0 Ur Specific [place] 1.015 Urine Protein Negative Urine Ketones 40 H Urine Blood Trace-intact H Urine Nitrite Negative Urine Bilirubin Negative Urine Urobilinogen 0.2 Ur Leukocyte Esterase Negative Urine RBC 3-5 H Urine WBC 0-2 Ur Epithelial Cells Few Urine Crystals Negative Urine Bacteria Rare Urine Casts Negative Urine Mucus Negative Ur Culture Indicated? No Urine Glucose Negative COVID-19 Source SARS-CoV-2 (PCR) Influenza Type A (PCR) Influenza Type B (PCR) RSV (PCR) Add-On Test Request DONE Last Vital Signs Temp 36.2 C L 02/08/25 09:09 Pulse 75 02/08/25 17:16 Resp 11 L 02/08/25 17:16 BP 155/70 H 02/08/25 17:16 Pulse Ox 96 02/08/25 17:16 Time Spent Time spent with Patient: >75 minutes Time was spent: preparing to see the patient(eg.review tests), obtaining and/or reviewing separately otained hiistory, ordering medications,tests, procedures, referring, communicating with other health adult care manager, indepentently interpreting results, counseling the patient and care coordination
--- NOTE | 2025-02-08 20:21 | W.PC.ACHO ---
Registration Status: Primary Language: Preferred Language: ED Information & Data Chief Complaint Chest Pain 02/08/25 16:09 Triage Note Sudden onset of CP this am, 02/08/25 09:09 while visiting w/ friends. Endorses generalized malaise x a few days. Upon arrival of EMS, 324 ASA admin, pt states she was dizzy with elevated heart rate noted by EMS. 5mg metoprolol admin. No further changes en route. Medical / Surgical History (Last Reviewed 03/09/23 @ 15:56 by Haydee Bruno) COVID Palliative care encounter Pain, joint, hip, right Hernia, inguinal, left Low back pain Vitamin B12 deficiency Insomnia Atrophic vaginitis Eczema Anemia, iron deficiency Weight loss Grief reaction Asymptomatic microscopic hematuria Pain of left thumb Rib pain on left side Nosebleed Dermatitis of eyelid Glaucoma GERD (gastroesophageal reflux disease) Hypothyroid Migraine Seborrheic keratosis (Last Reviewed 03/09/23 @ 15:56 by Haydee Bruno) History of arthroplasty of right hip Hx of cataract surgery Total replacement of hip (06/29/17) Tonsillectomy and adenoidectomy Abdominal hysterectomy Repair of inguinal hernia Biopsy of breast Bilateral salpingectomy with oophorectomy Appendectomy Most Recent Vital Signs Temperature 36.9 C 02/08/25 20:00 Pulse 80 02/08/25 20:00 Pulse 81 02/08/25 20:00 Respiratory Rate 17 02/08/25 20:00 Blood Pressure 152/68 H 02/08/25 20:00 Blood Pressure Mean 90 02/08/25 19:46 Pulse Oximetry 96 02/08/25 20:00 Oxygen Delivery Method Room Air 02/08/25 09:09 Oxygen Flow Rate 0 02/08/25 09:09 Pain Level 6 02/08/25 20:00 Allergies celecoxib (From Celebrex) Allergy (Severe, Verified 01/30/25 10:53) Skin Rash Penicillins Allergy (Intermediate, Verified 01/30/25 10:53) Unknown tramadol Adverse Reaction (Severe, Verified 01/30/25 10:53) Nausea meperidine HCl (From Demerol) Adverse Reaction (Intermediate, Verified 01/30/25 10:53) Halluncinations morphine Adverse Reaction (Intermediate, Verified 01/30/25 10:53) Nausea topiramate (From Topamax) Adverse Reaction (Intermediate, Verified 01/30/25 10:53) Nausea Active Medications Generic Name Dose Route Start Last Admin Trade Name Elizabeth PRN Reason Stop Dose Admin Iohexol 100 ml 02/08/25 11:00 02/08/25 10:47 Omnipaque 350 Mg/Ml 100 Ml Btl IJ 03/10/25 23:59 75 ml DIRECTED REDD Administration Sodium Chloride 50 ml 02/08/25 11:00 02/08/25 10:48 Normal Saline - Diluent 50 Ml Vial IJ 50 ml .FOR DI USE REDD Administration IV IV Catheter Type [Right Peripheral IV Antecubital] IV Catheter Type [Left Diffusic Antecubital] IV Catheter Gauge [Right 20 Antecubital] IV Catheter Gauge [Left 20 Antecubital] Diagnostics 02/08/25 02/08/25 02/08/25 Range/Units 11:43 11:15 10:10 Sodium (136-145) mmol/L Potassium (3.5-5.1) mmol/L Chloride (98-107) mmol/L Carbon Dioxide (21.0-32.0) mmol/L Anion Gap (3-11) mmol/L BUN (7-18) mg/dL Creatinine (0.55-1.02) mg/dL Est GFR (CKD-EPI 2020) (mL/min/1.73m2) Glucose (74-106) mg/dL Calcium (8.5-10.1) mg/dL Magnesium (1.8-2.4) mg/dL Total Bilirubin (0.2-1.0) mg/dL AST (15-37) U/L ALT (14-59) U/L Alkaline Phosphatase (46-116) U/L Troponin I 13 (<or=51) ng/L Total Protein (6.4-8.2) g/dL Albumin (3.4-5.0) g/dL Lipase (<78) U/L TSH (0.36-3.74) uIU/mL Free T4 (0.76-1.46) ng/dL Urine Color Yellow (Yellow) Urine Clarity Clear (Clear) Urine pH 7.0 (5-8) Ur Specific [place] 1.015 (1.005-1.025) Urine Protein Negative (Neg-Trace) mg/dL Urine Ketones 40 H (Negative) mg/dL Urine Blood Trace-intact H (Negative) Urine Nitrite Negative (Negative) Urine Bilirubin Negative (Negative) Urine Urobilinogen 0.2 (Up to 0.2) mg/dL Ur Leukocyte Esterase Negative (Negative) Urine RBC 3-5 H (0-2) HPF Urine WBC 0-2 (0-5) HPF Ur Epithelial Cells Few (Negative) HPF Urine Crystals Negative (Negative) HPF Urine Bacteria Rare (Negative) HPF Urine Casts Negative (Negative) LPF Urine Mucus Negative (Negative) Ur Culture Indicated? No Urine Glucose Negative (Negative) mg/dL B. divergens/MO-1 PCR Babesia duncani (PCR) Babesia microti DNA PCR Lyme Disease Antibody COVID-19 Source SARS-CoV-2 (PCR) (Negative) E.chaffeensis DNA (PCR) E.ewingii/canis DNA PCR E.muris eauclairensis (PCR) Influenza Type A (PCR) (Negative) Influenza Type B (PCR) (Negative) RSV (PCR) (Negative) A. phagocytophilum (PCR) Blood B. miyamotoi (PCR) Add-On Test Request DONE 02/08/25 02/08/25 02/08/25 Range/Units 09:53 09:28 09:28 Sodium 130 L (136-145) mmol/L Potassium 3.5 (3.5-5.1) mmol/L Chloride 93 L (98-107) mmol/L Carbon Dioxide 22.5 (21.0-32.0) mmol/L Anion Gap 14.5 H (3-11) mmol/L BUN 12 (7-18) mg/dL Creatinine 0.6 (0.55-1.02) mg/dL Est GFR (CKD-EPI 2020) 89.56 (mL/min/1.73m2) Glucose 110 H (74-106) mg/dL Calcium 9.3 (8.5-10.1) mg/dL Magnesium 1.6 L (1.8-2.4) mg/dL Total Bilirubin 0.8 (0.2-1.0) mg/dL AST 25 (15-37) U/L ALT 22 (14-59) U/L Alkaline Phosphatase 100 (46-116) U/L Troponin I 15 (<or=51) ng/L Total Protein 7.6 (6.4-8.2) g/dL Albumin 4.1 (3.4-5.0) g/dL Lipase Cancelled 85 H (<78) U/L TSH 4.71 H (0.36-3.74) uIU/mL Free T4 1.60 H (0.76-1.46) ng/dL Urine Color (Yellow) Urine Clarity (Clear) Urine pH (5-8) Ur Specific [place] (1.005-1.025) Urine Protein (Neg-Trace) mg/dL Urine Ketones (Negative) mg/dL Urine Blood (Negative) Urine Nitrite (Negative) Urine Bilirubin (Negative) Urine Urobilinogen (Up to 0.2) mg/dL Ur Leukocyte Esterase (Negative) Urine RBC (0-2) HPF Urine WBC (0-5) HPF Ur Epithelial Cells (Negative) HPF Urine Crystals (Negative) HPF Urine Bacteria (Negative) HPF Urine Casts (Negative) LPF Urine Mucus (Negative) Ur Culture Indicated? Urine Glucose (Negative) mg/dL B. divergens/MO-1 PCR Pending Babesia duncani (PCR) Pending Babesia microti DNA PCR Pending Lyme Disease Antibody Pending COVID-19 Source Nasopharynx SARS-CoV-2 (PCR) Negative (Negative) E.chaffeensis DNA (PCR) Pending E.ewingii/canis DNA PCR Pending E.muris eauclairensis (PCR) Pending Influenza Type A (PCR) Negative (Negative) Influenza Type B (PCR) Negative (Negative) RSV (PCR) Negative (Negative) A. phagocytophilum (PCR) Pending Blood B. miyamotoi (PCR) Pending Add-On Test Request Intake and Output - 24 Hour Total 02/08/25 09:01 thru 02/08/25 19:31 Intake Total 1010 Output Total 900 Balance 110 Weight 51.3 kg Intake: IV 1010 Output: Urine 900 Other: Urine Color Pale Yellow Urine Appearance Clear Falls Risk Assessment History of Falls No History 02/08/25 09:58 Contributing Factors No Factors 02/08/25 09:58 Ambulatory Aids Independent 02/08/25 09:58 Tubes/Lines None 02/08/25 09:58 Gait Evaluation No gait disturbance 02/08/25 09:58 Cognition No cognitive impairment 02/08/25 09:58 Fall Total Score 0 02/08/25 09:58 Level of Risk Standard/Low Risk 05/29/25 09:58 Problems (Last Reviewed 03/09/23 @ 15:56 by Haydee Bruno) Elevated lipase (Acute) Hypomagnesemia (Acute) Compression fracture of T10 vertebra (Acute) Contusion of sternum (Acute) Fall (Acute) v v v v v v v v v Sending and/or Receiving Nurses: Please use comment section below to note any information pertinent to the patient hand-off not included above. Information / Comments: Patient with T 10 fracture Report received from: Roslyn in ED
[2025-02-08] MEDS: Enoxaparin 30 MG/0.3 ML SYR SC (21:24)
[2025-02-08] MEDS: Polyethylene Glycol 3350 17 GM PACKET PO (21:24)
[2025-02-08] MEDS: MAGNESIUM SULFATE 4 GM/100 ML BAG IV_INF (21:26)
[2025-02-08] MEDS: Lactated Ringers 1,000 ML 50 ML IV (23:04)
[2025-02-09] VITALS (7 sets, daily range): BP systolic 100–136; BP diastolic 56–76; PULSE 69–85; RESP 16–18; TEMP 35.3–36.9; O2SAT 96–99
[2025-02-09] MEDS: ACETAMINOPHEN 1,000 MG/100 ML BTL 400 MG IVPB (00:48)
[2025-02-09] MEDS: Levothyroxine 75 MCG TAB PO (05:27)
[2025-02-09 07:34] LABS: Abs Immature Grans 0.02 10^3/uL (0.0-0.06); Absolute Basophil Count 0.06 10^3/uL (0.0-0.2); Absolute Eosinophil Count 0.13 10^3/uL (0.0-0.7); Absolute Lymphocyte Count 1.68 10^3/uL (1.2-3.4); Absolute Neutrophil Count 4.08 10^3/uL (1.2-6.7); Basophils % 0.9 %; HCT 34.1 % (36.0-46.0); HGB 12.2 g/dL (11.2-15.7); Immature Grans % 0.3 %; Lymphocytes % 25.6 %; MCH 31.3 pg (27.0-33.0); MCHC 35.8 % (32.0-36.0); MCV 87 fL (80-95); MPV 10.1 fL (8.0-11.0); Monocytes % 9.1 %; Neutrophils % 62.1 %; Platelet Count 277 10^3/uL (130-400); RDW-SD 41.2 fL; WBC 6.57 10^3/uL (4.4-10.8)
[2025-02-09 07:47] LABS: Anion Gap 8.2 mmol/L (3-11); BUN 6 mg/dL (7-18); CO2 27.8 mmol/L (21.0-32.0); CREATININE 0.5 mg/dL (0.55-1.02); Calcium 8.5 mg/dL (8.5-10.1); Chloride 97 mmol/L (98-107); Estimated GFR 93.59 (mL/min/1.73m2); Glucose 103 mg/dL (74-106); Magnesium 3.4 mg/dL (1.8-2.4); Sodium 133 mmol/L (136-145)
[2025-02-09] MEDS: Lidocaine 5% Patch 1 PATCH TP (08:35)
[2025-02-09] MEDS: Mirtazapine 15 MG TAB PO (08:36)
[2025-02-09] MEDS: Polyethylene Glycol 3350 17 GM PACKET PO (08:36)
[2025-02-09 10:06] LABS: Lyme Ab w Rflx to Lyme Confirm Negative (Negative)
--- NOTE | 2025-02-09 10:15 | DI.RAD_ITS ---
Exam(s) XR THORACIC SPINE COMPLETE EXAM: XR THORACIC SPINE COMPLETE CLINICAL HISTORY: T10 fracture. TECHNIQUE: 2D digital imaging was performed. COMPARISON: CT CT THORACIC SPINE RECONS from 02/08/2025 FINDINGS: 3 views There is indentation consistent with fracture at the level of the inferior endplate of T10, as seen o n recent CT scan. There appears to be slight further height loss anteriorly at this level when rj red to the CT images of yesterday. However, it is difficult to accurately compare plain films to CT. There are no other vertebral fractures evident. No scoliosis in the thoracic spinal column and no abnormal widening of the paraspinal lines. IMPRESSION: T10 inferior endplate fracture with mild height loss. Correlation with patient's clinical history is recommended. DATA REPOSITORY: RADIATION DOSE DELIVERED:
[2025-02-09] MEDS: ACETAMINOPHEN 1,000 MG/100 ML BAG 400 MG IVPB ×2 (11:05→17:37)
--- NOTE | 2025-02-09 12:31 | PGE_ITS ---
Date of Service Date of service: 02/09/25 Time of Service: 12:31 Assessment and Plan Assessment and plan (1) Compression fracture of T10 vertebra: Status: Acute Assessment and plan: As per imaging - ACS work-up negative , no dissection On going Pain management with scheduled APAP PRN hydromorphone not needed- frequency decreased Ongoing home pain medicine regimen PT consult- SNF recommendation up right sipne XR: There appears to be slight further height loss anteriorly at this level when compared to the CT images of yesterday (2) Fall: Status: Acute Assessment and plan: PT consult ongoing please read notes maintain fall precaution (3) Contusion of sternum: Status: Acute Assessment and plan: On going s/p fall recently ACS negative as per admission work-up Continue Pain management as per point 1 (4) Hyponatremia: Status: Resolved Assessment and plan: Na 130- but with questionable alteration in orientation - now Na 133 close to baseline Discontinue LR at 50cc/hr will continue to monitor (5) Hypomagnesemia: Status: Acute Assessment and plan: Resolved s/p supplementation given (6) Elevated lipase: Status: Acute Assessment and plan: No pancreatitis finfinds on CT - Still w/o clinical evidence Lipase w minimal elevation- will no repeat unless symptomatic Regular diet will continue to monitor Ongoing LMWH fro DVT prophylaxis (7) Discharge planning issues: Status: Acute Assessment and plan: Considering SNF VS PT CM following - referral sent discussed with Dr. Bedoya Subjective Subjective Patient reports: pain is less, tolerating liquids well, tolerating a regular diet, voiding w/o difficulty and shortness of breath; denies diarrhea, blood in stool, nausea, vomiting or fever Exam Narrative Exam Narrative: Frail elderly female, no neurological focal deficit, improving chest pain with deep breathing on RA , alert & oriented X3,clear lungs with decreased bases, S1, S2 regular , SR as per EKG, abdomen is non-acute, moves all 4 ext. Objective Last Vital Signs Temp 36.8 C 02/09/25 11:24 Pulse 79 02/09/25 11:24 Resp 18 02/09/25 11:24 BP 132/75 02/09/25 11:24 Pulse Ox 98 02/09/25 11:24 Laboratory Results - last 24 hr 02/08/25 02/09/25 09:28 07:10 WBC 6.57 RBC 3.90 L Hgb 12.2 Hct 34.1 L MCV 87 MCH 31.3 MCHC 35.8 RDW 13.0 Plt Count 277 MPV 10.1 Immature Gran % 0.3 Neutrophils % 62.1 Lymphocytes % 25.6 Monocytes % 9.1 Eosinophils % 2.0 Basophils % 0.9 Nucleated RBC % 0.0 Absolute Neutrophils 4.08 Absolute Lymphocytes 1.68 Absolute Monocytes 0.60 Absolute Eosinophils 0.13 Absolute Basophils 0.06 Sodium 133 L Potassium 3.0 L Chloride 97 L Carbon Dioxide 27.8 Anion Gap 8.2 BUN 6 L Creatinine 0.5 L Est GFR (CKD-EPI 2020) 93.59 Glucose 103 Calcium 8.5 Magnesium 3.4 H Lyme Disease Antibody Negative Time Spent with Patient Time Spent with Patient: >50 minutes Time was spent: preparing to see the patient(eg.review tests), obtaining and/or reviewing separately otained hiistory, ordering medications,tests, procedures, referring, communicating with other health lawn care professional, indepentently interpreting results, counseling the patient and care coordination
--- NOTE | 2025-02-09 12:45 | CHAPLAIN ---
Mirian and I know each other from previous admissions and when her , Laurent, was here as a patient. He a couple of years ago. Mirian takes care of her daughter, Barbara, who goes to [place] during the day. Being away from home and Barbara worries Mirian. Her son, Barbara's brother is here now to be with Barbara, but Mirian is still worried. Mirian is connected to the [employer], but the [employer]ism is without a private pilot currently. I will continue to visit Mirian.
[2025-02-09] MEDS: Potassium Chloride 20 MEQ TABCR 40 MEQ PO ×2 (13:00→20:16)
--- NOTE | 2025-02-09 13:08 | PTTR_ITS ---
PT Notes Visit Reasons: Chest pain, T10 fracture w minimal compression, ur Inpatient Physical Therapy Treatment Note Date: 02/08/2025 Precautions: Fall risk. Standard precautions. Impaired safety awareness. Subjective: Patient complains of pain in themiddle of her chest whne she tries ot breath deep. I feel weak but am okay to walk, Prefers to go home whenever she is safe as she is worried about her daughter who has disability. Objective: General Observation: Telemetry and murphy catheter in place. Thin, frail elderly. IV through R UE. Mental Status: Alert and oriented to person and place. Has tendency to perseverate and repeat quetisons due to short-term memeory loss. Pain: Musculuskeletal sternal angina aggravated with deep breaths Vital Signs: 113/86 mmHg, 78 bpm, and 96% SaO2 after walking from room to therapy room Bed Mobility/Transfers: Sit to stand minimal assist Sit to stand contact guard assist Gait: Facilitated safe and correct performance of level surface ambulation covering a distance of 150 feet + 150 feet using front-wheeled walker with contact guard assist. Reported fatigue after each walk. Minimal shortness of breath. Musculoskeletal sternal angina worse with activity as she breaths. [place] slowed. HELADIO narrowed. Decreased step height and length. Cueing provided for walker management and energy conservation. Stairs: Guided patietn with safe and correct negotiation of 4 x 6-inch steps and 3 x 6- inch steps while holding onto B rails for support., [id number] pattern Contact guard assist and minimal verbal cueing for use of B ahnds for support and overall safety. Balance: Static Sitting: Good Dynamic Sitting: Fair Static Standing: Fair Dynamic Standing: Fair Assessment: Musculoskeletal sternal angina worse wit effort as patient tend to breathe harder with fatigue. Needed frequent rests and good activity pacing to delay onset of fatigue that can worsen angina symptom. Patient remains unsafe to return home without available assist of 1. Patient will benefit from correction facility placement for gradual progressive strengthening and functional mobility training as she has been the main caregiver for her daughter with disability at home. Goals: Goals X1 week 1. Supine-Sit independent 2. Sit-Supine independent 3. Sit-Stand independent 4. Stand-Sit independent 5. Bed-Chair independent 6. Chair-Bed independent 7. Independent gait on level surface with use of least restrictive device for at least 300 feet without report of pain nor dyspnea 8. Independent stair negotiation while holding onto bilateral rails for at least 10 steps without report of pain nor dyspnea 9. Good static and Fair dynamic standing balance/tolerance Plan of Care/Treatment Plan: 1-2x/day, 7 days/week x 1 week. Plan of care has been reviewed with the SENIOR ECONOMIST providing the service under Physical Therapy direction. Initiate Physical Therapy intervention for strengthening, bed mobility, transfers, gait, stairs, balance training, use of assistive device. DISCHARGE RECOMMENDATIONS: [] Home with no services [] [] Home with services [specify] [] Home with outpatient PT [] [] SNF for continued rehabilitation [] [] [facility] [] [X] SNF versus LTC based on ability to participate and progress TREATMENT CODE/TIME: 33887 x 25 minutes for 2 units (13:08-13:33).
--- NOTE | 2025-02-09 13:20 | PTTR_ITS ---
PT Notes Visit Reasons: Chest pain, T10 fracture w minimal compression, ur Inpatient Physical Therapy Treatment Note [facility] Date: 02/09/2025 PRECAUTIONS: murphy IV access RUE SUBJECTIVE: Pt reports she feels weak but better than yesterday OBJECTIVE: supine in bed pt just returned from XRay? PAIN: Pt reports It's sore referring to her sternal pain since fall VITALS: ?monitored via telemetry Therapeutic Activities ([id number][]): Direct one-on-one instruction in dynamic activities to improve functional performance. ?? Provided skilled cues and instruction on performance and technique throughout. ? BED MOBILITY/TRANSFERS? Rolling L/R: supervision Supine-sit: min A via sidelying to right ? Sit-stand: CGA with cues for hand placement from bed , chair and commode? Stand-sit: CGA and cues for hand placement from bed chair and commode ? Bed-Chair: with FWW CGA cues for FWW mgmt ? Chair-bed: with FWW CGA cues for FWW mgmt - Facilitated safe and correct performance of level surface ambulation covering a distance of 35feet x 2 feet using use front wheeled walker with contact-guard assist and wheelchair follow for safety. Did report sternal pain with breathing. Denied headache,, and lightheadedness throughout activity. Minimal verbal cueing provided for AD management, directional changes, and posture. ASSESSMENT:? Pt tolerated session well. She demonstrates improved activity tolerance and stability with use of FWW. Pt continues with short term memory deficits . Pt with repetitive questions. Pt continues to benefit from STR to maximize strength and functional mobility with least restricitve device. PLAN: 1-2x/day, 7 days/week x 1 week. Plan of care has been reviewed with the BILLBOARD ERECTOR providing the service under Physical Therapy direction. Initiate Physical Therapy intervention for strengthening, bed mobility, transfers, gait, stairs, balance training, use of assistive device. TREATMENT CODE/TIME: 71140/0345-3308 DISCHARGE RECOMMENDATION: SNF
--- NOTE | 2025-02-09 15:37 | PHA.REVIEW2 ---
Pharmacy Admission Review Admission Clinical Review Admission Pharmacy Review: Discharge planning issues (Acute) Elevated lipase (Acute) Hypomagnesemia (Acute) Compression fracture of T10 vertebra (Acute) Contusion of sternum (Acute) Fall (Acute) celecoxib (From Celebrex) Allergy (Severe, Verified 01/30/25 10:53) Skin Rash Penicillins Allergy (Intermediate, Verified 01/30/25 10:53) Unknown tramadol Adverse Reaction (Severe, Verified 01/30/25 10:53) Nausea meperidine HCl (From Demerol) Adverse Reaction (Intermediate, Verified 01/30/25 10:53) Halluncinations morphine Adverse Reaction (Intermediate, Verified 01/30/25 10:53) Nausea topiramate (From Topamax) Adverse Reaction (Intermediate, Verified 01/30/25 10:53) Nausea Resuscitation Status Full Code Height 5 ft 2 in Weight 51.3 kg Pharmacy Admission Review Renal Dosing Renal Dosing: BUN 6 mg/dL (7-18) L 02/09/25 07:10 Creatinine 0.5 mg/dL (0.55-1.02) L 02/09/25 07:10 Medications needing adjustments: Reviewed Anticoagulation Anticoagulation: Hgb 12.2 g/dL (11.2-15.7) 02/09/25 07:10 Hct 34.1 % (36.0-46.0) L 02/09/25 07:10 Plt Count 277 10^3/uL (130-400) 02/09/25 07:10 Creatinine 0.5 mg/dL (0.55-1.02) L 02/09/25 07:10 DVT Prophylaxis: Reviewed Medications: Enoxaparin Opiate Usage Evaluate Pain Scale/Pains Meds: Reviewed Scheduled Bowel Reg ordered if on Opiates?: Yes Relevant Labs Relevant Labs: Sodium 133 mmol/L (136-145) L 02/09/25 07:10 Potassium 3.0 mmol/L (3.5-5.1) L 02/09/25 07:10 Chloride 97 mmol/L (98-107) L 02/09/25 07:10 Magnesium 3.4 mg/dL (1.8-2.4) H 02/09/25 07:10 Electrolytes, C-Reactive P, ESR: Reviewed DM Control DM Control: N/A Cardiac Review Cardiac Review: Troponin I 13 ng/L (<or=51) 02/08/25 11:15 BP, HR, EF%: Reviewed QTc Review QTc: Reviewed List meds needing interventions: MHm=926. No meds to adjust IV to PO Switch IV Medications: Reviewed Home Meds Home Med List reviewed: Reviewed Relevent Home Meds Not ordered & why?: pt will have son bring in diclofenac 25mg tablets Current Meds Current Medication Order Review: Reviewed
--- NOTE | 2025-02-09 18:22 | CMPROGNOTE_ITS ---
Date of service: 02/09/25 Time of Service: 18:22 Care Management Progress Note Progress Note Text Progress Note Text: Mirian was lying in bed when CM met with her. She reported that he is tired today, but feeling ok. She stated that she worked with PT, and felt that she did well. PT continues to recommend SNF. Mirian is in observation, therefore [facility] will not pay for rehab; CM discussed this with her son, who stated that he is willing to pay privately. CM sent referrals to the [facility] and [facility], who both offered beds for Wednesday. 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 Mirian will remain in observation until Wednesday, as the facility is not able to take her over the weekend. CM will continue to follow. Discharge Potential Discharge Needs: Other (SNF placement) Anticipated Barriers to Discharge: Bed availability Patient/Family Education Needs: Review discharge instructions, discuss Ask Me Three Transportation: Private vehicle Plan: Mirian will go to SNF on Wednesday, when a bed is available. She has accepted a bed offer at [facility]. Her son will transport her via private vehicle. She will follow up with her PCP and discharge plan of care. CM will continue to follow. Social Determinants of Health Screening Social Determinants of health last assessed in clinic: 02/08/25 Will the Patient Participate in the Screening?: Unable to obtain Do you worry about having a steady place to live?: yes What is your living situation today?: I have housing today, but am worried about losing it Problems where you live: no known problems In the past 12 months, have you had to go without electric, gas, oil or water in your home?: no Has lack of transportation kept you from medical appointments or from doing things needed for daily living?: no Has anyone in your life made you feel unsafe or unsupported?: no How hard is it for you to pay for the very basics like food, housing, medical care, and heating? Would you say it is:: Not hard at all Do you want help finding or keeping work or a job?: I do not need or want help If for any reason you need help with day-to-day activities such as bathing, preparing meals, shopping, managing finances, etc., do you get the help you need?: I don?t need any help How often do you feel lonely or isolated from those around you?: Never Do you speak a language other than Polish at home?: Yes Does the patient want assistance with any of the above?: No Health Related Social Needs Health related social needs: housing instability, housed, with risk of homelessness (Z59.811) and education (Z55.6)
[2025-02-09] MEDS: Patch Removal 1 EACH TP (20:24)
[2025-02-09] MEDS: Enoxaparin 40 MG/0.4 ML SYR SC (22:28)
[2025-02-10 00:19] VITALS: BP 109/71; PULSE 88; RESP 18; TEMP 36.5; O2SAT 98
[2025-02-10] MEDS: ACETAMINOPHEN 1,000 MG/100 ML BAG 400 MG IVPB (01:37)
[2025-02-10 04:53] VITALS: BP 131/71; PULSE 72; RESP 18; TEMP 36.6; O2SAT 97
[2025-02-10] MEDS: Levothyroxine 75 MCG TAB PO (05:16)
[2025-02-10 07:22] VITALS: BP 133/65; PULSE 80; RESP 16; TEMP 36.5; O2SAT 98
[2025-02-10] MEDS: Normal Saline Flush 10 ML SYR IVP (09:23)
[2025-02-10] MEDS: Potassium Chloride 20 MEQ TABCR 40 MEQ PO (09:33)
[2025-02-10] MEDS: Metoprolol 12.5 MG TAB PO ×2 (09:34→19:46)
[2025-02-10] MEDS: Lidocaine 5% Patch 1 PATCH TP (09:35)
--- NOTE | 2025-02-10 12:30 | PT.INTREAT ---
PT Notes Visit Reasons: Chest pain, T10 fracture w minimal compression, ur Inpatient Physical Therapy Treatment Note Date: 02/10/2025 Precautions: Fall risk. Standard precautions. Impaired safety awareness. Subjective: Patient reports she is feeling better today but still has discomfort on her chest when she takes a deep breath. Objective: General Observation: Telemetry . Thin, frail elderly. Pain patch noted to sternum Mental Status: Alert and oriented to person and place. Has tendency to perseverate and repeat questions due to short-term memory loss. Pain: Musculoskeletal sternal angina aggravated with deep breaths Vital Signs: Check these notes she never Bed Mobility/Transfers: supine to sit minimal assist Sit to stand SBA with cues for hand placement Gait: Facilitated safe and correct performance of level surface ambulation covering a distance of 150 feet + 150 feet using front-wheeled walker with SBA reported fatigue after each walk. No shortness of breath. Musculoskeletal sternal angina worse with activity as she breaths. [place]hia slowed. HELADIO narrowed. Decreased step height and length. Cueing provided for walker management and energy conservation. Stairs: Guided with safe and correct negotiation of 4 x 6-inch steps and 3 x 6-inch steps while holding onto B rails for support., reciprocal pattern Contact guard assist and minimal verbal cueing for overall safety. Seated lower extremity exercises Long arc quads, marching, ankle pumps x 10 reps BLE Assessment: Patient tolerated session well. Patient able to carryover correct hand placement after initial trial without cueing. Patient demonstrating no dyspnea on exertion with ambulation on this date. Patient continues to note sternal discomfort with deep breathing. Patient reports she will be going to rehab on Wednesday And her son will be staying with her daughter. Plan of Care/Treatment Plan: 1-2x/day, 7 days/week x 1 week. Plan of care has been reviewed with the TRANSPLANT NURSE PRACTITIONER providing the service under Physical Therapy direction. Initiate Physical Therapy intervention for strengthening, bed mobility, transfers, gait, stairs, balance training, use of assistive device. DISCHARGE RECOMMENDATIONS: [] Home with no services [] [] Home with services [specify] [] Home with outpatient PT [] addressing them [] SNF for continued rehabilitation [] [] Associate Product Manager Care [] [X] SNF versus LTC based on ability to participate and progress TREATMENT CODE/TIME: 80329 x 27 minutes for 2 units/1113?1140.
--- NOTE | 2025-02-10 14:25 | PGE_ITS ---
Date of Service Date of service: 02/10/25 Time of Service: 14:25 Assessment and Plan Assessment and plan (1) Compression fracture of T10 vertebra: Status: Acute Assessment and plan: As per imaging - ACS work-up negative , no dissection Ongoing pain medicine regimen PT consult- SNF recommendation up right spine XR: There appears to be slight further height loss anteriorly at this level when compared to the CT images (2) Hypokalemia: Status: Acute Assessment and plan: replete and follow (3) Fall: Status: Acute Assessment and plan: PT consult ongoing please read notes maintain fall precaution (4) Contusion of sternum: Status: Acute Assessment and plan: On going s/p fall recently ACS negative as per admission work-up Continue Pain management (5) Hyponatremia: Status: Resolved Assessment and plan: Na 130- but with questionable alteration in orientation - now Na 133 close to baseline will continue to monitor (6) Hypomagnesemia: Status: Acute Assessment and plan: Resolved s/p supplementation given (7) Elevated lipase: Status: Acute Assessment and plan: likely from trauma: normal appearance of pancreas on CT - no abdominal pain Lipase w minimal elevation at 84 Regular diet will continue to monitor (8) SVT (supraventricular tachycardia): Status: Chronic Assessment and plan: found to be in SVT 180-200's on EMS arrival, received Lopressor 5 mg IVP with resolution and has been NSR continue telemetry (9) Discharge planning issues: Status: Acute Assessment and plan: Considering SNF VS PT CM following - referral sent discussed with Dr. Dias Subjective Subjective Patient reports: no new complaints, still having pain, tolerating liquids well, tolerating a regular diet and afebrile; denies shortness of breath Exam Const General: no acute distress Orientation: alert [facility] Head: normal to inspection Ears: external ears normal General nose exam: external nose normal Mouth: moist mucous membranes Eyes General: appearance normal, both eyes and all related structures Neck Neck: normal visual inspection Resp Effort & Inspection: normal respiratory effort Cardio Rate: regular rate GI Palpation: soft, not firm and no guarding Skin General skin exam: no rashes or lesions noted Neuro General: patient alert Extrem General: normal to inspection Objective Last Vital Signs Temp 36.5 C 02/10/25 07:22 Pulse 80 02/10/25 07:22 Resp 16 02/10/25 07:22 BP 133/65 02/10/25 07:22 Pulse Ox 98 02/10/25 07:22 Time Spent with Patient Time Spent with Patient: 35-49 minutes Time was spent: preparing to see the patient(eg.review tests), obtaining and/or reviewing separately otained hiistory, ordering medications,tests, procedures, indepentently interpreting results and counseling the patient
[2025-02-10] MEDS: Potassium Chloride 20 MEQ TABCR PO (18:32)
[2025-02-10 19:40] VITALS: BP 128/72; PULSE 80; RESP 18; TEMP 36.5; O2SAT 97
[2025-02-10] MEDS: Mirtazapine 15 MG TAB PO (19:47)
[2025-02-10] MEDS: Acetaminophen 325 MG TAB 650 MG PO (19:47)
[2025-02-10] MEDS: Patch Removal 1 EACH TP (21:21)
[2025-02-10] MEDS: Enoxaparin 40 MG/0.4 ML SYR SC (21:23)
[2025-02-10 23:09] VITALS: BP 146/74; PULSE 72; RESP 16; TEMP 36.7; O2SAT 98
[2025-02-11 03:12] VITALS: BP 113/61; PULSE 71; RESP 16; TEMP 36.2; O2SAT 95
[2025-02-11] MEDS: Levothyroxine 75 MCG TAB PO (05:04)
[2025-02-11 07:05] LABS: Anion Gap 7.8 mmol/L (3-11); BUN 12 mg/dL (7-18); CO2 26.2 mmol/L (21.0-32.0); CREATININE 0.8 mg/dL (0.55-1.02); Calcium 9.4 mg/dL (8.5-10.1); Chloride 102 mmol/L (98-107); Estimated GFR 73.52 (mL/min/1.73m2); Glucose 94 mg/dL (74-106); Potassium 4.7 mmol/L (3.5-5.1); Sodium 136 mmol/L (136-145)
[2025-02-11 07:36] VITALS: BP 129/72; PULSE 82; RESP 18; TEMP 36.6; O2SAT 96
[2025-02-11] MEDS: Acetaminophen 325 MG TAB 650 MG PO ×4 (07:46→19:59)
[2025-02-11] MEDS: Lidocaine 5% Patch 1 PATCH TP (07:47)
[2025-02-11] MEDS: Potassium Chloride 20 MEQ TABCR PO ×2 (07:47→11:45)
[2025-02-11] MEDS: Metoprolol 12.5 MG TAB PO ×2 (07:47→19:58)
[2025-02-11] MEDS: Polyethylene Glycol 3350 17 GM PACKET PO (09:44)
[2025-02-11] MEDS: Normal Saline Flush 10 ML SYR IVP ×2 (09:44→15:02)
[2025-02-11 11:13] VITALS: BP 101/60; PULSE 71; RESP 18; TEMP 36.5; O2SAT 98
--- NOTE | 2025-02-11 13:22 | PT.INTREAT ---
PT Notes Visit Reasons: Chest pain, T10 fracture w minimal compression, ur Inpatient Physical Therapy Treatment Note Date: 02/11/2025 Precautions: Fall risk. Standard precautions. Impaired safety awareness. Subjective: Patient reports she is feeling very tired today Objective: General Observation: Telemetry . Thin, frail elderly. Pain patch noted to sternum Mental Status: Alert and oriented to person and place. Has tendency to perseverate and repeat questions due to short-term memory loss. Pain: Musculoskeletal sternal angina aggravated with deep breaths Vital signs: Monitored via telemetry Bed Mobility/Transfers: Sit to stand SBA with cues for hand placement Gait: Facilitated safe and correct performance of level surface ambulation covering a distance of 150 feet + 150 feet using front-wheeled walker with SBA reported fatigue after each walk. No shortness of breath. Musculoskeletal sternal angina worse with activity as she breaths. Lakeshia slowed. HELADIO narrowed. Decreased step height and length. Cueing provided for walker management and energy conservation. Stairs: Guided with safe and correct negotiation of 4 x 6-inch steps and 3 x 6-inch steps while holding onto B rails for support., reciprocal pattern Contact guard assist and minimal verbal cueing for overall safety. Assessment: Despite reported fatigue, patient tolerated session well. Patient able to carryover correct hand placement after initial trial without cueing. Patient demonstrating no dyspnea on exertion with ambulation on this date. Patient continues to note sternal discomfort with deep breathing. Plan of Care/Treatment Plan: 1-2x/day, 7 days/week x 1 week. Plan of care has been reviewed with the SENIOR TREASURY ANALYST providing the service under Physical Therapy direction. Initiate Physical Therapy intervention for strengthening, bed mobility, transfers, gait, stairs, balance training, use of assistive device. DISCHARGE RECOMMENDATIONS: [] Home with no services [] [] Home with services [specify] [] Home with outpatient PT [] addressing them [] SNF for continued rehabilitation [] [] Trim Attacher Care [] [X] SNF versus LTC based on ability to participate and progress TREATMENT CODE/TIME: 14695 1 units/0946?0988.
--- NOTE | 2025-02-11 13:37 | CMPROGNOTE_ITS ---
Date of service: 02/11/25 Time of Service: 13:45 Care Management Progress Note Progress Note Text Progress Note Text: Mirian is accepted to [facility] at self pay $442/day starting Wednesday, this is accepted by the patient and the son. 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 Mirian presented a deal with Jennifer which was that he would pick her up immediately if she hates it at [facility], Jennifer was agreeable to this deal. 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 Her plan for rehab is to help the aides and the elderly, as needed. CM will continue to follow. Discharge Potential Discharge Needs: PCP F/U Appt Anticipated Barriers to Discharge: Bed availability Patient/Family Education Needs: Review discharge instructions, discuss Ask Me Three Transportation: Private vehicle Plan: Mirian will be discharged to [facility] on Wednesday for $442, short term rehab. She will likely transport via private vehicle by family. She will follow up with her PCP and discharge plan of care. CM will continue to follow. Social Determinants of Health Screening Social Determinants of health last assessed in clinic: 02/08/25 Will the Patient Participate in the Screening?: Unable to obtain Do you worry about having a steady place to live?: yes What is your living situation today?: I have housing today, but am worried about losing it Problems where you live: no known problems In the past 12 months, have you had to go without electric, gas, oil or water in your home?: no Has lack of transportation kept you from medical appointments or from doing things needed for daily living?: no Has anyone in your life made you feel unsafe or unsupported?: no How hard is it for you to pay for the very basics like food, housing, medical care, and heating? Would you say it is:: Not hard at all Do you want help finding or keeping work or a job?: I do not need or want help If for any reason you need help with day-to-day activities such as bathing, preparing meals, shopping, managing finances, etc., do you get the help you need?: I don?t need any help How often do you feel lonely or isolated from those around you?: Never Do you speak a language other than Bruneian at home?: Yes Does the patient want assistance with any of the above?: No Health Related Social Needs Health related social needs: housing instability, housed, with risk of homelessness (Z59.811) and education (Z55.6)
--- NOTE | 2025-02-11 14:02 | W.PM.PROGNOT ---
Date of Service Date of service: 02/11/25 Time of Service: 14:02 Assessment and Plan Assessment and plan (1) Compression fracture of T10 vertebra: Status: Acute Assessment and plan: As per imaging - ACS work-up negative , no dissection Ongoing pain medicine regimen, pain controlled with scheduled apap, and lidocaine patch, can have prn ibuprofen and oxycodone for severe break through pain PT consult- SNF recommendation up right spine XR: There appears to be slight further height loss anteriorly at this level when compared to the CT images (2) Hypokalemia: Status: Resolved Assessment and plan: normalized at 4.7, stop oral repletion check bmp in am (3) Fall: Status: Acute Assessment and plan: PT consult ongoing please read notes maintain fall precaution (4) Contusion of sternum: Status: Acute Assessment and plan: On going s/p fall recently ACS negative as per admission work-up Continue Pain management (5) Hyponatremia: Status: Resolved Assessment and plan: normalized at Na 136 will continue to monitor (6) Hypomagnesemia: Status: Acute Assessment and plan: Resolved s/p supplementation given (7) Elevated lipase: Status: Acute Assessment and plan: likely from trauma: normal appearance of pancreas on CT - no abdominal pain Lipase w minimal elevation at 84 Regular diet will continue to monitor (8) SVT (supraventricular tachycardia): Status: Chronic Assessment and plan: found to be in SVT 180-200's on EMS arrival, received Lopressor 5 mg IVP with resolution and has been NSR continue telemetry (9) Discharge planning issues: Status: Acute Assessment and plan: plan for [facility] and rehab tomorrow. discussed with Dr. Dias Subjective Subjective Patient reports: no new complaints, pain is less, tolerating liquids well, tolerating a regular diet and afebrile; denies shortness of breath Interval history since last seen: working with PT, slowly progressing Exam Const General: no acute distress Orientation: alert [facility] Head: normal to inspection Ears: external ears normal General nose exam: external nose normal Mouth: moist mucous membranes Eyes General: appearance normal, both eyes and all related structures Neck Neck: normal visual inspection Resp Effort & Inspection: normal respiratory effort Cardio Rate: regular rate GI Palpation: soft, not firm and no guarding Skin General skin exam: no rashes or lesions noted Neuro General: patient alert Extrem General: normal to inspection Objective Last Vital Signs Temp 36.5 C 02/11/25 11:13 Pulse 71 02/11/25 11:13 Resp 18 02/11/25 11:13 BP 101/60 02/11/25 11:13 Pulse Ox 98 02/11/25 11:13 Laboratory Results - last 24 hr 02/11/25 06:02 Sodium 136 Potassium 4.7 D Chloride 102 Carbon Dioxide 26.2 Anion Gap 7.8 BUN 12 Creatinine 0.8 Est GFR (CKD-EPI 2020) 73.52 Glucose 94 Calcium 9.4 Time Spent with Patient Time Spent with Patient: 35-49 minutes Time was spent: preparing to see the patient(eg.review tests), obtaining and/or reviewing separately otained hiistory, ordering medications,tests, procedures, indepentently interpreting results and care coordination
[2025-02-11 15:04] VITALS: BP 116/63; PULSE 81; RESP 18; TEMP 36.6; O2SAT 96
[2025-02-11] MEDS: Mirtazapine 15 MG TAB PO (19:59)
[2025-02-11 20:24] VITALS: BP 129/78; PULSE 70; RESP 20; TEMP 36.6; O2SAT 98
[2025-02-11] MEDS: Patch Removal 1 EACH TP (20:42)
[2025-02-11] MEDS: Enoxaparin 40 MG/0.4 ML SYR SC (22:12)
[2025-02-11] MEDS: Melatonin 3 MG TAB 6 MG PO (23:35)
[2025-02-12 00:37] LABS: Anaplasma phagocytophilum Negative (Negative); B. miyamotoi PCR Negative (Negative); Babesia divergens/MO-1 Negative (Negative); Babesia duncani Negative (Negative); Babesia microti Negative (Negative); Ehrlichia chaffeensis Negative (Negative); Ehrlichia ewingii/canis Negative (Negative); Ehrlichia muris eauclairensis Negative (Negative)
[2025-02-12 01:51] VITALS: PULSE 70
[2025-02-12] MEDS: Levothyroxine 75 MCG TAB PO (05:38)
[2025-02-12 07:26] VITALS: BP 132/76; PULSE 78; RESP 20; TEMP 37; O2SAT 98
[2025-02-12 08:10] VITALS: PULSE 84
[2025-02-12] MEDS: Acetaminophen 325 MG TAB 650 MG PO ×2 (08:21→12:44)
[2025-02-12] MEDS: Metoprolol 12.5 MG TAB PO (08:21)
[2025-02-12] MEDS: Normal Saline Flush 10 ML SYR IVP (08:22)
[2025-02-12] MEDS: Polyethylene Glycol 3350 17 GM PACKET PO (08:22)
[2025-02-12] MEDS: Lidocaine 5% Patch 1 PATCH TP (08:30)
--- NOTE | 2025-02-12 10:02 | CMDISCH_ITS ---
Date of service: 02/12/25 Time of Service: 10:02 LACE Index Scoring Tool Questions: Length of Stay (in days): 4 - 6 Was the patient admitted via the E.D.?: No E.D. Visits: 2 Answers: Total Score: 6 Risk of Readmission: Low Risk Care Management Discharge Plan Reason for Hospitalization: Chest Pain, T10 fracture w minimal compression Discharge Plan: Mirian will be discharged to [facility] today and agreed $442/day self-pay (confirmed with son - Jennifer), for short term rehab. She will transport at 13:00 via private vehicle by family. She will follow up with her PCP and discharge plan of care. Patient/Family Education Needs: Review of discharge instructions, activity, limitations and discharge plan of care. Discuss Ask me Three. Services Needed at Discharge: Nursing Home Facility SDOH Health Related Social Needs: Health related social needs housing instability, house d, with risk of homelessness (Z59.811), education (Z55.6)
[2025-02-12 11:06] VITALS: BP 105/76; PULSE 76; RESP 24; TEMP 36.4; O2SAT 98
--- NOTE | 2025-02-12 11:10 | PTTR_ITS ---
PT Notes Visit Reasons: Chest pain, T10 fracture w minimal compression, ur Inpatient Physical Therapy Treatment Note Date: 02/12/2025 Precautions: Fall risk. Standard precautions. Impaired safety awareness. Subjective: Very minimal musculoskeletal pain in chest with deep breathng after walking but has gone down significantly compred to last Wednesday's. Hopes rhat she does not stay for too long at the SNF before she goes home. Objective: General Observation: Telemetry and murphy catheter in place. Thin, frail elderly. IV through R UE. Mental Status: Much more quick to repsond to instrcutions today compared to last Wednesday.Alert and oriented to person and place. Continues to have tendency to perseverate and repeat questions due to short-term memory loss. Pain: Musculuskeletal sternal angina aggravated with deep breaths Vital Signs: Closely monitored by nursing staff Bed Mobility/Transfers: Sit to stand stand by assist Sit to stand contact guard assist Gait: Facilitated safe and correct performance of level surface ambulation covering a distance of 200 feet + 100 feet using front-wheeled walker with stand by assist. Still has impaired obstacle negotiation as evidenced by frequent hitting of R front leg with edges of carts/objects along the [employer] hallway. Musculoskeletal sternal angina less with activity as she breathes. [place] slowed. HELADIO narrowed. Decreased step height and length. Cueing provided for environmental awareness for safe obstacle negotiation. THERA EX: Guided patietn with safe and correct performance of standing level exercises with cueing provided to minimize fatigue and decrease fall risk: Bilateral heel raises x 10 Standing back kicks x 10 Standing side kicks x 10 Balance: Static Sitting: Good Dynamic Sitting: Fair Static Standing: Fair Dynamic Standing: Fair Assessment: Musculoskeletal sternal angina significantly less compared to last session on F riday. Activity tolerance improved. Obstacle negotiation remains impaired. Patient remains unsafe to return home without available assist of 1. 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 Plan of Care/Treatment Plan: 1-2x/day, 7 days/week x 1 week. Plan of care has been reviewed with the AUTOMOTIVE SERVICE ADVISOR providing the service under Physical Therapy direction. Initiate Physical Therapy intervention for strengthening, bed mobility, transfers, gait, stairs, balance training, use of assistive device. DISCHARGE RECOMMENDATIONS: [] Home with no services [] [] Home with services [specify] [] Home with outpatient PT [] [] SNF for continued rehabilitation [] [] [facility] [] [X] SNF versus LTC based on ability to participate and progress TREATMENT CODE/TIME: 51213 x 20 minutes for 1 unit, 30119 x 14 minutes for 1 unit (11:10-11:44).
--- NOTE | 2025-02-12 12:20 | DSE_ITS ---
Date of service: 02/12/25 Time of Service: 12:20 DS: Diagnosis Discharge Diagnosis (1) Compression fracture of T10 vertebra: Status: Acute (2) Hypokalemia: Status: Resolved (3) Fall: Status: Acute (4) Contusion of sternum: Status: Acute (5) Hyponatremia: Status: Resolved (6) Hypomagnesemia: Status: Acute (7) Elevated lipase: Status: Acute (8) SVT (supraventricular tachycardia): Status: Chronic (9) Discharge planning issues: Status: Acute Discharge Plan Disposition Patient Disposition: Half-Way Facility(SNF) Condition: Improving Condition: Improving Discharge Details Reason For Visit: Chest pain, T10 fracture w minimal compression, ur Admit Date/Time: 02/08/25 17:49 Admit Provider: Boris Bedoya Attending Provider: Boris Bedoya Primary Care Provider: Laura Gonzalez Hospital Course Hospital Course: The patient is being transferred to a rehabilitation facility for short-term rehabilitation following a recent fall and injury. The primary goals are to manage pain, improve mobility, and assist with functional recovery, including strengthening, bed mobility, transfers, and overall gait and balance improvement. Summary of Hospital Course: Mirian Ward, an 84-year-old female, was admitted following a fall that caused significant chest and back pain, including a compression fracture of the T10 vertebra, sternum contusion, and other associated injuries. Additional findings include: * Compression fracture of T10 vertebra (Acute): Managed with pain control and referral for upright spinal X-ray. The patient was stable and ambulatory with assistance. * Chest pain and sternum contusion (Acute): Managed with pain control and careful monitoring for signs of cardiac or pulmonary compromise. * Hyponatremia: Resolved with IV fluid administration and electrolyte monitoring. * Hypomagnesemia: Corrected with magnesium supplementation. * Elevated Lipase: Minimal elevation without evidence of pancreatitis. * SVT (Supraventricular Tachycardia): Successfully treated with metoprolol in the ED; the patient?s heart rate stabilized. * Urinary Retention: Investigated with neuro consult, no significant findings related to the T10 fracture. The patient is stable for transfer to a rehabilitation facility, and rehabilitation goals have been established to optimize recovery and function. Physical Therapy Recommendations: The Physical Therapy assessment indicates that the patient is able to participate in rehabilitation and has potential for functional improvement. The plan for PT intervention is as follows: * Frequency: 1-2 times per day, 7 days per week, for 1 week. * Intervention Goals: * Strengthening: Targeting overall strength improvement, especially in lower extremities and core for mobility and stability. * Bed Mobility: Assist with turning, repositioning, and transferring from lying to sitting and sitting to standing. * Transfers: Practice safe transfers from bed to chair, bed to commode, and standing to sitting. * Gait Training: Focus on improving walking ability with assistive devices, ensuring safety while ambulating. * Stair Training: Depending on the facility setup, practice using stairs (if applicable), progressing as tolerated. * Balance Training: Focus on dynamic balance to improve overall stability and reduce the risk of future falls. * Use of Assistive Devices: Ensure the patient is proficient in using any necessary assistive devices (e.g., walker, cane) for mobility. SNF vs. LTC Recommendation: Based on the patient's current functional status and her ability to participate in rehabilitation, it is recommended that the patient be transferred to a Half-Way Facility rather than Long-Term Care. The patient is able to engage in rehabilitation activities such as strengthening, transfers, gait training, and balance exercises, which would benefit her recovery in a more intensive, short-term setting. Plan: Transfer to SNF for intensive rehabilitation therapy (1-2x/day, 7 days/week) with the goal of returning to baseline function and improving mobility. Discharge Medications: * Levothyroxine 75 mcg - 75 mcg PO daily * Metoprolol tartrate 12.5 mg - 12.5 mg PO BID * Mirtazapine 15 mg - 15 mg PO daily * Donepezil 5 mg - 5 mg PO daily * Lidocaine 5% topical patch - 1 patch topical daily for 1 month * Diclofenac sodium 25 mg - 25 mg PO BID (as needed for pain) Discharge Instructions: * Physical Therapy: Continue with PT at the rehab facility as outlined above, focusing on strength, mobility, and safety. * Fall Precautions: Ensure the patient continues with fall precautions at the rehab facility. * Pain Management: Follow the prescribed pain regimen and continue monitoring for any signs of excessive pain or side effects from medications. * Follow-Up Care: Follow up with primary care provider Dr. Laura Gonzalez and any specialists as necessary for ongoing management. * Safety and Monitoring: Ensure close monitoring of vital signs and lab values, especially related to electrolytes and cardiac function. Condition at Discharge: The patient is stable and alert, able to participate in PT interventions with some assistance. She is being discharged to an SNF for short-term rehabilitation, with the expectation that she will continue to progress in her recovery with intensive therapy. Home Meds and New Rx's Prescriptions: New docusate sodium [Colace] 100 mg Capsule 100 mg PO TID PRN PRNQty: 0 0RF acetaminophen 325 mg Tablet 650 mg PO QID Qty: 0 0RF ibuprofen [Advil] 200 mg Tablet 200 mg PO Q6H PRN PRNQty: 0 0RF oxycodone 5 mg Tablet 5 mg PO TID PRN PRNQty: 0 0RF Continued mirtazapine 15 mg tablet 15 mg PO DAILY levothyroxine 75 mcg tablet 75 mcg PO DAILY Patient Comments: TAKE ONE TABLET BY MOUTH EVERY DAY metoprolol tartrate 25 mg Tablet 12.5 mg PO BID Qty: 60 0RF donepezil 5 mg tablet 5 mg PO DAILY Patient Comments: TAKE ONE TABLET BY MOUTH EVERY DAY diclofenac sodium 25 mg tablet,delayed release (DR/EC) 25 mg PO BID Patient Comments: TAKE ONE TABLET BY MOUTH TWICE A DAY lidocaine [Lidoderm] 5 % adhesive patch,medicated 1 patch topical DAILY 30 Days Qty: 30 0RF Rx Instructions: leave on most painful area for up to 12 hrs Discharge Instructions Referrals: Laura Gonzalez [Primary Care Provider] - (1-2 weeks post inpatient stay (post rehab)) Activity:: Activity as Tolerated Equipment/Supplies:: Walker Diet:: As Tolerated Discharge Orders Discharge Orders: Discharge Order (Routine); Ordered 02/12/25 Ordered By: Claire Bateman DS: Summary Time Spent with Patient providing and/or coordinating discharge services: Greater than 30 minutes Status at Discharge Functional status at discharge: uses cane/walker Overall status at discharge: patient is progressing back to baseline Mental Status: mental status grossly normal Speech and Movement: speech and movement normal Mood: congruent mood Affect: normal affect Quality:SDOH Health Related Social Needs: Health related social needs housing instability, house d, with risk of homelessness (Z59.811), education (Z55.6) Exam Const General: no acute distress Orientation: alert HENMT Head: normal to inspection Ears: external ears normal General nose exam: external nose normal Mouth: moist mucous membranes Eyes General: appearance normal, both eyes and all related structures Neck Neck: normal visual inspection Resp Effort & Inspection: normal respiratory effort Cardio Rate: regular rate GI Palpation: soft, not firm and no guarding Skin General skin exam: no rashes or lesions noted Neuro General: patient alert Extrem General: normal to inspection Psych Mental Status: mental status grossly normal Speech and Movement: speech and movement normal Mood: congruent mood Affect: normal affect DS: Data Vitals/I&O Vitals and I&O: Vital Signs Temperature 36.4 C L 02/12/25 11:06 Temperature Source Temporal Artery Scan 02/12/25 11:06 Pulse 76 02/12/25 11:06 Pulse Rhythm Regular 02/08/25 20:24 Pulse 81 02/08/25 20:00 Respiratory Rate 24 02/12/25 11:06 Respiratory Effort Normal 02/08/25 20:24 Respiratory Depth Normal 02/08/25 20:24 Respiratory Pattern Normal 02/08/25 20:24 Blood Pressure 105/76 02/12/25 11:06 Blood Pressure Mean 85 02/12/25 11:06 Pulse Oximetry 98 02/12/25 11:06 Oxygen Delivery Method Room Air 02/12/25 11:06 Oxygen Flow Rate 0 02/12/25 11:06 Pain Level 0 02/12/25 11:06 Comment rn notified 02/11/25 07:36 Intake & Output 02/11/25 02/12/25 02/12/25 23:59 11:59 23:59 Output Total 800 / 1225 700 / 700 Balance -800 / -1225 -700 / -700 Output: Urine 800 / 1225 700 / 700 Other: Urine Color Pale Yellow Yellow Urine Appearance Clear Clear Urine Odor Normal Normal Stool Size Small Stool Characteristics Soft Formed Data Completed and Pending Labs on day of discharge: Labs from last 24 hours 02/08/25 09:28 B. divergens/MO-1 PCR Negative Babesia duncani (PCR) Negative Babesia microti DNA PCR Negative E.chaffeensis DNA (PCR) Negative E.ewingii/canis DNA PCR Negative E.muris eauclairensis (PCR) Negative A. phagocytophilum (PCR) Negative Blood B. miyamotoi (PCR) Negative PFSH All Active Problems (Updated 02/12/25 @ 12:23 by Claire Bateman NP) Discharge planning issues (Acute) Elevated lipase (Acute) Hypomagnesemia (Acute) Hypertension (Chronic) On deep vein thrombosis (DVT) prophylaxis (Acute) Compression fracture of T10 vertebra (Acute) Chest pain (Acute) Laceration of upper arm (Acute) Contusion of sternum (Acute) Fall (Acute) Closed fracture of left proximal humerus (Acute 04/24/24) Alzheimer's dementia without behavioral disturbance (Acute) Cognitive impairment (Acute) Paroxysmal SVT (supraventricular tachycardia) (Acute) SVT (supraventricular tachycardia) (Chronic) Malnutrition (Acute) Anxiety (Chronic) Advanced care planning/counseling discussion (Acute) COVID-19 (Acute) Hematuria (Acute) Weakness generalized (Acute) Vertigo (Acute) Cough (Acute) Trochanteric bursitis of right hip (Acute 02/26/16) SI (sacroiliac) pain (Acute 09/08/17) Arthritis of right hip (Acute 02/26/16) Spondylosis of lumbar region without myelopathy or radiculopathy (Acute) 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 Several pansensitive E. coli urinary tract infections recently. Hypothyroidism (Chronic) History of hematuria (Chronic) a. Microscopic. 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 Remote history, patient denies having these in years. Vertigo (Acute) Medical History Anemia, iron deficiency Asymptomatic microscopic hematuria Atrophic vaginitis COVID Dermatitis of eyelid Eczema GERD (gastroesophageal reflux disease) Glaucoma Grief reaction Hernia, inguinal, left Hypothyroid Insomnia Low back pain Migraine Nosebleed Pain of left thumb Pain, joint, hip, right Palliative care encounter Rib pain on left side Seborrheic keratosis Vitamin B12 deficiency Weight loss Surgical History Abdominal hysterectomy Appendectomy Bilateral salpingectomy with oophorectomy Biopsy of breast History of arthroplasty of right hip Hx of cataract surgery Repair of inguinal hernia Tonsillectomy and adenoidectomy 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 early spring 2021 (cared for bedbound until his at home) Time Spent with Patient Time Spent with Patient: 45-69 minutes Time was spent: preparing to see the patient(eg.review tests), ordering medications,tests, procedures, referring, communicating with other health managed care provider, indepentently interpreting results, counseling the patient and care coordination
== END 2025-02-12 13:16 | disposition skilled nursing facility (03) ==
LOC: ER 16:09 → MS 02-09 07:29
PROVIDERS: Nurse Practitioner Acute Care; Admitting Provider Family Medicine; Emergency Provider Physician Assistant; PCP Family Medicine; Responsible Provider Nurse Practitioner Family; Visit Provider Family Medicine
DX: S22.070A Wedge compression fracture of T9-T10 vertebra, initial encounter for closed fracture (principal); S20.219A Contusion of unspecified front wall of thorax, initial encounter; W19.XXXA Unspecified fall, initial encounter; E87.1 Hypo-osmolality and hyponatremia; E83.42 Hypomagnesemia; R74.8 Abnormal levels of other serum enzymes; I47.10 Supraventricular tachycardia, unspecified; E87.6 Hypokalemia; R53.83 Other fatigue; R07.89 Other chest pain; M54.9 Dorsalgia, unspecified; R42 Dizziness and giddiness; R33.9 Retention of urine, unspecified; I10 Essential (primary) hypertension; G30.9 Alzheimer's disease, unspecified; F02.80 Dementia in other diseases classified elsewhere, unspecified severity, without behavioral disturbance, psychotic disturbance, mood disturbance, and anxiety; F41.9 Anxiety disorder, unspecified; E46 Unspecified protein-calorie malnutrition; K21.9 Gastro-esophageal reflux disease without esophagitis; E03.9 Hypothyroidism, unspecified; N39.41 Urge incontinence; Z79.899 Other long term (current) drug therapy
CPT/HCPCS: 00123; 36415; 51702; 74177; 80048; 80053; 83690; 87637; 87798; 93005; 96361; 96365; 96366; 96367; 96372; 96375; 97110; 97162; 97530; 99285; J1650; 71260; 72072; 81003; 81015; 83735; 84439; 84443; 84484; 85025; 86618; 93010; 99223; 99232; 99233; 99239; J0131; J3360; J3475; J3490

== ENCOUNTER 2025-04-23 15:14 | Outpatient (REF) | payer MEDICARE, SELFPAY ==
[2025-04-23 14:45] LABS: HCT 34.9 % (36.0-46.0); HGB 11.4 g/dL (11.2-15.7); MCH 31.0 pg (27.0-33.0); MCHC 32.7 % (32.0-36.0); MCV 95 fL (80-95); MPV 11.4 fL (8.0-11.0); Platelet Count 254 10^3/uL (130-400); RBC 3.68 10^6/uL (3.93-5.22); RDW 13.4 % (11.7-14.6); RDW-SD 46.2 fL; WBC 8.43 10^3/uL (4.4-10.8)
[2025-04-23 17:35] LABS: ALT 31 U/L (14-59); AST 19 U/L (15-37); Albumin 3.9 g/dL (3.4-5.0); Alkaline Phosphatase 98 U/L (46-116); Anion Gap 6.7 mmol/L (3-11); BUN 25 mg/dL (7-18); Bilirubin, Total 0.4 mg/dL (0.2-1.0); CO2 30.3 mmol/L (21.0-32.0); Calcium 9.7 mg/dL (8.5-10.1); Chloride 105 mmol/L (98-107); Estimated GFR 73.52 (mL/min/1.73m2); Glucose 85 mg/dL (74-106); Potassium 4.7 mmol/L (3.5-5.1); Sodium 142 mmol/L (136-145); TSH 3.42 uIU/mL (0.36-3.74); Total Protein 7.4 g/dL (6.4-8.2)
== END 2025-04-23 15:15 | disposition home or self-care (01) ==
LOC: NCHCN 15:14
PROVIDERS: PCP Family Medicine; Visit Provider Family Medicine
DX: Z00.00 Encounter for general adult medical examination without abnormal findings (principal)
CPT/HCPCS: 80053; 85027; 84439; 84443

== ENCOUNTER 2025-05-29 21:37 | Inpatient (IN) | payer MEDICARE, SELFPAY ==
--- NOTE | 2025-05-29 21:15 | DI.CT_ITS ---
Exam(s) CT CHEST W EXAM: CT CHEST W CLINICAL HISTORY: trauma, L. rib pain, scan through all ribs. TECHNIQUE: Multi planar reconstructions were performed. CONTRAST MATERIAL: Omnipaque 350; 75 cc COMPARISON: CT CT CHEST/ABD/PEL W from 02/08/2025 FINDINGS: CHEST: LUNGS: There are displaced fractures of the left 5th, 6, and 7th ribs (laterally). There is no lung contusion or pleural effusion but there is a small less than 10 percent ipsilateral pneumothorax. No findings in the opposite-right lung. No right rib fractures evident. MEDIASTINUM: No evidence of sternal fracture nor mediastinal hematoma. Visualized thyroid unremarkable.No hilar nor mediastinal adenopathy. Moderate size hiatal hernia noted in the posterior mediastinum. CARDIAC: Heart size upper normal. Moderate size hiatal hernia noted in in the retrocardiac region.Number of the ascending thoracic aorta is upper normal limits. No dissection. Incidentally noted is independent origin of the left vertebral artery off the aortic arch. VISUALIZED UPPER ABDOMEN:There are no significant adrenal masses. OSSEOUS: Displaced fractures of the left 5th, 6, and 7th ribs. there is slight loss of height of the inferior endplate T10 but unchanged from 02/08/2025 and having appearance of Schmorl's node invagination. IMPRESSION: 1. There are displaced fractures of the left 5th, 6, and 7th ribs. There is no lung contusion or pleural effusion but there is a less than 10 percent ipsilateral pneumothorax. 2. Moderate size hiatal hernia incidentally noted. Preliminary virtual Radiology report was reviewed. RADIATION DOSE DELIVERED: 80.27mGy.cm Total DLP DATA REPOSITORY: All CT scans at this facility are submitted to the National Radiology Data Registry (NRDR) Dose Index Registry (DIR) with the [employer] ([employer]). RADIATION OPTIMIZATION: All CT scans at this facility use at least one of these dose optimization techniques: automated exposure control; mA and/or kV adjustment per patient size (includes targeted exams where dose is matched to clinical indication); or iterative reconstruction.
[2025-05-29 21:21] VITALS: BP 152/74; PULSE 81; RESP 18; TEMP 36.9; O2SAT 98
[2025-05-29] MEDS: Lidocaine 5% Patch 1 PATCH TP (21:39)
[2025-05-29] MEDS: fentaNYL 100 MCG/2 ML VIAL 50 MCG IVP (21:39)
[2025-05-29 21:40] LABS: Abs Immature Grans 0.02 10^3/uL (0.0-0.06); HCT 32.4 % (36.0-46.0); HGB 11.1 g/dL (11.2-15.7); Immature Grans % 0.3 %; MCH 31.6 pg (27.0-33.0); MCHC 34.3 % (32.0-36.0); MCV 92 fL (80-95); MPV 10.6 fL (8.0-11.0); Platelet Count 215 10^3/uL (130-400); RBC 3.51 10^6/uL (3.93-5.22); RDW 12.9 % (11.7-14.6); RDW-SD 43.7 fL; WBC 5.79 10^3/uL (4.4-10.8)
[2025-05-29 21:58] LABS: INR 1.0 (0.9-1.1); Prothrombin Time 10.2 sec (9.1-11.1)
[2025-05-29 22:01] LABS: ALT 22 U/L (14-59); AST 25 U/L (15-37); Albumin 3.9 g/dL (3.4-5.0); Alkaline Phosphatase 84 U/L (46-116); Anion Gap 8.3 mmol/L (3-11); BUN 23 mg/dL (7-18); Bilirubin, Total 0.3 mg/dL (0.2-1.0); CO2 25.7 mmol/L (21.0-32.0); Calcium 9.3 mg/dL (8.5-10.1); Chloride 103 mmol/L (98-107); Estimated GFR 55.90 (mL/min/1.73m2); Glucose 123 mg/dL (74-106); Magnesium 2.1 mg/dL (1.8-2.4); Potassium 4.5 mmol/L (3.5-5.1); Sodium 137 mmol/L (136-145); Total Protein 7.2 g/dL (6.4-8.2)
[2025-05-29] MEDS: Omnipaque 350 MG/ML 100 ML BTL IJ (22:19)
[2025-05-29] MEDS: Normal Saline Flush 10 ML SYR IVP (22:19)
[2025-05-29] MEDS: Normal Saline - Diluent 50 ML VIAL IJ (22:19)
--- NOTE | 2025-05-29 22:33 | ED.GENADUL_ITS ---
Discharge Plan Disposition Patient Disposition: Admit to [facility] Condition: Stable Discharge Details Clinical Impression: Multiple fractures of ribs of left side, Pneumothorax on left Primary Care Provider: Laura Gonzalez ED Provider: Yulia Alfred Home Meds and New Rx's Prescriptions: No Action mirtazapine 15 mg tablet 15 mg PO DAILY levothyroxine 75 mcg tablet 75 mcg PO DAILY Patient Comments: TAKE ONE TABLET BY MOUTH EVERY DAY metoprolol tartrate 25 mg Tablet 12.5 mg PO BID Qty: 60 0RF diclofenac sodium 25 mg tablet,delayed release (DR/EC) 25 mg PO BID Patient Comments: TAKE ONE TABLET BY MOUTH TWICE A DAY docusate sodium [Colace] 100 mg Capsule 100 mg PO TID PRN PRNQty: 0 0RF acetaminophen 325 mg Tablet 650 mg PO QID Qty: 0 0RF ibuprofen [Advil] 200 mg Tablet 200 mg PO Q6H PRN PRNQty: 0 0RF HPI General Mode of arrival: EMS . Date/Time Provider Initiated Documentation: 05/29/25 23:51 . Limitations to Documentation: no limitations . Information obtained by: patient, family, EMS and old records reviewed . HPI Narrative: This is an 85-year-old female patient with a history of hypertension, Alzheimer's, and hypothyroidism presenting for evaluation of a left sided chest injury. The patient was in the bathtub and took a slip and fall, landing on the side of the tub on her left ribs. She immediately felt a crack, states that she did not injure any other part of her body, did not strike her head, does not take blood thinning medications. Summoned EMS who provided her with fentanyl and Tylenol, noted her vital signs to be appropriate and transported her for evaluation. Prior to this event the patient was in her normal state of health and was not experiencing any medical complaints such as chest pain, or syncope. She did not lose consciousness, states that she did not have pain anywhere else on her body including her neck, back, abdomen and pelvis, or extremities. Related Data Home Medications ?Medication ?Instructions ?Recorded ?Confirmed levothyroxine 75 mcg tablet 75 mcg PO DAILY 07/29/22 0 05/29/25 metoprolol tartrate 25 mg tablet 12.5 mg (1/2 x 25 mg) PO BID #60 07/29/22 05/29/25 tabs mirtazapine 15 mg tablet 15 mg PO DAILY 05/04/2405/14 diclofenac sodium 25 mg 25 mg PO BID 02/08/25 tablet,delayed release acetaminophen 325 mg tablet 650 mg (2 x 325 mg) PO QID #0 tabs 02/12/25 05/29/25 docusate sodium 100 mg capsule 100 mg PO TID PRN PRN # 0 caps 02/12/25 05/29/25 (Colace) ibuprofen 200 mg tablet (Advil) 200 mg PO Q6H PRN PRN #0 tabs 02/12/25 05/29/25 Previous Rx's ?Medication ?Instructions ?Recorded metoprolol tartrate 25 mg tablet 12.5 mg (1/2 x 25 mg) PO BID #60 07/29/22 tabs acetaminophen 325 mg tablet 650 mg (2 x 325 mg) PO QID #0 tabs 02/12/25 docusate sodium 100 mg capsule 100 mg PO TID PRN PRN # 0 caps 02/12/25 (Colace) ibuprofen 200 mg tablet (Advil) 200 mg PO Q6H PRN PRN #0 tabs 02/12/25 Allergies Allergy/AdvReac Type Severity Reaction Status Date / Time celecoxib (From Celebrex) Allergy Severe Skin Rash Verified 05/29/25 21:26 Penicillins Allergy Intermediate Unknown Verified 05/29/25 21:26 tramadol AdvReac Severe Nausea Verified 05/29/25 21:26 meperidine HCl (From Demerol) AdvReac Intermediate Halluncinat Verified 05/29/25 21:26 ions morphine AdvReac Intermediate Nausea Verified 05/29/25 21:26 topiramate (From Topamax) AdvReac Intermediate Nausea Verified 05/29/25 21:26 General Stated Complaint: Fall/Non TraumaCriteria EDDA: 3 Exam Narrative Exam Narrative: Gen: awake and alert, in no apparent distress. Appears well nourished. HEENT: PERRL, EOMs full and without nystagmus. External ears and nose normal, mucous membranes moist. Scalp atraumatic, midface stable, teeth and tongue uninjured Neck: Supple, full range of motion, no posterior cervical spine pain or step- offs Lungs: No increased work of breathing, lung sounds clear and equal bilaterally without wheezes, rhonchi, or rales. CV: Heart with regular rate and rhythm, no murmurs auscultated. Strong and symmetrical radial pulses. Chest wall is tender to palpation over the left lateral ribs with no overlying skin changes, flail chest or deformity a ppreciated Abdomen: Soft, nondistended, non-tender to palpation. No rigidity, rebound tenderness, or guarding. MSK: No joint swelling, no redness. Full ROM without limitation, no external traumatic findings. T and L-spine nontender and without step-offs, pelvis stable to AP compression, 4 extremities with no evidence of deformity, tenderness or limitation in range of motion Skin: No rashes or lesions to visualized skin. Small skin tear left elbow, hemostatic normal color, warm, and dry. Neuro: Cranial nerves II-XII intact and symmetrical bilaterally. 5/5 strength in all muscle groups x4 extremities. No sensory deficits. Psych: Appropriate for situation. Course Vital Signs Vital signs: Vital Signs Temperature 36.9 C 05/29/25 21:21 Pulse 81 05/29/25 21:21 Respiratory Rate 18 05/29/25 21:21 Blood Pressure 152/74 H 05/29/25 21:21 Pulse Oximetry 98 05/29/25 21:21 Temperature 36.9 C 05/29/25 21:21 Pulse 81 05/29/25 21:21 Respiratory Rate 18 05/29/25 21:21 Blood Pressure 152/74 H 05/29/25 21:21 Pulse Oximetry 98 05/29/25 21:21 Pain Level 0 05/29/25 21:21 Lab/Test Results Lab/Test Results: Laboratory Tests Range/Units 05/29/25 21:27 WBC (4.4-10.8) 10^3/uL 5.79 RBC (3.93-5.22) 10^6/uL 3.51 L Hgb (11.2-15.7) g/dL 11.1 L Hct (36.0-46.0) % 32.4 L MCV (80-95) fL 92 MCH (27.0-33.0) pg 31.6 MCHC (32.0-36.0) % 34.3 RDW (11.7-14.6) % 12.9 Plt Count (130-400) 10^3/uL 215 MPV (8.0-11.0) fL 10.6 Immature Gran % % 0.3 Neutrophils % % 45.9 Lymphocytes % % 40.6 Monocytes % % 9.8 Eosinophils % % 2.4 Basophils % % 1.0 Nucleated RBC % (0.0-0.3) % 0.0 Absolute Neutrophils (1.2-6.7) 10^3/uL 2.65 Absolute Lymphocytes (1.2-3.4) 10^3/uL 2.35 Absolute Monocytes (0.1-0.8) 10^3/uL 0.57 Absolute Eosinophils (0.0-0.7) 10^3/uL 0.14 Absolute Basophils (0.0-0.2) 10^3/uL 0.06 PT (9.1-11.1) sec 10.2 INR (0.9-1.1) 1.0 Sodium (136-145) mmol/L 137 Potassium (3.5-5.1) mmol/L 4.5 Chloride (98-107) mmol/L 103 Carbon Dioxide (21.0-32.0) mmol/L 25.7 Anion Gap (3-11) mmol/L 8.3 BUN (7-18) mg/dL 23 H Creatinine (0.55-1.02) mg/dL 1.0 Est GFR (CKD-EPI 2020) (mL/min/1.73m2) 55.90 Glucose (74-106) mg/dL 123 H Calcium (8.5-10.1) mg/dL 9.3 Magnesium (1.8-2.4) mg/dL 2.1 Total Bilirubin (0.2-1.0) mg/dL 0.3 AST (15-37) U/L 25 ALT (14-59) U/L 22 Alkaline Phosphatase (46-116) U/L 84 Total Protein (6.4-8.2) g/dL 7.2 Albumin (3.4-5.0) g/dL 3.9 Medical Decision Making This is an 85-year-old female patient presenting for evaluation after a fall with left-sided rib injuries. Differential includes but is not limited to fracture, contusion, pneumothorax, pulmonary contusion. Reassuringly this was an isolated location, and the patient has no evidence for head injury, spine injury, intra-abdominal or intrapelvic injuries. No medical complaints prior to this event to suggest ACS, arrhythmia, metabolic or electrolyte derangement, dehydration, kidney injury, syncope, seizure, stroke. We will obtain CT of the chest to evaluate the left-sided ribs and underlying lung structures. Will obtain labs to include CBC, CMP, magnesium, INR,- and will provide the patient with fentanyl and a Lidoderm patch for pain management. - I reviewed the patient's laboratory studies, which show a mild anemia but no leukocytosis or thrombocytopenia. INR 1.0, chemistry panel without evidence of significant electrolyte derangement, kidney injury or liver disease. CT reviewed by myself, showing displaced rib fractures 5 through 7 on the left side, with a less than 5% volume underlying pneumothorax (7 mm). The patient reports that her pain persists, will be provided with oxycodone. She was able to pull 1500 cc on incentive spirometry. Given her age, pneumothorax, and pain level the patient is moderate risk for complication based on the rib injury guidelines and would benefit from overnight admission with chest x-ray in the morning to ensure that her pneumothorax is not expanding. I discussed the patient's case with the hospitalist who is graciously accepted this patient for admission to their service for ongoing pulmonary hygiene and observation of her pneumothorax. While under my care the patient remained hemodynamically appropriate and did not require initiation of oxygen. She was transferred from our department without incident. Yulia Alfred MD Quality:SDOH Health Related Social Needs: Health related social needs risk of homeless education PFS All Active Problems (Updated 05/30/25 @ 00:43 by Yulia Alfred MD) Pneumothorax on left (Acute) Multiple fractures of ribs of left side (Acute) Hypertension (Chronic) On deep vein thrombosis (DVT) prophylaxis (Acute) Compression fracture of T10 vertebra (Acute) Laceration of upper arm (Acute) Contusion of sternum (Acute) Fall (Acute) Closed fracture of left proximal humerus (Acute 04/24/24) Alzheimer's dementia without behavioral disturbance (Acute) Cognitive impairment (Acute) Paroxysmal SVT (supraventricular tachycardia) (Acute) Malnutrition (Acute) Anxiety (Chronic) Advanced care planning/counseling discussion (Acute) COVID-19 (Acute) Hematuria (Acute) Weakness generalized (Acute) Vertigo (Acute) Cough (Acute) Trochanteric bursitis of right hip (Acute 06/15/16) SI (sacroiliac) pain (Acute 09/08/17) Arthritis of right hip (Acute 02/26/16) Spondylosis of lumbar region without myelopathy or radiculopathy (Acute) 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 Several pansensitive E. coli urinary tract infections recently. Hypothyroidism (Chronic) History of hematuria (Chronic) a. Microscopic. 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 Remote history, patient denies having these in years. Vertigo (Acute) Medical History Anemia, iron deficiency Asymptomatic microscopic hematuria Atrophic vaginitis COVID Dermatitis of eyelid Eczema GERD (gastroesophageal reflux disease) Glaucoma Grief reaction Hernia, inguinal, left Hypothyroid Insomnia Low back pain Migraine Nosebleed Pain of left thumb Pain, joint, hip, right Palliative care encounter Rib pain on left side Seborrheic keratosis Vitamin B12 deficiency Weight loss Surgical History Abdominal hysterectomy Appendectomy Bilateral salpingectomy with oophorectomy Biopsy of breast History of arthroplasty of right hip Hx of cataract surgery Repair of inguinal hernia Tonsillectomy and adenoidectomy 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 early spring 2021 (cared for bedbound until his at home)
--- NOTE | 2025-05-29 23:44 | DI.VRAD_ITS ---
Addendum created by Boris Ventura MD on 05/29/2025 11:45:09 PM EDT: COMMENT: THIS REPORT CONTAINS FINDINGS THAT MAY BE CRITICAL TO PATIENT CARE. The exam findings were verbally communicated by me to Yulia Alfred via telephone conference at 11:44 PM EDT on 05/29/2025. The findings were acknowledged and understood. Initial report created on 05/29/2025 11:43:44 PM EDT: PROCEDURE INFORMATION: Exam: CT Chest With Contrast; Diagnostic Exam date and time: 05/29/2025 10:14 PM Age: 85 years old Clinical indication: Pain; Left-sided; Additional info: Trauma, L. Rib pain, scan through all ribs TECHNIQUE: Imaging protocol: Diagnostic computed tomography of the chest with contrast. 3D rendering (Not supervised by radiologist): MIP and/or 3D reconstructed images were created by the technologist. Contrast material: OMNI 350; Contrast volume: 70 ml; Contrast route: INTRAVENOUS (IV); COMPARISON: CT CHEST/ABD/PEL W 02/08/2025 10:41 AM FINDINGS: Lungs: Mild atelectasis in the lower lobes. There is 2 cm right lower lobe air cyst. Mild apical fibrosis Pleural spaces: Left pneumothorax anteriorly measuring up to 7 mm thickness, 5% volume or less. Heart: No pericardial effusion. Lymph nodes: No enlarged lymph nodes. Vasculature: No acute findings. 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 Mild chronic T10 compression deformity Soft tissues: No acute findings. IMPRESSION: 1. Displaced left lateral 5th-7th rib fractures, nonsegmental. 2. Left pneumothorax anteriorly measuring up to 7 mm thickness, 5% volume or less. 3. Hiatal hernia again noted Dictated and Authenticated by: Boris Ventura MD. Orderin [facility]. Juan Bender MD
[2025-05-29] MEDS: oxyCODONE 5 MG TAB PO (23:57)
[2025-05-30] VITALS (109 sets, daily range): BP systolic 92–160; BP diastolic 46–116; PULSE 54–108; RESP 12–28; TEMP 36–36.7; O2SAT 83–99
--- NOTE | 2025-05-30 00:53 | W.PM.HP.N ---
Date of service: 05/30/25 Time of Service: 00:54 Assessment and Plan Assessment and plan (1) Rib fractures: Status: Acute Assessment and plan: Could certainly make a case that this patient did not need to be admitted. She does have a respiratory rate of 18 but other than that algorithm up to date of could be appropriate for home discharge. Of note, the patient's family have already left and live a significant distance away from the hospital. Will admit and recheck chest x-ray in a.m. to ensure stability of her pneumothorax. (2) Hypothyroid: Assessment and plan: Continue with the oral medications (3) GERD (gastroesophageal reflux disease): Assessment and plan: Continue with oral medications On Lovenox for DVT prophylaxis History of Present Illness History of Present Illness Chief Complaint: rib fracture Narrative: This is an 85-year-old female who is in remarkably good health. Presents today after a fall while she was trying to get into the tub and subsequent left upper chest pain. Patient came into the ED for further evaluation and treatment and on the workup was diagnosed with displaced left lateral 5th, 6th and 7th rib fractures that are nonsegmental. She also had a left pneumothorax. 7 mm thickness at 5% volume or less as well as a hiatal hernia. Patient did not sustain any head trauma during her fall denies any syncope or presyncope episodes and just tripped and fell. I was asked to admit the patient for monitoring overnight. At time of admission her respiratory rate was 18 satting 98% on room air. Patient does not have any comorbid pulmonary pathologies. She does have unilateral rib fractures. She is not frail. Her pain is controlled by oral medications. Her symptoms are parameter readings are well over 1500. Patient did ask for some sleep medication but is otherwise without complaint. Review of Systems All systems reviewed & are unremarkable except as noted in HPI and below PFSH All Active Problems (Updated 05/30/25 @ 00:59 by Fabian Dias MD) Rib fractures (Acute) Pneumothorax on left (Acute) Multiple fractures of ribs of left side (Acute) Hypertension (Chronic) On deep vein thrombosis (DVT) prophylaxis (Acute) Compression fracture of T10 vertebra (Acute) Laceration of upper arm (Acute) Contusion of sternum (Acute) Fall (Acute) Closed fracture of left proximal humerus (Acute 04/24/24) Alzheimer's dementia without behavioral disturbance (Acute) Cognitive impairment (Acute) Paroxysmal SVT (supraventricular tachycardia) (Acute) Malnutrition (Acute) Anxiety (Chronic) Advanced care planning/counseling discussion (Acute) COVID-19 (Acute) Hematuria (Acute) Weakness generalized (Acute) Vertigo (Acute) Cough (Acute) Trochanteric bursitis of right hip (Acute 02/26/16) SI (sacroiliac) pain (Acute 09/08/17) Arthritis of right hip (Acute 02/26/16) Spondylosis of lumbar region without myelopathy or radiculopathy (Acute) 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 Several pansensitive E. coli urinary tract infections recently. Hypothyroidism (Chronic) History of hematuria (Chronic) a. Microscopic. 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 Remote history, patient denies having these in years. Vertigo (Acute) Medical History Anemia, iron deficiency Asymptomatic microscopic hematuria Atrophic vaginitis COVID Dermatitis of eyelid Eczema GERD (gastroesophageal reflux disease) Glaucoma Grief reaction Hernia, inguinal, left Hypothyroid Insomnia Low back pain Migraine Nosebleed Pain of left thumb Pain, joint, hip, right Palliative care encounter Rib pain on left side Seborrheic keratosis Vitamin B12 deficiency Weight loss Surgical History Abdominal hysterectomy Appendectomy Bilateral salpingectomy with oophorectomy Biopsy of breast History of arthroplasty of right hip Hx of cataract surgery Repair of inguinal hernia Tonsillectomy and adenoidectomy 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 early spring 2021 (cared for bedbound until his at home) Meds Allergies and Home Medications Allergies Allergy/AdvReac Type Severity Reaction Status Date / Time celecoxib (From Celebrex) Allergy Severe Skin Rash Verified 05/29/25 21:26 Penicillins Allergy Intermediate Unknown Verified 05/29/25 21:26 tramadol AdvReac Severe Nausea Verified 05/29/25 21:26 meperidine HCl (From Demerol) AdvReac Intermediate Halluncinat Verified 05/29/25 21:26 ions morphine AdvReac Intermediate Nausea Verified 05/29/25 21:26 topiramate (From Topamax) AdvReac Intermediate Nausea Verified 05/29/25 21:26 Home Medications ?Medication ?Instructions ?Recorded ?Confirmed ?Type levothyroxine 75 mcg tablet 75 mcg PO DAILY 07/29/22 05/29/25 History metoprolol tartrate 25 mg tablet 12.5 mg (1/2 x 25 mg) PO BID #60 07/29/22 05/29/25 Rx tabs mirtazapine 15 mg tablet 15 mg PO DAILY 05/04/24 05/29/25 History diclofenac sodium 25 mg 25 mg PO BID 02/08/25 05/29/25 History tablet,delayed release acetaminophen 325 mg tablet 650 mg (2 x 325 mg) PO QID #0 tabs 02/12/25 05/29/25 Rx docusate sodium 100 mg capsule 100 mg PO TID PRN PRN #0 caps 02/12/25 05/29/25 Rx (Colace) ibuprofen 200 mg tablet (Advil) 200 mg PO Q6H PRN PRN #0 tabs 02/12/25 05/29/25 Rx Exam Narrative Exam Narrative: HEENT-normocephalic atraumatic mucous membranes moist oropharynx is clear extract motions are intact Neck-no lymphadenopathy no JVD no thyromegaly Cardiovascular-regular rate and rhythm no murmur rubs or gallops lungs-clear to auscultation bilaterally with good air exchange no excess Use noted speaking in complete sentences abdomen-soft nontender nondistended bowel sounds active Extremities-no sinus clubbing or edema Neurologic-cranial nerves II through XII intact as tested reflexes upper extremity normal as tested Results Labs 05/29/25 21:27 05/29/25 21:27 Labs: Laboratory Results - last 24 hr 05/29/25 21:27 WBC 5.79 RBC 3.51 L Hgb 11.1 L Hct 32.4 L MCV 92 MCH 31.6 MCHC 34.3 RDW 12.9 Plt Count 215 MPV 10.6 Immature Gran % 0.3 Neutrophils % 45.9 Lymphocytes % 40.6 Monocytes % 9.8 Eosinophils % 2.4 Basophils % 1.0 Nucleated RBC % 0.0 Absolute Neutrophils 2.65 Absolute Lymphocytes 2.35 Absolute Monocytes 0.57 Absolute Eosinophils 0.14 Absolute Basophils 0.06 PT 10.2 INR 1.0 Sodium 137 Potassium 4.5 Chloride 103 Carbon Dioxide 25.7 Anion Gap 8.3 BUN 23 H Creatinine 1.0 Est GFR (CKD-EPI 2020) 55.90 Glucose 123 H Calcium 9.3 Magnesium 2.1 Total Bilirubin 0.3 AST 25 ALT 22 Alkaline Phosphatase 84 Total Protein 7.2 Albumin 3.9 Last Vital Signs Temp 36.9 C 05/29/25 21:21 Pulse 81 05/29/25 21:21 Resp 18 05/29/25 21:21 BP 152/74 H 05/29/25 21:21 Pulse Ox 98 05/29/25 21:21 Time Spent Time spent with Patient: <40 minutes Time was spent: preparing to see the patient(eg.review tests), obtaining and/or reviewing separately otained hiistory, ordering medications,tests, procedures, referring, communicating with other health daycare manager, indepentently interpreting results, counseling the patient and care coordination
[2025-05-30] MEDS: Zolpidem 5 MG TAB PO ×2 (02:14→20:43)
[2025-05-30] MEDS: MORPHine 2 MG/ML SYR 1 MG IVP (02:16)
[2025-05-30] MEDS: MORPHine 4 MG/ML SYR ×2 (07:26→14:23)
--- NOTE | 2025-05-30 08:00 | DI.RAD_ITS ---
Exam(s) XR PORTABLE CHEST AP EXAM: XR PORTABLE CHEST AP CLINICAL HISTORY: pneumothroax. TECHNIQUE: 2D digital imaging was performed. COMPARISON: CR,XR XR CHEST 2V PA LATERAL from 05/31/2024 FINDINGS: Single AP portable view. Heart size is upper normal. The mediastinum is not widened. There are multiple displaced fractures of the left 5th, 6, and 7th ribs. There are mild increased markings in left lung base. Small apical pneumothorax. No pleural effusion. Opposite-right lung is clear. No right-sided fractures evident. IMPRESSION: Acute appearing displaced fractures of the left 5th, 6, and 7ribs. Small apical pneumothorax approximately 10 percent. DATA REPOSITORY: RADIATION DOSE DELIVERED:
[2025-05-30] MEDS: Metoprolol 12.5 MG TAB PO ×2 (08:52→19:35)
[2025-05-30] MEDS: Mirtazapine 15 MG TAB PO (08:52)
[2025-05-30] MEDS: Levothyroxine 75 MCG TAB PO (08:52)
[2025-05-30] MEDS: Ibuprofen 200 MG TAB PO (08:53)
[2025-05-30] MEDS: Acetaminophen 325 MG TAB 650 MG PO ×3 (08:53→19:35)
--- NOTE | 2025-05-30 10:20 | PDOC.CMIN ---
Date of service: 05/30/25 Time of Service: 10:20 Care Management Initial Assmt Initial Assessment Reason for Hospitalization: Rib fractures Functional Status/Living Situation Patient Presentation: Mirian was lying in bed, in a room in the ED, when CM met with her. She has been admitted, and is currently in the ED waiting for a bed to become available on med/surge. Mirian stated that she is in a lot of pain, although her RN has been providing medication regularly, which is helping. She stated that it is difficult to breath deeply, and she has pain with movement; she stated that she does not feel ready for discharge today. Mirian reported that she is a primary caregiver for her daughter, Barbara, who goes to [facility] 5 days a week, and that Barbara is very helpful with law clerk, and can prepare simple meals. Mirian stated that she prefers to return home once her pain is under control. Her son, Jennifer, who lives near [place], [place], is at her house now, to help support Barbara, but overall Mirian and Barbara are able to be independent at home. Mirian will be evaluated by PT prior to discharge, and may benefit from services for additional support post discharge. CM will continue to follow. Town of Residence: [place] Resides with: Child (disabled daughter; Mirian is primary caregiver) Significant Other/Family: Local Natural Supports: son, Jennifer, lives in [place], [place] Employment Status: Retired Instrumental Activities of Daily Living (ADLs): Independent Medications Medication Management: No Issues/Barriers identified Advance Directives Advance Directives: Do you have an Advance Directive: Y 05/29/24, 13:36 AD On File at [facility]: Y 05/29/24, 13:36 Date Asked 05/30/25 Today, 14:49 AD Date Reviewed 05/29/25 05/29/25, 21:44 COLST On File at [facility] COLST Date Scanned Code Status Resuscitation Status Full Code Insurance Coverage/Financial Issues Insurance: VBA Care Team Visit Care Team Role Provider Type Boris Bedoya MD [facility] STAFF PHYSICIAN Laura Gonzalez Primary Care Provider NON-[facility] STAFF PHYSICIAN InPatient Ziyad Lopes Other Providers OTHER Yulia Alfred MD Emergency Provider [facility] ST[facility]FF PHYSICIAN Fabian Dias MD Admit Provider [facility] ST[facility] PHYSICIAN Attending Provider Discharge Potential Discharge Needs: PT Evaluation and PCP F/U Appt Anticipated Barriers to Discharge: None Identified Patient/Family Education Needs: Review discharge instructions, discuss Ask Me Three Transportation: Private vehicle Plan: Anticipate Mirian will return home once medically cleared. She may benefit from services up on discharge. She will be driven home via private vehicle by family. She will follow up with her PCP and discharge plan of care. CM will continue to follow. Social Determinants of Health Screening Will the Patient Participate in the Screening?: Declined to provide Do you worry about having a steady place to live?: choose not to answer PFSH All Active Problems (Updated 05/30/25 @ 00:59 by Fabian Dias MD) Rib fractures (Acute) Pneumothorax on left (Acute) Multiple fractures of ribs of left side (Acute) Hypertension (Chronic) On deep vein thrombosis (DVT) prophylaxis (Acute) Compression fracture of T10 vertebra (Acute) Laceration of upper arm (Acute) Contusion of sternum (Acute) Fall (Acute) Closed fracture of left proximal humerus (Acute 04/24/24) Alzheimer's dementia without behavioral disturbance (Acute) Cognitive impairment (Acute) Paroxysmal SVT (supraventricular tachycardia) (Acute) Malnutrition (Acute) Anxiety (Chronic) Advanced care planning/counseling discussion (Acute) COVID-19 (Acute) Hematuria (Acute) Weakness generalized (Acute) Vertigo (Acute) Cough (Acute) Trochanteric bursitis of right hip (Acute 02/26/16) SI (sacroiliac) pain (Acute 09/08/17) Arthritis of right hip (Acute 02/26/16) Spondylosis of lumbar region without myelopathy or radiculopathy (Acute) 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 Several pansensitive E. coli urinary tract infections recently. Hypothyroidism (Chronic) History of hematuria (Chronic) a. Microscopic. 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 Remote history, patient denies having these in years. Vertigo (Acute) Medical History Anemia, iron deficiency Asymptomatic microscopic hematuria Atrophic vaginitis COVID Dermatitis of eyelid Eczema GERD (gastroesophageal reflux disease) Glaucoma Grief reaction Hernia, inguinal, left Hypothyroid Insomnia Low back pain Migraine Nosebleed Pain of left thumb Pain, joint, hip, right Palliative care encounter Rib pain on left side Seborrheic keratosis Vitamin B12 deficiency Weight loss Surgical History Abdominal hysterectomy Appendectomy Bilateral salpingectomy with oophorectomy Biopsy of breast History of arthroplasty of right hip Hx of cataract surgery Repair of inguinal hernia Tonsillectomy and adenoidectomy 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 early spring 2021 (cared for bedbound until his at home)
--- NOTE | 2025-05-30 14:17 | W.PC.ACHO ---
Registration Status: ADM CATHY Primary Language: Preferred Language: Malay ED Information & Data Chief Complaint Fall/Non TraumaCriteria 05/29/25 22:33 Triage Note fell getting out of bath, 05/29/25 21:21 hit l rips, felt crack, having pain w/ breathing. no head strike, no loc. 1g apap 100mcg fent. LS diminished diminished on left per ems, trachea midline, VSS. Medical / Surgical History (Updated 05/30/25 @ 00:59 by Fabian Dias MD) Elevated lipase SVT (supraventricular tachycardia) COVID Palliative care encounter Pain, joint, hip, right Hernia, inguinal, left Low back pain Vitamin B12 deficiency Insomnia Atrophic vaginitis Eczema Anemia, iron deficiency Weight loss Grief reaction Asymptomatic microscopic hematuria Pain of left thumb Rib pain on left side Nosebleed Dermatitis of eyelid Glaucoma GERD (gastroesophageal reflux disease) Hypothyroid Migraine Seborrheic keratosis (Updated 02/13/25 @ 00:03 by MARILU LEY) History of arthroplasty of right hip Hx of cataract surgery Total replacement of hip (06/29/17) Tonsillectomy and adenoidectomy Abdominal hysterectomy Repair of inguinal hernia Biopsy of breast Bilateral salpingectomy with oophorectomy Appendectomy Most Recent Vital Signs Temperature 36.9 C 05/29/25 21:21 Pulse 65 05/30/25 13:15 Pulse 65 05/30/25 13:15 Respiratory Rate 16 05/30/25 13:15 Blood Pressure 102/46 L 05/30/25 13:15 Blood Pressure Mean 64 05/30/25 13:15 Pulse Oximetry 97 05/30/25 13:15 Pain Level 10 05/30/25 07:26 Allergies celecoxib (From Celebrex) Allergy (Severe, Verified 05/29/25 21:26) Skin Rash Penicillins Allergy (Intermediate, Verified 05/29/25 21:26) Unknown tramadol Adverse Reaction (Severe, Verified 05/29/25 21:26) Nausea meperidine HCl (From Demerol) Adverse Reaction (Intermediate, Verified 05/29/25 21:26) Halluncinations morphine Adverse Reaction (Intermediate, Verified 05/29/25 21:26) Nausea topiramate (From Topamax) Adverse Reaction (Intermediate, Verified 05/29/25 21:26) Nausea Active Medications Generic Name Dose Route Start Last Admin Trade Name Freq PRN Reason Stop Dose Admin Acetaminophen 650 mg 05/30/25 08:30 05/30/25 14:00 Acetaminophen 325 Mg Tab PO Not Given QID REDD Ibuprofen 200 mg 05/30/25 01:06 05/30/25 08:53 Ibuprofen 200 Mg Tab PO 200 mg Q6H PRN PRN Administration Levothyroxine Sodium 75 mcg 05/30/25 06:00 05/30/25 08:52 Levothyroxine 75 Mcg Tab PO 75 mcg 0600 REDD Administration Metoprolol Tartrate 12.5 mg 05/30/25 08:30 05/30/25 08:52 Metoprolol 12.5 Mg Tab PO 12.5 mg BID REDD Administration Mirtazapine 15 mg 05/30/25 08:30 05/30/25 08:52 Mirtazapine 15 Mg Tab PO 15 mg DAILY REDD Administration Morphine Sulfate 1 mg 05/30/25 02:06 05/30/25 02:16 Morphine 2 Mg/Ml Syr IVP 1 mg Q4H PRN PRN Administration Zolpidem Tartrate 5 mg 05/30/25 00:52 05/30/25 02:14 Zolpidem 5 Mg Tab PO 5 mg HS PRN PRN Administration IV IV Catheter Type [Right Peripheral IV Forearm] IV Catheter Gauge [Right 20 Forearm] Diet Orders Category Date Time Status Regular/Normal [DIET] Nutrition 05/30/25 Breakfast Active Diagnostics 05/29/25 Range/Units 21:27 WBC 5.79 (4.4-10.8) 10^3/uL RBC 3.51 L (3.93-5.22) 10^6/uL Hgb 11.1 L (11.2-15.7) g/dL Hct 32.4 L (36.0-46.0) % MCV 92 (80-95) fL MCH 31.6 (27.0-33.0) pg MCHC 34.3 (32.0-36.0) % RDW 12.9 (11.7-14.6) % Plt Count 215 (130-400) 10^3/uL MPV 10.6 (8.0-11.0) fL Immature Gran % 0.3 % Neutrophils % 45.9 % Lymphocytes % 40.6 % Monocytes % 9.8 % Eosinophils % 2.4 % Basophils % 1.0 % Nucleated RBC % 0.0 (0.0-0.3) % Absolute Neutrophils 2.65 (1.2-6.7) 10^3/uL Absolute Lymphocytes 2.35 (1.2-3.4) 10^3/uL Absolute Monocytes 0.57 (0.1-0.8) 10^3/uL Absolute Eosinophils 0.14 (0.0-0.7) 10^3/uL Absolute Basophils 0.06 (0.0-0.2) 10^3/uL PT 10.2 (9.1-11.1) sec INR 1.0 (0.9-1.1) Sodium 137 (136-145) mmol/L Potassium 4.5 (3.5-5.1) mmol/L Chloride 103 (98-107) mmol/L Carbon Dioxide 25.7 (21.0-32.0) mmol/L Anion Gap 8.3 (3-11) mmol/L BUN 23 H (7-18) mg/dL Creatinine 1.0 (0.55-1.02) mg/dL Est GFR (CKD-EPI 2020) 55.90 (mL/min/1.73m2) Glucose 123 H (74-106) mg/dL Calcium 9.3 (8.5-10.1) mg/dL Magnesium 2.1 (1.8-2.4) mg/dL Total Bilirubin 0.3 (0.2-1.0) mg/dL AST 25 (15-37) U/L ALT 22 (14-59) U/L Alkaline Phosphatase 84 (46-116) U/L Total Protein 7.2 (6.4-8.2) g/dL Albumin 3.9 (3.4-5.0) g/dL Intake and Output - 24 Hour Total 05/29/25 21:11 thru 05/30/25 08:56 Intake Total 240 Output Total 350 Balance -110 Weight 47.174 kg Intake: Oral 240 Output: Urine 350 Other: # Voids 1 Falls Risk Assessment History of Falls Admit Due to Fall 05/29/25 21:45 Contributing Factors Confusion 05/29/25 21:45 Ambulatory Aids Independent 05/29/25 21:45 Tubes/Lines With any additional score 05/29/25 21:45 Gait Evaluation No gait disturbance 05/29/25 21:45 Fall Total Score 48 05/29/25 21:45 Level of Risk Moderate Risk 05/29/25 21:45 Problems (Updated 05/30/25 @ 00:59 by Fabian Dias MD) Rib fractures (Acute) v v v v v v v v v Sending and/or Receiving Nurses: Please use comment section below to note any information pertinent to the patient hand-off not included above. Information / Comments: Pleasant 85y F admitted for pain control after mechanical fall in tub with raghu fx 5-7 on left side, minor pneumothorax. Report received from:
--- NOTE | 2025-05-30 17:08 | PGE_ITS ---
Date of Service Date of service: 05/30/25 Time of Service: 17:08 Assessment and Plan Assessment and plan (1) Rib fractures: Status: Acute Assessment and plan: Will keep inpatient as she has been requiring IV pain medication. Will increase NSAID dose, give oral oxycodone option, try to transition to IV morphine only prn bowel regimen (2) Pneumothorax on left: Status: Acute Assessment and plan: Slightly large on repeat CXR. Clinically not progressing. Will ask for pulmonology consult in AM (3) GERD (gastroesophageal reflux disease): Assessment and plan: Continue with oral medications On Lovenox for DVT prophylaxis Subjective Subjective Patient reports: tolerating a regular diet; denies fever Interval history since last seen: still in pain with breathing. no BM today. Exam Narrative Exam Narrative: GEN: Alert and oriented, thin older female, NAD but uncomfortable holding left rib cage. LUNGS: breath sounds bilaterally, trachea midline CV: RRR no murmur Objective Last Vital Signs Temp 36.7 C 05/30/25 15:02 Pulse 69 05/30/25 15:02 Resp 18 05/30/25 15:02 BP 142/94 H 05/30/25 15:02 Pulse Ox 95 05/30/25 15:02 Laboratory Results - last 24 hr 05/29/25 21:27 WBC 5.79 RBC 3.51 L Hgb 11.1 L Hct 32.4 L MCV 92 MCH 31.6 MCHC 34.3 RDW 12.9 Plt Count 215 MPV 10.6 Immature Gran % 0.3 Neutrophils % 45.9 Lymphocytes % 40.6 Monocytes % 9.8 Eosinophils % 2.4 Basophils % 1.0 Nucleated RBC % 0.0 Absolute Neutrophils 2.65 Absolute Lymphocytes 2.35 Absolute Monocytes 0.57 Absolute Eosinophils 0.14 Absolute Basophils 0.06 PT 10.2 INR 1.0 Sodium 137 Potassium 4.5 Chloride 103 Carbon Dioxide 25.7 Anion Gap 8.3 BUN 23 H Creatinine 1.0 Est GFR (CKD-EPI 2020) 55.90 Glucose 123 H Calcium 9.3 Magnesium 2.1 Total Bilirubin 0.3 AST 25 ALT 22 Alkaline Phosphatase 84 Total Protein 7.2 Albumin 3.9 Time Spent with Patient Time Spent with Patient: 25-34 minutes Time was spent: preparing to see the patient(eg.review tests), obtaining and/or reviewing separately otained hiistory, ordering medications,tests, procedures, referring, communicating with other health career transition specialist, indepentently interpreting results, counseling the patient and care coordination
[2025-05-30] MEDS: Ibuprofen 200 MG TAB 400 MG PO (17:28)
[2025-05-30] MEDS: oxyCODONE 5 MG TAB PO (17:28)
[2025-05-30] MEDS: Lidocaine 5% Patch 1 PATCH TP (17:29)
[2025-05-30] MEDS: Sennosides/Docusate Sodium TAB 1 TAB PO (19:35)
--- NOTE | 2025-05-31 | DI.RAD_ITS ---
Exam(s) XR CHEST 2V PA LATERAL EXAM: XR CHEST 2V PA LATERAL CLINICAL HISTORY: follow up pneumothorax TECHNIQUE: 2D digital imaging was performed of the chest. Two images were obtained. PA and lateral views were obtained. COMPARISON: CR,XR XR CHEST 2V PA LATERAL from 05/31/2024 CR XR PORTABLE CHEST AP from 05/30/2025 FINDINGS: MEDIASTINUM: Normal. HEART: Normal. PULMONARY VASCULATURE: Normal. LUNGS: There are no focal consolidating infiltrates. The lungs are hyperinflated suggesting underlying COPD. PLEURAL SPACE: There is no demonstrable pneumothorax seen at this time. There is a small left pleural effusion. There is no right pleural effusion or pneumothorax. BONE:Within normal limits for the patient's age. There again seen several left rib fractures some of which are displaced. OTHER FINDINGS:Normal. IMPRESSION: 1. There is no demonstrable pneumothorax seen at this time. 2. Small left pleural effusion. 3. Multiple left rib fractures. DATA REPOSITORY: RADIATION DOSE DELIVERED:
--- NOTE | 2025-05-31 | DI.RAD_ITS ---
Exam(s) XR PORTABLE CHEST AP EXAM: XR PORTABLE CHEST AP CLINICAL HISTORY: increased chest pain, pneumothorax had resolved. TECHNIQUE: 2D digital imaging was performed. COMPARISON: CR XR CHEST 2V PA LATERAL from 05/31/2025 FINDINGS: Single AP portable view. Heart size is upper normal. The mediastinum is not widened. The fractures of the left 5th, 6th and 7th ribs are again noted. There is no obvious pneumothorax. There are vertical lines over the lower left chest which are most probably artifactual. There is a small amount of ipsilateral pleural fluid which has not increased in size. There is no prominent lung contusion. The opposite-right lung is clear. Small-moderate size retrocardiac hiatal hernia is noted. IMPRESSION: Stable appearance. No significant increase in size of left-sided pneumothorax in this patient who has acute fractures of the left 5th, 6, and 7th ribs. DATA REPOSITORY: RADIATION DOSE DELIVERED:
[2025-05-31] MEDS: oxyCODONE 5 MG TAB PO ×2 (01:45→15:57)
[2025-05-31] MEDS: Levothyroxine 75 MCG TAB PO (06:14)
[2025-05-31] MEDS: Patch Removal 1 EACH TP (06:17)
[2025-05-31 07:30] VITALS: BP 132/70; PULSE 66; RESP 16; TEMP 36; O2SAT 95
[2025-05-31] MEDS: Sennosides/Docusate Sodium TAB 1 TAB PO ×2 (07:58→20:23)
[2025-05-31] MEDS: Metoprolol 12.5 MG TAB PO ×2 (07:58→20:23)
[2025-05-31] MEDS: Mirtazapine 15 MG TAB PO (07:58)
[2025-05-31] MEDS: Acetaminophen 325 MG TAB 650 MG PO ×4 (08:03→20:22)
--- NOTE | 2025-05-31 08:52 | W.PULMCON ---
General Date Of Service Date of service: 05/31/25 Time of Service: 08:30 Requesting physician: Boris Bedoya Reason for Consult: Pneumothorax Recommendations: Assessment: 1. Acute left pneumothorax - due to chest wall trauma / rib fractures - small on CXR yesterday with 1.2 cm apical pleural separation 2. Left rib fractures - ribs 5-7 on the left fractured 3. Chest pain - due to rib fractures +/- pneumothorax Recommendations: - repeat CXR this AM. If PTX has increased in size significantly, may require small bore chest tube placement - keep on 4 L O2 to help with PTX resorption - pain control per primary team History of Present Illness History of Present Illness Chief Complaint: Chest pain, left pneumothorax Narrative: Patient is an 85 yo with a history of HTN, who was admitted after having a fall in her bathroom and injuring her left chest wall. Evaluation in the ED showed left 5-[address] chest on admission showed a trace pneumothorax on the left (05/29). CXR on 05/30 showed ~ 1.2 cm of apical pleural separation. She has sharp left sided chest pain with inspiration. Currently on room air. She denies significant dyspnea. No hemoptysis. Denied head trauma. No headache. She denies any history of lung disease. No smoking history. Family history: denied family history of lung disease Smoking history: none ROS: 10 pt ROS negative except as in HPI PFSH All Active Problems (Updated 05/30/25 @ 00:59 by Fabian Dias MD) Rib fractures (Acute) Pneumothorax on left (Acute) Multiple fractures of ribs of left side (Acute) Hypertension (Chronic) On deep vein thrombosis (DVT) prophylaxis (Acute) Compression fracture of T10 vertebra (Acute) Laceration of upper arm (Acute) Contusion of sternum (Acute) Fall (Acute) Closed fracture of left proximal humerus (Acute 04/24/24) Alzheimer's dementia without behavioral disturbance (Acute) Cognitive impairment (Acute) Paroxysmal SVT (supraventricular tachycardia) (Acute) Malnutrition (Acute) Anxiety (Chronic) Advanced care planning/counseling discussion (Acute) COVID-19 (Acute) Hematuria (Acute) Weakness generalized (Acute) Vertigo (Acute) Cough (Acute) Trochanteric bursitis of right hip (Acute 02/26/16) SI (sacroiliac) pain (Acute 09/08/17) Arthritis of right hip (Acute 02/26/16) Spondylosis of lumbar region without myelopathy or radiculopathy (Acute) 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 Several pansensitive E. coli urinary tract infections recently. Hypothyroidism (Chronic) History of hematuria (Chronic) a. Microscopic. 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 Remote history, patient denies having these in years. Vertigo (Acute) Medical History Anemia, iron deficiency Asymptomatic microscopic hematuria Atrophic vaginitis COVID Dermatitis of eyelid Eczema GERD (gastroesophageal reflux disease) Glaucoma Grief reaction Hernia, inguinal, left Hypothyroid Insomnia Low back pain Migraine Nosebleed Pain of left thumb Pain, joint, hip, right Palliative care encounter Rib pain on left side Seborrheic keratosis Vitamin B12 deficiency Weight loss Surgical History Abdominal hysterectomy Appendectomy Bilateral salpingectomy with oophorectomy Biopsy of breast History of arthroplasty of right hip Hx of cataract surgery Repair of inguinal hernia Tonsillectomy and adenoidectomy 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 early spring 2021 (cared for bedbound until his at home) Visit Medication and Allergies Active Medications Generic Name Dose Route Start Last Admin Trade Name Freq PRN Reason Stop Dose Admin Acetaminophen 650 mg 05/30/25 08:30 05/31/25 08:03 Acetaminophen 325 Mg Tab PO 650 mg QID REDD Administration Acetaminophen 0 mg 05/30/25 00:49 Acetaminophen 325 Mg Tab PO Q4H PRN PRN Al Hydrox/Mg Hydrox/Simethicone 30 ml 05/30/25 00:49 Mylanta Suspension 30 Ml Cup PO Q2H PRN PRN Docusate Sodium 100 mg 05/30/25 00:49 Docusate Sodium 100 Mg Cap PO TID PRN PRN Enoxaparin Sodium 30 mg 05/31/25 12:00 Enoxaparin 30 Mg/0.3 Ml Syr SC DAILY REDD Ibuprofen 400 mg 05/30/25 18:00 05/30/25 17:28 Ibuprofen 200 Mg Tab PO 400 mg Q6H PRN PRN Administration Levothyroxine Sodium 75 mcg 05/30/25 06:00 05/31/25 06:14 Levothyroxine 75 Mcg Tab PO 75 mcg 0600 REDD Administration Lidocaine 1 patch 05/30/25 18:00 05/30/25 17:29 Lidocaine 5% Patch TP 1 patch Q24H REDD Administration Magnesium Hydroxide 30 ml 05/30/25 00:49 Milk Of Magnesia 30 Ml Cup PO DAILY PRN PRN Metoprolol Tartrate 12.5 mg 05/30/25 08:30 05/31/25 07:58 Metoprolol 12.5 Mg Tab PO 12.5 mg BID REDD Administration Mirtazapine 15 mg 05/30/25 08:30 05/31/25 07:58 Mirtazapine 15 Mg Tab PO 15 mg DAILY REDD Administration Miscellaneous 1 each 05/31/25 06:00 05/31/25 06:17 Patch Removal TP 1 each DAILY@0600 REDD Administration Morphine Sulfate 1 mg 05/30/25 02:06 05/30/25 02:16 Morphine 2 Mg/Ml Syr IVP 1 mg Q4H PRN PRN Administration Oxycodone HCl 5 mg 05/30/25 17:06 05/31/25 01:45 Oxycodone 5 Mg Tab PO 5 mg Q6H PRN PRN Administration Polyethylene Glycol 17 gm 05/30/25 00:49 Polyethylene Glycol 3350 17 Gm Packet PO DAILY PRN PRN Constipation Senna/Docusate Sodium 1 tab 05/30/25 20:00 05/31/25 07:58 Sennosides/Docusate Sodium Tab PO 1 tab BID REDD Administration Zolpidem Tartrate 5 mg 05/30/25 00:52 05/30/25 20:43 Zolpidem 5 Mg Tab PO 5 mg HS PRN PRN Administration Allergies celecoxib (From Celebrex) Allergy (Severe, Verified 05/29/25 21:26) Skin Rash Penicillins Allergy (Intermediate, Verified 05/29/25 21:26) Unknown tramadol Adverse Reaction (Severe, Verified 05/29/25 21:26) Nausea meperidine HCl (From Demerol) Adverse Reaction (Intermediate, Verified 05/29/25 21:26) Halluncinations morphine Adverse Reaction (Intermediate, Verified 05/29/25 21:26) Nausea topiramate (From Topamax) Adverse Reaction (Intermediate, Verified 05/29/25 21:26) Nausea Exam Narrative Exam Narrative: General: alert, no acute distress Head: normocephalic ENT: no stridor, trachea midline CV: normal rate, regular rhythm Respiratory: no wheezing, no crackles, no rhonchi, no prolonged expiration GI: abd soft, non-tender, non-distended Skin: no rashes Extremities: no edema, no digital clubbing Psych: normal affect Results Last Vital Signs Temp 36.0 C L 05/31/25 07:30 Pulse 66 05/31/25 07:30 Resp 16 05/31/25 07:30 BP 132/70 05/31/25 07:30 Pulse Ox 95 05/31/25 07:30 Labs 05/29/25 21:27 05/29/25 21:27 Imaging Chest x-ray: report reviewed and image reviewed
--- NOTE | 2025-05-31 10:00 | CMPROGNOTE_ITS ---
Date of service: 05/31/25 Time of Service: 12:55 Care Management Progress Note Progress Note Text Progress Note Text: Mirian was sitting up in bed with her son Jennifer present when CM met with them. Mirian is on O2 NC. Mirian states she is currently having chest pain on the side of her chest where she broke a rib; RN aware and in the room. PT consult ordered; recommendation home with use of FWW, FWW issued. Per PT, she has the most pain with bed mobility despite bracing with her hand against ribs. She reports she will likely sleep in her recliner until the pain lessens. Mirian is agreeable to HH services. She states she was stacking wood the day of her fall, she believes this work fatigued her muscles causing her to fall. CM requested palliative consult for Mirian to be followed in the outpatient setting. AD on file. CM will follow. Discharge Potential Discharge Needs: PT Evaluation and PCP F/U Appt Anticipated Barriers to Discharge: None Identified Patient/Family Education Needs: Review discharge instructions, discuss Ask Me Three Transportation: Private vehicle Plan: Anticipate Mirian will return home with new HH PT/OT/RN/HEAVY EQUIPMENT TECHNICIAN once medically cleared. She may benefit from HH services up on discharge. She will be driven home via private vehicle by family. She will follow up with her PCP and discharge plan of care. CM will continue to follow. Social Determinants of Health Screening Social Determinants of health last assessed in clinic: 05/31/25 Will the Patient Participate in the Screening?: Yes Do you worry about having a steady place to live?: yes What is your living situation today?: I have housing today, but am worried about losing it Problems where you live: no known problems In the past 12 months, have you had to go without electric, gas, oil or water in your home?: no 1. Within the past 12 months, we worried whether our food would run out before we got money to buy more.: Never true 2. Within the past 12 months, the food we bought just didn't last and we didn't have money to get more.: Never true Has lack of transportation kept you from medical appointments or from doing things needed for daily living?: no Has anyone in your life made you feel unsafe or unsupported?: no How hard is it for you to pay for the very basics like food, housing, medical care, and heating? Would you say it is:: Not hard at all Do you want help finding or keeping work or a job?: I do not need or want help If for any reason you need help with day-to-day activities such as bathing, preparing meals, shopping, managing finances, etc., do you get the help you need?: I don?t need any help How often do you feel lonely or isolated from those around you?: Never Do you speak a language other than Irish at home?: Yes Does the patient want assistance with any of the above?: No Health Related Social Needs Health related social needs: housing instability, housed, with risk of homelessness (Z59.811) and education (Z55.6)
--- NOTE | 2025-05-31 11:09 | IN_ITS ---
PT Notes Visit Reasons: Rib Fracture Physical Therapy Inpatient Initial Evaluation Date: 05/31/2025 Referring Doctor: Dr. Dias PT Orders: PT CONSULT: PT evaluation and treat Precautions: Standard precautions, rib fractures IV access Patient Profile/Admitting Diagnosis: Patient is an 85-year-old female presented to the ED status post fall getting into her tub. Patient with report of left- sided rib pain x-ray revealed displaced left 5th, 6th and 7th ribs fractured positive pneumothorax measuring 7 mm thickness at 5%. Follow-up x-ray on revealed increased size of pneumothorax to 10% patient was treated with IV pain medication and admitted to the hospital. PMHX: Rib fractures (Acute) Pneumothorax on left (Acute) Multiple fractures of ribs of left side (Acute) Hypertension (Chronic) On deep vein thrombosis (DVT) prophylaxis (Acute) Compression fracture of T10 vertebra (Acute) Laceration of upper arm (Acute) Contusion of sternum (Acute) Fall (Acute) Closed fracture of left proximal humerus (Acute 04/24/24) Alzheimer's dementia without behavioral disturbance (Acute) Cognitive impairment (Acute) Paroxysmal SVT (supraventricular tachycardia) (Acute) Malnutrition (Acute) Anxiety (Chronic) Advanced care planning/counseling discussion (Acute) COVID-19 (Acute) Hematuria (Acute) Weakness generalized (Acute) Vertigo (Acute) Cough (Acute) Trochanteric bursitis of right hip (Acute 02/26/16) SI (sacroiliac) pain (Acute 09/08/17) Arthritis of right hip (Acute 02/26/16) Spondylosis of lumbar region without myelopathy or radiculopathy (Acute) 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 Several pansensitive E. coli urinary tract infections recently.Hypothyroidism (Chronic) History of hematuria (Chronic) a. 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 Remote history, patient denies having these in years.Vertigo (Acute) Medical History Anemia, iron deficiency Asymptomatic microscopic hematuria Atrophic vaginitis COVID Dermatitis of eyelid Eczema GERD (gastroesophageal reflux disease) Glaucoma Grief reaction Hernia, inguinal, left Hypothyroid Insomnia Low back pain Migraine Nosebleed Pain of left thumb Pain, joint, hip, right Palliative care encounter Rib pain on left side Seborrheic keratosis Vitamin B12 deficiency Weight loss Surgical History Abdominal hysterectomy Appendectomy Bilateral salpingectomy with oophorectomy Biopsy of breast History of arthroplasty of right hip Hx of cataract surgery Repair of inguinal hernia Tonsillectomy and adenoidectomy Total replacement of hip (06/29/17) right Social History/Home Situation: resides at home with her adult developmentally disabled daughter. Pt reports she has stairs at home. She independent with ADL and ambulation . Pt with multiple recent falls last 3 weeks. Son lives in state but not nearby. Pts daughter is able to do light household tasks. Her dtr attends a day program so Mirian is home alone during the day. Current Functional Limitations: impaired ambulation , ADLs Equipment Owned/DME: none Subjective: Patient reports she just feels very weak, sore, and tired. She states prior to her fall she was stacking wood in her basement and is uncertain if that is why she feels so sore. Objective: [] General Observation: Thin elderly female supine in bed easily woke to name Mental Status: Alert and oriented x 4, able to follow instructions, cooperative, agreeable to participate in evaluation Pain: Left ribs 4/10 ROM: [] Right Upper Extremity: WFL Left Upper Extremity: WFL with pain in ribs Right Lower Extremity: WFL Left Lower Extremity: WFL Strength: [] Right Upper Extremity: Grossly 5/5 Left Upper Extremity: Grossly greater than equal to 5/5 no MMT secondary to rib fractures on left Bilateral lower Extremity: Grossly hips 3+/5, knees 4/5 ankles 4/5 Sensation: Intact Bed Mobility/Transfers: [] Supine to sit CGA with increased time patient utilizing right upper extremity to brace left ribs Sit to stand SBA Stand to sit SBA Bed to chair SBA without assistive device Gait: Ambulated 100 feet with contact-guard assist decreased step length intermittent instability sidestepping as patient unable to utilize arm swing to counterbalance due to need for bracing against left rib fractures. Stairs: 3 4 steps? and 2 6 steps with rails SBA with continuous cues for sequencing step to pattern Balance: [] Static Sitting: Normal Dynamic Sitting: Good Static Standing: Good Dynamic Standing: Fair secondary to pain in the left ribs Special Tests: [] Mobility Limitations Standardized Measure [] [facility] AM-PAC 6 clicks Basic Mobility Inpatient Short Form: [] Raw Score: 21 CMS Score: 28.97% Informed Consent/Education: Patient instructed in purpose of PT consult. Treatment: 90149: Gait training with FWW level surfaces SBA with cues for rolling walker management for turns to stay within frame of walker 300 feet patient with improved step length no instability no loss of balance Assessment: Patient demonstrates impaired ability to ambulate without assistive device due to need to brace left ribs while walking. Use of FWW allowed her to improve stability, eliminated stagger steps laterally and increase step length. Of note patient did not have shoes available which she reports she uses at home at all times. Patient is an 85-year-old female who presents with clinical signs and symptoms consistent with current/admitting diagnoses that have resulted to mobility limitations, gait instability, generalized weakness, and impairment of motor control as demonstrated by the following impairment level findings: 1. Decreased strength BLE major muscle groups 2. Impaired standing balance 3. Pain left ribs 4. Impaired functional activity tolerance Impairments are contributing to the following functional limitations: 1. Inability to safely ambulate without assistive device 2. Increase completion time for mobility ADL performance 3. Increased fall risk 4. Decline in bed mobility skills due to pain Patient is assessed as a low complexity based on the following: History: 85-year-old female with impairment level findings, functional limitations, and past medical history as indicated above Examination: Demonstrable impairment in strength, balance, and mobility level with underlying impairments and functional limitations as documented above Presentation: Stable Decision Making: Low Goals: 1. independent transfers with LRD 2. independent ambulation with LRD 300 feet 3. 4 steps with rail independent Plan of Care/Treatment Plan: 1-2x/day, 7 days/week x 1 week. Plan of care has been reviewed with the HEATING AND VENTILATING DRAFTER providing the service under Physical Therapy direction. Initiate Physical Therapy intervention for strengthening, bed mobility, transfers, gait, stairs, balance training, use of assistive device. DISCHARGE RECOMMENDATIONS: Home with use of FWW. TREATMENT CODE/TIME: 57841, 86963/9:32 AM?9:44, 1043?1102 Thank you for the opportunity to participate in the care of this patient. Lizzette Marcus, PT [facility]
[2025-05-31] MEDS: Enoxaparin 30 MG/0.3 ML SYR SC (11:51)
--- NOTE | 2025-05-31 12:42 | CHAPLAIN ---
I visited with Mirian yesterday afternoon following her admission. She said her ribs were very sore and it was painful when she moved. Mirian remembered me from when her was a patient there. He here a few years ago. [facility] She lives with her daughter, Barbara, who has a disability and attends [employer] during the week. Mirian's son lives in [place] and will be here today, Mirian said. Barbara asked for assistance in making a phone call to where Barbara was staying in [facility]
[2025-05-31] MEDS: MORPHine 2 MG/ML SYR 1 MG IVP ×3 (13:02→22:56)
--- NOTE | 2025-05-31 15:40 | PDOC.CMDIS ---
Date of service: 05/31/25 Time of Service: 15:47 LACE Index Scoring Tool Questions: Length of Stay (in days): 1 Was the patient admitted via the E.D.?: Yes Comorbidities: Dementia E.D. Visits: 3 Answers: Total Score: 10 Risk of Readmission: High Risk Care Management Discharge Plan Reason for Hospitalization: Rib fracture Discharge Plan: Mirian will be discharged home today with new PT/OT/RN/INSURANCE POLICY CLERK which she is agreeable to. It is recommended she follow up with her community providers and discharge plan of care. She will transport via private vehicle by her son Jennifer. Anticipate palliative care will be able to follow in the outpatient setting. Per provider, short-term pain management regimen prescription will be provided to Mirian at the time of discharge for her comfort. Patient/Family Education Needs: review of discharge instruction, activity, limitation, and plan of care. Discuss ask me three. Services Needed at Discharge: Home Health Care Services SDOH Health Related Social Needs: Health related social needs risk of homeless education
[2025-05-31 15:53] VITALS: BP 179/94; PULSE 78; RESP 18; TEMP 36.6; O2SAT 99
--- NOTE | 2025-05-31 16:09 | W.PM.DS.N ---
Date of service: 05/31/25 Time of Service: 16:09 DS: Diagnosis Discharge Diagnosis (1) Rib fractures: Status: Acute (2) Pneumothorax on left: Status: Acute (3) GERD (gastroesophageal reflux disease): Discharge Plan Disposition Patient Disposition: Home W/Home Health Services Condition: Stable Discharge Details Reason For Visit: Rib Fracture Admit Date/Time: 05/30/25 00:50 Admit Provider: Fabian Dias Attending Provider: Fabian Dias Primary Care Provider: Laura Gonzalez Hospital Course Hospital Course: 85 yo active female, fell against her left rib cage and presented with severe pleuritic pain. She was found to have 3 rib fractures and a small pneumothorax, and was admitted to observation. The pneumothorax grew slightly after the first night. She was treated with 4 liters oxygen to help resorption. She did require some IV morphine initially in addition to ibuprofen, acetaminophen, topical lidocaine, and oxycodone 5mg. She was discharged withThe pneumothorax resolved on the chest x-ray on the day of discharge. She was never hypoxic. She worked with physical therapy who recommended ongoing home health PT along with nursing. Palliative care was consulted but was not available on the day of discharge. follow up 1-2 weeks with PCP Home Meds and New Rx's Prescriptions: New oxycodone 5 mg Tablet 5 mg PO Q6H PRN PRNQty: 20 0RF diclofenac sodium 1 % gel 2 g topical QID Qty: 100 1RF Rx Instructions: apply to painful area Continued mirtazapine 15 mg tablet 15 mg PO DAILY levothyroxine 75 mcg tablet 75 mcg PO DAILY Patient Comments: TAKE ONE TABLET BY MOUTH EVERY DAY metoprolol tartrate 25 mg Tablet 12.5 mg PO BID Qty: 60 0RF docusate sodium [Colace] 100 mg Capsule 100 mg PO TID PRN PRNQty: 0 0RF acetaminophen 325 mg Tablet 650 mg PO QID Qty: 0 0RF Discontinued diclofenac sodium 25 mg tablet,delayed release (DR/EC) 25 mg PO BID Patient Comments: TAKE ONE TABLET BY MOUTH TWICE A DAY ibuprofen [Advil] 200 mg Tablet 200 mg PO Q6H PRN PRNQty: 0 0RF Discharge Instructions Instructions: Rib fractures in adults Additional Instructions: continue to use the breathing machine to avoid pneumonia (incentive spirometer) Use diclofenac 1% cream right on the painful area. If this isn't helping, you can use ibuprofen orally 400-600mg or diclofenac 25mg, but not together. You can also use lidocaine patches (over the counter 4%) or gel. take the stool softener docusate when you are taking the oxycodone for pain Activity:: Activity as Tolerated Equipment/Supplies:: No Equipment Needed Diet:: As Tolerated Discharge Orders Discharge Orders: Discharge Order (Routine); Ordered 05/31/25 Ordered By: Boris Bedoya DS: Summary Time Spent with Patient providing and/or coordinating discharge services: Greater than 30 minutes Status at Discharge Functional status at discharge: uses cane/walker Overall status at discharge: patient is progressing back to baseline Mental Status: mental status grossly normal Speech and Movement: speech and movement normal Mood: congruent mood Affect: normal affect Quality:SDOH Health Related Social Needs: Health related social needs risk of homeless education Exam Narrative Exam Narrative: General: alert, no acute distress ENT: no stridor, trachea midline CV: RRR, no murmur Respiratory: CTAB, BS audible in tender area GI: abd soft, non-tender, non-distended Skin: no rashes/open wounds Extremities: no edema, warm, no digital clubbing Psych Mental Status: mental status grossly normal Speech and Movement: speech and movement normal Mood: congruent mood Affect: normal affect DS: Data Vitals/I&O Vitals and I&O: Vital Signs Temperature 36.6 C 05/31/25 15:53 Temperature Source Temporal Artery Scan 05/31/25 15:53 Pulse 78 05/31/25 15:53 Pulse Rhythm Regular 05/30/25 15:02 Pulse 65 05/30/25 13:15 Respiratory Rate 18 05/31/25 15:53 Respiratory Effort Short of Breath 05/30/25 15:02 Respiratory Depth Shallow 05/30/25 15:02 Respiratory Pattern Normal 05/30/25 15:02 Blood Pressure 179/94 H 05/31/25 15:53 Blood Pressure Mean 122 05/31/25 15:53 Pulse Oximetry 99 05/31/25 15:53 Oxygen Delivery Method Nasal Cannula 05/31/25 15:53 Oxygen Flow Rate 4 05/31/25 15:53 Pain Level 9 05/31/25 15:57 Intake & Output 05/30/25 05/31/25 05/31/25 23:59 11:59 23:59 Intake Total 240 / 240 Balance 240 / 240 Weight 48.9 kg Intake: Oral 240 / 240 Other: Urine Color Yellow Urine Appearance Clear Comment independent to toilet. [facility] All Active Problems (Updated 05/30/25 @ 00:59 by Fabian Dias MD) Rib fractures (Acute) Pneumothorax on left (Acute) Multiple fractures of ribs of left side (Acute) Hypertension (Chronic) On deep vein thrombosis (DVT) prophylaxis (Acute) Compression fracture of T10 vertebra (Acute) Laceration of upper arm (Acute) Contusion of sternum (Acute) Fall (Acute) Closed fracture of left proximal humerus (Acute 04/24/24) Alzheimer's dementia without behavioral disturbance (Acute) Cognitive impairment (Acute) Paroxysmal SVT (supraventricular tachycardia) (Acute) Malnutrition (Acute) Anxiety (Chronic) Advanced care planning/counseling discussion (Acute) COVID-19 (Acute) Hematuria (Acute) Weakness generalized (Acute) Vertigo (Acute) Cough (Acute) Trochanteric bursitis of right hip (Acute 02/26/16) SI (sacroiliac) pain (Acute 09/08/17) Arthritis of right hip (Acute 02/26/16) Spondylosis of lumbar region without myelopathy or radiculopathy (Acute) 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 Several pansensitive E. coli urinary tract infections recently. Hypothyroidism (Chronic) History of hematuria (Chronic) a. Microscopic. 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 Remote history, patient denies having these in years. Vertigo (Acute) Medical History Anemia, iron deficiency Asymptomatic microscopic hematuria Atrophic vaginitis COVID Dermatitis of eyelid Eczema GERD (gastroesophageal reflux disease) Glaucoma Grief reaction Hernia, inguinal, left Hypothyroid Insomnia Low back pain Migraine Nosebleed Pain of left thumb Pain, joint, hip, right Palliative care encounter Rib pain on left side Seborrheic keratosis Vitamin B12 deficiency Weight loss Surgical History Abdominal hysterectomy Appendectomy Bilateral salpingectomy with oophorectomy Biopsy of breast History of arthroplasty of right hip Hx of cataract surgery Repair of inguinal hernia Tonsillectomy and adenoidectomy 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 early spring 2021 (cared for bedbound until his at home) Time Spent with Patient Time Spent with Patient: <45 minutes Time was spent: preparing to see the patient(eg.review tests), obtaining and/or reviewing separately otained hiistory, ordering medications,tests, procedures, referring, communicating with other health career services assistant, indepentently interpreting results, counseling the patient and care coordination
--- NOTE | 2025-05-31 16:12 | PDOC.HHF2F ---
Home Health Referral Home Health Orders Clinical synopsis of why skilled professionals are needed: 85 yo active female, fell against her left rib cage and presented with severe pleuritic pain. She was found to have 3 rib fractures and a small pneumothorax, and was admitted to observation. The pneumothorax grew slightly after the first night. She was treated with 4 liters oxygen to help resorption. She did require some IV morphine initially in addition to ibuprofen, acetaminophen, topical lidocaine, and oxycodone 5mg. The pneumothorax resolved on the chest x-ray on the day prior to discharge. She was never hypoxic. She worked with physical therapy who recommended ongoing home health PT along with nursing. Palliative care was consulted but was not available on the day of discharge. She was prepared for discharge 05/31, but had worse pain so EKG and CXR were repeated which were again reassuring. Anesthesia was consulted and did a rib block, which helped her pain on 06/01. She also got a dose of IV ketoralac 15mg. She was discharged with her son Jennifer. Nabumetone was also prescribed to help with her pain regimen, other NSAIDs stopped. This note was opened 05/31 but face to face exam also done 06/01 after discharge delayed. Medical diagnosis necessitation home health referral: rib fractures, pneumothorax Registered Nurse: Check all that apply Assess for exacerbation of medical condition, instruct patient/caregivers on signs and symptoms to report for early detection: Ordered Physical Therapist: Check all that apply Increase strength & endurance for safe mobility at home: Ordered To design/establish home maintenance program: Ordered Fall reduction therapy program for patient with history of frequent falls: Ordered Home safety evaluation and teaching/gait training including stair management (if applicable): Ordered Bird Raiser: Assist with community resources: Ordered Assist with residential care planning: Ordered Home Bound Status Requires the aid of supportive device (check all that apply): Cane and Walker Describe why leaving home would require a considerable and taxing effort: Side effects from pain medication (sedation/drowsiness) and Requires frequent rest periods Encounter Date and Reason: I certify that a FTF encounter for this patient was performed on May 31, 2025 and that such encounter was related to the primary reason the patient requires home health services. The encounter was conducted in the following manner: By me as the certifying physician, GRINDER SET UP OPERATOR INTERNAL, PA or By an inpatient physician, GRINDER SET UP OPERATOR INTERNAL or PA during an inpatient stay who communicated findings to me, Certification And Authentication I certify that I composed the above information based on my clinical judgment relating to this patient's medical condition and, if applicable, clinical findings communicated to me by the NPP or inpatient physician who performed the FTF encounter. Name of Provider that will be monitoring home health services: Laura Gonzalez
--- NOTE | 2025-05-31 16:15 | RT.EKG_ITS ---
APPROVED REPORT Exam: Resting ECG Reason for Exam: increased chest pain Patient Location: I HR:82 bpm ECG Measurements Heart Rate 82 AXIS LA 226 P 79 QRSd 119 QRS 51 QT 426 T 60 QTc 498 Conclusion Sinus rhythm...normal P axis, V-rate 50- 99 Ventricular premature complex...V complex w/ short R-R interval Prolonged LA interval...LA >220, V-rate 50- 90
[2025-05-31 16:17] VITALS: BP 176/95; PULSE 86; O2SAT 99
[2025-05-31] MEDS: Lidocaine 5% Patch 1 PATCH TP (18:08)
[2025-05-31 20:15] VITALS: O2SAT 97
--- NOTE | 2025-05-31 21:15 | W.PM.PROGNOT ---
Date of Service Date of service: 05/31/25 Time of Service: 21:15 Assessment and Plan Assessment and plan (1) Rib fractures: Status: Acute Assessment and plan: She was ready to discharge, but worse pain prior to discharge, so kept to observe. Continue NSAIDs, APAP, topical lidocaine, oral oxycodone option, IV morphine only prn if others not helping continue bowel regimen (2) Pneumothorax on left: Status: Acute Assessment and plan: Resolved on repeat CXR after started on oxygen. After chest pain, repeated with no change. Okay to continue IS (3) GERD (gastroesophageal reflux disease): Assessment and plan: Continue with oral medications On Lovenox for DVT prophylaxis Subjective Subjective Patient reports: tolerating a regular diet and voiding w/o difficulty; denies diarrhea, vomiting or fever Interval history since last seen: Seen by Pulnonlogy, started on oxygen this morning She still has chest pain when she breaths. Had episode of worse chest pain, was breathing heavy, anxious. She doesn't feel well Objective Last Vital Signs Temp 36.6 C 05/31/25 15:53 Pulse 86 05/31/25 16:17 Resp 18 05/31/25 15:53 BP 176/95 H 05/31/25 16:17 Pulse Ox 99 05/31/25 16:17 Time Spent with Patient Time Spent with Patient: 35-49 minutes Time was spent: preparing to see the patient(eg.review tests), obtaining and/or reviewing separately otained hiistory, ordering medications,tests, procedures, referring, communicating with other health youth care worker, indepentently interpreting results, counseling the patient and care coordination
[2025-05-31] MEDS: Zolpidem 5 MG TAB PO (23:05)
[2025-06-01] MEDS: Levothyroxine 75 MCG TAB PO (05:57)
[2025-06-01] MEDS: Patch Removal 1 EACH TP (05:58)
[2025-06-01 07:54] VITALS: BP 134/87; PULSE 82; RESP 17; TEMP 36.6; O2SAT 98
[2025-06-01] MEDS: oxyCODONE 5 MG TAB PO (08:06)
[2025-06-01] MEDS: Mirtazapine 15 MG TAB PO (08:06)
[2025-06-01] MEDS: Sennosides/Docusate Sodium TAB 1 TAB PO (08:06)
[2025-06-01] MEDS: Metoprolol 12.5 MG TAB PO (08:07)
[2025-06-01] MEDS: Acetaminophen 325 MG TAB 650 MG PO ×2 (08:07→11:39)
[2025-06-01] MEDS: Enoxaparin 30 MG/0.3 ML SYR SC (08:07)
--- NOTE | 2025-06-01 08:17 | W.PULMCON ---
General Date Of Service Date of service: 06/01/25 Time of Service: 07:30 Requesting physician: Boris Bedoya Reason for Consult: Pneumothorax Recommendations: Assessment: 1. Acute left pneumothorax - due to chest wall trauma / rib fractures - CXR resolved with supplemental oxygen 2. Left rib fractures - ribs 5-7 on the left 3. Chest pain - due to rib fractures Recommendations: - pain control per primary team - should she develop increased dyspnea, O2 requirements, or worsening chest pain would repeat CXR - can keep on oxygen for another day, then can d/c - I will sign off Discussed with Dr. Bedoya Assessment and Plan Assessment and plan (1) Pneumothorax on left: Status: Acute (2) Rib pain on left side: History of Present Illness History of Present Illness Chief Complaint: Chest pain, left pneumothorax Narrative: Patient is an 85 yo with a history of HTN, who was admitted after having a fall in her bathroom and injuring her left chest wall. Evaluation in the ED showed left 5-[address] chest on admission showed a trace pneumothorax on the left (05/29). CXR on 05/30 showed ~ 1.2 cm of apical pleural separation. She denies any history of lung disease. No smoking history. Repeat CXR on 05/31 showed resolution of her pneumothroax. Has had persistent left lateral chest pain. Denies significant cough or dyspnea. Family history: denied family history of lung disease Smoking history: none ROS: 6 pt ROS negative except as in HPI PFSH All Active Problems (Updated 05/30/25 @ 00:59 by Fabian Dias MD) Rib fractures (Acute) Pneumothorax on left (Acute) Multiple fractures of ribs of left side (Acute) Hypertension (Chronic) On deep vein thrombosis (DVT) prophylaxis (Acute) Compression fracture of T10 vertebra (Acute) Laceration of upper arm (Acute) Contusion of sternum (Acute) Fall (Acute) Closed fracture of left proximal humerus (Acute 04/24/24) Alzheimer's dementia without behavioral disturbance (Acute) Cognitive impairment (Acute) Paroxysmal SVT (supraventricular tachycardia) (Acute) Malnutrition (Acute) Anxiety (Chronic) Advanced care planning/counseling discussion (Acute) COVID-19 (Acute) Hematuria (Acute) Weakness generalized (Acute) Vertigo (Acute) Cough (Acute) Trochanteric bursitis of right hip (Acute 02/26/16) SI (sacroiliac) pain (Acute 09/08/17) Arthritis of right hip (Acute 02/26/16) Spondylosis of lumbar region without myelopathy or radiculopathy (Acute) 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 Several pansensitive E. coli urinary tract infections recently. Hypothyroidism (Chronic) History of hematuria (Chronic) a. Microscopic. 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 Remote history, patient denies having these in years. Vertigo (Acute) Medical History Anemia, iron deficiency Asymptomatic microscopic hematuria Atrophic vaginitis COVID Dermatitis of eyelid Eczema GERD (gastroesophageal reflux disease) Glaucoma Grief reaction Hernia, inguinal, left Hypothyroid Insomnia Low back pain Migraine Nosebleed Pain of left thumb Pain, joint, hip, right Palliative care encounter Rib pain on left side Seborrheic keratosis Vitamin B12 deficiency Weight loss Surgical History Abdominal hysterectomy Appendectomy Bilateral salpingectomy with oophorectomy Biopsy of breast History of arthroplasty of right hip Hx of cataract surgery Repair of inguinal hernia Tonsillectomy and adenoidectomy 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 early spring 2021 (cared for bedbound until his at home) Visit Medication and Allergies Active Medications Generic Name Dose Route Start Last Admin Trade Name Freq PRN Reason Stop Dose Admin Acetaminophen 650 mg 05/30/25 08:30 06/01/25 08:07 Acetaminophen 325 Mg Tab PO 650 mg QID REDD Administration Acetaminophen 0 mg 05/30/25 00:49 Acetaminophen 325 Mg Tab PO Q4H PRN PRN Al Hydrox/Mg Hydrox/Simethicone 30 ml 05/30/25 00:49 Mylanta Suspension 30 Ml Cup PO Q2H PRN PRN Docusate Sodium 100 mg 05/30/25 00:49 Docusate Sodium 100 Mg Cap PO TID PRN PRN Enoxaparin Sodium 30 mg 05/31/25 12:00 06/01/25 08:07 Enoxaparin 30 Mg/0.3 Ml Syr SC 30 mg DAILY REDD Administration Ibuprofen 400 mg 05/30/25 18:00 05/30/25 17:28 Ibuprofen 200 Mg Tab PO 400 mg Q6H PRN PRN Administration Levothyroxine Sodium 75 mcg 05/30/25 06:00 06/01/25 05:57 Levothyroxine 75 Mcg Tab PO 75 mcg 0600 REDD Administration Lidocaine 1 patch 05/30/25 18:00 05/31/25 18:08 Lidocaine 5% Patch TP 1 patch Q24H REDD Administration Magnesium Hydroxide 30 ml 05/30/25 00:49 Milk Of Magnesia 30 Ml Cup PO DAILY PRN PRN Metoprolol Tartrate 12.5 mg 05/30/25 08:30 06/01/25 08:07 Metoprolol 12.5 Mg Tab PO 12.5 mg BID REDD Administration Mirtazapine 15 mg 05/30/25 08:30 06/01/25 08:06 Mirtazapine 15 Mg Tab PO 15 mg DAILY REDD Administration Miscellaneous 1 each 05/31/25 06:00 06/01/25 05:58 Patch Removal TP 1 each DAILY@0600 REDD Administration Morphine Sulfate 1 mg 05/30/25 02:06 05/31/25 22:56 Morphine 2 Mg/Ml Syr IVP 1 mg Q4H PRN PRN Administration Oxycodone HCl 5 mg 05/30/25 17:06 06/01/25 08:06 Oxycodone 5 Mg Tab PO 5 mg Q6H PRN PRN Administration Polyethylene Glycol 17 gm 05/30/25 00:49 Polyethylene Glycol 3350 17 Gm Packet PO DAILY PRN PRN Constipation Senna/Docusate Sodium 1 tab 05/30/25 20:00 06/01/25 08:06 Sennosides/Docusate Sodium Tab PO 1 tab BID REDD Administration Zolpidem Tartrate 5 mg 05/30/25 00:52 05/31/25 23:05 Zolpidem 5 Mg Tab PO 5 mg HS PRN PRN Administration Allergies celecoxib (From Celebrex) Allergy (Severe, Verified 05/29/25 21:26) Skin Rash Penicillins Allergy (Intermediate, Verified 05/29/25 21:26) Unknown tramadol Adverse Reaction (Severe, Verified 05/29/25 21:26) Nausea meperidine HCl (From Demerol) Adverse Reaction (Intermediate, Verified 05/29/25 21:26) Halluncinations morphine Adverse Reaction (Intermediate, Verified 05/29/25 21:26) Nausea topiramate (From Topamax) Adverse Reaction (Intermediate, Verified 05/29/25 21:26) Nausea Exam Narrative Exam Narrative: General: alert, mild distress due to chest wall pain Head: normocephalic ENT: no stridor, trachea midline CV: normal rate, regular rhythm Respiratory: no wheezing, no crackles, no rhonchi, no prolonged expiration GI: abd soft, non-tender, non-distended Skin: no rashes Extremities: no edema, no digital clubbing Psych: normal affect Results Last Vital Signs Temp 36.6 C 06/01/25 07:54 Pulse 82 06/01/25 07:54 Resp 17 06/01/25 07:54 BP 134/87 06/01/25 07:54 Pulse Ox 98 06/01/25 07:54 Labs 05/29/25 21:27 05/29/25 21:27
[2025-06-01] MEDS: Ketorolac 15 MG/ML VIAL IVP (11:39)
--- NOTE | 2025-06-01 12:08 | PT.INTREAT ---
PT Notes Visit Reasons: Rib Fracture Inpatient Physical Therapy Treatment Note Date: 06/01/2025 Precautions: Fall risk. Standard precautions. Oxygen via nasal cannula currently at 3 L Subjective: Patient reports she is feeling very tired today Objective: General Observation: Thin, frail elderly. Supine in bed with O2 via nasal cannula Mental Status: Alert and oriented to person and place. Pain: Musculoskeletal left lateral ribs aggravated with deep breaths Vital signs: O2 sats throughout 98 to 100% on 3 L Bed Mobility/Transfers: Supine to sit independent Sit to stand independent Gait: Facilitated safe and correct performance of level surface ambulation covering a distance of 150 feet + 150 feet without device with SBA reported fatigue after each walk. No shortness of breath. [place] slowed. [place] narrowed. Decreased step height and length. Cueing provided for walker management and energy conservation. Stairs: Guided with safe and correct negotiation of 4 x 6-inch steps and 3 x 6-inch steps while holding onto B rails for support., reciprocal pattern standby assist and minimal verbal cueing for overall safety. Assessment: Despite reported fatigue, patient tolerated session well. Patient demonstrating no dyspnea on exertion with ambulation on this date. Patient continues to note left lateral rib discomfort with deep breathing. Patient session shortened by pulmonary consult Plan of Care/Treatment Plan: 1-2x/day, 7 days/week x 1 week. Plan of care has been reviewed with the WILDLIFE REHABILITATOR providing the service under Physical Therapy direction. Initiate Physical Therapy intervention for strengthening, bed mobility, transfers, gait, stairs, balance training, use of assistive device. DISCHARGE RECOMMENDATIONS: Home with HHPT TREATMENT CODE/TIME: 48647 1 units/1145?[id number].
--- NOTE | 2025-06-01 12:20 | W.ANESNERVE ---
Nerve Block Single Injection Procedure Date and Time Date Performed: 06/01/25 Procedure Start: 12:05 Location Where Procedure Performed Procedure Location: Day Surgery Unit Reason Performed: Acute Pain Management Pain Diagnosis: Rib Pain (fractured ribs, difficulty taking deep breaths and mobilizing. ) Requesting Provider: Boris Bedoya Timeout Performed Timeout Performed: Yes Monitoring Used ECG, Blood Pressure and SpO2 Sterility Sterility: Hand Hygiene, Surgical Cap, Surgical Mask, Sterile Gloves and Chlorhexidine Sedation Given During Procedure Sedation Given (Indicate Dose Given): No Sedation given Patient Mental Status Patient Mental Status: Awake Nerve Block 1st Nerve Block: Laterality: Left Block Type: Erector Spinae (Upper) Ultrasound Image Saved?: Yes Needle / Catheter Used: 80mm SonoPlex II Local Anesthetic Bolus (Indicate Dose Given): Lidocaine used for local infiltration of skin, Bupivacaine 0.25% Dose:: 12 mL and Exparel Dose:: 8 mL Additives (Indicate Dose Given): None Ultrasound: Sterile probe cover and gel used Nerve Stimulator: Not Used Paresthesia: None Procedure Tolerated: No Complications Procedure Outcome: Successful Procedure Comment: Discussed risks, benifits of regional anesthesia for rib fractures. She is willing to proceed. No contraindications to regional. Performed By: Giovanni Bingham
--- NOTE | 2025-06-01 13:50 | W.PM.DS.N ---
Date of service: 06/01/25 Time of Service: 13:50 DS: Diagnosis Discharge Diagnosis (1) Pneumothorax on left: Status: Acute (2) Rib pain on left side: Discharge Plan Disposition Patient Disposition: Home W/Home Health Services Condition: Stable Discharge Details Reason For Visit: Rib Fracture Admit Date/Time: 05/30/25 00:50 Admit Provider: Fabian Dias Attending Provider: Fabian Dias Primary Care Provider: Laura Gonzalez Hospital Course Hospital Course: 85 yo active female, fell against her left rib cage and presented with severe pleuritic pain. She was found to have 3 rib fractures and a small pneumothorax, and was admitted to observation. The pneumothorax grew slightly after the first night. She was treated with 4 liters oxygen to help resorption. She did require some IV morphine initially in addition to ibuprofen, acetaminophen, topical lidocaine, and oxycodone 5mg. The pneumothorax resolved on the chest x-ray on the day prior to discharge. She was never hypoxic. She worked with physical therapy who recommended ongoing home health PT along with nursing. Palliative care was consulted but was not available on the day of discharge. She was prepared for discharge 05/31, but had worse pain so EKG and CXR were repeated which were again reassuring. Anesthesia was consulted and did a rib block, which helped her pain on 06/01. She also got a dose of IV ketoralac 15mg. She was discharged with her son Jennifer. Nabumetone was also prescribed to help with her pain regimen, other NSAIDs stopped. follow up 1-2 weeks with PCP Recommendations for Follow Up Recommended tests to be ordered by follow up provider: [facility] 1 week Home Meds and New Rx's Prescriptions: New oxycodone 5 mg Tablet 5 mg PO Q6H PRN PRNQty: 20 0RF nabumetone 500 mg tablet 500 mg PO BID Qty: 60 0RF Rx Instructions: cancel other NSAIDs polyethylene glycol 3350 17 gram Powder In Packet 17 g PO DAILY PRN PRN (Reason: Constipation) Qty: 1 0RF sennosides-docusate sodium [Colace 2-In-1] 8.6-50 mg Tablet 1 tab PO BID Qty: 60 0RF Rx Instructions: take while taking oxycodone Continued mirtazapine 15 mg tablet 15 mg PO DAILY levothyroxine 75 mcg tablet 75 mcg PO DAILY Patient Comments: TAKE ONE TABLET BY MOUTH EVERY DAY metoprolol tartrate 25 mg Tablet 12.5 mg PO BID Qty: 60 0RF docusate sodium [Colace] 100 mg Capsule 100 mg PO TID PRN PRNQty: 0 0RF acetaminophen 325 mg Tablet 650 mg PO QID Qty: 0 0RF Discontinued diclofenac sodium 25 mg tablet,delayed release (DR/EC) 25 mg PO BID Patient Comments: TAKE ONE TABLET BY MOUTH TWICE A DAY ibuprofen [Advil] 200 mg Tablet 200 mg PO Q6H PRN PRNQty: 0 0RF Discharge Instructions Instructions: Rib fractures in adults Additional Instructions: continue to use the breathing machine to avoid pneumonia (incentive spirometer) You have an anti-inflamatory medication nabumetone to take twice a day as well as oxycodone to take as needed. You can also take acetaminophen (over the counter tylenol). Don't take other medication with these. You can also use lidocaine patches (over the counter 4%) or gel and a heating pad. take the stool softener docusate when you are taking the oxycodone for pain. Take Miralax powder (polyethylene glycol) daily until you have a bowel movement. Activity:: Activity as Tolerated Equipment/Supplies:: No Equipment Needed Diet:: As Tolerated Discharge Orders Discharge Orders: Discharge Order (Routine); Ordered 05/31/25 Ordered By: Boris Bedoya DS: Summary Time Spent with Patient providing and/or coordinating discharge services: Greater than 30 minutes Status at Discharge Functional status at discharge: uses cane/walker Overall status at discharge: patient is progressing back to baseline Mental Status: mental status grossly normal Speech and Movement: speech and movement normal Mood: congruent mood Affect: normal affect Quality:SDOH Health Related Social Needs: Health related social needs risk of homeless education Exam Narrative Exam Narrative: General: alert, no acute distress ENT: no stridor, trachea midline CV: RRR, no murmur Respiratory: CTAB, BS audible in tender area. Chest wall very tender on left GI: abd soft, non-tender, non-distended Skin: no rashes/open wounds Extremities: no edema, warm, no digital clubbing Psych Mental Status: mental status grossly normal Speech and Movement: speech and movement normal Mood: congruent mood Affect: normal affect DS: Data Vitals/I&O Vitals and I&O: Vital Signs Temperature 36.6 C 06/01/25 07:54 Temperature Source Temporal Artery Scan 06/01/25 07:54 Pulse 82 06/01/25 07:54 Pulse Rhythm Regular 05/30/25 15:02 Pulse 65 05/30/25 13:15 Respiratory Rate 17 06/01/25 07:54 Respiratory Effort Short of Breath 05/30/25 15:02 Respiratory Depth Shallow 05/30/25 15:02 Respiratory Pattern Normal 05/30/25 15:02 Blood Pressure 134/87 06/01/25 07:54 Blood Pressure Mean 102 06/01/25 07:54 Pulse Oximetry 98 06/01/25 07:54 Oxygen Delivery Method Nasal Cannula 06/01/25 08:05 Oxygen Flow Rate 4 06/01/25 08:05 Pain Level 8 06/01/25 08:06 Intake & Output 05/31/25 06/01/25 06/01/25 23:59 11:59 23:59 Intake Total Balance Weight 48 kg Intake: IV Other: Urine Color Yellow Urine Appearance Clear Comment pt uses toilet independently PFSH All Active Problems (Updated 05/30/25 @ 00:59 by Fabian Dias MD) Rib fractures (Acute) Pneumothorax on left (Acute) Multiple fractures of ribs of left side (Acute) Hypertension (Chronic) On deep vein thrombosis (DVT) prophylaxis (Acute) Compression fracture of T10 vertebra (Acute) Laceration of upper arm (Acute) Contusion of sternum (Acute) Fall (Acute) Closed fracture of left proximal humerus (Acute 04/24/24) Alzheimer's dementia without behavioral disturbance (Acute) Cognitive impairment (Acute) Paroxysmal SVT (supraventricular tachycardia) (Acute) Malnutrition (Acute) Anxiety (Chronic) Advanced care planning/counseling discussion (Acute) COVID-19 (Acute) Hematuria (Acute) Weakness generalized (Acute) Vertigo (Acute) Cough (Acute) Trochanteric bursitis of right hip (Acute 02/26/16) SI (sacroiliac) pain (Acute 09/08/17) Arthritis of right hip (Acute 02/26/16) Spondylosis of lumbar region without myelopathy or radiculopathy (Acute) 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 Several pansensitive E. coli urinary tract infections recently. Hypothyroidism (Chronic) History of hematuria (Chronic) a. Microscopic. 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 Remote history, patient denies having these in years. Vertigo (Acute) Medical History Anemia, iron deficiency Asymptomatic microscopic hematuria Atrophic vaginitis COVID Dermatitis of eyelid Eczema GERD (gastroesophageal reflux disease) Glaucoma Grief reaction Hernia, inguinal, left Hypothyroid Insomnia Low back pain Migraine Nosebleed Pain of left thumb Pain, joint, hip, right Palliative care encounter Rib pain on left side Seborrheic keratosis Vitamin B12 deficiency Weight loss Surgical History Abdominal hysterectomy Appendectomy Bilateral salpingectomy with oophorectomy Biopsy of breast History of arthroplasty of right hip Hx of cataract surgery Repair of inguinal hernia Tonsillectomy and adenoidectomy 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 early spring 2021 (cared for bedbound until his at home) Time Spent with Patient Time Spent with Patient: <45 minutes Time was spent: preparing to see the patient(eg.review tests), obtaining and/or reviewing separately otained hiistory, ordering medications,tests, procedures, referring, communicating with other health care transition coordinator, indepentently interpreting results, counseling the patient and care coordination
--- NOTE | 2025-06-01 15:17 | CMDISCH_ITS ---
Date of service: 06/01/25 Time of Service: 15:17 LACE Index Scoring Tool Questions: Length of Stay (in days): 2 Was the patient admitted via the E.D.?: Yes Comorbidities: Dementia E.D. Visits: 3 Answers: Total Score: 11 Risk of Readmission: High Risk Care Management Discharge Plan Reason for Hospitalization: rib fractures Discharge Plan: Mirian was discharged home this afternoon with new home care services through [facility] of SN, PT, OT and VICE PRESIDENT PROCESS. She will f/u with her PCP on 06/13 at 10:30. Jennifer, Mirian's son, was notified of this visit. Mirian was transported home by Jennifer. Patient/Family Education Needs: Review of discharge instructions, activity, limitations, and discuss Ask me 3. Services Needed at Discharge: Home Health Care Services ([facility] RN, PT/OT and VICE PRESIDENT PROCESS) SDOH Health Related Social Needs: Health related social needs risk of homeless education
== END 2025-06-01 14:45 | disposition home health service (06) | DRG 184 ==
LOC: ER 05-30 00:43 → EDHOLD 05-30 04:40 → MS 05-30 14:46 → EDHOLD 05-30 15:44
PROVIDERS: Admitting Provider Hospitalist; Emergency Provider Emergency Medicine; PCP Family Medicine; Responsible Provider Family Medicine; Visit Provider Hospitalist
DX: S22.42XA Multiple fractures of ribs, left side, initial encounter for closed fracture (principal); E46 Unspecified protein-calorie malnutrition; I47.10 Supraventricular tachycardia, unspecified; S27.0XXA Traumatic pneumothorax, initial encounter; Z68.1 Body mass index [BMI] 19.9 or less, adult; E03.9 Hypothyroidism, unspecified; K21.9 Gastro-esophageal reflux disease without esophagitis; R07.81 Pleurodynia; I10 Essential (primary) hypertension; G30.9 Alzheimer's disease, unspecified; F02.80 Dementia in other diseases classified elsewhere, unspecified severity, without behavioral disturbance, psychotic disturbance, mood disturbance, and anxiety; W18.2XXA Fall in (into) shower or empty bathtub, initial encounter; Z79.899 Other long term (current) drug therapy; F41.9 Anxiety disorder, unspecified; R53.1 Weakness; M47.816 Spondylosis without myelopathy or radiculopathy, lumbar region; D50.9 Iron deficiency anemia, unspecified; H40.9 Unspecified glaucoma; G43.909 Migraine, unspecified, not intractable, without status migrainosus; E53.8 Deficiency of other specified B group vitamins; G47.00 Insomnia, unspecified
CPT/HCPCS: 00123; 36415; 76942; 80053; 96374; 97116; 97161; 97530; 99222; 99232; 99285; 71045; 71046; 71260; 83735; 85025; 85610; 93005; 93010; 94760; 99233; 99238; J0665; J0666; J1650; J1885; J2270; J3010; J3490

== ENCOUNTER 2025-06-07 15:52 | Emergency (ER) | payer MEDICARE, SELFPAY ==
--- NOTE | 2025-06-07 15:45 | RT.EKG_ITS ---
APPROVED REPORT Exam: Resting ECG Reason for Exam: Chest Pain Patient Location: E HR:72 bpm ECG Measurements Heart Rate 72 AXIS MO 89 P 147 QRSd 99 QRS 37 QT 447 T 81 QTc 481 Conclusion Sinus or ectopic atrial rhythm...P axis (-45,135) Multiple ventricular premature complexes...V complexes w/ short R-R intervls There are no significant changes compared to prior EKG performed on 05/31/2025 at 16:14.
--- NOTE | 2025-06-07 15:45 | W.ED.GENAD ---
Discharge Plan Disposition Patient Disposition: Home Condition: Good Discharge Details Clinical Impression: Hyperventilation, UTI (urinary tract infection) Primary Care Provider: Laura Gonzalez ED Provider: Fabian Rebolledo and New Rx's Prescriptions: New cefpodoxime 200 mg tablet 200 mg PO BID Qty: 10 0RF Rx Instructions: must administer with a meal/food Continued mirtazapine 15 mg tablet 15 mg PO DAILY levothyroxine 75 mcg tablet 75 mcg PO DAILY Patient Comments: TAKE ONE TABLET BY MOUTH EVERY DAY metoprolol tartrate 25 mg Tablet 12.5 mg PO BID Qty: 60 0RF docusate sodium [Colace] 100 mg Capsule 100 mg PO TID PRN PRNQty: 0 0RF acetaminophen 325 mg Tablet 650 mg PO QID Qty: 0 0RF oxycodone 5 mg Tablet 5 mg PO Q6H PRN PRNQty: 20 0RF nabumetone 500 mg tablet 500 mg PO BID Qty: 60 0RF Rx Instructions: cancel other NSAIDs polyethylene glycol 3350 17 gram Powder In Packet 17 g PO DAILY PRN PRN (Reason: Constipation) Qty: 1 0RF sennosides-docusate sodium [Colace 2-In-1] 8.6-50 mg Tablet 1 tab PO BID Qty: 60 0RF Rx Instructions: take while taking oxycodone Discharge Instructions Instructions: Hyperventilation, Urinary Tract Infection, Adult ED Additional Instructions: You are seen for difficulty breathing, weakness of sudden onset. Your EKG and laboratory studies overall are reassuring. Your urine does suggest an infection for which you received IV antibiotics here and will need to [employer] a prescription tomorrow to begin taking. Repeat CT scan shows continued small pneumothorax and effusion associated with the previous rib fractures. You are okay to go home and follow-up with primary care tomorrow as planned. Return to ED for fever, confusion, chest pain, new or worsening shortness of breath, other concerns. Referrals: Laura Gonzalez [Primary Care Provider, Medicine] [facility] General Mode of arrival: EMS. Date/Time Provider Initiated Documentation: 06/07/25 16:00. Limitations to Documentation: no limitations. Information obtained by: patient, EMS, RN notes reviewed and old records reviewed. HPI Narrative: Patient presents to ED by EMS after waking from a nap and becoming acutely short of breath. EMS was activated. Initial computer read of EKG was STEMI. However, research interviewer review of EKG resulted in downgrade and no STEMI. Patient arrives to ED complaining of shortness of breath, shaking all over, hyperventilating and feeling weak. She denies any type of pain and specifically denies chest or back pain. No report of fever or cough. Denies any vomiting or abdominal pain. Is feeling very cold and wants to be covered up. Related Data Home Medications ?Medication ?Instructions ?Recorded ?Confirmed levothyroxine 75 mcg tablet 75 mcg PO DAILY 07/29/22 05/29/25 metoprolol tartrate 25 mg tablet 12.5 mg (1/2 x 25 mg) PO BID #60 07/29/22 05/29/25 tabs mirtazapine 15 mg tablet 15 mg PO DAILY 05/04/24 05/29/25 acetaminophen 325 mg tablet 650 mg (2 x 325 mg) PO QID #0 tabs 02/12/25 05/29/25 docusate sodium 100 mg capsule 100 mg PO TID PRN PRN #0 caps 02/12/25 05/29/25 (Colace) oxycodone 5 mg tablet 5 mg PO Q6H PRN PRN #20 tabs 05/31/25 nabumetone 500 mg tablet 500 mg PO BID #60 tabs 06/01/25 polyethylene glycol 3350 17 gram 17 g PO DAILY PRN PRN Constipation 06/01/25 oral powder packet #1 ea sennosides 8.6 mg-docusate sodium 1 tab PO BID #60 tabs 06/01/25 50 mg tablet (Colace 2-In-1) cefpodoxime 200 mg tablet 200 mg PO BID #10 tabs 06/07/25 Previous Rx's ?Medication ?Instructions ?Recorded metoprolol tartrate 25 mg tablet 12.5 mg (1/2 x 25 mg) PO BID #60 07/29/22 tabs acetaminophen 325 mg tablet 650 mg (2 x 325 mg) PO QID #0 tabs 02/12/25 docusate sodium 100 mg capsule 100 mg PO TID PRN PRN #0 caps 02/12/25 (Colace) oxycodone 5 mg tablet 5 mg PO Q6H PRN PRN #20 tabs 05/31/25 nabumetone 500 mg tablet 500 mg PO BID #60 tabs 06/01/25 polyethylene glycol 3350 17 gram 17 g PO DAILY PRN PRN Constipation 06/01/25 oral powder packet #1 ea sennosides 8.6 mg-docusate sodium 1 tab PO BID #60 tabs 06/01/25 50 mg tablet (Colace 2-In-1) cefpodoxime 200 mg tablet 200 mg PO BID #10 tabs 06/07/25 Allergies Allergy/AdvReac Type Severity Reaction Status Date / Time celecoxib (From Celebrex) Allergy Severe Skin Rash Verified 05/29/25 21:26 Penicillins Allergy Intermediate Unknown Verified 05/29/25 21:26 tramadol AdvReac Severe Nausea Verified 05/29/25 21:26 meperidine HCl (From Demerol) AdvReac Intermediate Halluncinat Verified 05/29/25 21:26 ions topiramate (From Topamax) AdvReac Intermediate Nausea Verified 05/29/25 21:26 General EDDA: 3 Exam Narrative Exam Narrative: Const: WDWN elderly female appears anxious. VS per triage. HEENT: NC/AT. Normal facial exam. Neck: Supple. Trachea midline. Lungs: Hyperventilating. Lungs are clear. Cor: RRR without murmur. Good radial pulses. GI: Soft/ND/NT. Neuro: A+O x 3. Normal speech, mentation. Cranial nerves II - XII grossly intact. No gross motor or sensory deficit. Ext: No C/C/E. Medical Decision Making Patient presenting to ED with shortness of breath after waking up from a nap. Denies any type of pain. Appears anxious and is hyperventilating as well as shaking all over and complaining of being cold. No report of syncope. Denies having any type of chest pain or pressure. Feels weak all over. EKG shows no acute ischemic changes and is unchanged from previous per my read. Doubt this is ACS related. Consider PE, infection/sepsis, anxiety and hyperventilation, no evidence of arrhythmia on monitor. IV established. Fingerstick blood glucose is normal. Labs including troponin and D-dimer sent. Urinalysis ordered. Chest imaging per D-dimer result. Patient's white count and hemoglobin are normal. Her venous gas suggest hyperventilation with a pH of 7.48 and a pCO2 of 31. Her lactate is a little high at 2.6. Kidney function is normal. Electrolytes unremarkable. Liver function normal. Initial troponin normal. D-dimer markedly elevated 2623. CT of the chest ordered. Urinalysis does suggest infection with positive nitrites, 5-10 red cells, 10-20 white cells and packed bacteria. Patient feels much improved with no intervention and is no longer hyperventilating. 1 g IV ceftriaxone given. Second troponin negative. CTA pending. CTA shows no PE. Increase in size of effusion noted with some atelectasis. Small apical pneumothorax remains. Stable appearance of her rib fractures. Patient reporting that she feels much better and back to baseline. I do not feel that the small pneumothorax or effusion are affecting her breathing at all. Her saturations are normal. Suspect she had an anxiety attack with resulting hyperventilation causing the majority of her symptoms. Will treat the UTI and prescription for cefpodoxime sent to pharmacy. Patient has follow-up with primary care tomorrow which she is encouraged to keep. Discussed with son who was present at time of discharge. Return precautions provided. Medical Records Medical records reviewed: Yes I reviewed the patient's medical records. Medical records narrative: Admit after fall earlier this month Lab Data Lab results reviewed: Yes I reviewed the patient's lab results. Lab results narrative: see [facility] ECG Data Attestation: I personally reviewed and interpreted this ECG (s) as follows: Prior ECG tracings: available for review Interpretation: see EKG/MDM Quality:SDOH Health Related Social Needs: Health related social needs risk of homeless education PFS All Active Problems (Updated 06/07/25 @ 19:26 by Fabian Rebolledo MD) UTI (urinary tract infection) (Acute) Hyperventilation (Acute) Rib fractures (Acute) Multiple fractures of ribs of left side (Acute) Hypertension (Chronic) On deep vein thrombosis (DVT) prophylaxis (Acute) Compression fracture of T10 vertebra (Acute) Laceration of upper arm (Acute) Contusion of sternum (Acute) Fall (Acute) Closed fracture of left proximal humerus (Acute 04/24/24) Alzheimer's dementia without behavioral disturbance (Acute) Cognitive impairment (Acute) Paroxysmal SVT (supraventricular tachycardia) (Acute) Malnutrition (Acute) Anxiety (Chronic) Advanced care planning/counseling discussion (Acute) COVID-19 (Acute) Hematuria (Acute) Weakness generalized (Acute) Vertigo (Acute) Cough (Acute) Trochanteric bursitis of right hip (Acute 02/26/16) SI (sacroiliac) pain (Acute 09/08/17) Arthritis of right hip (Acute 02/26/16) Spondylosis of lumbar region without myelopathy or radiculopathy (Acute) 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 Several pansensitive E. coli urinary tract infections recently. Hypothyroidism (Chronic) History of hematuria (Chronic) a. Microscopic. 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 Remote history, patient denies having these in years. Vertigo (Acute) Medical History Anemia, iron deficiency Asymptomatic microscopic hematuria Atrophic vaginitis COVID Dermatitis of eyelid Eczema GERD (gastroesophageal reflux disease) Glaucoma Grief reaction Hernia, inguinal, left Hypothyroid Insomnia Low back pain Migraine Nosebleed Pain of left thumb Pain, joint, hip, right Palliative care encounter Rib pain on left side Seborrheic keratosis Vitamin B12 deficiency Weight loss Surgical History Abdominal hysterectomy Appendectomy Bilateral salpingectomy with oophorectomy Biopsy of breast History of arthroplasty of right hip Hx of cataract surgery Repair of inguinal hernia Tonsillectomy and adenoidectomy 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 early spring 2021 (cared for bedbound until his at home)
[2025-06-07 15:53] VITALS: BP 158/71; PULSE 72; RESP 22; TEMP 36; O2SAT 97
[2025-06-07 16:03] VITALS: BP 158/71; PULSE 74; O2SAT 97
[2025-06-07 16:20] VITALS: RESP 22
[2025-06-07 16:34] LABS: BE (Venous) -1 mmol/L (-2-3); HCO3 (Venous) 23 mmol/L (23-28); O2 Sat (Venous) 61 %; TCO2 (Venous) 21 mmol/L (24-29); pCO2 (Venous) 31 mmHg (41-51); pO2 (Venous) 31 mmHg
[2025-06-07 16:37] LABS: Abs Immature Grans 0.02 10^3/uL (0.0-0.06); HCT 36.5 % (36.0-46.0); HGB 12.5 g/dL (11.2-15.7); Immature Grans % 0.3 %; MCH 31.4 pg (27.0-33.0); MCHC 34.2 % (32.0-36.0); MCV 92 fL (80-95); MPV 10.2 fL (8.0-11.0); Platelet Count 284 10^3/uL (130-400); RBC 3.98 10^6/uL (3.93-5.22); RDW 12.6 % (11.7-14.6); RDW-SD 43.1 fL; WBC 6.99 10^3/uL (4.4-10.8)
[2025-06-07 16:58] LABS: COVID-19 PCR Negative (Negative); RSV PCR Negative (Negative)
[2025-06-07 16:58] LABS: ALT 20 U/L (14-59); AST 24 U/L (15-37); Albumin 4.3 g/dL (3.4-5.0); Alkaline Phosphatase 85 U/L (46-116); Anion Gap 12.7 mmol/L (3-11); BUN 14 mg/dL (7-18); Bilirubin, Total 0.5 mg/dL (0.2-1.0); CO2 23.3 mmol/L (21.0-32.0); Calcium 10.0 mg/dL (8.5-10.1); Chloride 99 mmol/L (98-107); Estimated GFR 63.43 (mL/min/1.73m2); Glucose 126 mg/dL (74-106); Lipase 36 U/L (<78); Magnesium 2.1 mg/dL (1.8-2.4); Potassium 4.0 mmol/L (3.5-5.1); Sodium 135 mmol/L (136-145); Total Protein 8.0 g/dL (6.4-8.2); Troponin I 9 ng/L (<or=51)
[2025-06-07 17:02] LABS: D-Dimer 2623 ng/mlFEU (<500)
--- NOTE | 2025-06-07 17:15 | DI.CT_ITS ---
Exam(s) CT CHEST PE CTA EXAM: CT CHEST PE CTA CLINICAL HISTORY: SOB, elevated d-dimer. TECHNIQUE: Imaging Protocol: Axial CT angiography was performed with multi- slice acquisition and multi-planar and/or 3D reconstructions. Lung Computer Aided Detection (CAD) was utilized. CONTRAST MATERIAL: Intravenous: Omnipaque 350 contrast volume:70 mL COMPARISON: CT CT CHEST WO from 01/30/[address] CHEST/ABD/PEL W from 02/08/[address] CHEST W from 05/29/2025 CR XR PORTABLE CHEST AP from 05/31/2025 FINDINGS: Tracheobronchial tree: Patent where visualized. No bronchiectasis. Pulmonary parenchyma: There is now a moderate size left pleural effusion and left lower lobe atelectasis. There is also mild atelectatic change in the right lung. No architectural distortion. Pulmonary Arteries: No evidence of filling defect to suggest pulmonary emboli. Mediastinum and Sheri: No dominant adenopathy or fluid collection. The esophagus is unremarkable. There is a moderate size hiatal hernia. Visualized thyroid gland: Unremarkable. Pleura: There is no right pleural effusion. There is a small left apical pneumothorax which has shown slight increase in size compared to the examination from 05/29/2025. Heart: There is cardiomegaly present. Mild coronary artery calcifications present. No pericardial effusion. Aorta: Thoracic aorta non-dilated. Atherosclerotic calcification is present. Upper abdomen: Unremarkable. Soft tissues: Unremarkable. Bones: Within normal limits for the patient's age.There again seen displaced fractures involving the lateral aspects of the left 5th, 6th and 7th ribs. IMPRESSION: 1. There is no evidence of a pulmonary embolism or thoracic aortic aneurysm. 2. Interval development of a moderate size left pleural effusion and subjacent atelectasis. 3. Slight interval increase in size of the small left apical pneumothorax. 4. Stable displaced fractures involving the lateral aspects of the left 5th, 6th and 7th ribs. RADIATION DOSE DELIVERED: 61.03mGy.cm Total DLP DATA REPOSITORY: All CT scans at this facility are submitted to the National Radiology Data Registry (NRDR) Dose Index Registry (DIR) with the [employer] (A[employer]). RADIATION OPTIMIZATION: All CT scans at this facility use at least one of these dose optimization techniques: automated exposure control; mA and/or kV adjustment per patient size (includes targeted exams where dose is matched to clinical indication); or iterative reconstruction.
[2025-06-07 17:34] VITALS: BP 154/67; PULSE 70; O2SAT 96
[2025-06-07] MEDS: Normal Saline - Diluent 50 ML VIAL IJ (17:49)
[2025-06-07] MEDS: Omnipaque 350 MG/ML 100 ML BTL IJ (17:50)
[2025-06-07] MEDS: Normal Saline Flush 10 ML SYR IVP (17:50)
[2025-06-07 17:52] LABS: Glucose Negative (Negative)
[2025-06-07 17:56] LABS: Troponin I 9 ng/L (<or=51)
[2025-06-07 18:01] LABS: C & S Indicated? Yes
[2025-06-07] MEDS: cefTRIAXone 1 GM/50 ML BAG IVPB (18:37)
--- NOTE | 2025-06-10 07:06 | NUR.NOTE ---
Access chart to determine antibiotic on discharge for urine culture. Given to day provider. Nursing Note:
== END 2025-06-07 19:49 | disposition home or self-care (01) ==
PROVIDERS: Emergency Provider Emergency Medicine; PCP Family Medicine
DX: N39.0 Urinary tract infection, site not specified (principal); R06.4 Hyperventilation; Z59.811 Housing instability, housed, with risk of homelessness
CPT/HCPCS: 36415; 36416; 71275; 80053; 82805; 82962; 83690; 87077; 87637; 93005; 96365; 99284; 81003; 81015; 83605; 83735; 84484; 85025; 85379; 87086; 87186; 93010; J0696; J3490